=== PATIENT | female | born 1940 | race Caucasian/White ===

== ENCOUNTER 2017-01-27 12:26 | Inpatient (IN) | payer MEDICARE ==
[~2017-01-27] VITALS: Ht 167.6 cm; Wt 68.0 kg
[2017-01-27] VITALS (13 sets, daily range): BP systolic 120–243; BP diastolic 57–129; PULSE 67–90; RESP 16–18; TEMP 97.8–98.8; O2SAT 96–100
[2017-01-27] MEDS ORDERED: NALOXONE HCL 0.4 MG/ML AMP ONE ×2 (12:30→12:31)
[2017-01-27] MEDS ORDERED: ETOMIDATE 40 MG/20 ML VIAL ONE (12:33)
[2017-01-27] MEDS ORDERED: SODIUM CHLOR 0.9% 1000 ML INJ 1,000 ML IV ONE (12:48)
[2017-01-27] MEDS ORDERED: NITROGLYCERIN 0.4 MG SL 25 TABS/BTL SL STA (12:48)
[2017-01-27] MEDS ORDERED: ASPIRIN 81 MG CHEW TAB PO STA (12:48)
[2017-01-27] MEDS ORDERED: MIDAZOLAM HCL 5 MG/ML VIAL (1 ML) ONE (12:51)
--- NOTE | 2017-01-27 12:58 | PD ---
HPI Chief Complaint: Altered Mental Status Time Seen by Provider: 12:42 Travel History International Travel<30 days: No Contact w/Intl Traveler<30days: No Traveled to known affect area: No History of Present Illness HPI 76-year-old female came to the emergency room brought in by EMS emergently for altered mental status. Patient was last found normal at 11 this morning by her . She has recently been diagnosed with vertigo. He found her in the bed unresponsive and incontinent. He called 911. When EMS arrived they noticed that she was moving her left upper extremity but not her right and both lower extremities. When fire first arrived they gave her Narcan IM without any response. Blood glucose was 140 as per EMS. Vital signs were relatively stable. When patient arrived here her blood glucose was 160 and blood pressure was 240s. She continued to be poorly responsive with a GCS of 10. No other history was obtained. Patient cannot give any meaningful history given her mental status. PFSH Past Medical History Narrative Medical List of her past medical, surgical, social and family history reviewed from the nursing note. ?: Not Social History Tobacco Use: No Allergies-Medications (Allergen,Severity, Reaction): Coded Allergies: No Allergy Information Available (Unverified , 01/27/17) Comments No known drug allergies. Narrative Medication Awaiting for the nurse to do a medical reconciliation. Review of Systems ROS Limitations: Altered Mental Status, Unresponsive Except as stated in HPI: all other systems reviewed are Neg Physical Exam Narrative GENERAL: Poorly responsive, moderate distress, incontinent of urine and stool SKIN: Focused skin assessment warm/dry. HEAD: Atraumatic. Normocephalic. EYES: Pupils equal and round. No scleral icterus. No injection or drainage. ENT: No nasal bleeding or discharge. Mucous membranes pink and moist. NECK: Trachea midline. No JVD. CARDIOVASCULAR: Regular rate and rhythm. No murmur appreciated. RESPIRATORY: No accessory muscle use. Clear to auscultation. Breath sounds equal bilaterally. GASTROINTESTINAL: Abdomen soft, non-tender, nondistended. Hepatic and splenic margins not palpable. MUSCULOSKELETAL: No obvious deformities. No clubbing. No cyanosis. No edema. NEUROLOGICAL: GCS of 10. Moving her left upper extremity. Right wanda-neglect. Diminished but equal motor strength of both lower extremities. Positive Babinski's PSYCHIATRIC: Unable to assess Data Data Last Documented VS Vital Signs Date Time Temp Pulse Resp B/P (MAP) Pulse Ox O2 Delivery O2 Flow Rate FiO2 01/27/17 13:00 100 100 01/27/17 12:41 16 Ventilator 01/27/17 12:35 90 243/129 (167) Orders Orders Naloxone Inj (Narcan Inj) (01/27/17 12:30) Naloxone Inj (Narcan Inj) (01/27/17 12:31) Etomidate Inj (Amidate Inj) (01/27/17 12:33) Nicardipine Inj (Cardene Inj) (01/27/17 13:00) Labetalol Inj (Trandate Inj) (01/27/17 13:00) Troponin I (01/27/17 12:48) Ckmb (Isoenzyme) Profile (01/27/17 12:48) Complete Blood Count With Diff (01/27/17 12:48) I-Stat Profile (01/27/17 12:48) I-Stat Creatinine (01/27/17 12:48) Calcium (01/27/17 12:48) Magnesium (Mg) (01/27/17 12:48) Prothrombin Time / Inr (Pt) (01/27/17 12:48) Act Partial Throm Time (Ptt) (01/27/17 12:48) B-Type Natriuretic Peptide (01/27/17 12:48) Sodium Chlor 0.9% 1000 Ml Inj (Ns 1000 M (01/27/17 12:48) Sodium Chloride 0.9% Flush (Ns Flush) (01/27/17 13:00) Aspirin Chew (Aspirin Chew) (01/27/17 12:48) Nitroglycerin Sl (Nitrostat Sl) (01/27/17 12:48) Nitroglycerin-D5w 50 Mg/250 Ml (Nitrogly (01/27/17 13:00) Ct Brain W/O Iv Contrast(Rout) (01/27/17 ) Midazolam Inj (Versed Inj) (01/27/17 12:51) Succinylcholine Inj (Quelicin Inj) (01/27/17 13:00) Etomidate Inj (Amidate Inj) (01/27/17 13:00) Consult Neurosurgery (01/27/17 ) Electrocardiogram (01/27/17 13:02) Comprehensive Metabolic Panel (01/27/17 13:02) Creatine Kinase (Cpk) (01/27/17 13:02) Drug Screen, Random Urine (01/27/17 13:02) Troponin I (01/27/17 13:02) Urinalysis - C+S If Indicated (01/27/17 13:02) Chest, Single Ap (01/27/17 13:02) Ecg Monitoring (01/27/17 13:02) Iv Access Insert/Monitor (01/27/17 13:02) Oximetry (01/27/17 13:02) Sodium Chloride 0.9% Flush (Ns Flush) (01/27/17 13:15) Propofol 1000 Mg/100 Ml Inj (Diprivan 10 (01/27/17 13:15) ^ Infusion (01/27/17 13:04) RASS (01/27/17 13:04) Neurological Rass Scale NAVEEN.Q2H (01/27/17 13:04) Propofol 500 Mg/50 Ml Inj (Diprivan 500 (01/27/17 13:05) Mannitol Inj (Osmitrol Inj) (01/27/17 13:15) Urinary Catheter Insert/Apply (01/27/17 13:13) ^ Orogastric Tube (01/27/17 13:13) CKMB (01/27/17 12:40) CKMB% (01/27/17 12:40) Magnesium (Mg) (01/27/17 13:02) Hemoglobin (Hgb) A1c (01/27/17 13:02) Thyroid Stimulating Hormone (01/27/17 13:02) Labs Laboratory Tests Test 01/27/17 12:40 White Blood Count 21.2 TH/MM3 Red Blood Count 3.96 MIL/MM3 Hemoglobin 12.5 GM/DL Bedside Hemoglobin 12.9 G/DL Hematocrit 37.2 % Bedside Hematocrit 38.0 % Mean Corpuscular Volume 93.9 FL Mean Corpuscular Hemoglobin 31.5 PG Mean Corpuscular Hemoglobin Concent 33.6 % Red Cell Distribution Width 13.7 % Platelet Count 234 TH/MM3 Mean Platelet Volume 9.1 FL Neutrophils (%) (Auto) 82.0 % Lymphocytes (%) (Auto) 13.6 % Monocytes (%) (Auto) 3.9 % Eosinophils (%) (Auto) 0.3 % Basophils (%) (Auto) 0.2 % Neutrophils # (Auto) 17.4 TH/MM3 Lymphocytes # (Auto) 2.9 TH/MM3 Monocytes # (Auto) 0.8 TH/MM3 Eosinophils # (Auto) 0.1 TH/MM3 Basophils # (Auto) 0.0 TH/MM3 CBC Comment DIFF FINAL Differential Comment Prothrombin Time 9.7 SEC Prothromb Time International Ratio 1.0 RATIO Activated Partial Thromboplast Time 21.9 SEC Bedside Sodium 137 MMOL/L Bedside Potassium 4.5 MMOL/L Bedside Chloride 102 MMOL/L Bedside Blood Urea Nitrogen 13 MG/DL Bedside Creatinine 0.8 MG/DL Bedside Glucose 160 MG/DL Calcium Level 8.9 MG/DL Magnesium Level 2.0 MG/DL Total Creatine Kinase 158 U/L Creatine Kinase MB 0.8 NG/ML Troponin I LESS THAN 0.02 NG/ML B-Type Natriuretic Peptide 34 PG/ML MDM Medical Decision Making Medical Screen Exam Complete: Yes Emergency Medical Condition: Yes Medical Record Reviewed: Yes Interpretation(s) Twelve-lead EKG was reviewed by me. Normal sinus rhythm, normal axis, nonspecific ST-T wave changes. Heart rate of 69 bpm. Differential Diagnosis Intracranial bleed, CVA Narrative Course 1:28 PM patient was intubated emergently by me. Please refer to my procedure note. I had called initially for a stroke alert given her right upper extremity deficit. However once the CT scan was done and it was pretty evident that the reason of her presentation was from the bleed. I discussed this with Dr. Ch and he was notified. Please refer to my procedure note. Patient was given IV labetalol for her hypertensive emergency. I assisted the patient to the CT scanner while she was intubated. The CT scan showed a large and and her ventricular bleed. Patient was emergently started on Cardene drip and I spoke with Dr. Bowden who is on-call for neurosurgery. He wanted the blood pressure to be lowered as much as possible and patient to the ICU. I just discussed the case with Dr. Rivera from ICU who has requested to have the patient upstairs so that a ventriculostomy could be put in. Dr. Bowden is ready for ventriculostomy once the patient is in the ICU. I have let the charge nurse know so her transition to ICU can be facilitated. Last blood pressure was 120/80. Patient is on sedation as well. I discussed the CT scan findings with the radiologist Dr. Barker and Dr. Loco. Critical Care Narrative Aggregate critical care time was 60 minutes. Time to perform other separately billable procedures was not included in the critical care time. My time did not include minutes spent treating any other patients simultaneously or on activities that did not directly contribute to the patient's treatment. The services I provided to this patient were to treat and/or prevent clinically significant deterioration that could result in: Respiratory failure, intracranial bleed, hypertensive emergency I provided critical care services requiring my management, as noted below: Chart data review, documentation time, medication orders and management, vital sign assessments/reviewing monitor data, ordering and reviewing lab tests, ordering and interpreting/reviewing x-rays and diagnostic studies, care of the patient and discussion of the patient with the admitting physicians. Procedures Procedure Narrative After the risks and benefits were discussed the following procedure was performed: INTUBATION: The patient was put in optimal position for the procedure. Rapid sequence intubation was initiated by me using 20 milligrams of etomidate IV and 100 milligrams of succinylcholine IV. The patient was intubated with a 7.5 cuffed endotracheal tube. Tube placement was confirmed by visualization of the tube and balloon passing through the cords, capnometry and subsequent chest x-ray. Breath sounds were equal and well aerated bilaterally postintubation. No breath sounds over stomach. Patient tolerated procedure well. EKG Prior to Arrival: No Physician Communication Physician Communication Dr. Bowden, Dr. Barker, Dr. Ch, Dr. Rivera Diagnosis Primary Impression: Altered mental status Qualified Codes: R40.1 - Stupor Additional Impressions: Intracranial bleed Hypertensive emergency Respiratory failure Qualified Codes: J96.00 - Acute respiratory failure, unspecified whether with hypoxia or hypercapnia Admitting Information Admitting Physician Requests: Gloria Knox MD Jan 27, 2017 12:58
[2017-01-27] MEDS ORDERED: SUCCINYLCHOLINE CHLORIDE 100 MG/5 ML SYRINGE IV PUSH ONE (13:00)
[2017-01-27] MEDS ORDERED: LABETALOL HCL 100 MG/20 ML VIAL IV PUSH ONE (13:00)
[2017-01-27] MEDS ORDERED: SODIUM CHLORIDE 0.9% FLUSH 10 ML FLUSH IVF PRN ×2 (13:00→13:15)
[2017-01-27] MEDS ORDERED: NITROGLYCERIN-D5W 50 MG/250 ML 250 ML IV PRN (13:00)
[2017-01-27] MEDS ORDERED: ETOMIDATE 20 MG/10 ML VIAL IV PUSH ONE (13:00)
[2017-01-27 13:01] LABS: AUTOMATED NEUTROPHIL # 17.4 TH/MM3 (1.8-7.7); BASOPHIL % 0.2 % (0.0-2.0); EOSINOPHIL # 0.1 TH/MM3 (0-0.4); EOSINOPHIL % 0.3 % (0.0-4.0); HEMATOCRIT 37.2 % (35.0-46.0); HEMOGLOBIN 12.5 GM/DL (11.6-15.3); LYMPH % 13.6 % (9.0-44.0); LYMPHOCYTE # 2.9 TH/MM3 (1.0-4.8); MEAN CELL VOLUME 93.9 FL (80.0-100.0); MEAN CORPUSCULAR HEMOGLOBIN 31.5 PG (27.0-34.0); MEAN CORPUSCULAR HGB CONC 33.6 % (32.0-36.0); MEAN PLATELET VOLUME 9.1 FL (7.0-11.0); MONO % 3.9 % (0.0-8.0); MONOCYTE # 0.8 TH/MM3 (0-0.9); PLATELET COUNT 234 TH/MM3 (150-450); RED BLOOD COUNT 3.96 MIL/MM3 (4.00-5.30); RED CELL DISTRIBUTION WIDTH 13.7 % (11.6-17.2); WHITE BLOOD COUNT 21.2 TH/MM3 (4.0-11.0)
[2017-01-27] MEDS ORDERED: PROPOFOL 500 MG/50 ML INJ 50 ML ONE (13:05)
--- NOTE | 2017-01-27 13:05 | PD.CONS ---
HPI Service neurosurgery Consult Requested By Dr Rivera Reason for Consult intracerebral hemorrhage Primary Care Physician Unknown History of Present Illness This is a 76-year-old female who was brought to the [facility] emergency department by EMS as a stroke alert. She was recently diagnosed with vertigo. She was found unresponsive in the bed and EMS was called. EMS gave her Narcan without any response, Her vital signs were apparently stable. In the ED patient remained poorly responsive and was intubated for airway protection. Her blood pressure on arrival was 243/129 and patient was started on Cardene infusion. CT of the head showed extensive acute intraventricular hemorrhage involving the left lateral ventricle, right lateral ventricle and third ventricle. There was also acute parenchymal hemorrhage within the left parietal region as well as within the left occipital region ( 4.1 cm in size). Acute subdural hematoma along the left frontoparietal region measuring 5 mm in width is noted. There was also significant Significant subfalcine herniation to the right Neurosurgery consultation was requested Review of Systems Unable to obtain due to her condition Past Family Social History Allergies: Coded Allergies: No Allergy Information Available (Unverified , 01/27/17) Past Medical History Unknown and unable to obtain due to her condition Past Surgical History Unknown and unable to obtain due to her condition Reported Medications Unknown and unable to obtain due to her condition Active Ordered Medications Last 48 hours Impressions Chest X-Ray 01/27/17 1302 Signed Impressions: Service Date/Time: Friday, January 27, 2017 13:12 - CONCLUSION: Left basilar density likely atelectasis. Nasogastric tube 1.5 cm above the peng. Isai Sullivan MD Head CT 01/27/17 0000 Signed Impressions: Service Date/Time: Friday, January 27, 2017 12:50 - CONCLUSION: Extensive acute intraventricular hemorrhage involving the left lateral ventricle but also within the right lateral ventricle and third ventricle. There is a large acute parenchymal hemorrhage within the left posterior parietal and high parietal region as well as within the left occipital region. The largest area measures approximately 4.1 cm in size. An acute subdural hematoma along the left frontoparietal region measuring 5 mm in width is noted. Significant subfalcine herniation to the right measuring 10 mm is noted. The findings were discussed with Dr. Christine at 1:13 PM on 01/27/17. Ko Alexander MD Chest X-Ray 01/27/17 0000 Signed Impressions: Service Date/Time: Friday, January 27, 2017 15:18 - CONCLUSION: Left basilar atelectasis. Adequate placement of left subclavian central line. Isai Sullivan MD Family History Unknown and unable to obtain due to her condition Social History Unknown and unable to obtain due to her condition Physical Exam Vital Signs Vital Signs Date Time Temp Pulse Resp B/P (MAP) Pulse Ox O2 Delivery O2 Flow Rate FiO2 01/27/17 12:35 90 18 243/129 (167) 96 Physical Exam The patient is intubated . No commands. Spontaneously moving lower extremities and left upper extremity Cranial Nerves: Pupils equal, round, reactive to light. Eyes appear conjugated. There was no nystagmus, no papilledema. Face musculature appeared symmetrical at rest. Face sensation, olfaction, visual browne, and hearing cannot be adequately assessed due to her neurological condition. The patient has a corneal reflex. He has a gag reflex. The sternocleidomastoid and trapezius are symmetrical. Cervical Spine: neck is soft, supple, without nuchal rigidity. Motor: muscle tone and bulk are normal. moves purposefully lower extremities and left upper extremity Reflexes: Deep tendon reflexes are 1+ and symmetrical in the biceps, triceps, and brachioradialis, bilaterally, in the upper extremities. In the lower extremities, the patellar and ankles are 1+, bilaterally. There is a bilateral plantar flexion response. There is no clonus or other abnormal reflexes noted. Sensory: On examination there is response to painful stimuli, localizing with lower extremities and left upper extremity Cerebellar: Examination cannot be adequately assessed due to the patient's neurological condition. Laboratory Laboratory Tests Test 01/27/17 12:40 Bedside Hemoglobin 12.9 Bedside Hematocrit 38.0 Bedside Sodium 137 Bedside Potassium 4.5 Bedside Chloride 102 Bedside Blood Urea Nitrogen 13 Bedside Creatinine 0.8 Bedside Glucose 160 Imaging Current Medications Naloxone HCl (Narcan Inj) 0.4 mg STK-MED ONCE .ROUTE Last administered on 01/27t 14:23; Start 01/27/17 at 12:30; Stop 01/27/17 at 12:31; Status DC Naloxone HCl (Narcan Inj) 0.4 mg STK-MED ONCE .ROUTE Last administered on 01/27 14:23; Start 01/27/17 at 12:31; Stop 01/27/17 at 12:32; Status DC Etomidate (Amidate Inj) 40 mg STK-MED ONCE .ROUTE Last administered on 14:24; Start 01/27/17 at 12:33; Stop 01/27/17 at 12:34; Status DC Nicardipine HCl 25 mg/Sodium Chloride 250 ml @ 50 mls/hr TITRATE PRN IV Blood pressure management Last administered on 01/27/17 14:29; Start 01/27/17 at 13 :00 Labetalol HCl (Trandate Inj) 20 mg ONCE ONCE IV PUSH Last administered on 14:27; Start 01/27/17 at 13:00; Stop 01/27/17 at 13:01; Status DC Sodium Chloride 1,000 ml @ 0 mls/hr Q0M ONCE IV ; Start 01/27/17 at 12:48; Stop 01/27/17 at 13:02; Status DC Sodium Chloride (NS Flush) 2 ml UNSCH PRN IVF FLUSH AFTER USING IV ACCESS; Start 01/27/17 at 13:00; Stop 01/27/17 at 13:02; Status DC Aspirin (Aspirin Chew) 324 mg NOW STAT PO ; Start 01/27/17 at 12:48; Stop 01/03 at 13:02; Status DC Nitroglycerin (Nitrostat Sl) 0.4 mg NOW STAT SL ; Start 01/27/17 at 12:48; Stop 01/27/17 at 13:02; Status DC Nitroglycerin/ Dextrose 250 ml @ 3 mls/hr TITRATE PRN IV for angina or ST elevation; Start 01/27/17 at 13:00; Stop 01/27/17 at 13:00; Status DC Midazolam HCl (Versed Inj) 5 mg STK-MED ONCE .ROUTE Last administered on 14:22; Start 01/27/17 at 12:51; Stop 01/27/17 at 12:52; Status DC Succinylcholine Chloride (Quelicin Inj) 100 mg ONCE ONCE IV PUSH Last administered on 01/27/17 14:26; Start 01/27/17 at 13:00; Stop 01/27/17 at 13 :01; Status DC Etomidate (Amidate Inj) 20 mg ONCE ONCE IV PUSH ; Start 01/27/17 at 13:00; Stop 01/27/17 at 13:01; Status DC Sodium Chloride (NS Flush) 2 ml UNSCH PRN IVF FLUSH AFTER USING IV ACCESS; Start 01/27/17 at 13:15; Stop 01/27/17 at 17:11; Status DC Propofol 100 ml @ 0 mls/hr TITRATE PRN IV Ordered RASS Last administered on 14:41; Start 01/27/17 at 13:15; Stop 01/27/17 at 15:08; Status DC Propofol 50 ml @ As Directed STK-MED ONCE .ROUTE ; Start 01/27/17 at 13:05; Stop 01/27/17 at 13:06; Status DC Mannitol 250 ml @ 250 mls/hr ONCE ONCE IV Last administered on 01/27/17 14: 28; Start 01/27/17 at 13:15; Stop 01/27/17 at 14:15; Status DC Sodium Chloride 1,000 ml @ 75 mls/hr [id number] IV ; Start 01/27/17 at 13:29 Sodium Chloride (NS Flush) 2 ml UNSCH PRN IV FLUSH FLUSH AFTER USING IV ACCESS ; Start 01/27/17 at 13:30 Sodium Chloride (NS Flush) 2 ml BID IV FLUSH ; Start 01/27/17 at 21:00 Fentanyl Citrate (fentaNYL INJ) 50 mcg Q1H PRN IV PUSH SEE LABEL COMMENTS; Start 01/27/17 at 13:30 Albuterol/ Ipratropium (Duoneb Neb) 1 ampule Q6HR NEB NEB Last administered on 01/27/17 15:53; Start 01/27/17 at 16:00 Albuterol Sulfate (Albuterol Neb) 2.5 mg Q4HR NEB PRN INH SHORTNESS OF BREATH; Start 01/27/17 at 13:30 Chlorhexidine Gluconate (Peridex 0.12% Liq) 15 ml BID@08,20 MT ; Start at 20:00 Pantoprazole Sodium (Protonix Inj) 40 mg DAILY IV PUSH ; Start 01/28/17 at 09: 00 Miscellaneous Information 1 Q361D XX ; Start 01/27/17 at 13:30 Chlorhexidine Gluconate (Chlorhexidine 2% Cloth) 3 pack Taper DAILY@04 TOP ; Start 01/28/17 at 04:00; Stop 01/24/18 at 03:59 Chlorhexidine Gluconate (Chlorhexidine 2% Cloth) 3 pack UNSCH PRN TOP HYGIENIC CARE; Start 01/27/17 at 13:30 Propofol 100 ml @ 0 mls/hr TITRATE PRN IV SEDATION; Start 01/27/17 at 13:30; Stop 01/27/17 at 15:07; Status DC Propofol 100 ml @ 1.995 mls/ hr TITRATE PRN IV SEDATION; Start 01/27/17 at 15 :15 Sodium Chloride 250 ml @ 30 mls/hr CONTINUOUS IV ; Start 01/27/17 at 16:45 Levetriacetam 500 mg/Sodium Chloride 105 ml @ 420 mls/hr Q12HR IV ; Start 01/03 at 21:00 Attending Statement Neuro. neuro checks in a serial fashion. A follow-up CT of the head will be obtained in 24 hours. Intraventricular hemorrhage. She is developing obstructive hydrocephalus. Urgent placement of a ventriculostomy catheter is indicated for ICP measuring and drainage of cerebrospinal fluid Pulmonary. Acute respiratory failure. She is in full mechanical ventilation, aggressive pulmonary toilette, nasotracheal suction, and breathing treatments with nebulizers. PT consult Arterial hypertension. Likely source of hemorrhage. Cardene drip for blood pressure control Diet. NPO. Renal. monitor closely urine output, BUN and creatinine0.9 NaCl at 100 mL per hour. Follow-up BMP Protonix 40 mg IV daily for stress ulcer prophylaxis. Charlie ta and SCD's for DVT prophylaxis. Avoid pharmacologic DVT prophylaxis due to cerebral hematoma. ACCESS: Peripheral IV providing adequate access at this time. Jack Bowden MD Jan 27, 2017 13:05
[2017-01-27 13:11] LABS: PROTHROMBIN TIME - PATIENT 9.7 SEC (9.8-11.6)
[2017-01-27] MEDS ORDERED: MANNITOL INJ 250 ML IV ONE (13:15)
[2017-01-27] MEDS ORDERED: PROPOFOL 1000 MG/100 ML INJ 100 ML IV PRN ×2 (13:15→13:30)
--- NOTE | 2017-01-27 13:16 | RADRPT ---
EXAM DATE/TIME: 01/27/2017 12:50 [facility] COMPARISON: No previous studies available for comparison. INDICATIONS : Found unresponsive, left sided weakness. RADIATION DOSE: 33.07 CTDIvol (mGy) This report was called by Dr. Alexander to Dr. Christine at 1: 13 PM on 01/27/17. MEDICAL HISTORY : Non-responsive. SURGICAL HISTORY : Non-responsive. ENCOUNTER: Initial ACUITY: 1 day PAIN SCALE: Non-responsive LOCATION: cranial TECHNIQUE: Multiple contiguous axial images were obtained of the head. Using automated exposure control and adj ustment of the mA and/or kV according to patient size, radiation dose was kept as low as reasonably a chievable to obtain optimal diagnostic quality images. DICOM format image data is available electro nically for review and comparison. FINDINGS: There is evidence of extensive acute intraventricular hemorrhage involving the left lateral ventricle but also within the right lateral ventricle and third ventricle. There is a large acute parenchymal hemorrhage within the left posterior parietal and high parietal region as well as within the left occ ipital region. The largest area measures approximately 4.1 cm in size. An acute subdural hematoma kimberly ng the left frontoparietal region measuring 5 mm in width is noted. Significant subfalcine herniation to the right measuring 10 mm is noted. The findings were discussed with Dr. Christine at 1:13 PM on . CONCLUSION: Extensive acute intraventricular hemorrhage involving the left lateral ventricle but also within the right lateral ventricle and third ventricle. There is a large acute parenchymal hemor rhage within the left posterior parietal and high parietal region as well as within the left occipita l region. The largest area measures approximately 4.1 cm in size. An acute subdural hematoma along th e left frontoparietal region measuring 5 mm in width is noted. Significant subfalcine herniation to t he right measuring 10 mm is noted. The findings were discussed with Dr. Christine at 1:13 PM on 7. Ko Alexander MD on January 27, 2017 at 13:06 Board Certified Radiologist. This report was verified electronically.
--- NOTE | 2017-01-27 13:24 | RADRPT ---
EXAM DATE/TIME: 01/27/2017 13:12 [facility] COMPARISON: No previous studies available for comparison. INDICATIONS : Post intubation procedure. MEDICAL HISTORY : Non-responsive. SURGICAL HISTORY : Non-responsive. ENCOUNTER: Initial ACUITY: 1 day PAIN SCORE: Non-responsive. LOCATION: Bilateral chest FINDINGS: A single view of the chest demonstrates minimal left basilar density. Endotracheal tube with tip 1.5 cm above the peng. Nasogastric tube with tip in stomach. The cardiomediastinal contours are unrema rkable. Osseous structures are intact. CONCLUSION: Left basilar density likely atelectasis. Nasogastric tube 1.5 cm above the peng. Isai Sullivan MD on January 27, 2017 at 13:21 Board Certified Radiologist. This report was verified electronically.
[2017-01-27 13:29] LABS: CALCIUM 8.9 MG/DL (8.5-10.1); TROPONIN I LESS THAN 0.02 NG/ML (0.02-0.05)
[2017-01-27] MEDS ORDERED: RESP: ALBUTEROL 2.5 MG/3 ML NEB (PRN) INH (13:30)
[2017-01-27] MEDS ORDERED: SODIUM CHLORIDE 0.9% FLUSH 10 ML FLUSH IV FLUSH PRN (13:30)
[2017-01-27] MEDS ORDERED: MISCELLANEOUS NURSING INFORMATION XX SCH (13:30)
[2017-01-27] MEDS ORDERED: CHLORHEXIDINE GLUCONATE 2 % 1 PACK (2 CLOTHS) TOP PRN (13:30)
[2017-01-27 14:02] LABS: BILIRUBIN, URINE NEG (NEG); BLOOD, URINE NEG (NEG); GLUCOSE,URINE 70 mg/dL (NEG); HYALINE CAST, URINE 1 /lpf (RARE); KETONE, URINE NEG (NEG); MUCUS URINE FEW /lpf (OCC); NITRITE,URINE NEG (NEG); URINE COLOR LIGHT-YELLOW (YELLW/STRAW); URINE LEUKOCYTE ESTERASE NEG (NEG)
[2017-01-27] MEDS: niCARdipine INJ 25 MG in SODIUM CHLOR 0.9% 250 ML INJ 240 ML IV PRN (14:29)
--- NOTE | 2017-01-27 15:30 | PD.OP ---
Operative Report Date of Surgery: Jan 27, 2017 Preoperative Diagnosis: Intracerebral and intraventricular hemorrhage Postoperative Diagnosis: Intracerebral and intraventricular hemorrhage Procedure: Right frontal Alanna hole with placement of a ventriculostomy catheter Anesthesia: general Surgeon: Jack Bowden Home Health Specialist(s): CHANTALE Operation and Findings: INDICATIONS FOR THE PROCEDURE Ms Tinajero is an 76 year old adult female who was brought to [facility] as a stroke alert with a severe intracerebral and intraventricular hemorrhage with mass effect and midline shift. Placement of ventriculostomy was indicated as recommended by the Trauma [employer] of [employer]. We have discussed with her the details including the step-by- step details of the surgical procedure, its indications, alternatives, risks, and potential complications. Risks and potential complications were explained. He provided informed consent DETAILS OF THE SURGICAL PROCEDURE The right frontal area was shaved, prepped and draped in the usual sterile fashion. An entry point was selected 90 millimeters posterior to the supraorbital rim and 25 millimeters from the midline. The area was infiltrated with 1% lidocaine with epinephrine. A skin incision was made with a #15 blade down to the level of the periosteum. Using a twist drill, a alanna hole was made. The dura was carefully opened with a brain needle and a ventriculostomy catheter was advanced into the ventricular system. At a depth of 60 millimeters, cerebrospinal fluid was obtained. Opening pressure was 2 centimeters of water. A specimen of cerebrospinal fluid was collected and sent to the lab for analysis of the glucose, protein, cell count and cultures. The catheter was then tunneled under the galea and externalized through a separate stab incision. The incision was closed with 3-0 nylon in a single plane. The patient tolerated the procedure well. COMPLICATIONS There were no intraoperative complications. BLOOD LOSS Blood loss was minimal. Jack Bowden MD Jan 27, 2017 15:30
--- NOTE | 2017-01-27 15:46 | RADRPT ---
EXAM DATE/TIME: 01/27/2017 15:18 [facility] COMPARISON: CHEST SINGLE AP, January 27, 2017, 13:12. INDICATIONS : Evaluate central line placement MEDICAL HISTORY : None. SURGICAL HISTORY : None. ENCOUNTER: Subsequent ACUITY: 1 day PAIN SCORE: Non-responsive. LOCATION: chest FINDINGS: A single view of the chest demonstrates minimal left basilar density. Endotracheal tube nasogastric t ube unchanged. Left subclavian central line with tip in the SVC. No pneumothorax. The cardiomediastin al contours are unremarkable. Osseous structures are intact. CONCLUSION: Left basilar atelectasis. Adequate placement of left subclavian central line. Isai Sullivan MD on January 27, 2017 at 15:44 Board Certified Radiologist. This report was verified electronically.
[2017-01-27] MEDS: RESP: ALBUTEROL 2.5 MG/IPRATROPIUM 0.5 MG NEB (SCH) NEB ×2 (15:53→20:09)
--- NOTE | 2017-01-27 16:44 | HHI.HP ---
[facility] Service Critical Care Medicine Primary Care Physician Unknown Admission Diagnosis intracranial bleed, hypertensive emergency, subfalcine herniation Diagnosis: (1) Intracerebral hemorrhage with intraventricular extension Diagnosis: Principal (2) Acute respiratory failure Diagnosis: Principal (3) Acute encephalopathy Diagnosis: Principal (4) Hypertensive emergency Diagnosis: Principal (5) Leukocytosis Diagnosis: Principal Chief Complaint: Acute left parietal intraparenchymal hemorrhage and bilateral intraventricular hemorrhage Travel History International Travel<30 Days: No Contact w/Intl Traveler <30 Da: No Traveled to Known Affected Are: No History of Present Illness Patient is a 76-year-old female who was brought to the [facility] emergency department by EMS as a stroke alert. Last found normal at 11 this morning, later found unresponsive in the bed by her and EMS was called. EMS gave her Narcan IM without any response, blood glucose was 140, vital signs were apparently stable. In the ED patient remained poorly responsive and was intubated for airway protection. Her blood pressure on arrival was 243/129 and patient was started on Cardene infusion. CT of the head showed extensive acute intraventricular hemorrhage involving the left lateral ventricle, right lateral ventricle and third ventricle, acute intraparenchymal hemorrhage within the left parietal and left occipital region ( 4.1 cm in size). Acute subdural hematoma along the left frontoparietal region measuring 5 mm in width. There was also significant Significant (10 mm) subfalcine herniation to the right. Dr. Bowden was contacted by the ED Critical care medicine was requested to admit the patient. Patient was emergently moved to the ICU for EVD placement. I evaluated the patient immediately after arrival to the ICU. Patient purposefully moves left upper extremity and withdraws all other extremities. at the bedside was updated. I explained to the that she has very extensive intracranial hemorrhage and prognosis appears poor. Dr. Bowden is planning to place an EVD emergently. I discussed with Dr. Bowden extensively, patient is not a candidate for evacuation of intracerebral hemorrhage due to overall poor prognosis. I have placed a central line for administration of vasopressor agents and 3% saline. Patient remains on Cardene infusion and at this time receiving mannitol. I have also ordered Keppra for seizure prophylaxis Review of Systems ROS Limitations: Intubated, Unresponsive Past Family Social History Allergies: Coded Allergies: No Allergy Information Available (Unverified , 01/27/17) Past Medical History Hypothyroidism Vertigo Past Surgical History Hysterectomy Reported Medications Takes thyroid supplements, dose unknown Active Ordered Medications Reviewed Family History Father had lung cancer, sister had breast cancer Social History Quit smoking 30 years ago, occasional alcohol use Physical Exam Vital Signs Vital Signs Date Time Temp Pulse Resp B/P (MAP) Pulse Ox O2 Delivery O2 Flow Rate FiO2 01/27/17 15:57 100 50 01/27/17 14:32 100 100 01/27/17 14:29 76 207/98 01/27/17 13:45 100 100 01/27/17 13:45 97.8 71 16 131/66 (87) 100 Ventilator 100 01/27/17 13:30 67 16 120/80 (93) 100 Ventilator 100 01/27/17 13:00 100 100 01/27/17 12:45 100 100 01/27/17 12:41 16 100 Ventilator 100 01/27/17 12:41 100 01/27/17 12:35 90 18 243/129 (167) 96 Physical Exam GENERAL: Intubated patient not on any sedation. Spontaneously moving lower extremities and left upper extremity SKIN: Warm/dry. HEAD: Atraumatic. Normocephalic. EYES: Pupils equal and round sluggish ENT: No nasal bleeding or discharge. Mucous membranes moist. Orotracheally intubated NECK: Trachea midline. No JVD. CARDIOVASCULAR: Regular rate and rhythm. No murmur appreciated. RESPIRATORY: No accessory muscle use. Clear to auscultation. Breath sounds equal bilaterally. GASTROINTESTINAL: Abdomen soft, non-tender, nondistended. Hepatic and splenic margins not palpable. MUSCULOSKELETAL: No obvious deformities. No clubbing. No cyanosis. No edema. NEUROLOGICAL: Intubated not on sedation. Moving her left upper extremity spontaneously and localizes to pain. Withdraws all other extremities. SERGEY Laboratory Laboratory Tests Test 01/27/17 12:40 01/27/17 13:30 01/27/17 14:35 White Blood Count 21.2 Red Blood Count 3.96 Hemoglobin 12.5 Bedside Hemoglobin 12.9 Hematocrit 37.2 Bedside Hematocrit 38.0 Mean Corpuscular Volume 93.9 Mean Corpuscular Hemoglobin 31.5 Mean Corpuscular Hemoglobin Concent 33.6 Red Cell Distribution Width 13.7 Platelet Count 234 Mean Platelet Volume 9.1 Neutrophils (%) (Auto) 82.0 Lymphocytes (%) (Auto) 13.6 Monocytes (%) (Auto) 3.9 Eosinophils (%) (Auto) 0.3 Basophils (%) (Auto) 0.2 Neutrophils # (Auto) 17.4 Lymphocytes # (Auto) 2.9 Monocytes # (Auto) 0.8 Eosinophils # (Auto) 0.1 Basophils # (Auto) 0.0 CBC Comment DIFF FINAL Differential Comment Prothrombin Time 9.7 Prothromb Time International Ratio 1.0 Activated Partial Thromboplast Time 21.9 Bedside Sodium 137 Bedside Potassium 4.5 Bedside Chloride 102 Bedside Blood Urea Nitrogen 13 Bedside Creatinine 0.8 Bedside Glucose 160 Calcium Level 8.9 Magnesium Level 2.0 Total Creatine Kinase 158 Creatine Kinase MB 0.8 Troponin I LESS THAN 0.02 B-Type Natriuretic Peptide 34 Urine Color LIGHT-YELLOW Urine Turbidity CLEAR Urine pH 8.0 Urine Specific [place] 1.010 Urine Protein TRACE Urine Glucose (UA) 70 Urine Ketones NEG Urine Occult Blood NEG Urine Nitrite NEG Urine Bilirubin NEG Urine Urobilinogen LESS THAN 2.0 Urine Leukocyte Esterase NEG Urine RBC 2 Urine WBC 1 Urine Hyaline Casts 1 Urine Mucus FEW Microscopic Urinalysis Comment CATH-CULT NOT IND Urine Opiates Screen NEG Urine Barbiturates Screen NEG Urine Amphetamines Screen NEG Urine Benzodiazepines Screen NEG Urine Cocaine Screen NEG Urine Cannabinoids Screen NEG Blood Gas Puncture Site RT RADIAL Blood Gas Patient Temperature 98.6 Blood Gas HCO3 22 Blood Gas Base Excess -2.7 Blood Gas Oxygen Saturation 98 Arterial Blood pH 7.38 Arterial Blood Partial Pressure CO2 37 Arterial Blood Partial Pressure O2 274 Arterial Blood Oxygen Content 17.2 Arterial Blood Carboxyhemoglobin 0.9 Arterial Blood Methemoglobin 1.0 Blood Gas Hemoglobin 12.0 Oxygen Delivery Device VENTILATOR Blood Gas Ventilator Setting Blood Gas Inspired Oxygen 100 Result Diagram: 01/27/[address] of the head showed extensive acute intraventricular hemorrhage involving the left lateral ventricle, right lateral ventricle and third ventricle. There was also acute parenchymal hemorrhage within the left parietal region as well as within the left occipital region ( 4.1 cm in size). Acute subdural hematoma along the left frontoparietal region measuring 5 mm in width is noted. There was also significant Significant subfalcine herniation to the right measuring 10 mm. Septic Shock Reassessment Septic shock perfusion: reassessment completed Caprini VTE Risk Assessment Caprini VTE Risk Assessment: Mod/High Risk (score >= 2) VTE Pharm Contraindication: Hemorrhage Caprini Risk Assessment Model Point Value = 1 Point Value = 2 Point Value = 3 Point Value = 5 Age 41-60 Minor surgery BMI > 25 kg/m2 Swollen legs Varicose veins or History of unexplained or recurrent spontaneous Oral contraceptives or hormone replacement Sepsis (< 1 month) Serious lung disease, including pneumonia (< 1 month) Abnormal pulmonary function Acute myocardial infarction Congestive heart failure (< 1 month) History of inflammatory bowel disease Medical patient at bed rest Age 61-74 Arthroscopic surgery Major open surgery (> 45 min) Laparoscopic surgery (> 45 min) Malignancy Confined to bed (> 72 hours) Immobilizing plaster cast Central venous access Age >= 75 History of VTE Family history of VTE Factor V Leiden Prothrombin [id number] Lupus anticoagulant Anticardiolipin antibodies Elevated serum homocysteine Heparin-induced thrombocytopenia Other congenital or acquired thrombophilia Stroke (< 1 month) Elective arthroplasty Hip, pelvis, or leg fracture Acute spinal cord injury (< 1 month) Prophylaxis Regimen Total Risk Factor Score Risk Level Prophylaxis Regimen 0-1 Low Early ambulation 2 Moderate Order ONE of the following: *Sequential Compression Device (SCD) *Heparin 5000 units SQ BID 3-4 Higher Order ONE of the following medications: *Heparin 5000 units SQ TID *Enoxaparin/Lovenox 40 mg SQ daily (WT < 150 kg, CrCl > 30 mL/min) *Enoxaparin/Lovenox 30 mg SQ daily (WT < 150 kg, CrCl > 10-29 mL/min) *Enoxaparin/Lovenox 30 mg SQ BID (WT < 150 kg, CrCl > 30 mL/min) AND/OR *Sequential Compression Device (SCD) 5 or more Highest Order ONE of the following medications: *Heparin 5000 units SQ TID (Preferred with Epidurals) *Enoxaparin/Lovenox 40 mg SQ daily (WT < 150 kg, CrCl > 30 mL/min) *Enoxaparin/Lovenox 30 mg SQ daily (WT < 150 kg, CrCl > 10-29 mL/min) *Enoxaparin/Lovenox 30 mg SQ BID (WT < 150 kg, CrCl > 30 mL/min) AND *Sequential Compression Device (SCD) Assessment and Plan Assessment and Plan Neuro: Extensive intraventricular hemorrhage, left parietal/occipital intraparenchymal hemorrhage, left subdural hemorrhage Acute encephalopathy - Propofol for sedation and vent synchrony - Emergency EVD placement by Dr. Bowden. ICP controlled - 3% Saline to keep Na 150-155 - Keppra for seizure prophylaxis - Frequent neuro checks - Mannitol per neurosurgery - MRI, MRA of brain ordered Resp: Acute respiratory failure - Intubated for airway protection, continue ACV - wean fio2 for goal spo2 > 90% - HOB elevated - nebs, vent bundle CV: Hypertensive emergency - Cardene infusion, when necessary labetalol and hydralazine to keep systolic blood pressure 140-150 - NS at 75 ml per hour, 3% saline at 30 ml per hour - 2D Echo ordered Renal: - Place Fuller - strict i/os FEN/GI: - Nothing by mouth, IV famotidine Heme/ID: Leukocytosis - Does not meet transfusion triggers at this time - No infectious etiology suspected at this time - Leukocytosis most likely reactive Endocrine: Hypothyroidism - Start by mouth Synthroid in 24 hours Prophylaxis: SCDs Pepcid iv No pharmacologic DVT prophylaxis given ICH Dispo: Critically ill with very poor prognosis. CCT 55 MIN Code Status Full Discussed Condition With Dr. Christine and Cathie Iyer MD Jan 27, 2017 16:44
[2017-01-27] MEDS: PROPOFOL 1000 MG/100 ML INJ 100 ML IV PRN (18:30)
[2017-01-27 18:56] LABS: TOTAL PROTEIN,CSF 1269.1 MG/DL (15.0-45.0)
[2017-01-27 19:29] LABS: CSF LYMPHOCYTES 5 %; CSF MONOCYTES 1 %; CSF NEUTROPHILS 94 %
[2017-01-27 19:41] LABS: SUPERNATE COLOR TUBE #1 SLIGHTLY XANTHOCHROM (CLEAR)
[2017-01-27 19:42] LABS: WBC TUBE #1 626 /MM3 (0-10)
[2017-01-27] MEDS: SODIUM CHLORIDE 0.9% FLUSH 10 ML FLUSH IV FLUSH SCH (19:45)
[2017-01-27 19:46] LABS: RBC TUBE #1 144531 /MM3
[2017-01-27] MEDS: CHLORHEXIDINE 0.12% (ORAL KIT) 15 ML CUP MT SCH (19:53)
[2017-01-27] MEDS: levETIRAcetam INJ 500 MG in SODIUM CHLORIDE 0.9% INJ 100 ML IV SCH (20:26)
[2017-01-27 20:28] LABS: ALBUMIN 3.8 GM/DL (3.4-5.0); AST (GOT) 26 U/L (15-37); BICARBONATE 24.9 MEQ/L (21.0-32.0); BLOOD UREA NITROGEN 10 MG/DL (7-18); CHLORIDE 100 MEQ/L (98-107); CREATININE 0.81 MG/DL (0.50-1.00); GLOMERULAR FILTRATION RATE 69 ML/MIN (>89); GLUCOSE,RANDOM 131 MG/DL (74-106); MAGNESIUM 1.8 MG/DL (1.5-2.5); SODIUM (NA) 135 MEQ/L (136-145)
[2017-01-27] MEDS: 3% SALINE INJ 250 ML IV SCH (20:35)
[2017-01-27 20:40] LABS: ALKALINE PHOSPHATASE 102 U/L (45-117); ALT (GPT) 22 U/L (10-53); TOTAL BILIRUBIN ADULT 0.4 MG/DL (0.2-1.0); TROPONIN I 0.12 NG/ML (0.02-0.05)
[2017-01-27] MEDS: SODIUM CHLOR 0.9% 1000 ML INJ 1,000 ML IV SCH (21:00)
[2017-01-27 22:32] LABS: HEMOGLOBIN A1C 5.6 % (4.3-6.0)
[2017-01-28] VITALS (19 sets, daily range): BP systolic 110–162; BP diastolic 46–74; PULSE 81–100; RESP 16–17; TEMP 98.2–100.2; O2SAT 95–100
[2017-01-28] MEDS: PROPOFOL 1000 MG/100 ML INJ 100 ML IV PRN ×4 (00:59→23:52)
[2017-01-28] MEDS: SODIUM CHLOR 0.9% 1000 ML INJ 1,000 ML IV SCH ×2 (02:34→16:09)
[2017-01-28] MEDS: RESP: ALBUTEROL 2.5 MG/IPRATROPIUM 0.5 MG NEB (SCH) NEB ×4 (03:36→20:27)
[2017-01-28] MEDS: CHLORHEXIDINE GLUCONATE 2 % 1 PACK (2 CLOTHS) TOP SCH (04:00)
[2017-01-28 05:31] LABS: AUTOMATED NEUTROPHIL # 15.7 TH/MM3 (1.8-7.7); BASOPHIL # 0.1 TH/MM3 (0-0.2); BASOPHIL % 0.4 % (0.0-2.0); HEMATOCRIT 33.6 % (35.0-46.0); HEMOGLOBIN 11.6 GM/DL (11.6-15.3); LYMPH % 9.1 % (9.0-44.0); LYMPHOCYTE # 1.7 TH/MM3 (1.0-4.8); MEAN CORPUSCULAR HEMOGLOBIN 31.8 PG (27.0-34.0); MEAN CORPUSCULAR HGB CONC 34.6 % (32.0-36.0); MONO % 7.1 % (0.0-8.0); MONOCYTE # 1.3 TH/MM3 (0-0.9); NEUT % 83.4 % (16.0-70.0); PLATELET COUNT 219 TH/MM3 (150-450); RED BLOOD COUNT 3.66 MIL/MM3 (4.00-5.30); RED CELL DISTRIBUTION WIDTH 13.8 % (11.6-17.2); WHITE BLOOD COUNT 18.9 TH/MM3 (4.0-11.0)
[2017-01-28 06:01] LABS: ALBUMIN 3.3 GM/DL (3.4-5.0); ALKALINE PHOSPHATASE 92 U/L (45-117); ALT (GPT) 18 U/L (10-53); AST (GOT) 19 U/L (15-37); BICARBONATE 21.3 MEQ/L (21.0-32.0); BLOOD UREA NITROGEN 13 MG/DL (7-18); CALCIUM 8.2 MG/DL (8.5-10.1); CHLORIDE 113 MEQ/L (98-107); CREATININE 0.96 MG/DL (0.50-1.00); GLOMERULAR FILTRATION RATE 57 ML/MIN (>89); GLUCOSE,RANDOM 166 MG/DL (74-106); SODIUM (NA) 144 MEQ/L (136-145); TOTAL BILIRUBIN ADULT 0.3 MG/DL (0.2-1.0); TOTAL PROTEIN 7.3 GM/DL (6.4-8.2)
[2017-01-28] MEDS: levETIRAcetam INJ 500 MG in SODIUM CHLORIDE 0.9% INJ 100 ML IV SCH ×3 (08:20→21:00)
[2017-01-28] MEDS: CHLORHEXIDINE 0.12% (ORAL KIT) 15 ML CUP MT SCH ×2 (08:20→20:23)
[2017-01-28] MEDS: SODIUM CHLORIDE 0.9% FLUSH 10 ML FLUSH IV FLUSH SCH ×2 (08:21→20:24)
[2017-01-28] MEDS: PANTOPRAZOLE SODIUM 40 MG VIAL IV PUSH SCH (08:22)
[2017-01-28] MEDS ORDERED: IOHEXOL 350 MG/ML 10 ML VIAL (for RAD DIAG) IVCONTRAST ONE (10:47)
--- NOTE | 2017-01-28 10:47 | HHI.NSPN ---
Note Status Status: Progress Note Labs, Micro, & Vital Signs Results Date Time Temp Pulse Resp B/P (MAP) Pulse Ox O2 Delivery O2 Flow Rate FiO2 01/28/17 10:00 81 01/28/17 08:18 100 45 01/28/17 08:00 45 01/28/17 08:00 84 01/28/17 08:00 100.2 85 17 100 121/58 (79) 01/28/17 07:00 Mechanical Ventilator 40 01/28/17 04:00 99.9 84 16 130/58 (82) 100 01/28/17 04:00 45 01/28/17 03:38 100 45 01/28/17 00:16 100 45 01/28/17 00:00 45 01/28/17 00:00 99.2 81 16 110/59 (76) 100 129/60 (83) 01/27/17 20:17 100 45 01/27/17 20:00 98.5 77 18 120/62 (81) 100 145/70 (95) 01/27/17 19:30 Mechanical Ventilator 50 01/27/17 18:00 86 01/27/17 16:00 82 01/27/17 16:00 98.8 82 18 128/68 (88) 100 01/27/17 15:57 100 50 01/27/17 14:32 100 100 01/27/17 14:29 76 207/98 01/27/17 14:15 98.5 74 18 124/57 (79) 100 01/27/17 13:45 100 100 01/27/17 13:45 97.8 71 16 131/66 (87) 100 Ventilator 100 01/27/17 13:30 67 16 120/80 (93) 100 Ventilator 100 01/27/17 13:00 100 100 01/27/17 12:45 100 100 01/27/17 12:41 16 100 Ventilator 100 01/27/17 12:41 100 01/27/17 12:35 90 18 243/129 (167) 96 Constitutional Vital Signs Date Time Temp Pulse Resp B/P (MAP) Pulse Ox O2 Delivery O2 Flow Rate FiO2 01/28/17 10:00 81 01/28/17 08:18 100 45 01/28/17 08:00 45 01/28/17 08:00 84 01/28/17 08:00 100.2 85 17 100 121/58 (79) 01/28/17 07:00 Mechanical Ventilator 40 01/28/17 04:00 99.9 84 16 130/58 (82) 100 01/28/17 04:00 45 01/28/17 03:38 100 45 01/28/17 00:16 100 45 01/28/17 00:00 45 01/28/17 00:00 99.2 81 16 110/59 (76) 100 129/60 (83) 01/27/17 20:17 100 45 01/27/17 20:00 98.5 77 18 120/62 (81) 100 145/70 (95) 01/27/17 19:30 Mechanical Ventilator 50 01/27/17 18:00 86 01/27/17 16:00 82 01/27/17 16:00 98.8 82 18 128/68 (88) 100 01/27/17 15:57 100 50 01/27/17 14:32 100 100 01/27/17 14:29 76 207/98 01/27/17 14:15 98.5 74 18 124/57 (79) 100 01/27/17 13:45 100 100 01/27/17 13:45 97.8 71 16 131/66 (87) 100 Ventilator 100 01/27/17 13:30 67 16 120/80 (93) 100 Ventilator 100 01/27/17 13:00 100 100 01/27/17 12:45 100 100 01/27/17 12:41 16 100 Ventilator 100 01/27/17 12:41 100 01/27/17 12:35 90 18 243/129 (167) 96 Medications Current Medications Current Medications Medications (Trade) Dose Ordered Sig/Eunice Route PRN Reason Start Time Stop Time Status Last Admin Dose Admin Nicardipine HCl 25 mg/Sodium Chloride 250 ml @ 50 mls/hr TITRATE PRN IV Blood pressure management 01/27/17 13:00 01/27/17 14:29 Sodium Chloride 1,000 ml @ 75 mls/hr [id number] IV 01/27/17 13:29 01/27/17 21:00 Sodium Chloride (NS Flush) 2 ml UNSCH PRN IV FLUSH FLUSH AFTER USING IV ACCESS 01/27/17 13:30 Sodium Chloride (NS Flush) 2 ml BID IV FLUSH 01/27/17 21:00 01/28/17 08:21 Fentanyl Citrate (fentaNYL INJ) 50 mcg Q1H PRN IV PUSH SEE LABEL COMMENTS 01/27/17 13:30 Albuterol/ Ipratropium (Duoneb Neb) 1 ampule Q6HR NEB NEB 01/27/17 16:00 01/28/17 08:18 Albuterol Sulfate (Albuterol Neb) 2.5 mg Q4HR NEB PRN INH SHORTNESS OF BREATH 01/27/17 13:30 Chlorhexidine Gluconate (Peridex 0.12% Liq) 15 ml BID@08,20 MT 01/27/17 20:00 01/28/17 08:20 Pantoprazole Sodium (Protonix Inj) 40 mg DAILY IV PUSH 01/28/17 09:00 01/28/17 08:22 Miscellaneous Information 1 [id number] XX 01/27/17 13:30 Chlorhexidine Gluconate (Chlorhexidine 2% Cloth) 3 pack Taper DAILY@04 TOP 01/28/17 04:00 01/24/18 03:59 Chlorhexidine Gluconate (Chlorhexidine 2% Cloth) 3 pack UNSCH PRN TOP HYGIENIC CARE 01/27/17 13:30 Propofol 100 ml @ 1.995 mls/ hr TITRATE PRN IV SEDATION 01/27/17 15:15 01/28/17 06:11 Sodium Chloride 250 ml @ 30 mls/hr CONTINUOUS IV 01/27/17 16:45 01/27/17 20:35 Levetriacetam 500 mg/Sodium Chloride 105 ml @ 420 mls/hr Q12HR IV 01/27/17 21:00 01/28/17 08:20 Hydralazine HCl (Apresoline Inj) 20 mg Q4H PRN IV PUSH SBO >160 01/27/17 17:45 Rosa Vera Jan 28, 2017 10:47
--- NOTE | 2017-01-28 11:00 | RADRPT ---
EXAM DATE/TIME: 01/28/2017 10:28 [facility] COMPARISON: CT BRAIN W/O CONTRAST, January 27, 2017, 12:50. INDICATIONS : AV malformation. RADIATION DOSE: 56.35 CTDIvol (mGy) MEDICAL HISTORY : None SURGICAL HISTORY : Hysterectomy. ENCOUNTER: Initial ACUITY: 1 day PAIN SCALE: Non-responsive LOCATION: cranial TECHNIQUE: Multiple contiguous axial images were obtained of the head. Using automated exposure control and adj ustment of the mA and/or kV according to patient size, radiation dose was kept as low as reasonably a chievable to obtain optimal diagnostic quality images. DICOM format image data is available electro nically for review and comparison. FINDINGS: Interval placement of right frontal ventriculostomy with catheter near the third ventricle. Redemonst ration of large intra-axial hemorrhage measuring approximately 8.2 x 3.8 cm in the left posterior par ietal mid to high convexities with improved intraventricular hemorrhage. Slightly more prominent subd ural hematoma in the left anterior parietal mid convexities now measuring up to 6 mm compared to 5 mm on prior exam. Slightly improved subfalcine herniation to the right now measuring 9 mm in comparison to 10 mm on prior exam. There also subarachnoid blood products noted primarily in the parieto-occipi avtar mid to low convexities. Basilar cisterns appear more prominent. Remainder of the exam is unchange d. CONCLUSION: 1. Grossly stable large intra-axial hemorrhage in the left posterior prior mid to high convexities wi th slightly more prominent subdural hematoma more anteriorly, now measuring 6 mm in comparison to 5 m m on prior exam. Stable subtle subarachnoid hemorrhage in the parieto-occipital low convexities. 2. Interval frontal ventriculostomy catheter placement with improved intraventricular blood products, slightly improved subfalcine herniation and improved basilar cistern effacement. Migel Kapadia MD on January 28, 2017 at 10:50 Board Certified Radiologist. This report was verified electronically.
[2017-01-28] MEDS: 3% SALINE INJ 250 ML IV SCH (11:14)
--- NOTE | 2017-01-28 11:29 | RADRPT ---
EXAM DATE/TIME: 01/28/2017 10:27 [facility] COMPARISON: CT BRAIN W/O CONTRAST, January 27, 2017, 12:50. INDICATIONS : AV malformation. IV CONTRAST: 100 cc Omnipaque 350 (iohexol) IV ; Cumulative dose for multiple exams. RADIATION DOSE: 14.57 CTDIvol (mGy) ; Combined studies MEDICAL HISTORY : None SURGICAL HISTORY : Hysterectomy. ENCOUNTER: Initial ACUITY: 1 day PAIN SCALE: Non-responsive LOCATION: neck Elevated flow velocities and ICA/CCA ratios have been found to correlate with increased degrees of vessel stenosis, calculated as percentage of diameter relative to a normal segment of distal ICA/CCA. TECHNIQUE: Volumetric scanning was performed using a multirow detector CT scanner. The data was post processed with a variety of visualization algorithms including full-volume maximum intensity projection, multip lanar sliding thin-slab reformation, curved-planar reformation, and surface-rendering techniques. Us ing automated exposure control and adjustment of the mA and/or kV according to patient size, radiatio n dose was kept as low as reasonably achievable to obtain optimal diagnostic quality images. DICOM f ormat image data is available electronically for review and comparison. FINDINGS: AORTIC ARCH: There is a three-vessel origin of the great vessels from the aorta. No evidence of ostial narrowing. RIGHT CAROTID: The common carotid is widely patent. There is mild atherosclerotic plaquing of the bifurcation. The i nternal carotid and external carotid are widely patent. LEFT CAROTID: The common carotid is widely patent. There is mild atherosclerotic plaquing at the bifurcation. The i nternal carotid external carotid are widely patent. VERTEBRALS: The vertebral arteries have a symmetric diameter. No stenotic lesions are seen. CONCLUSION: 1. No hemodynamically significant carotid artery stenosis identified. 2. Mild atherosclerotic plaquing at the bifurcation. 3. Both vertebral arteries are widely patent. Jac Hardy MD on January 28, 2017 at 11:14 Board Certified Radiologist. This report was verified electronically.
--- NOTE | 2017-01-28 11:35 | EKG ---
Date Performed: 01/27/2017 Time Performed: 13:29:27 PTAGE: 76 years EKG: Sinus rhythm NONSPECIFIC T-WAVE ABNORMALITY BORDERLINE ECG NO PREVIOUS TRACING DOCTOR: Austin Cruz Interpretating Date/Time 01/28/2017 11:33:49
--- NOTE | 2017-01-28 11:47 | RADRPT ---
EXAM DATE/TIME: 01/28/2017 10:27 [facility] COMPARISON: CT BRAIN W/O CONTRAST, January 28, 2017, 10:28. INDICATIONS : AV malformation. IV CONTRAST: 100 cc Omnipaque 350 (iohexol) IV ; Cumulative dose for multiple exams. RADIATION DOSE: 14.57 CTDIvol (mGy) ; Combined studies MEDICAL HISTORY : None SURGICAL HISTORY : Hysterectomy. ENCOUNTER: Initial ACUITY: 1 day PAIN SCALE: Non-responsive LOCATION: cranial TECHNIQUE: Volumetric scanning was performed using a multi-row detector CT scanner. The data was post processed with a variety of visualization algorithms including full volume maximum intensity projection, multi -planar sliding thin slab reformation, curved planar reformation, and surface rendering techniques. Using automated exposure control and adjustment of the mA and/or kV according to patient size, radiat ion dose was kept as low as reasonably achievable to obtain optimal diagnostic quality images. DICO M format image data is available electronically for review and comparison. FINDINGS: There is excellent visualization of the major intracranial arteries out to the second-order branch ve ssels. A large left parietal occipital parenchymal hematoma is again noted. There is significant mass effect with left to right shift of midline structures. Left subdural hematoma as well as intraventricular h emorrhage are stable. Evaluation of the intracranial vessels demonstrates significant mass effect associated with the kat flora. There are no enlarged arterial feeders or draining veins. There are no abnormal arterial venous indications. There is no evidence of aneurysm or vasculopathy. The proximal anterior circulation is otherwise unremarkable. Vertebrobasilar circulation appears normal. CONCLUSION: 1. No evidence of vascular malformation or vasculopathy. 2. Subdural, intraparenchymal and intraventricular hemorrhage are again noted and not significantly c hanged since prior study. 3. Persistent left to right shift measuring between 8 and 9 mm; unchanged. Nick Barker MD on January 28, 2017 at 11:36 Board Certified Radiologist. This report was verified electronically.
[2017-01-28] MEDS ORDERED: ROCURONIUM INJ 50 MG/5 ML SYRINGE IV PUSH ONE (12:00)
[2017-01-28] MEDS ORDERED: PHENYLEPHRINE HCL 10 MG/ML VIAL IV ONE (12:00)
[2017-01-28] MEDS ORDERED: PHENYLEPH/NS 1000 MCG/10 ML SYR IV ONE (12:00)
[2017-01-28] MEDS ORDERED: LACTATED RINGER'S 1000 ML INJ 2,000 ML IV ONE (12:00)
[2017-01-28] MEDS ORDERED: SODIUM CHLORID 0.9% 500 ML INJ 500 ML IV ONE (12:00)
[2017-01-28] MEDS ORDERED: KETOROLAC TROMETHAMINE 30 MG/ML (IVP) VIAL IV PUSH ONE (12:00)
[2017-01-28] MEDS ORDERED: DEXAMETHASONE SOD PHOS 4 MG/ML VIAL IV ONE (12:00)
[2017-01-28] MEDS: hydrALAZINE HCL 20 MG/ML VIAL IV PUSH PRN ×2 (12:42→22:29)
[2017-01-28] MEDS ORDERED: ceFAZolin 2 GM PREMIX 50 ML ONE (13:03)
[2017-01-28] MEDS ORDERED: GELFOAM SIZE 100 ONE (13:03)
[2017-01-28] MEDS ORDERED: VANCOMYCIN HCL 1000 MG VIAL ONE (13:03)
[2017-01-28] MEDS ORDERED: THROMBIN (TOPICAL) 5,000 UNIT VIAL ONE (13:03)
[2017-01-28] MEDS ORDERED: FUROSEMIDE 40 MG/4 ML VIAL ONE (13:04)
[2017-01-28] MEDS ORDERED: MANNITOL INJ 100 ML ONE (13:04)
[2017-01-28] MEDS ORDERED: LIDOCAINE 1%/EPINEPHrine 1:100,000 SOLN 20 ML VIAL ONE (13:04)
[2017-01-28] MEDS ORDERED: BACITRACIN TOP OINT 15 GM TUBE ONE (13:04)
[2017-01-28] MEDS ORDERED: levETIRAcetam 500 MG/5 ML VIAL IV ONE (13:04)
[2017-01-28] MEDS ORDERED: GENTAMICIN SULFATE 80 MG/2 ML VIAL ONE (13:04)
[2017-01-28] MEDS ORDERED: SODIUM CHLOR 0.9% 250 ML INJ 250 ML ONE (13:04)
--- NOTE | 2017-01-28 14:33 | HHI.CCPN ---
Subjective Remarks/Hospital Course 01/27: Patient is a 76-year-old female who was brought to the [facility] emergency department by EMS as a stroke alert. Last found normal at 11 this morning, later found unresponsive in the bed by her and EMS was called. EMS gave her Narcan IM without any response, blood glucose was 140, vital signs were apparently stable. In the ED patient remained poorly responsive and was intubated for airway protection. Her blood pressure on arrival was 243/129 and patient was started on Cardene infusion. CT of the head showed extensive acute intraventricular hemorrhage involving the left lateral ventricle, right lateral ventricle and third ventricle, acute intraparenchymal hemorrhage within the left parietal and left occipital region ( 4.1 cm in size). Acute subdural hematoma along the left frontoparietal region measuring 5 mm in width. There was also significant Significant (10 mm) subfalcine herniation to the right. Dr. Bowden was contacted by the ED Per Dr. Rivera on 01/27: Critical care medicine was requested to admit the patient. Patient was emergently moved to the ICU for EVD placement. I evaluated the patient immediately after arrival to the ICU. Patient purposefully moves left upper extremity and withdraws all other extremities. at the bedside was updated. I explained to the that she has very extensive intracranial hemorrhage and prognosis appears poor. Dr. Bowden is planning to place an EVD emergently. I discussed with Dr. Bowden extensively , patient is not a candidate for evacuation of intracerebral hemorrhage due to overall poor prognosis. I have placed a central line for administration of vasopressor agents and 3% saline. Patient remains on Cardene infusion and at this time receiving mannitol. I have also ordered Keppra for seizure prophylaxis 01/28: Remains sedated, orally intubated on mechanical ventilation. Being taken to OR for craniotomy per Dr. Bowden. Objective Vital Signs Date Time Temp Pulse Resp B/P (MAP) Pulse Ox O2 Delivery O2 Flow Rate FiO2 01/28/17 14:00 96 01/28/17 13:02 100 45 01/28/17 12:00 98.8 16 162/74 (103) 01/28/17 07:00 Mechanical Ventilator Intake and Output 01/28/17 01/28/17 01/29/17 08:00 16:00 00:00 Intake Total 200 ml Output Total 775 ml Balance -575 ml Result Diagram: 01/28/17 0520 01/28/17 0855 Other Results Laboratory Tests Test 01/27/17 14:35 Blood Gas Puncture Site RT RADIAL Blood Gas Patient Temperature 98.6 Blood Gas HCO3 22 mmol/L (22-26) Blood Gas Base Excess -2.7 mmol/L (-2-2) Blood Gas Oxygen Saturation 98 % (90-100) Arterial Blood pH 7.38 (7.380-7.420) Arterial Blood Partial Pressure CO2 37 mmHg (38-42) Arterial Blood Partial Pressure O2 274 mmHg (61-120) Arterial Blood Oxygen Content 17.2 Vol % (12.0-20.0) Arterial Blood Carboxyhemoglobin 0.9 % (0-4) Arterial Blood Methemoglobin 1.0 % (0-2) Blood Gas Hemoglobin 12.0 G/DL (12.0-16.0) Oxygen Delivery Device VENTILATOR Blood Gas Ventilator Setting Blood Gas Inspired Oxygen 100 % Imaging Last Impressions Neck CTA 01/28/17 1009 Signed Impressions: Service Date/Time: Saturday, January 28, 2017 10:27 - CONCLUSION: 1. No hemodynamically significant carotid artery stenosis identified. 2. Mild atherosclerotic plaquing at the bifurcation. 3. Both vertebral arteries are widely patent. Jac Hardy MD Head CTA 01/28/17 0000 Signed Impressions: Service Date/Time: Saturday, January 28, 2017 10:27 - CONCLUSION: 1. No evidence of vascular malformation or vasculopathy. 2. Subdural, intraparenchymal and intraventricular hemorrhage are again noted and not significantly changed since prior study. 3. Persistent left to right shift measuring between 8 and 9 mm; unchanged. Nick Barker MD Head CT 01/28/17 0000 Signed Impressions: Service Date/Time: Saturday, January 28, 2017 10:28 - CONCLUSION: 1. Grossly stable large intra-axial hemorrhage in the left posterior prior mid to high convexities with slightly more prominent subdural hematoma more anteriorly, now measuring 6 mm in comparison to 5 mm on prior exam. Stable subtle subarachnoid hemorrhage in the parieto-occipital low convexities. 2. Interval frontal ventriculostomy catheter placement with improved intraventricular blood products, slightly improved subfalcine herniation and improved basilar cistern effacement. Migel Kapadia MD Chest X-Ray 01/27/17 1302 Signed Impressions: Service Date/Time: Friday, January 27, 2017 13:12 - CONCLUSION: Left basilar density likely atelectasis. Nasogastric tube 1.5 cm above the peng. Isai Sulliavn MD Objective Remarks GENERAL: Elderly female, sedated, orally intubated on mechanical ventilation. Spontaneously moving lower extremities and left upper extremity SKIN: Warm/dry. HEAD: Atraumatic. Normocephalic. EYES: Pupils equal and round sluggish ENT: No nasal bleeding or discharge. Mucous membranes moist. Orotracheally intubated NECK: Trachea midline. No JVD. CARDIOVASCULAR: Regular rate and rhythm. No murmur appreciated. RESPIRATORY: Orally intubated on mechanical ventilation. Clear to auscultation. Breath sounds equal bilaterally. GASTROINTESTINAL: Abdomen soft, non-tender, nondistended. Hepatic and splenic margins not palpable. MUSCULOSKELETAL: No obvious deformities. No clubbing. No cyanosis. No edema. NEUROLOGICAL: Intubated not on sedation. Moving her left upper extremity spontaneously and localizes to pain. Withdraws all other extremities. SERGEY A/P Assessment and Plan Neuro: Extensive intraventricular hemorrhage, left parietal/occipital intraparenchymal hemorrhage, left subdural hemorrhage Acute encephalopathy - Propofol for sedation and vent synchrony - Emergency EVD placement by Dr. Bowden. ICP controlled - 3% Saline to keep Na 150-155 - Keppra for seizure prophylaxis - Frequent neuro checks - Mannitol per neurosurgery -Repeat imaging studies per neurosurgery. - Neurosurgery planning craniotomy per discussion with Dr. Bowden Resp: Acute respiratory failure - Intubated for airway protection, continue ACV - wean fio2 for goal spo2 > 90% - HOB elevated - nebs, vent bundle CV: Hypertensive emergency - Cardene infusion, when necessary labetalol and hydralazine to keep systolic blood pressure 140-150 - NS at 75 ml per hour, 3% saline at 30 ml per hour - 2D Echo ordered Renal: - Place Fuller - strict i/os FEN/GI: - Nothing by mouth, IV famotidine Heme/ID: Leukocytosis - Does not meet transfusion triggers at this time - No infectious etiology suspected at this time - Leukocytosis most likely reactive Endocrine: Hypothyroidism - Start by mouth Synthroid in 24 hours Prophylaxis: SCDs Pepcid iv No pharmacologic DVT prophylaxis given ICH Dispo: Critically ill with very poor prognosis. CCT 40 MIN Gregg Lopez MD Jan 28, 2017 14:33
--- NOTE | 2017-01-28 15:13 | ECHRPT ---
Indication: htn h dis CONCLUSIONS The left ventricular systolic function is hyperdynamic with an estimated ejection fraction in the ra nge of 65- 70%. Normal left ventricular size. Mild mitral valve regurgitation. There is mild tricuspid valve regurgitation. BP: / HR: Rhythm: MEASUREMENTS (Male / Female) Normal Values Technical Quality:Fair 2D ECHO LV Diastolic Diameter PLAX 3.6 cm 4.2 - 5.9 / 3.9 - 5.3 cm LV Systolic Diameter PLAX 2.5 cm IVS Diastolic Thickness 1.3 cm 0.6 - 1.0 / 0.6 - 0.9 cm LVPW Diastolic Thickness 0.7 cm 0.6 - 1.0 / 0.6 - 0.9 cm LV Relative Wall Thickness 0.5 RV Internal Dim ED PLAX 1.5 cm M-MODE Aortic Root Diameter MM 2.2 cm LA Systolic Diameter MM 2.2 cm LA Ao Ratio MM 1.0 AV Cusp Separation MM 1.5 cm DOPPLER Mitral E Point Velocity 57.8 cm/s Mitral A Point Velocity 84.4 cm/s Mitral E to A Ratio 0.7 LV E' Lateral Velocity 5.8 cm/s Mitral E to LV E' Lateral Ratio 10.1 LV E' Septal Velocity 7.2 cm/s Mitral E to LV E' Septal Ratio 8.0 FINDINGS LEFT VENTRICLE The left ventricular systolic function is hyperdynamic with an estimated ejection fraction in the ra nge of 65- 70%. Normal left ventricular size. RIGHT VENTRICLE Normal right ventricular size and systolic function. LEFT ATRIUM The left atrial size is normal. RIGHT ATRIUM The right atrial size is normal. ATRIAL SEPTUM Normal atrial septal thickness without atrial level shunting by limited color doppler interrogation. AORTA The aortic root and proximal ascending aorta are normal in size on limited imaging. MITRAL VALVE Structurally normal mitral valve. Mild mitral valve regurgitation. AORTIC VALVE Trileaflet aortic valve. No aortic valve regurgitation. No aortic valve stenosis. TRICUSPID VALVE Structurally normal tricuspid valve. There is mild tricuspid valve regurgitation. PULMONARY VALVE The pulmonary valve is not well visualized. VESSELS The inferior vena cava is normal in size. PERICARDIUM No pericardial effusion. Carey Bal MD, FACC (Electronically Signed) Final Date:28 January 2017 15:12
[2017-01-28] MEDS ORDERED: MAGNESIUM SULFATE INJ 4 GM in SODIUM CHLORIDE 0.9% INJ 100 ML IV PRN (17:15)
[2017-01-28] MEDS ORDERED: BISACODYL 10 MG SUPP RECTAL PRN (17:15)
[2017-01-28] MEDS ORDERED: CALCIUM GLUCONATE 10% 1 GM/10 ML VIAL IV PRN (17:15)
[2017-01-28] MEDS ORDERED: ONDANSETRON HCL 4 MG/2 ML VIAL IV PUSH PRN (17:15)
[2017-01-28] MEDS ORDERED: POTASSIUM CHLOR 20 MEQ PREMIX 100 ML IV PRN (17:15)
[2017-01-28] MEDS ORDERED: MORPHINE SULFATE 4 MG/ML INJ IV PUSH PRN (17:15)
[2017-01-28] MEDS ORDERED: ACETAMINOPHEN 325 MG TAB PO PRN (17:15)
--- NOTE | 2017-01-28 17:32 | PD.OP ---
Operative Report Date of Surgery: Jan 28, 2017 Preoperative Diagnosis: Left occipital lobe and intraventricular hemorrhage Postoperative Diagnosis: Left occipital lobe and intraventricular hemorrhage Procedure: Left parietooccipital craniotomy, evacuation of intracerebral hematoma, microsurgical dissection Anesthesia: general Surgeon: Jack Bowden Funeral Director And Embalmer(s): Mabel Herrera Operation and Findings: INDICATIONS FOR THE PROCEDURE Ms Tinajero is an 76 year old adult female who was brought to [facility] as a stroke alert with a severe intracerebral and intraventricular hemorrhage with mass effect and midline shift. Placement of ventriculostomy was indicated as recommended by the [employer] of [employer]. We have discussed with her the details including the step-by- step details of the surgical procedure, its indications, alternatives, risks, and potential complications. Risks and potential complications were explained. He provided informed consent DETAILS OF THE SURGICAL PROCEDURE The patient was endotracheally intubated and mechanically ventilated. A Fuller catheter, bilateral ALVINA hose and sequential compression devices were placed and kept throughout the procedure. The patient was positioned supine on a 3080 table over a soft mattress. The head was placed on a gel doughnut. All pressure points were carefully padded with egg crate mattress. The eyes were tapped shut after ointment was applied by the anesthesiologist to prevent corneal abrasion. A Benito hugger was placed over the exposed lower body to maintain control of the core body temperature. The left parietooccipital area was shaved, prepped and draped in the usual sterile fashion. A standard inverted horshoe incision was outlined on the scalp and infiltrated with 1% lidocaine with epinephrine. The skin incision was made with a #10 blade down to the level of the periosteum. Remedios clips were applied to the scalp. Using a Bovie, the temporalis fascia and muscle were incised and a subperiosteal dissection was performed reflecting the scalp flap. The scalp was covered with a moist sponge and held in position using fish hooks. The TPS drill was brought to the field and a bur hole was made in the occipital region using the craniotome attachment. Then, using the footplate attachment, a craniotomy flap was elevated. The dura was bulging, very tense with severe pressure due to the underlying mass effect. The dura was opened with a 15 blade and metzembaun sissors and retracted with 4-0 Neurolon sutures attached to the fascia. A large intracerebral hematoma was localized. At this time of the procedure, the operative microscope was drapped in a standard fashion and brought to the field. The rest of the procedure was done using microsurgical dissection technique. A small corticotomy was performed with the bipolar and microscissors and the hematoma was readily found, causing significant mass effect. The hematoma was evacuated using microsurgical dissection, with the micro-bipolar forceps, microscissors, micro-suction, and gentle irrigation. The specimen was sent to the lab for histological analysis. Appropriate hemostasis was then secured using the bipolar tourist agent. Then the incision was irrigated with saline solution. The dural edges were tacked to the bone. The craniotomy flap was then repositioned and secured in place using Striker plates and screws. A 7 millimeter Inder-Javier drain was then left in the hematoma cavity and externalized through a separate stab incision. The incision was then closed in layers. 0 Vicryl in interrupted sutures were used to close the temporalis fascia. The galea was closed with interrupted 3- 0 Vicryl. [place] were applied to the skin. The drain was secured with a 3-0 nylon. At the end of the procedure, the sponge, needle and instrument counts were all correct. Estimated blood loss was less than 150 cc. No blood transfusion was given. No intraoperative complications occurred. The patient received prophylactic antibiotics. The patient was then transferred to the recovery room in stable condition. Jack Bowden MD Jan 28, 2017 17:32
[2017-01-28] MEDS: NS + KCL 20 MEQ INJ 1,000 ML IV SCH (17:55)
[2017-01-28] MEDS: DOCUSATE SODIUM 100 MG CAP PO SCH (20:59)
[2017-01-28] MEDS: ceFAZolin 2 GM PREMIX 50 ML IV SCH (22:29)
[2017-01-29] VITALS (14 sets, daily range): BP systolic 120–152; BP diastolic 42–58; PULSE 89–119; RESP 17–22; TEMP 98.6–99.1; O2SAT 97–100
[2017-01-29] MEDS: SODIUM CHLOR 0.9% 1000 ML INJ 1,000 ML IV SCH ×2 (00:10→20:18)
[2017-01-29] MEDS: levETIRAcetam INJ 500 MG in SODIUM CHLORIDE 0.9% INJ 100 ML IV SCH ×3 (00:10→20:17)
[2017-01-29] MEDS: CHLORHEXIDINE GLUCONATE 2 % 1 PACK (2 CLOTHS) TOP SCH (04:00)
[2017-01-29] MEDS: RESP: ALBUTEROL 2.5 MG/IPRATROPIUM 0.5 MG NEB (SCH) NEB ×4 (04:01→20:22)
[2017-01-29] MEDS: NS + KCL 20 MEQ INJ 1,000 ML IV SCH (04:35)
[2017-01-29 04:46] LABS: AUTOMATED NEUTROPHIL # 18.1 TH/MM3 (1.8-7.7); BASOPHIL % 0.2 % (0.0-2.0); HEMATOCRIT 24.9 % (35.0-46.0); HEMOGLOBIN 8.6 GM/DL (11.6-15.3); LYMPH % 8.7 % (9.0-44.0); LYMPHOCYTE # 1.9 TH/MM3 (1.0-4.8); MEAN CELL VOLUME 93.3 FL (80.0-100.0); MEAN CORPUSCULAR HEMOGLOBIN 32.1 PG (27.0-34.0); MEAN CORPUSCULAR HGB CONC 34.4 % (32.0-36.0); MONO % 6.8 % (0.0-8.0); MONOCYTE # 1.5 TH/MM3 (0-0.9); NEUT % 84.3 % (16.0-70.0); PLATELET COUNT 164 TH/MM3 (150-450); RED BLOOD COUNT 2.67 MIL/MM3 (4.00-5.30); RED CELL DISTRIBUTION WIDTH 14.2 % (11.6-17.2); WHITE BLOOD COUNT 21.4 TH/MM3 (4.0-11.0)
[2017-01-29 05:17] LABS: BICARBONATE 20.1 MEQ/L (21.0-32.0); CALCIUM 7.8 MG/DL (8.5-10.1); CREATININE 0.69 MG/DL (0.50-1.00)
[2017-01-29] MEDS: 3% SALINE INJ 250 ML IV SCH (05:23)
[2017-01-29] MEDS: PROPOFOL 1000 MG/100 ML INJ 100 ML IV PRN ×2 (07:49→19:55)
[2017-01-29] MEDS: ceFAZolin 2 GM PREMIX 50 ML IV SCH ×2 (07:49→13:54)
[2017-01-29] MEDS: PANTOPRAZOLE SODIUM 40 MG VIAL IV PUSH SCH (08:14)
[2017-01-29] MEDS: DOCUSATE SODIUM 100 MG CAP PO SCH ×2 (08:14→20:17)
[2017-01-29] MEDS: CHLORHEXIDINE 0.12% (ORAL KIT) 15 ML CUP MT SCH ×2 (08:15→20:08)
[2017-01-29] MEDS: PANTOPRAZOLE SODIUM 40 MG VIAL IVP SCH (08:15)
[2017-01-29] MEDS: SODIUM CHLORIDE 0.9% FLUSH 10 ML FLUSH IV FLUSH SCH ×2 (08:15→20:18)
[2017-01-29] MEDS ORDERED: PANTOPRAZOLE SOD 40 MG DELAYED RELEASE TAB PO SCH (09:00)
[2017-01-29] MEDS ORDERED: MAGNESIUM OXIDE 400 MG TAB PO PRN (12:00)
[2017-01-29] MEDS ORDERED: POTASSIUM PHOSPHATE MONOBASIC 500 MG TAB PO/TUBE PRN (12:00)
[2017-01-29] MEDS ORDERED: MAGNESIUM SULFATE INJ 4 GM in SODIUM CHLORIDE 0.9% INJ 92 ML IV PRN (12:00)
[2017-01-29] MEDS ORDERED: POTASSIUM CHLORIDE 25 MEQ EFFERVESCENT TAB PO PRN (12:00)
[2017-01-29] MEDS ORDERED: POTASSIUM PHOSPHATE MONOBASIC 500 MG TAB PO PRN (12:00)
[2017-01-29] MEDS ORDERED: DEXTROSE 50% IN WATER 50 ML VIAL(D50) IV PRN (12:00)
[2017-01-29] MEDS ORDERED: MAGNESIUM SULFATE INJ 2 GM in SODIUM CHLORIDE 0.9% INJ 96 ML IV PRN (12:00)
[2017-01-29] MEDS ORDERED: POTASSIUM PHOSPHATE INJ 30 MMOL in SODIUM CHLOR 0.9% 250 ML INJ 250 ML IV PRN (12:00)
[2017-01-29] MEDS ORDERED: POTASSIUM CHLOR 40 MEQ PREMIX 100 ML IV PRN ×2 (12:00)
[2017-01-29] MEDS ORDERED: GLUCAGON 1 MG/ML VIAL IM/SQ PRN (12:00)
[2017-01-29] MEDS ORDERED: SODIUM PHOSPHATE INJ 30 MMOL in SODIUM CHLOR 0.9% 250 ML INJ 240 ML IV PRN (12:00)
[2017-01-29] MEDS ORDERED: POTASSIUM CHLOR 20 MEQ PREMIX 100 ML IV PRN ×2 (12:00)
[2017-01-29] MEDS: INSULIN ASPART SUPPLEMENTAL SCALE SQ SCH ×2 (12:00→18:00)
--- NOTE | 2017-01-29 12:00 | HHI.CCPN ---
Subjective Remarks/Hospital Course 01/27: Patient is a 76-year-old female who was brought to the [facility] emergency department by EMS as a stroke alert. Last found normal at 11 this morning, later found unresponsive in the bed by her and EMS was called. EMS gave her Narcan IM without any response, blood glucose was 140, vital signs were apparently stable. In the ED patient remained poorly responsive and was intubated for airway protection. Her blood pressure on arrival was 243/129 and patient was started on Cardene infusion. CT of the head showed extensive acute intraventricular hemorrhage involving the left lateral ventricle, right lateral ventricle and third ventricle, acute intraparenchymal hemorrhage within the left parietal and left occipital region ( 4.1 cm in size). Acute subdural hematoma along the left frontoparietal region measuring 5 mm in width. There was also significant Significant (10 mm) subfalcine herniation to the right. Dr. Bowden was contacted by the ED Per Dr. Rivera on 01/27: Critical care medicine was requested to admit the patient. Patient was emergently moved to the ICU for EVD placement. I evaluated the patient immediately after arrival to the ICU. Patient purposefully moves left upper extremity and withdraws all other extremities. at the bedside was updated. I explained to the that she has very extensive intracranial hemorrhage and prognosis appears poor. Dr. Bowden is planning to place an EVD emergently. I discussed with Dr. Bowden extensively , patient is not a candidate for evacuation of intracerebral hemorrhage due to overall poor prognosis. I have placed a central line for administration of vasopressor agents and 3% saline. Patient remains on Cardene infusion and at this time receiving mannitol. I have also ordered Keppra for seizure prophylaxis 01/28: Remains sedated, orally intubated on mechanical ventilation. Being taken to OR for craniotomy per Dr. Bowden. 01/29: Remains sedated, orally intubated on mechanical ventilation. Underwent craniotomy with evacuation of hematoma by Dr. Bowden on 01/28. Ventriculostomy remains in place. Drain 1 20 cc bloody CSF over the last 12 hours. ICP 2. Objective Vital Signs Date Time Temp Pulse Resp B/P (MAP) Pulse Ox O2 Delivery O2 Flow Rate FiO2 01/29/17 08:25 98 40 01/29/17 08:00 98.6 100 18 142/58 (86) 01/28/17 07:00 Mechanical Ventilator Intake and Output 01/29/17 01/29/17 01/30/17 08:00 16:00 00:00 Output Total 637 ml Balance -637 ml Result Diagram: 01/29/17 0435 01/29/17 0435 Imaging Last Impressions Neck CTA 01/28/17 1009 Signed Impressions: Service Date/Time: Saturday, January 28, 2017 10:27 - CONCLUSION: 1. No hemodynamically significant carotid artery stenosis identified. 2. Mild atherosclerotic plaquing at the bifurcation. 3. Both vertebral arteries are widely patent. Jac Hardy MD Head CTA 01/28/17 0000 Signed Impressions: Service Date/Time: Saturday, January 28, 2017 10:27 - CONCLUSION: 1. No evidence of vascular malformation or vasculopathy. 2. Subdural, intraparenchymal and intraventricular hemorrhage are again noted and not significantly changed since prior study. 3. Persistent left to right shift measuring between 8 and 9 mm; unchanged. Nick Barker MD Head CT 01/28/17 0000 Signed Impressions: Service Date/Time: Saturday, January 28, 2017 10:28 - CONCLUSION: 1. Grossly stable large intra-axial hemorrhage in the left posterior prior mid to high convexities with slightly more prominent subdural hematoma more anteriorly, now measuring 6 mm in comparison to 5 mm on prior exam. Stable subtle subarachnoid hemorrhage in the parieto-occipital low convexities. 2. Interval frontal ventriculostomy catheter placement with improved intraventricular blood products, slightly improved subfalcine herniation and improved basilar cistern effacement. Migel Kapadia MD Chest X-Ray 01/27/17 1302 Signed Impressions: Service Date/Time: Friday, January 27, 2017 13:12 - CONCLUSION: Left basilar density likely atelectasis. Nasogastric tube 1.5 cm above the peng. Isai Sullivan MD Objective Remarks Sedation: Propofol 20 mics per KG per minute GENERAL: Elderly female, sedated, orally intubated on mechanical ventilation. SKIN: Warm/dry. HEAD: Atraumatic. Normocephalic. EYES: Pupils equal and round sluggish ENT: No nasal bleeding or discharge. Mucous membranes moist. Orotracheally intubated NECK: Trachea midline. No JVD. CARDIOVASCULAR: Regular rate and rhythm. No murmur appreciated. RESPIRATORY: Orally intubated on mechanical ventilation. Clear to auscultation. Breath sounds equal bilaterally. GASTROINTESTINAL: Abdomen soft, non-tender, nondistended. Hepatic and splenic margins not palpable. MUSCULOSKELETAL: No obvious deformities. No clubbing. No cyanosis. No edema. NEUROLOGICAL: Dressing over craniotomy site intact, MARIA FERNANDA drains in place, ventriculostomy in place with bloody CSF draining. Sedated, orally intubated on mechanical ventilation. Moving her left upper extremity spontaneously and localizes to pain. Withdraws all other extremities. SERGEY A/P Assessment and Plan Neuro: Extensive intraventricular hemorrhage, left parietal/occipital intraparenchymal hemorrhage, left subdural hemorrhage Acute encephalopathy - Propofol for sedation and vent synchrony - Emergency EVD placement by Dr. Bowden. ICP controlled - 3% Saline to keep Na 150-155 - Keppra for seizure prophylaxis - Frequent neuro checks - Mannitol per neurosurgery -Repeat imaging studies per neurosurgery. - s/p craniotomy with evacuation of hematoma 01/[address] Bowden. Resp: Acute respiratory failure - Intubated for airway protection, continue ACV - wean fio2 for goal spo2 > 90% - HOB elevated - nebs, vent bundle CV: Hypertensive emergency - Cardene infusion, when necessary labetalol and hydralazine to keep systolic blood pressure 140-150 - NS at 75 ml per hour, 3% saline at 30 ml per hour - hold for sodium greater than 155mEq/L - 2D Echo ordered Renal: - Place Fuller - strict i/os FEN/GI: -Start tube feeds and advanced to goal as tolerated with Glucerna1.5 Heme/ID: Leukocytosis - Does not meet transfusion triggers at this time - Leukocytosis persists: Possibly reactive secondary to surgery. - We will obtain pancultures on 01/29. Endocrine: Hypothyroidism - Start by mouth Synthroid in 24 hours Prophylaxis: SCDs Pepcid iv No pharmacologic DVT prophylaxis given ICH Dispo: Critically ill with poor prognosis. I had a long discussion with patient's daughter at bedside regarding current clinical status and plan of care and she voiced understanding and was agreeable. I also discussed strong possibility of need for tracheostomy and PEG tube and possible [facility] placement and she voiced understanding. Goals of care remain aggressive at this time. Recommend palliative care consult to assist with deciding goals of therapy if no significant improvement over the next few days. CCT 40 MIN Gregg Lopez MD Jan 29, 2017 12:00
[2017-01-29 12:46] LABS: ALBUMIN 2.6 GM/DL (3.4-5.0); ALKALINE PHOSPHATASE 65 U/L (45-117); ALT (GPT) 17 U/L (10-53); AST (GOT) 19 U/L (15-37); BICARBONATE 21.4 MEQ/L (21.0-32.0); BLOOD UREA NITROGEN 14 MG/DL (7-18); CALCIUM 7.7 MG/DL (8.5-10.1); CHLORIDE 126 MEQ/L (98-107); CREATININE 0.75 MG/DL (0.50-1.00); GLOMERULAR FILTRATION RATE 75 ML/MIN (>89); GLUCOSE,RANDOM 128 MG/DL (74-106); TOTAL BILIRUBIN ADULT 0.2 MG/DL (0.2-1.0); TOTAL PROTEIN 5.9 GM/DL (6.4-8.2)
[2017-01-29 13:02] LABS: SODIUM (NA) 156 MEQ/L (136-145)
[2017-01-29] MEDS: hydrALAZINE HCL 20 MG/ML VIAL IV PUSH PRN ×2 (13:56→21:46)
--- NOTE | 2017-01-29 13:59 | RADRPT ---
EXAM DATE/TIME: 01/29/2017 13:16 [facility] COMPARISON: CT BRAIN W/O CONTRAST, January 28, 2017, 10:28. INDICATIONS : Post operative craniotomy. RADIATION DOSE: 64.24 CTDIvol (mGy) MEDICAL HISTORY : None SURGICAL HISTORY : Hysterectomy. Craniotomy. ENCOUNTER: Initial ACUITY: 1 day PAIN SCALE: Non-responsive LOCATION: Bilateral cranial TECHNIQUE: Multiple contiguous axial images were obtained of the head. Using automated exposure control and adj ustment of the mA and/or kV according to patient size, radiation dose was kept as low as reasonably a chievable to obtain optimal diagnostic quality images. DICOM format image data is available electro nically for review and comparison. FINDINGS: Postsurgical changes following left posterior craniotomy are noted. A surgical drain is in place with in the left parieto-occipital hematoma. Small left-sided subdural hematoma is again noted. Decreasing mass effect is identified. There is less left to right midline shift which now measures 4. 6 mm. Small amount hemorrhage remains evident in the ventricular system. CONCLUSION: 1. Decreasing mass effect and shift following surgical drainage of a left parieto-occipital hematoma. 2. Small left subdural hematoma and intraventricular blood remain evident. Nick Barker MD on January 29, 2017 at 13:52 Board Certified Radiologist. This report was verified electronically.
--- NOTE | 2017-01-29 14:18 | HHI.NSPN ---
(Rosa Vera) Note Status Status: Progress Note (Rosa Vera) Interval History Interval History Ms Tinajero is an 76 year old adult female who was brought to [facility] as a stroke alert with a severe intracerebral and intraventricular hemorrhage with mass effect and midline shift. She underwent placement of ventriculostomy drain on 01/27/17. She underwent a left parietooccipital craniotomy, evacuation of intracerebral hematoma on Jan 28, 2017. 01/29: intubated and sedated. EVD draining well bloody CSF. ICPs normal. f/u CT Head this morning with decreasing mass effect, less left to right midline shift which now measures 4.6 mm, with small amount hemorrhage remains evident in the ventricular system. (Rosa Vera) Labs, Micro, & Vital Signs Results Date Time Temp Pulse Resp B/P (MAP) Pulse Ox O2 Delivery O2 Flow Rate FiO2 01/29/17 13:32 100 01/29/17 12:00 40 01/29/17 12:00 98.8 94 17 100 152/56 (88) 01/29/17 08:25 98 40 01/29/17 08:00 98.6 100 18 99 142/58 (86) 01/29/17 08:00 40 01/29/17 08:00 89 01/29/17 06:00 90 01/29/17 04:03 99 40 01/29/17 04:00 98.9 101 18 98 149/56 (87) 01/29/17 04:00 101 01/29/17 04:00 40 01/29/17 02:00 94 01/29/17 00:00 99 01/29/17 00:00 99.1 99 17 97 129/48 (75) 01/29/17 00:00 45 01/28/17 23:41 97 40 01/28/17 22:00 95 01/28/17 20:36 97 45 01/28/17 20:00 98.5 98 17 97 142/57 (85) 01/28/17 20:00 98 01/28/17 20:00 45 01/28/17 18:09 97 16 95 124/46 (72) 01/28/17 18:00 97 01/28/17 17:09 98.2 100 17 95 124/46 (72) 01/28/17 14:30 100 100 Constitutional Vital Signs Date Time Temp Pulse Resp B/P (MAP) Pulse Ox O2 Delivery O2 Flow Rate FiO2 01/29/17 13:32 100 01/29/17 12:00 40 01/29/17 12:00 98.8 94 17 100 152/56 (88) 01/29/17 08:25 98 40 01/29/17 08:00 98.6 100 18 99 142/58 (86) 01/29/17 08:00 40 01/29/17 08:00 89 01/29/17 06:00 90 01/29/17 04:03 99 40 01/29/17 04:00 98.9 101 18 98 149/56 (87) 01/29/17 04:00 101 01/29/17 04:00 40 01/29/17 02:00 94 01/29/17 00:00 99 01/29/17 00:00 99.1 99 17 97 129/48 (75) 01/29/17 00:00 45 01/28/17 23:41 97 40 01/28/17 22:00 95 01/28/17 20:36 97 45 01/28/17 20:00 98.5 98 17 97 142/57 (85) 01/28/17 20:00 98 01/28/17 20:00 45 01/28/17 18:09 97 16 95 124/46 (72) 01/28/17 18:00 97 01/28/17 17:09 98.2 100 17 95 124/46 (72) 01/28/17 14:30 100 100 (Rosa Vera) Review of Systems ROS Limitations: Intubated (Rosa Vera) Physical Exam Ms. Tinajero is intubated and sedated. Surgical incision with clean and dry head wrap. MARIA FERNANDA drains intact. Ventriculostomy draining well at 0 cm H20s, bloody CSF. Cranial Nerves: Pupils 2 mm round reactive. Conjugate gaze. Positive cough and gag. Motor: minimal response to pain x 4 extremities Plantars silent b/l (Rosa Vera) Medications Current Medications Current Medications Medications (Trade) Dose Ordered Sig/Eunice Route PRN Reason Start Time Stop Time Status Last Admin Dose Admin Nicardipine HCl 25 mg/Sodium Chloride 250 ml @ 50 mls/hr TITRATE PRN IV Blood pressure management 01/27/17 13:00 01/27/17 14:29 Sodium Chloride 1,000 ml @ 60 mls/hr [id number] IV 01/27/17 13:29 01/27/17 21:00 Sodium Chloride (NS Flush) 2 ml UNSCH PRN IV FLUSH FLUSH AFTER USING IV ACCESS 01/27/17 13:30 Sodium Chloride (NS Flush) 2 ml BID IV FLUSH 01/27/17 21:00 01/28/17 20:24 Albuterol/ Ipratropium (Duoneb Neb) 1 ampule Q6HR NEB NEB 01/27/17 16:00 01/29/17 08:25 Albuterol Sulfate (Albuterol Neb) 2.5 mg Q4HR NEB PRN INH SHORTNESS OF BREATH 01/27/17 13:30 Chlorhexidine Gluconate (Peridex 0.12% Liq) 15 ml BID@08,20 MT 01/27/17 20:00 01/29/17 08:15 Miscellaneous Information 1 Q361D XX 01/27/17 13:30 Chlorhexidine Gluconate (Chlorhexidine 2% Cloth) 3 pack Taper DAILY@04 TOP 01/28/17 04:00 01/24/18 03:59 Chlorhexidine Gluconate (Chlorhexidine 2% Cloth) 3 pack UNSCH PRN [facility] 01/27/17 13:30 Propofol 100 ml @ 1.995 mls/ hr TITRATE PRN IV SEDATION 01/27/17 15:15 01/29/17 07:49 Sodium Chloride 250 ml @ 30 mls/hr CONTINUOUS IV 01/27/17 16:45 01/29/17 05:23 Levetriacetam 500 mg/Sodium Chloride 105 ml @ 420 mls/hr Q12HR IV 01/27/17 21:00 01/29/17 08:15 Hydralazine HCl (Apresoline Inj) 20 mg Q4H PRN IV PUSH SBO >160 01/27/17 17:45 01/29/17 13:56 Cefazolin Sodium/ Dextrose 50 ml @ 100 mls/hr Q8H IV 01/28/17 23:00 01/29/17 15:29 01/29/17 13:54 Bisacodyl (Dulcolax Supp) 10 mg DAILY PRN RECTAL CONSTIPATION 01/28/17 17:15 Docusate Sodium (Colace) 100 mg BID PO 01/28/17 21:00 01/29/17 08:14 Pantoprazole Sodium (Protonix Inj) 40 mg DAILY IVP 01/29/17 09:00 Ondansetron HCl (Zofran Inj) 4 mg Q6H PRN IV PUSH NAUSEA OR VOMITING 01/28/17 17:15 Calcium Gluconate (Calcium Gluconate Inj) 1 gm UNSCH PRN IV SEE LABEL COMMENTS 01/28/17 17:15 Potassium Chloride 100 ml @ 50 mls/hr UNSCH PRN IV POTASSIUM LESS THAN 4 01/28/17 17:15 01/29/17 05:46 Magnesium Sulfate 4 gm/Sodium Chloride 108 ml @ 108 mls/hr UNSCH PRN IV MAGNESIUM LESS THAN 2 01/28/17 17:15 Acetaminophen/ Hydrocodone Bitart ([place] 10-325 Mg) 1 tab Q4H PRN PO PAIN SCALE 1 TO 5 01/28/17 17:15 Acetaminophen/ Hydrocodone Bitart ([place] 10-325 Mg) 2 tab Q4H PRN PO PAIN SCALE 6 TO 10 01/28/17 17:15 Morphine Sulfate (Morphine Inj) 2 mg Q2H PRN IV PUSH PAIN SCALE 1 TO 6 01/28/17 17:15 Morphine Sulfate (Morphine Inj) 4 mg Q2H PRN IV PUSH PAIN SCALE 7 TO 10 01/28/17 17:15 Acetaminophen (Tylenol) 650 mg Q4H PRN PO TEMPERATURE > 101.5 F 01/28/17 17:15 Insulin Aspart (NovoLOG SUPPLEMENTAL SCALE) 1 Q6HR SQ 01/29/17 12:00 Dextrose (D50w (Vial) Inj) 25 ml UNSCH PRN IV HYPOGLYCEMIA-SEE COMMENTS 01/29/17 12:00 Glucagon (Glucagon Inj) 1 mg UNSCH PRN IM/SQ HYPOGLYCEMIA-SEE COMMENTS 01/29/17 12:00 Potassium Chloride 100 ml @ 50 mls/hr Q2H PRN IV For Potassium 2.8 - 3.2 mEq/L 01/29/17 12:00 01/29/17 13:56 Potassium Chloride 100 ml @ 50 mls/hr Q2H PRN IV For Potassium 2.8 - 3.2 mEq/L 01/29/17 12:00 Potassium Bicarb/ Potassium Chloride (K-Lyte Cl Eff) 50 meq UNSCH PRN PO For Potassium 3.3 - 3.5 mEq/L 01/29/17 12:00 Potassium Chloride 100 ml @ 25 mls/hr UNSCH PRN IV For Potassium 3.3 - 3.5 mEq/L 01/29/17 12:00 Potassium Chloride 100 ml @ 50 mls/hr Q2H PRN IV For Potassium 3.3 - 3.5 mEq/L 01/29/17 12:00 Magnesium Sulfate 4 gm/Sodium Chloride 100 ml @ 50 mls/hr UNSCH PRN IV For Magnesium 0.9 - 1.1 mg/dL 01/29/17 12:00 Magnesium Oxide (Mag-Ox) 800 mg UNSCH PRN PO For Magnesium 1.2 - 1.6 mg/dL 01/29/17 12:00 Magnesium Sulfate 2 gm/Sodium Chloride 100 ml @ 50 mls/hr UNSCH PRN IV For Magnesium 1.2 - 1.6 mg/dL 01/29/17 12:00 Potassium Phosphate (K-Phos) 2,000 mg Q4H PRN PO For Phosphorus < 2.5 mg/dL 01/29/17 12:00 Sodium Phosphate 30 mmol/Sodium Chloride 250 ml @ 42 mls/hr UNSCH PRN IV For Phosphorus < 2.5 mg/dL 01/29/17 12:00 Potassium Phosphate (K-Phos) 2,000 mg UNSCH PRN PO/TUBE SEE LABEL COMMENTS 01/29/17 12:00 Potassium Phosphate 30 mmol/ Sodium Chloride 260 ml @ 42 mls/hr UNSCH PRN IV SEE LABEL COMMENTS 01/29/17 12:00 (Rosa Vera) Medical Decision Making MDM Remarks 76 year old female with large intraventricular hemorrhage s/p placement of ventriculostomy drain 01/27/17 s/p left parietooccipital craniotomy, evacuation of intracerebral hematoma 01/28 (Rosa Vera) Plan Plan Remarks continue ventriculostomy draining with ICP monitoring cont critical care mgt nonchemical dvt prophylaxis in view of ICH protonix for GI prophylaxis serial neuro checks cont seizure prophylaxis updated family in room (Rosa Vera) Attending Statement Discussed with her family The exam, history, and the medical decision-making described in the above note were completed with the assistance of the mid-level provider. I reviewed and agree with the findings presented. I attest that I had a [id number] encounter with the patient on the same day, and personally performed and documented my assessment and findings in the medical record. (Jack Bowden MD) Rosa Vera Jan 29, 2017 14:18 Jack Bowden MD Jan 31, 2017 12:20
[2017-01-29 15:33] LABS: AMORPHOUS SEDIMENT, URINE RARE; BACTERIA, URINE RARE /hpf; BILIRUBIN, URINE NEG (NEG); BLOOD, URINE TRACE (NEG); GLUCOSE,URINE NEG (NEG); KETONE, URINE NEG (NEG); MUCUS URINE FEW /lpf (OCC); NITRITE,URINE NEG (NEG); PH, URINE 5.5 (5.0-8.5); SQUAMOUS EPITHELIAL CELL URINE <1 /hpf (0-5); URINE COLOR YELLOW (YELLW/STRAW); URINE LEUKOCYTE ESTERASE SMALL (NEG)
[2017-01-29 15:56] LABS: BASOPHIL % 0.1 % (0.0-2.0); HEMATOCRIT 23.9 % (35.0-46.0); HEMOGLOBIN 7.8 GM/DL (11.6-15.3); LYMPH % 10.4 % (9.0-44.0); LYMPHOCYTE # 2.8 TH/MM3 (1.0-4.8); MEAN CELL VOLUME 93.7 FL (80.0-100.0); MEAN CORPUSCULAR HEMOGLOBIN 30.4 PG (27.0-34.0); MEAN CORPUSCULAR HGB CONC 32.5 % (32.0-36.0); MEAN PLATELET VOLUME 9.4 FL (7.0-11.0); MONO % 7.9 % (0.0-8.0); MONOCYTE # 2.1 TH/MM3 (0-0.9); NEUT % 81.6 % (16.0-70.0); PLATELET COUNT 170 TH/MM3 (150-450); RED BLOOD COUNT 2.55 MIL/MM3 (4.00-5.30); RED CELL DISTRIBUTION WIDTH 14.5 % (11.6-17.2)
[2017-01-29] MEDS ORDERED: SODIUM CHLOR 0.9% 250 ML INJ 250 ML IV ONE (16:15)
[2017-01-29] MEDS ORDERED: diphenhydrAMINE HCL 25 MG CAP PO PRN (16:15)
[2017-01-29] MEDS ORDERED: ACETAMINOPHEN 325 MG TAB PO PRN (16:15)
[2017-01-29 21:30] LABS: HEMOGLOBIN 9.3 GM/DL (11.6-15.3)
[2017-01-30] VITALS (16 sets, daily range): BP systolic 129–163; BP diastolic 47–54; PULSE 88–114; RESP 16–23; TEMP 97.7–99.2; O2SAT 97–100
[2017-01-30] MEDS: INSULIN ASPART SUPPLEMENTAL SCALE SQ SCH ×4 (00:37→17:22)
[2017-01-30] MEDS: RESP: ALBUTEROL 2.5 MG/IPRATROPIUM 0.5 MG NEB (SCH) NEB ×4 (03:32→19:57)
[2017-01-30] MEDS: CHLORHEXIDINE GLUCONATE 2 % 1 PACK (2 CLOTHS) TOP SCH (04:00)
[2017-01-30] MEDS: DOCUSATE SODIUM 100 MG CAP PO SCH ×2 (08:00→21:00)
[2017-01-30] MEDS: SODIUM CHLORIDE 0.9% FLUSH 10 ML FLUSH IV FLUSH SCH ×2 (08:00→21:29)
[2017-01-30] MEDS: CHLORHEXIDINE 0.12% (ORAL KIT) 15 ML CUP MT SCH ×2 (08:00→21:29)
[2017-01-30] MEDS: PANTOPRAZOLE SODIUM 40 MG VIAL IVP SCH (08:00)
[2017-01-30] MEDS: levETIRAcetam INJ 500 MG in SODIUM CHLORIDE 0.9% INJ 100 ML IV SCH ×2 (08:00→20:04)
[2017-01-30] MEDS: MORPHINE SULFATE 4 MG/ML INJ IV PUSH PRN ×4 (10:59→21:54)
[2017-01-30] MEDS: SODIUM CHLOR 0.9% 1000 ML INJ 1,000 ML IV SCH (13:14)
--- NOTE | 2017-01-30 13:57 | HHI.CCPN ---
Subjective Remarks/Hospital Course 01/27: Patient is a 76-year-old female who was brought to the [place] emergency department by EMS as a stroke alert. Last found normal at 11 this morning, later found unresponsive in the bed by her and EMS was called. EMS gave her Narcan IM without any response, blood glucose was 140, vital signs were apparently stable. In the ED patient remained poorly responsive and was intubated for airway protection. Her blood pressure on arrival was 243/129 and patient was started on Cardene infusion. CT of the head showed extensive acute intraventricular hemorrhage involving the left lateral ventricle, right lateral ventricle and third ventricle, acute intraparenchymal hemorrhage within the left parietal and left occipital region ( 4.1 cm in size). Acute subdural hematoma along the left frontoparietal region measuring 5 mm in width. There was also significant Significant (10 mm) subfalcine herniation to the right. Dr. Bowden was contacted by the ED Per Dr. Rivera on 01/27: Critical care medicine was requested to admit the patient. Patient was emergently moved to the ICU for EVD placement. I evaluated the patient immediately after arrival to the ICU. Patient purposefully moves left upper extremity and withdraws all other extremities. at the bedside was updated. I explained to the that she has very extensive intracranial hemorrhage and prognosis appears poor. Dr. Bowden is planning to place an EVD emergently. I discussed with Dr. Bowden extensively , patient is not a candidate for evacuation of intracerebral hemorrhage due to overall poor prognosis. I have placed a central line for administration of vasopressor agents and 3% saline. Patient remains on Cardene infusion and at this time receiving mannitol. I have also ordered Keppra for seizure prophylaxis 01/28: Remains sedated, orally intubated on mechanical ventilation. Being taken to OR for craniotomy per Dr. Bowden. 01/29: Remains sedated, orally intubated on mechanical ventilation. Underwent craniotomy with evacuation of hematoma by Dr. Bowden on 01/28. Ventriculostomy remains in place. Drain 1 20 cc bloody CSF over the last 12 hours. ICP 2. 01/30: ICP well controlled. Requiring mechanical ventilation. Objective Vital Signs Date Time Temp Pulse Resp B/P (MAP) Pulse Ox O2 Delivery O2 Flow Rate FiO2 01/30/17 12:00 99.2 89 16 100 148/50 (82) 01/30/17 12:00 40 01/28/17 07:00 Mechanical Ventilator Intake and Output 01/30/17 01/30/17 01/31/17 08:00 16:00 00:00 Intake Total 1095 ml 105 ml Output Total 715 ml Balance 380 ml 105 ml Result Diagram: 01/29/17 2100 01/29/17 2215 Other Results Microbiology Date/Time Source Procedure Growth Status 01/27/17 17:00 Cerebral Spinal Fluid Shunt Fluid Gram Stain - Final Complete 01/27/17 17:00 Cerebral Spinal Fluid Shunt Fluid CSF Culture - Final NO GROWTH IN 72 HRS.--AEROBICALLY OR ... Complete Imaging Last Impressions Neck CTA 01/28/17 1009 Signed Impressions: Service Date/Time: Saturday, January 28, 2017 10:27 - CONCLUSION: 1. No hemodynamically significant carotid artery stenosis identified. 2. Mild atherosclerotic plaquing at the bifurcation. 3. Both vertebral arteries are widely patent. Jac Hardy MD Head CTA 01/28/17 0000 Signed Impressions: Service Date/Time: Saturday, January 28, 2017 10:27 - CONCLUSION: 1. No evidence of vascular malformation or vasculopathy. 2. Subdural, intraparenchymal and intraventricular hemorrhage are again noted and not significantly changed since prior study. 3. Persistent left to right shift measuring between 8 and 9 mm; unchanged. Nick Barker MD Head CT 01/28/17 0000 Signed Impressions: Service Date/Time: Saturday, January 28, 2017 10:28 - CONCLUSION: 1. Grossly stable large intra-axial hemorrhage in the left posterior prior mid to high convexities with slightly more prominent subdural hematoma more anteriorly, now measuring 6 mm in comparison to 5 mm on prior exam. Stable subtle subarachnoid hemorrhage in the parieto-occipital low convexities. 2. Interval frontal ventriculostomy catheter placement with improved intraventricular blood products, slightly improved subfalcine herniation and improved basilar cistern effacement. Migel Kapadia MD Chest X-Ray 01/27/17 1302 Signed Impressions: Service Date/Time: Friday, January 27, 2017 13:12 - CONCLUSION: Left basilar density likely atelectasis. Nasogastric tube 1.5 cm above the peng. Isai Sullivan MD Objective Remarks Sedation: Propofol 20 mics per KG per minute GENERAL: Elderly female, sedated, orally intubated on mechanical ventilation. SKIN: Warm/dry. HEAD: Atraumatic. Normocephalic. EYES: Pupils equal and round sluggish reaction to light. ENT: No nasal bleeding or discharge. Mucous membranes moist. Orotracheally intubated NECK: Trachea midline. CARDIOVASCULAR: Regular rate and rhythm. No murmur appreciated. No JVD. RESPIRATORY: Orally intubated on mechanical ventilation. Clear to auscultation. Breath sounds equal bilaterally. No adventitious sounds. GASTROINTESTINAL: Abdomen soft, non-tender, nondistended. BS few. MUSCULOSKELETAL: No obvious deformities. No clubbing. No cyanosis. No edema. NEUROLOGICAL: Dressing over craniotomy site intact, MARIA FERNANDA drains in place, ventriculostomy in place with bloody CSF draining. Sedated, orally intubated on mechanical ventilation. Moving her left upper extremity spontaneously and localizes to pain. No movement right side. Withdraws all other extremities. SERGEY A/P Assessment and Plan Neuro: Extensive intraventricular hemorrhage, left parietal/occipital intraparenchymal hemorrhage, left subdural hemorrhage Acute encephalopathy - Propofol for sedation and vent synchrony - Emergency EVD placement by Dr. Bowden. ICP controlled - 3% Saline to keep Na 150-155 - Keppra for seizure prophylaxis - Frequent neuro checks - Mannitol per neurosurgery -Repeat imaging studies per neurosurgery. - s/p craniotomy with evacuation of hematoma 01/[address] Bowden. - EVD Resp: Acute respiratory failure - Intubated for airway protection, continue ACV - wean fio2 for goal spo2 > 90% - HOB elevated - nebs, vent bundle CV: Hypertensive emergency - Cardene infusion, when necessary labetalol and hydralazine to keep systolic blood pressure 140-150 - NS at 75 ml per hour, 3% saline at 30 ml per hour - hold for sodium greater than 155mEq/L - 2D Echo ordered Renal: - Place Fuller - strict i/os FEN/GI: -Start tube feeds and advanced to goal as tolerated with Glucerna1.5 Heme/ID: Leukocytosis - Does not meet transfusion triggers at this time - Leukocytosis persists: Possibly reactive secondary to surgery. - We will obtain pancultures on 01/29. Endocrine: Hypothyroidism - Start by mouth Synthroid in 24 hours Prophylaxis: SCDs Pepcid iv No pharmacologic DVT prophylaxis given ICH Dispo: Critically ill with poor prognosis. I had a long discussion with patient's daughter at bedside regarding current clinical status and plan of care and she voiced understanding and was agreeable. I also discussed strong possibility of need for tracheostomy and PEG tube and possible senior care placement and she voiced understanding. Goals of care remain aggressive at this time. Recommend palliative care consult to assist with deciding goals of therapy if no significant improvement over the next few days. Overall impression: She remains critically ill following hemorrhagic stroke. Neurological status is unstable and unable to wean from ventilator. Critical Care 40 mins Tristin Gómez MD Jan 30, 2017 13:57
--- NOTE | 2017-01-30 14:00 | HHI.NSPN ---
(Rosa Vera) Note Status Status: Progress Note (Rosa Vera) Interval History Interval History Ms Tinajero is an 76 year old adult female who was brought to [facility] as a stroke alert with a severe intracerebral and intraventricular hemorrhage with mass effect and midline shift. She underwent placement of ventriculostomy drain on 01/27/17. She underwent a left parietooccipital craniotomy, evacuation of intracerebral hematoma on Jan 28, 2017. 01/29: intubated and sedated. EVD draining well bloody CSF. ICPs normal. f/u CT Head this morning with decreasing mass effect, less left to right midline shift which now measures 4.6 mm, with small amount hemorrhage remains evident in the ventricular system. 01/30: intubated and sedated. ventriculostomy draining well, ICPs within normal limits. (Rosa Vera) Labs, Micro, & Vital Signs Results Date Time Temp Pulse Resp B/P (MAP) Pulse Ox O2 Delivery O2 Flow Rate FiO2 01/30/17 12:00 99.2 89 16 100 148/50 (82) 01/30/17 12:00 40 01/30/17 08:58 99 40 01/30/17 08:00 98.8 102 23 97 139/54 (82) 01/30/17 08:00 40 01/30/17 06:00 93 01/30/17 04:06 97 40 01/30/17 04:00 109 01/30/17 04:00 40 01/30/17 04:00 98.1 109 22 129/53 (78) 97 01/30/17 02:00 113 01/30/17 01:22 98 40 01/30/17 00:00 97.7 114 20 130/47 (74) 98 01/30/17 00:00 114 01/30/17 00:00 40 01/29/17 22:00 119 01/29/17 20:20 100 40 01/29/17 20:00 98.9 106 22 135/55 (81) 97 01/29/17 20:00 40 01/29/17 20:00 103 01/29/17 17:12 100 40 01/29/17 16:00 98.7 99 17 100 120/42 (68) 01/29/17 16:00 40 01/31/17 07:00 Intake Total 105 ml Balance 105 ml Constitutional Vital Signs Date Time Temp Pulse Resp B/P (MAP) Pulse Ox O2 Delivery O2 Flow Rate FiO2 01/30/17 12:00 99.2 89 16 100 148/50 (82) 01/30/17 12:00 40 01/30/17 08:58 99 40 01/30/17 08:00 98.8 102 23 97 139/54 (82) 01/30/17 08:00 40 01/30/17 06:00 93 01/30/17 04:06 97 40 01/30/17 04:00 109 01/30/17 04:00 40 01/30/17 04:00 98.1 109 22 129/53 (78) 97 01/30/17 02:00 113 01/30/17 01:22 98 40 01/30/17 00:00 97.7 114 20 130/47 (74) 98 01/30/17 00:00 114 01/30/17 00:00 40 01/29/17 22:00 119 01/29/17 20:20 100 40 01/29/17 20:00 98.9 106 22 135/55 (81) 97 01/29/17 20:00 40 01/29/17 20:00 103 01/29/17 17:12 100 40 01/29/17 16:00 98.7 99 17 100 120/42 (68) 01/29/17 16:00 40 01/31/17 07:00 Intake Total 105 ml Balance 105 ml (Rosa Vera) Review of Systems ROS Limitations: Intubated (Rosa Vera) Physical Exam Ms. Tinajero is intubated and sedated. Surgical incision with clean and dry head wrap. MARIA FERNANDA drains intact. Ventriculostomy draining well at 0 cm H20s, bloody CSF. Cranial Nerves: Pupils 2 mm round reactive. Conjugate gaze. Positive cough and gag. Motor: minimal response to pain x 4 extremities Plantars silent b/l (Rosa Vera) Medications Current Medications Current Medications Medications (Trade) Dose Ordered Sig/Eunice Route PRN Reason Start Time Stop Time Status Last Admin Dose Admin Nicardipine HCl 25 mg/Sodium Chloride 250 ml @ 50 mls/hr TITRATE PRN IV Blood pressure management 01/27/17 13:00 01/27/17 14:29 Sodium Chloride 1,000 ml @ 60 mls/hr [id number] IV 01/27/17 13:29 01/29/17 20:18 Sodium Chloride (NS Flush) 2 ml UNSCH PRN IV FLUSH FLUSH AFTER USING IV ACCESS 01/27/17 13:30 Sodium Chloride (NS Flush) 2 ml BID IV FLUSH 01/27/17 21:00 01/30/17 08:00 Albuterol/ Ipratropium (Duoneb Neb) 1 ampule Q6HR NEB NEB 01/27/17 16:00 01/30/17 08:53 Albuterol Sulfate (Albuterol Neb) 2.5 mg Q4HR NEB PRN INH SHORTNESS OF BREATH 01/27/17 13:30 Chlorhexidine Gluconate (Peridex 0.12% Liq) 15 ml BID@08,20 MT 01/27/17 20:00 01/30/17 08:00 Miscellaneous Information 1 Q361D XX 01/27/17 13:30 01/27/17 13:30 Chlorhexidine Gluconate (Chlorhexidine 2% Cloth) 3 pack Taper DAILY@04 TOP 01/28/17 04:00 01/24/18 03:59 Chlorhexidine Gluconate (Chlorhexidine 2% Cloth) 3 pack UNSCH PRN [facility] 01/27/17 13:30 Propofol 100 ml @ 1.995 mls/ hr TITRATE PRN IV SEDATION 01/27/17 15:15 01/29/17 19:55 Sodium Chloride 250 ml @ 30 mls/hr CONTINUOUS IV 01/27/17 16:45 01/29/17 05:23 Levetriacetam 500 mg/Sodium Chloride 105 ml @ 420 mls/hr Q12HR IV 01/27/17 21:00 01/30/17 08:00 Hydralazine HCl (Apresoline Inj) 20 mg Q4H PRN IV PUSH SBO >160 01/27/17 17:45 01/29/17 21:46 Bisacodyl (Dulcolax Supp) 10 mg DAILY PRN RECTAL CONSTIPATION 01/28/17 17:15 01/30/17 08:01 Docusate Sodium (Colace) 100 mg BID PO 01/28/17 21:00 01/30/17 08:00 Pantoprazole Sodium (Protonix Inj) 40 mg DAILY IVP 01/29/17 09:00 01/30/17 08:00 Ondansetron HCl (Zofran Inj) 4 mg Q6H PRN IV PUSH NAUSEA OR VOMITING 01/28/17 17:15 Calcium Gluconate (Calcium Gluconate Inj) 1 gm UNSCH PRN IV SEE LABEL COMMENTS 01/28/17 17:15 Potassium Chloride 100 ml @ 50 mls/hr UNSCH PRN IV POTASSIUM LESS THAN 4 01/28/17 17:15 01/29/17 05:46 Magnesium Sulfate 4 gm/Sodium Chloride 108 ml @ 108 mls/hr UNSCH PRN IV MAGNESIUM LESS THAN 2 01/28/17 17:15 Acetaminophen/ Hydrocodone Bitart ([place] 10-325 Mg) 1 tab Q4H PRN PO PAIN SCALE 1 TO 5 01/28/17 17:15 Acetaminophen/ Hydrocodone Bitart ([place] 10-325 Mg) 2 tab Q4H PRN PO PAIN SCALE 6 TO 10 01/28/17 17:15 Morphine Sulfate (Morphine Inj) 2 mg Q2H PRN IV PUSH PAIN SCALE 1 TO 6 01/28/17 17:15 01/30/17 10:59 Morphine Sulfate (Morphine Inj) 4 mg Q2H PRN IV PUSH PAIN SCALE 7 TO 10 01/28/17 17:15 Acetaminophen (Tylenol) 650 mg Q4H PRN PO TEMPERATURE > 101.5 F 01/28/17 17:15 Insulin Aspart (NovoLOG SUPPLEMENTAL SCALE) 1 Q6HR SQ 01/29/17 12:00 01/30/17 05:23 Dextrose (D50w (Vial) Inj) 25 ml UNSCH PRN IV HYPOGLYCEMIA-SEE COMMENTS 01/29/17 12:00 Glucagon (Glucagon Inj) 1 mg UNSCH PRN IM/SQ HYPOGLYCEMIA-SEE COMMENTS 01/29/17 12:00 Potassium Chloride 100 ml @ 50 mls/hr Q2H PRN IV For Potassium 2.8 - 3.2 mEq/L 01/29/17 12:00 01/29/17 13:56 Potassium Chloride 100 ml @ 50 mls/hr Q2H PRN IV For Potassium 2.8 - 3.2 mEq/L 01/29/17 12:00 Potassium Bicarb/ Potassium Chloride (K-Lyte Cl Eff) 50 meq UNSCH PRN PO For Potassium 3.3 - 3.5 mEq/L 01/29/17 12:00 Potassium Chloride 100 ml @ 25 mls/hr UNSCH PRN IV For Potassium 3.3 - 3.5 mEq/L 01/29/17 12:00 Potassium Chloride 100 ml @ 50 mls/hr Q2H PRN IV For Potassium 3.3 - 3.5 mEq/L 01/29/17 12:00 Magnesium Sulfate 4 gm/Sodium Chloride 100 ml @ 50 mls/hr UNSCH PRN IV For Magnesium 0.9 - 1.1 mg/dL 01/29/17 12:00 Magnesium Oxide (Mag-Ox) 800 mg UNSCH PRN PO For Magnesium 1.2 - 1.6 mg/dL 01/29/17 12:00 Magnesium Sulfate 2 gm/Sodium Chloride 100 ml @ 50 mls/hr UNSCH PRN IV For Magnesium 1.2 - 1.6 mg/dL 01/29/17 12:00 Potassium Phosphate (K-Phos) 2,000 mg Q4H PRN PO For Phosphorus < 2.5 mg/dL 01/29/17 12:00 Sodium Phosphate 30 mmol/Sodium Chloride 250 ml @ 42 mls/hr UNSCH PRN IV For Phosphorus < 2.5 mg/dL 01/29/17 12:00 Potassium Phosphate (K-Phos) 2,000 mg UNSCH PRN PO/TUBE SEE LABEL COMMENTS 01/29/17 12:00 Potassium Phosphate 30 mmol/ Sodium Chloride 260 ml @ 42 mls/hr UNSCH PRN IV SEE LABEL COMMENTS 01/29/17 12:00 Acetaminophen (Tylenol) 650 mg Q4H PRN PO SEE LABEL COMMENTS 01/29/17 16:15 Diphenhydramine HCl (Benadryl) 25 mg Q4H PRN PO SEE LABEL COMMENTS 01/29/17 16:15 (Rosa Vera) Medical Decision Making MDM Remarks 76 year old female with large intraventricular hemorrhage s/p placement of ventriculostomy drain 01/27/17 s/p left parietooccipital craniotomy, evacuation of intracerebral hematoma 01/28 (Rosa Vear) Plan Plan Remarks continue ventriculostomy draining with ICP monitoring start sedation weaning as tolerated cont critical care mgt nonchemical dvt prophylaxis in view of ICH protonix for GI prophylaxis serial neuro checks cont seizure prophylaxis (Rosa Vera) Attending Statement The exam, history, and the medical decision-making described in the above note were completed with the assistance of the mid-level provider. I reviewed and agree with the findings presented. I attest that I had a [id number] encounter with the patient on the same day, and personally performed and documented my assessment and findings in the medical record. (Jack Bowden MD) Rosa Vera Jan 30, 2017 14:00 Jack Bowden MD Jan 31, 2017 12:37
[2017-01-30] MEDS: hydrALAZINE HCL 20 MG/ML VIAL IV PUSH PRN (20:04)
[2017-01-31] VITALS (16 sets, daily range): BP systolic 120–168; BP diastolic 42–60; PULSE 95–123; RESP 17–20; TEMP 98.6–99.3; O2SAT 97–100
[2017-01-31] MEDS: INSULIN ASPART SUPPLEMENTAL SCALE SQ SCH ×4 (00:02→18:00)
[2017-01-31] MEDS: hydrALAZINE HCL 20 MG/ML VIAL IV PUSH PRN ×3 (00:03→18:30)
[2017-01-31 01:48] LABS: AUTOMATED NEUTROPHIL # 17.7 TH/MM3 (1.8-7.7); BASOPHIL # 0.1 TH/MM3 (0-0.2); BASOPHIL % 0.3 % (0.0-2.0); EOSINOPHIL % 0.2 % (0.0-4.0); HEMATOCRIT 27.2 % (35.0-46.0); LYMPH % 9.1 % (9.0-44.0); LYMPHOCYTE # 1.9 TH/MM3 (1.0-4.8); MEAN CELL VOLUME 92.2 FL (80.0-100.0); MEAN CORPUSCULAR HEMOGLOBIN 30.5 PG (27.0-34.0); MEAN CORPUSCULAR HGB CONC 33.1 % (32.0-36.0); MEAN PLATELET VOLUME 9.5 FL (7.0-11.0); MONOCYTE # 1.2 TH/MM3 (0-0.9); NEUT % 84.4 % (16.0-70.0); PLATELET COUNT 163 TH/MM3 (150-450); RED BLOOD COUNT 2.94 MIL/MM3 (4.00-5.30); RED CELL DISTRIBUTION WIDTH 15.2 % (11.6-17.2); WHITE BLOOD COUNT 20.9 TH/MM3 (4.0-11.0)
[2017-01-31] MEDS: niCARdipine INJ 25 MG in SODIUM CHLOR 0.9% 250 ML INJ 240 ML IV PRN (01:57)
[2017-01-31 02:14] LABS: BICARBONATE 24.3 MEQ/L (21.0-32.0); CREATININE 0.66 MG/DL (0.50-1.00)
[2017-01-31] MEDS: RESP: ALBUTEROL 2.5 MG/IPRATROPIUM 0.5 MG NEB (SCH) NEB ×3 (03:59→15:56)
[2017-01-31] MEDS: CHLORHEXIDINE GLUCONATE 2 % 1 PACK (2 CLOTHS) TOP SCH (04:00)
[2017-01-31] MEDS: MORPHINE SULFATE 4 MG/ML INJ IV PUSH PRN (04:23)
[2017-01-31] MEDS: FREE WATER OG-TUBE SCH ×3 (06:43→18:00)
[2017-01-31] MEDS: CHLORHEXIDINE 0.12% (ORAL KIT) 15 ML CUP MT SCH ×2 (08:00→19:41)
[2017-01-31] MEDS: PANTOPRAZOLE SODIUM 40 MG VIAL IVP SCH (08:11)
[2017-01-31] MEDS: SODIUM CHLORIDE 0.9% FLUSH 10 ML FLUSH IV FLUSH SCH ×2 (08:12→19:42)
[2017-01-31] MEDS: levETIRAcetam INJ 500 MG in SODIUM CHLORIDE 0.9% INJ 100 ML IV SCH ×2 (08:12→19:41)
[2017-01-31] MEDS: DOCUSATE SODIUM 100 MG CAP PO SCH ×2 (08:12→19:40)
[2017-01-31] MEDS: SODIUM CHLOR 0.9% 1000 ML INJ 1,000 ML IV SCH (15:11)
--- NOTE | 2017-01-31 15:47 | HHI.NSPN ---
(Rosa Vera) Note Status Status: Progress Note (Rosa Vera) Interval History Interval History Ms Tinajero is an 76 year old adult female who was brought to [facility] as a stroke alert with a severe intracerebral and intraventricular hemorrhage with mass effect and midline shift. She underwent placement of ventriculostomy drain on 01/27/17. She underwent a left parietooccipital craniotomy, evacuation of intracerebral hematoma on Jan 28, 2017. 01/29: intubated and sedated. EVD draining well bloody CSF. ICPs normal. f/u CT Head this morning with decreasing mass effect, less left to right midline shift which now measures 4.6 mm, with small amount hemorrhage remains evident in the ventricular system. 01/30: intubated and sedated. ventriculostomy draining well, ICPs within normal limits. 01/31: intubated, sedated. no eye opening. ventriculostomy draining well, ICPs remains wnl (Rosa Vera) Labs, Micro, & Vital Signs Results Date Time Temp Pulse Resp B/P (MAP) Pulse Ox O2 Delivery O2 Flow Rate FiO2 01/31/17 14:00 95 01/31/17 12:30 100 40 01/31/17 12:00 40 01/31/17 12:00 100 01/31/17 12:00 98.9 100 17 99 147/51 (83) 01/31/17 10:00 104 01/31/17 08:35 100 40 01/31/17 08:00 99.3 104 18 99 144/46 (78) 01/31/17 08:00 104 01/31/17 08:00 40 01/31/17 06:00 116 01/31/17 06:00 105 153/49 01/31/17 04:00 98.9 110 20 120/57 (78) 100 146/45 (78) 01/31/17 04:00 99 40 01/31/17 04:00 110 01/31/17 04:00 40 01/31/17 02:11 106 150/44 01/31/17 02:00 103 01/31/17 01:57 104 162/43 01/31/17 00:00 99.1 100 19 132/60 (84) 100 168/47 (87) 01/31/17 00:00 100 01/31/17 00:00 40 01/30/17 23:00 100 40 01/30/17 22:00 107 01/30/17 20:00 40 01/30/17 20:00 98.1 88 16 162/54 (90) 100 163/53 (89) 01/30/17 19:56 100 40 01/30/17 16:00 99.1 96 16 97 138/53 (81) 01/30/17 16:00 40 01/30/17 15:42 97 40 Constitutional Vital Signs Date Time Temp Pulse Resp B/P (MAP) Pulse Ox O2 Delivery O2 Flow Rate FiO2 01/31/17 14:00 95 01/31/17 12:30 100 40 01/31/17 12:00 40 01/31/17 12:00 100 01/31/17 12:00 98.9 100 17 99 147/51 (83) 01/31/17 10:00 104 01/31/17 08:35 100 40 01/31/17 08:00 99.3 104 18 99 144/46 (78) 01/31/17 08:00 104 01/31/17 08:00 40 01/31/17 06:00 116 01/31/17 06:00 105 153/49 01/31/17 04:00 98.9 110 20 120/57 (78) 100 146/45 (78) 01/31/17 04:00 99 40 01/31/17 04:00 110 01/31/17 04:00 40 01/31/17 02:11 106 150/44 01/31/17 02:00 103 01/31/17 01:57 104 162/43 01/31/17 00:00 99.1 100 19 132/60 (84) 100 168/47 (87) 01/31/17 00:00 100 01/31/17 00:00 40 01/30/17 23:00 100 40 01/30/17 22:00 107 01/30/17 20:00 40 01/30/17 20:00 98.1 88 16 162/54 (90) 100 163/53 (89) 01/30/17 19:56 100 40 01/30/17 16:00 99.1 96 16 97 138/53 (81) 01/30/17 16:00 40 01/30/17 15:42 97 40 (Rosa Vera) Review of Systems ROS Limitations: Intubated (Rosa Vera) Physical Exam Ms. Tinajero is intubated and sedated. Surgical incision with clean and dry head wrap. MARIA FERNANDA drains x 2 with minimal drainage. Ventriculostomy draining well at 0 cm H20s, bloody CSF. Cranial Nerves: Pupils 2 mm round reactive. Conjugate gaze. Positive cough and gag. Motor: minimal response to pain x 4 extremities Plantars silent b/l (oRsa Vera) Medications Current Medications Current Medications Medications (Trade) Dose Ordered Sig/Eunice Route PRN Reason Start Time Stop Time Status Last Admin Dose Admin Nicardipine HCl 25 mg/Sodium Chloride 250 ml @ 50 mls/hr TITRATE PRN IV Blood pressure management 01/27/17 13:00 01/31/17 01:57 Sodium Chloride 1,000 ml @ 60 mls/hr [id number] IV 01/27/17 13:29 01/31/17 15:11 Sodium Chloride (NS Flush) 2 ml UNSCH PRN IV FLUSH FLUSH AFTER USING IV ACCESS 01/27/17 13:30 Sodium Chloride (NS Flush) 2 ml BID IV FLUSH 01/27/17 21:00 01/31/17 08:12 Albuterol/ Ipratropium (Duoneb Neb) 1 ampule Q6HR NEB NEB 01/27/17 16:00 01/31/17 08:34 Albuterol Sulfate (Albuterol Neb) 2.5 mg Q4HR NEB PRN INH SHORTNESS OF BREATH 01/27/17 13:30 Chlorhexidine Gluconate (Peridex 0.12% Liq) 15 ml BID@08,20 MT 01/27/17 20:00 01/31/17 08:00 Miscellaneous Information 1 [id number] XX 01/27/17 13:30 01/27/17 13:30 Chlorhexidine Gluconate (Chlorhexidine 2% Cloth) 3 pack Taper DAILY@04 TOP 01/28/17 04:00 01/24/18 03:59 Chlorhexidine Gluconate (Chlorhexidine 2% Cloth) 3 pack UNSCH PRN TOP HYGIENIC CARE 01/27/17 13:30 Propofol 100 ml @ 1.995 mls/ hr TITRATE PRN IV SEDATION 01/27/17 15:15 01/29/17 19:55 Levetriacetam 500 mg/Sodium Chloride 105 ml @ 420 mls/hr Q12HR IV 01/27/17 21:00 01/31/17 08:12 Hydralazine HCl (Apresoline Inj) 20 mg Q4H PRN IV PUSH SBO >160 01/27/17 17:45 01/31/17 13:13 Bisacodyl (Dulcolax Supp) 10 mg DAILY PRN RECTAL CONSTIPATION 01/28/17 17:15 01/30/17 08:01 Docusate Sodium (Colace) 100 mg BID PO 01/28/17 21:00 01/31/17 08:12 Pantoprazole Sodium (Protonix Inj) 40 mg DAILY IVP 01/29/17 09:00 01/31/17 08:11 Ondansetron HCl (Zofran Inj) 4 mg Q6H PRN IV PUSH NAUSEA OR VOMITING 01/28/17 17:15 Calcium Gluconate (Calcium Gluconate Inj) 1 gm UNSCH PRN IV SEE LABEL COMMENTS 01/28/17 17:15 Potassium Chloride 100 ml @ 50 mls/hr UNSCH PRN IV POTASSIUM LESS THAN 4 01/28/17 17:15 01/29/17 05:46 Magnesium Sulfate 4 gm/Sodium Chloride 108 ml @ 108 mls/hr UNSCH PRN IV MAGNESIUM LESS THAN 2 01/28/17 17:15 Acetaminophen/ Hydrocodone Bitart ([place] 10-325 Mg) 1 tab Q4H PRN PO PAIN SCALE 1 TO 5 01/28/17 17:15 Acetaminophen/ Hydrocodone Bitart ([place] 10-325 Mg) 2 tab Q4H PRN PO PAIN SCALE 6 TO 10 01/28/17 17:15 Morphine Sulfate (Morphine Inj) 2 mg Q2H PRN IV PUSH PAIN SCALE 1 TO 6 01/28/17 17:15 01/31/17 04:23 Morphine Sulfate (Morphine Inj) 4 mg Q2H PRN IV PUSH PAIN SCALE 7 TO 10 01/28/17 17:15 Acetaminophen (Tylenol) 650 mg Q4H PRN PO TEMPERATURE > 101.5 F 01/28/17 17:15 Insulin Aspart (NovoLOG SUPPLEMENTAL SCALE) 1 Q6HR SQ 01/29/17 12:00 01/31/17 00:02 Dextrose (D50w (Vial) Inj) 25 ml UNSCH PRN IV HYPOGLYCEMIA-SEE COMMENTS 01/29/17 12:00 Glucagon (Glucagon Inj) 1 mg UNSCH PRN IM/SQ HYPOGLYCEMIA-SEE COMMENTS 01/29/17 12:00 Potassium Chloride 100 ml @ 50 mls/hr Q2H PRN IV For Potassium 2.8 - 3.2 mEq/L 01/29/17 12:00 01/29/17 13:56 Potassium Chloride 100 ml @ 50 mls/hr Q2H PRN IV For Potassium 2.8 - 3.2 mEq/L 01/29/17 12:00 Potassium Bicarb/ Potassium Chloride (K-Lyte Cl Eff) 50 meq UNSCH PRN PO For Potassium 3.3 - 3.5 mEq/L 01/29/17 12:00 01/31/17 02:44 Potassium Chloride 100 ml @ 25 mls/hr UNSCH PRN IV For Potassium 3.3 - 3.5 mEq/L 01/29/17 12:00 Potassium Chloride 100 ml @ 50 mls/hr Q2H PRN IV For Potassium 3.3 - 3.5 mEq/L 01/29/17 12:00 Magnesium Sulfate 4 gm/Sodium Chloride 100 ml @ 50 mls/hr UNSCH PRN IV For Magnesium 0.9 - 1.1 mg/dL 01/29/17 12:00 Magnesium Oxide (Mag-Ox) 800 mg UNSCH PRN PO For Magnesium 1.2 - 1.6 mg/dL 01/29/17 12:00 Magnesium Sulfate 2 gm/Sodium Chloride 100 ml @ 50 mls/hr UNSCH PRN IV For Magnesium 1.2 - 1.6 mg/dL 01/29/17 12:00 Potassium Phosphate (K-Phos) 2,000 mg Q4H PRN PO For Phosphorus < 2.5 mg/dL 01/29/17 12:00 Sodium Phosphate 30 mmol/Sodium Chloride 250 ml @ 42 mls/hr UNSCH PRN IV For Phosphorus < 2.5 mg/dL 01/29/17 12:00 Potassium Phosphate (K-Phos) 2,000 mg UNSCH PRN PO/TUBE SEE LABEL COMMENTS 01/29/17 12:00 Potassium Phosphate 30 mmol/ Sodium Chloride 260 ml @ 42 mls/hr UNSCH PRN IV SEE LABEL COMMENTS 01/29/17 12:00 Acetaminophen (Tylenol) 650 mg Q4H PRN PO SEE LABEL COMMENTS 01/29/17 16:15 Diphenhydramine HCl (Benadryl) 25 mg Q4H PRN PO SEE LABEL COMMENTS 01/29/17 16:15 Water (Free Water) 200 ml Q6HR OG-TUBE 01/31/17 06:00 01/31/17 12:00 (Rosa Vera) Medical Decision Making MDM Remarks 76 year old female with large intraventricular hemorrhage s/p placement of ventriculostomy drain 01/27/17 s/p left parietooccipital craniotomy, evacuation of intracerebral hematoma 01/28 (Rosa Vera) Plan Plan Remarks dc MARIA FERNANDA drains x 2, steri-strips placed over drain site continue ventriculostomy draining at 0 cm H20, with ICP monitoring cont sedation weaning and follow up neuro examination cont critical care mgt nonchemical dvt prophylaxis in view of ICH protonix for GI prophylaxis serial neuro checks cont seizure prophylaxis dw family again in room (Rosa Vera) Attending Statement The exam, history, and the medical decision-making described in the above note were completed with the assistance of the mid-level provider. I reviewed and agree with the findings presented. I attest that I had a [id number] encounter with the patient on the same day, and personally performed and documented my assessment and findings in the medical record. (Jack Bowden MD) Rosa Vera Jan 31, 2017 15:47 Jack Bowden MD Feb 02, 2017 19:06
[2017-01-31] MEDS: MORPHINE SULFATE 2 MG/ML INJ IV PUSH PRN (16:35)
--- NOTE | 2017-01-31 17:26 | HHI.CCPN ---
Subjective Remarks/Hospital Course 01/27: Patient is a 76-year-old female who was brought to the [facility] emergency department by EMS as a stroke alert. Last found normal at 11 this morning, later found unresponsive in the bed by her and EMS was called. EMS gave her Narcan IM without any response, blood glucose was 140, vital signs were apparently stable. In the ED patient remained poorly responsive and was intubated for airway protection. Her blood pressure on arrival was 243/129 and patient was started on Cardene infusion. CT of the head showed extensive acute intraventricular hemorrhage involving the left lateral ventricle, right lateral ventricle and third ventricle, acute intraparenchymal hemorrhage within the left parietal and left occipital region ( 4.1 cm in size). Acute subdural hematoma along the left frontoparietal region measuring 5 mm in width. There was also significant Significant (10 mm) subfalcine herniation to the right. Dr. Bowden was contacted by the ED Per Dr. Rivera on 01/27: Critical care medicine was requested to admit the patient. Patient was emergently moved to the ICU for EVD placement. I evaluated the patient immediately after arrival to the ICU. Patient purposefully moves left upper extremity and withdraws all other extremities. at the bedside was updated. I explained to the that she has very extensive intracranial hemorrhage and prognosis appears poor. Dr. Bowden is planning to place an EVD emergently. I discussed with Dr. Bowden extensively , patient is not a candidate for evacuation of intracerebral hemorrhage due to overall poor prognosis. I have placed a central line for administration of vasopressor agents and 3% saline. Patient remains on Cardene infusion and at this time receiving mannitol. I have also ordered Keppra for seizure prophylaxis 01/28: Remains sedated, orally intubated on mechanical ventilation. Being taken to OR for craniotomy per Dr. Bowden. 01/29: Remains sedated, orally intubated on mechanical ventilation. Underwent craniotomy with evacuation of hematoma by Dr. Bowden on 01/28. Ventriculostomy remains in place. Drained 120 cc bloody CSF over the last 12 hours. ICP 2. 01/30: ICP well controlled. Requiring mechanical ventilation. 01/31: Remains sedated, orally intubated on mechanical ventilation. Ventriculostomy in place. ICP within normal limits. Leukocytosis persists. UA appeared abnormal however cultures with no growth. Starting empiric Levaquin. Checking pro-calcitonin. Started free water for worsening hypernatremia Objective Vital Signs Date Time Temp Pulse Resp B/P (MAP) Pulse Ox O2 Delivery O2 Flow Rate FiO2 01/31/17 16:00 103 01/31/17 16:00 40 01/31/17 16:00 98.8 18 100 144/42 (76) 01/28/17 07:00 Mechanical Ventilator Intake and Output 01/31/17 01/31/17 02/01/17 08:00 16:00 00:00 Intake Total 2209 ml Output Total 1063 ml Balance 1146 ml Result Diagram: 01/31/17 0100 01/31/17 0100 Other Results Microbiology Date/Time Source Procedure Growth Status 01/29/17 14:00 Sputum Endotracheal Gram Stain - Final Complete 01/29/17 14:00 Sputum Endotracheal Sputum Culture - Final LIGHT GROWTH NORMAL RESPIRATORY JAGRUTI Complete 01/29/17 14:00 Urine Catheterized Urine Urine Culture - Final NO GROWTH IN 48 HOURS. Complete Imaging Last Impressions Neck CTA 01/28/17 1009 Signed Impressions: Service Date/Time: Saturday, January 28, 2017 10:27 - CONCLUSION: 1. No hemodynamically significant carotid artery stenosis identified. 2. Mild atherosclerotic plaquing at the bifurcation. 3. Both vertebral arteries are widely patent. Jac Hardy MD Head CTA 01/28/17 0000 Signed Impressions: Service Date/Time: Saturday, January 28, 2017 10:27 - CONCLUSION: 1. No evidence of vascular malformation or vasculopathy. 2. Subdural, intraparenchymal and intraventricular hemorrhage are again noted and not significantly changed since prior study. 3. Persistent left to right shift measuring between 8 and 9 mm; unchanged. Nick Barker MD Head CT 01/28/17 0000 Signed Impressions: Service Date/Time: Saturday, January 28, 2017 10:28 - CONCLUSION: 1. Grossly stable large intra-axial hemorrhage in the left posterior prior mid to high convexities with slightly more prominent subdural hematoma more anteriorly, now measuring 6 mm in comparison to 5 mm on prior exam. Stable subtle subarachnoid hemorrhage in the parieto-occipital low convexities. 2. Interval frontal ventriculostomy catheter placement with improved intraventricular blood products, slightly improved subfalcine herniation and improved basilar cistern effacement. Migel Kapadia MD Chest X-Ray 01/27/17 1302 Signed Impressions: Service Date/Time: Friday, January 27, 2017 13:12 - CONCLUSION: Left basilar density likely atelectasis. Nasogastric tube 1.5 cm above the peng. Isai Sullivan MD Objective Remarks Sedation: Propofol 20 mics per KG per minute GENERAL: Elderly female, sedated, orally intubated on mechanical ventilation. SKIN: Warm/dry. HEAD: Atraumatic. Normocephalic. EYES: Pupils equal and round sluggish reaction to light. ENT: No nasal bleeding or discharge. Mucous membranes moist. Orotracheally intubated NECK: Trachea midline. CARDIOVASCULAR: Regular rate and rhythm. No murmur appreciated. No JVD. RESPIRATORY: Orally intubated on mechanical ventilation. Clear to auscultation. Breath sounds equal bilaterally. No adventitious sounds. GASTROINTESTINAL: Abdomen soft, non-tender, nondistended. BS few. MUSCULOSKELETAL: No obvious deformities. No clubbing. No cyanosis. No edema. NEUROLOGICAL: Dressing over craniotomy site intact, MARIA FERNANDA drains in place, ventriculostomy in place with bloody CSF draining. Sedated, orally intubated on mechanical ventilation. Moving her left upper extremity spontaneously and localizes to pain. No movement right side. Withdraws all other extremities. SERGEY A/P Assessment and Plan Neuro: Extensive intraventricular hemorrhage, left parietal/occipital intraparenchymal hemorrhage, left subdural hemorrhage Acute encephalopathy - Propofol for sedation and vent synchrony. Daily sedation vacation - Emergency EVD placement by Dr. Bowden. ICP controlled -Off 3% saline. Worsening hypernatremia noted. Started free water on 01/31 - Isabelra for seizure prophylaxis - Frequent neuro checks - -Repeat imaging studies per neurosurgery. - s/p craniotomy with evacuation of hematoma 01/[address] Bowden. - EVD Resp: Acute respiratory failure - Intubated for airway protection, continue ACV - wean fio2 for goal spo2 > 90% - HOB elevated - nebs, vent bundle CV: Hypertensive emergency - Cardene infusion, when necessary labetalol and hydralazine to keep systolic blood pressure 140-150 - NS at 75 ml per hour, 3% saline at 30 ml per hour - hold for sodium greater than 155mEq/L - 2D Echo ordered Renal: - Place Fuller - strict i/os FEN/GI: -Continue tube feeds and advanced to goal as tolerated with Glucerna1.5 Heme/ID: Leukocytosis - Does not meet transfusion triggers at this time - Leukocytosis persists: Possibly reactive secondary to surgery. - Pancultures done on 01/29 with no growth though UA looked like a UTI. - Starting empiric Levaquin on 01/31. Check pro calcitonin. Repeat chest x- ray tomorrow morning to evaluate for infiltrates. Endocrine: Hypothyroidism - Start by mouth Synthroid in 24 hours Prophylaxis: SCDs Pepcid iv No pharmacologic DVT prophylaxis given ICH Dispo: Critically ill with poor prognosis. 01/29: I had a long discussion with patient's daughter at bedside regarding current clinical status and plan of care and she voiced understanding and was agreeable. I also discussed strong possibility of need for tracheostomy and PEG tube and possible group home placement and she voiced understanding. Goals of care remain aggressive at this time. Recommend palliative care consult to assist with deciding goals of therapy if no significant improvement over the next few days. 01/31: I updated patient's daughter at bedside regarding current critical status and plan of care and she voiced understanding. Overall impression: She remains critically ill following hemorrhagic stroke. Neurological status is unstable and unable to wean from ventilator. Critical Care 40 mins Gregg Lopez MD Jan 31, 2017 17:26
[2017-01-31 17:47] LABS: BICARBONATE 27.7 MEQ/L (21.0-32.0); CALCIUM 8.1 MG/DL (8.5-10.1); CREATININE 0.64 MG/DL (0.50-1.00)
[2017-01-31] MEDS: LEVOFLOXACIN 750 MG PREMIX INJ 150 ML IV SCH (19:40)
[2017-02-01] VITALS (19 sets, daily range): BP systolic 143–162; BP diastolic 51–62; PULSE 100–111; RESP 16–22; TEMP 98.5–99.2; O2SAT 97–100
[2017-02-01] MEDS: hydrALAZINE HCL 20 MG/ML VIAL IV PUSH PRN ×2 (00:10→08:17)
[2017-02-01] MEDS: CHLORHEXIDINE GLUCONATE 2 % 1 PACK (2 CLOTHS) TOP SCH (04:00)
[2017-02-01 04:15] LABS: AUTOMATED NEUTROPHIL # 13.9 TH/MM3 (1.8-7.7); BASOPHIL % 0.2 % (0.0-2.0); EOSINOPHIL # 0.1 TH/MM3 (0-0.4); EOSINOPHIL % 0.4 % (0.0-4.0); HEMATOCRIT 24.7 % (35.0-46.0); HEMOGLOBIN 8.5 GM/DL (11.6-15.3); LYMPH % 9.3 % (9.0-44.0); LYMPHOCYTE # 1.6 TH/MM3 (1.0-4.8); MEAN CELL VOLUME 92.4 FL (80.0-100.0); MEAN CORPUSCULAR HEMOGLOBIN 31.7 PG (27.0-34.0); MEAN CORPUSCULAR HGB CONC 34.3 % (32.0-36.0); MEAN PLATELET VOLUME 9.4 FL (7.0-11.0); MONO % 7.4 % (0.0-8.0); MONOCYTE # 1.3 TH/MM3 (0-0.9); NEUT % 82.7 % (16.0-70.0); PLATELET COUNT 156 TH/MM3 (150-450); RED BLOOD COUNT 2.67 MIL/MM3 (4.00-5.30); RED CELL DISTRIBUTION WIDTH 14.9 % (11.6-17.2); WHITE BLOOD COUNT 16.9 TH/MM3 (4.0-11.0)
[2017-02-01 04:39] LABS: ALBUMIN 2.2 GM/DL (3.4-5.0); AST (GOT) 47 U/L (15-37); BICARBONATE 26.3 MEQ/L (21.0-32.0); BLOOD UREA NITROGEN 26 MG/DL (7-18); CALCIUM 8.1 MG/DL (8.5-10.1); CHLORIDE 121 MEQ/L (98-107); CREATININE 0.69 MG/DL (0.50-1.00); GLOMERULAR FILTRATION RATE 83 ML/MIN (>89); GLUCOSE,RANDOM 142 MG/DL (74-106); SODIUM (NA) 155 MEQ/L (136-145)
[2017-02-01 04:43] LABS: ALKALINE PHOSPHATASE 94 U/L (45-117); ALT (GPT) 60 U/L (10-53); TOTAL BILIRUBIN ADULT 0.2 MG/DL (0.2-1.0); TOTAL PROTEIN 6.1 GM/DL (6.4-8.2)
--- NOTE | 2017-02-01 05:28 | RADRPT ---
EXAM DATE/TIME: 02/01/2017 04:26 [facility] COMPARISON: CHEST SINGLE AP, January 27, 2017, 15:18. INDICATIONS : Evaluate for infiltrates. MEDICAL HISTORY : None. SURGICAL HISTORY : Hysterectomy. Craniotomy. ENCOUNTER: Subsequent ACUITY: 4 - 6 days PAIN SCORE: Non-responsive. LOCATION: Bilateral chest FINDINGS: Single AP view of the chest. Endotracheal tube, nasogastric tube, left subclavian central venous cath eter remain in place. Left lower lobe consolidation versus atelectasis unchanged. Small left pleural effusion. No evidence of pneumothorax. CONCLUSION: No significant interval change with persistent left lower lobe consolidation versus atelectasis and s mall left pleural effusion. Obed Alexis MD on February 01, 2017 at 5:26 Board Certified Radiologist. This report was verified electronically.
[2017-02-01] MEDS: FREE WATER OG-TUBE SCH ×4 (06:00→18:00)
[2017-02-01] MEDS: INSULIN ASPART SUPPLEMENTAL SCALE SQ SCH ×5 (06:00→23:29)
[2017-02-01] MEDS: SODIUM CHLORIDE 0.9% FLUSH 10 ML FLUSH IV FLUSH SCH ×2 (08:16→21:00)
[2017-02-01] MEDS: CHLORHEXIDINE 0.12% (ORAL KIT) 15 ML CUP MT SCH ×2 (08:16→20:00)
[2017-02-01] MEDS: levETIRAcetam INJ 500 MG in SODIUM CHLORIDE 0.9% INJ 100 ML IV SCH ×2 (08:16→21:41)
[2017-02-01] MEDS: PANTOPRAZOLE SODIUM 40 MG VIAL IVP SCH (08:17)
[2017-02-01] MEDS: DOCUSATE SODIUM 100 MG CAP PO SCH ×2 (08:17→21:00)
[2017-02-01] MEDS: SODIUM CHLOR 0.9% 1000 ML INJ 1,000 ML IV SCH (11:17)
--- NOTE | 2017-02-01 14:52 | HHI.NSPN ---
postop History Interval History Patient s/p craniotomy for ICH. Also underwent placement of ventriculostomy Has been stable No significant change in neuro status System Review Comments no change Exam Results Vital Signs Date Time Temp Pulse Resp B/P (MAP) Pulse Ox O2 Delivery O2 Flow Rate FiO2 02/01/17 14:00 100 02/01/17 12:00 40 02/01/17 12:00 98.9 22 152/58 (89) 98 01/28/17 07:00 Mechanical Ventilator Intake and Output 02/01/17 02/01/17 02/02/17 08:00 16:00 00:00 Intake Total 1767 ml Output Total 1156 ml Balance 611 ml Physical Examination Ms. Tinajero is intubated and sedated. Opens eyes with deep stimulation Surgical incision with clean and dry head wrap. MARIA FERNANDA drains x 2 with minimal drainage. Ventriculostomy draining well at 0 cm H20s, bloody CSF. Cranial Nerves: Pupils 2 mm round reactive. Conjugate gaze. Positive cough and gag. Motor: minimal response to pain x 4 extremities Plantars silent b/l Medical Decision Making Impression and Plan S/p craniotomy and ventriculostomy Is stable P: Continue support Repeat CT Total Minutes: 15 Kerwin Rivas MD Feb 01, 2017 14:52
--- NOTE | 2017-02-01 19:06 | HHI.CCPN ---
Subjective Remarks/Hospital Course 01/27: Patient is a 76-year-old female who was brought to the [facility] emergency department by EMS as a stroke alert. Last found normal at 11 this morning, later found unresponsive in the bed by her and EMS was called. EMS gave her Narcan IM without any response, blood glucose was 140, vital signs were apparently stable. In the ED patient remained poorly responsive and was intubated for airway protection. Her blood pressure on arrival was 243/129 and patient was started on Cardene infusion. CT of the head showed extensive acute intraventricular hemorrhage involving the left lateral ventricle, right lateral ventricle and third ventricle, acute intraparenchymal hemorrhage within the left parietal and left occipital region ( 4.1 cm in size). Acute subdural hematoma along the left frontoparietal region measuring 5 mm in width. There was also significant Significant (10 mm) subfalcine herniation to the right. Dr. Bowden was contacted by the ED Per Dr. Rivera on 01/27: Critical care medicine was requested to admit the patient. Patient was emergently moved to the ICU for EVD placement. I evaluated the patient immediately after arrival to the ICU. Patient purposefully moves left upper extremity and withdraws all other extremities. at the bedside was updated. I explained to the that she has very extensive intracranial hemorrhage and prognosis appears poor. Dr. Bowden is planning to place an EVD emergently. I discussed with Dr. Bowden extensively , patient is not a candidate for evacuation of intracerebral hemorrhage due to overall poor prognosis. I have placed a central line for administration of vasopressor agents and 3% saline. Patient remains on Cardene infusion and at this time receiving mannitol. I have also ordered Keppra for seizure prophylaxis 01/28: Remains sedated, orally intubated on mechanical ventilation. Being taken to OR for craniotomy per Dr. Bowden. 01/29: Remains sedated, orally intubated on mechanical ventilation. Underwent craniotomy with evacuation of hematoma by Dr. Bowden on 01/28. Ventriculostomy remains in place. Drained 120 cc bloody CSF over the last 12 hours. ICP 2. 01/30: ICP well controlled. Requiring mechanical ventilation. 01/31: Remains sedated, orally intubated on mechanical ventilation. Ventriculostomy in place. ICP within normal limits. Leukocytosis persists. UA appeared abnormal however cultures with no growth. Starting empiric Levaquin. Checking pro-calcitonin. Started free water for worsening hypernatremia Subjective: 02/01 Afebrile. WBC 16.9 which is downtrending. Nurse states she has diarrhea. Procalcitonin is not elevated. Ventric at 0 cm water, repeat CT scheduled for tomorrow morning per neurosurgery. Objective Vital Signs Date Time Temp Pulse Resp B/P (MAP) Pulse Ox O2 Delivery O2 Flow Rate FiO2 02/01/17 18:04 98 40 02/01/17 18:00 109 02/01/17 16:00 98.9 21 157/56 (89) 01/28/17 07:00 Mechanical Ventilator Intake and Output 02/01/17 02/01/17 02/02/17 08:00 16:00 00:00 Intake Total 1767 ml 1093 ml Output Total 1156 ml 1087 ml Balance 611 ml 6 ml Result Diagram: 02/01/17 0350 02/01/17 0350 Imaging Last Impressions Neck CTA 01/28/17 1009 Signed Impressions: Service Date/Time: Saturday, January 28, 2017 10:27 - CONCLUSION: 1. No hemodynamically significant carotid artery stenosis identified. 2. Mild atherosclerotic plaquing at the bifurcation. 3. Both vertebral arteries are widely patent. Jac Haryd MD Head CTA 01/28/17 0000 Signed Impressions: Service Date/Time: Saturday, January 28, 2017 10:27 - CONCLUSION: 1. No evidence of vascular malformation or vasculopathy. 2. Subdural, intraparenchymal and intraventricular hemorrhage are again noted and not significantly changed since prior study. 3. Persistent left to right shift measuring between 8 and 9 mm; unchanged. Nick Barker MD Head CT 01/28/17 0000 Signed Impressions: Service Date/Time: Saturday, January 28, 2017 10:28 - CONCLUSION: 1. Grossly stable large intra-axial hemorrhage in the left posterior prior mid to high convexities with slightly more prominent subdural hematoma more anteriorly, now measuring 6 mm in comparison to 5 mm on prior exam. Stable subtle subarachnoid hemorrhage in the parieto-occipital low convexities. 2. Interval frontal ventriculostomy catheter placement with improved intraventricular blood products, slightly improved subfalcine herniation and improved basilar cistern effacement. Migel Kapadia MD Chest X-Ray 01/27/17 1302 Signed Impressions: Service Date/Time: Friday, January 27, 2017 13:12 - CONCLUSION: Left basilar density likely atelectasis. Nasogastric tube 1.5 cm above the peng. Isai Sullivan MD Objective Remarks Drips 0.9 NaCl @ 60 ml/hr. GENERAL: Elderly female, sedated, orally intubated on mechanical ventilation. SKIN: Warm/dry. HEAD: Atraumatic. Normocephalic. EYES: Pupils equal and round, ~2 mm sluggish reaction to light. ENT: No nasal bleeding or discharge. Mucous membranes moist. Orotracheally intubated NECK: Trachea midline. CARDIOVASCULAR: Regular rate and rhythm. No murmur appreciated. No JVD. RESPIRATORY: Orally intubated on mechanical ventilation. Clear to auscultation. Breath sounds equal bilaterally. Scattered rhonchi. GASTROINTESTINAL: Abdomen soft, non-tender, nondistended. BS few. Tolerating tube feeds at 60 ml/hr. MUSCULOSKELETAL: No obvious deformities. No clubbing. No cyanosis. No edema. NEUROLOGICAL: Dressing over craniotomy site intact, L ventriculostomy in place 0 cm water, noncloudy. Orally intubated on mechanical ventilation. RUE is flaccid. RLE with very weak withdrawal. LUE with myoclonic movements to noxious stimuli. LLE withdraws to noxious stimuli. Babinski upgoing on the left, no response to babinski on the right. A/P Assessment and Plan Neuro: Extensive intraventricular hemorrhage, left parietal/occipital intraparenchymal hemorrhage, left subdural hemorrhage Acute encephalopathy - Propofol for sedation and vent synchrony. Daily sedation vacation - Emergency EVD placement by Dr. Bowden. ICP controlled -Off 3% saline. Worsening hypernatremia noted. Started free water on 01/31 and sodium has started downtrending. Will d/c 0.9 NaCl and free water flushes and will monitor as sodium 150-155 is reasonable. - Keppra 500 mg IV q12 hours for seizure prophylaxis - Frequent neuro checks - s/p craniotomy with evacuation of hematoma 01/[address] Bowden. - EVD management per neurosurgery. Resp: Acute respiratory failure - Intubated for airway protection, continue ACV - wean fio2 for goal spo2 > 90% - HOB elevated - nebs, vent bundle CV: Hypertensive emergency Off cardene - 2D Echo - EF 65-70%. Renal: - Fuller in place - strict i/os FEN/GI: -Continue tube feeds with Glucerna1.5, change goal to 50 mL per hour per nutrition recommendations. IDHEME: Leukocytosis - Does not meet transfusion triggers at this time - Leukocytosis persists: Possibly reactive secondary ICH/surgery. - Pancultures done on 01/29 with no growth. Empiric Levaquin was started 01/31 # 2. CXR with LLL opacity but procalcitonin is low so likely short course would be appropriate. Has had diarrhea per d/w nursing, will check C diff in view of leukocytosis. Endocrine: Hypothyroidism On admission it was reported patient is on unknown thyroid med and dose. Will obtain from family and resume when dose confirmed. TSH was normal 1.48 Prophylaxis: SCDs Pepcid iv No pharmacologic DVT prophylaxis given ICH and Ventric weaning per discussion with Dr. Rivas. Initiate when ok with NSG. Dispo: Critically ill with poor prognosis. 01/29: I had a long discussion with patient's daughter at bedside regarding current clinical status and plan of care and she voiced understanding and was agreeable. I also discussed strong possibility of need for tracheostomy and PEG tube and possible care home placement and she voiced understanding. Goals of care remain aggressive at this time. Recommend palliative care consult to assist with deciding goals of therapy if no significant improvement over the next few days. 01/31: I updated patient's daughter at bedside regarding current critical status and plan of care and she voiced understanding. 02/01 Updated daughter at bedside. She remains hopeful for improvement and goals of care appear aggressive despite poor prognosis. Overall impression: She remains critically ill following hemorrhagic stroke. Neurological status is unstable and unable to wean from ventilator. Level 3 followup. Shruthi Hernandez MD Feb 01, 2017 19:06
[2017-02-01] MEDS: LEVOFLOXACIN 750 MG PREMIX INJ 150 ML IV SCH (20:06)
[2017-02-02] VITALS (19 sets, daily range): BP systolic 121–155; BP diastolic 56–67; PULSE 103–122; RESP 16–21; TEMP 98.7–99.5; O2SAT 93–100
[2017-02-02] MEDS: hydrALAZINE HCL 20 MG/ML VIAL IV PUSH PRN ×3 (02:16→19:54)
[2017-02-02] MEDS: CHLORHEXIDINE GLUCONATE 2 % 1 PACK (2 CLOTHS) TOP SCH (04:00)
[2017-02-02 04:11] LABS: AUTOMATED NEUTROPHIL # 13.4 TH/MM3 (1.8-7.7); BASOPHIL % 0.1 % (0.0-2.0); EOSINOPHIL # 0.2 TH/MM3 (0-0.4); EOSINOPHIL % 1.4 % (0.0-4.0); HEMATOCRIT 27.3 % (35.0-46.0); LYMPH % 10.3 % (9.0-44.0); LYMPHOCYTE # 1.7 TH/MM3 (1.0-4.8); MEAN CELL VOLUME 92.4 FL (80.0-100.0); MEAN CORPUSCULAR HEMOGLOBIN 30.5 PG (27.0-34.0); MEAN PLATELET VOLUME 9.3 FL (7.0-11.0); MONOCYTE # 1.3 TH/MM3 (0-0.9); NEUT % 80.2 % (16.0-70.0); PLATELET COUNT 187 TH/MM3 (150-450); RED BLOOD COUNT 2.95 MIL/MM3 (4.00-5.30); WHITE BLOOD COUNT 16.7 TH/MM3 (4.0-11.0)
[2017-02-02 04:27] LABS: BICARBONATE 28.9 MEQ/L (21.0-32.0); CALCIUM 8.4 MG/DL (8.5-10.1); CREATININE 0.68 MG/DL (0.50-1.00)
[2017-02-02 05:17] LABS: LYMPHOCYTES 12 % (9-44); METAMYELOCYTES 1 % (0-1); MONOCYTES 3 % (0-8); MYELOCYTES 1 % (0-0); POLYS (SEG NEUTROPHILS) 82 % (16-70)
--- NOTE | 2017-02-02 05:30 | RADRPT ---
EXAM DATE/TIME: 02/02/2017 04:45 [facility] COMPARISON: CT BRAIN W/O CONTRAST, January 29, 2017, 13:16. INDICATIONS : Follow up sudural hematoma and parenchymal hemorrhage. RADIATION DOSE: 56.35 CTDIvol (mGy) MEDICAL HISTORY : Non-responsive. SURGICAL HISTORY : Non-responsive. ENCOUNTER: Subsequent ACUITY: 1 week PAIN SCALE: Non-responsive LOCATION: cranial TECHNIQUE: Multiple contiguous axial images were obtained of the head. Using automated exposure control and adj ustment of the mA and/or kV according to patient size, radiation dose was kept as low as reasonably a chievable to obtain optimal diagnostic quality images. DICOM format image data is available electro nically for review and comparison. FINDINGS: Widespread parenchymal and subarachnoid blood again noted of the left cerebral hemisphere, mostly the vertex. Patient is status post subdural drainage. A tiny residual subdural hemorrhage versus along t he left cerebral convexity, 4 mm in maximal thickness. Previously seen air in the left subdural space has resolved. Small ventricular blood not significantly changed. Ventriculostomy catheter remains in place and the ventricles are smaller than before, normal size. There is approximately 6 mm of rightward midline shift, slightly worse in the interim. No mass lesion seen. No evidence of an acute ischemic event. CONCLUSION: 1. Widespread subacute parenchymal and subarachnoid blood as well is a tiny subdural hemorrhage on th e left not significantly changed but there is slightly worse rightward midline shift, now 6 mm. 2. Ventriculostomy catheter remains in place on the right. Decompressed ventricles. Small intraventri cular blood unchanged. 3. Resolving pneumocephaly. 4. No mass or evidence of an acute ischemic event. Miguel Gooden MD on February 02, 2017 at 5:24 Board Certified Radiologist. This report was verified electronically.
[2017-02-02] MEDS: INSULIN ASPART SUPPLEMENTAL SCALE SQ SCH ×3 (06:00→18:00)
[2017-02-02] MEDS ORDERED: LEVO50TA4 PO (07:59)
[2017-02-02] MEDS: CHLORHEXIDINE 0.12% (ORAL KIT) 15 ML CUP MT SCH ×2 (08:00→19:54)
[2017-02-02] MEDS: levETIRAcetam INJ 500 MG in SODIUM CHLORIDE 0.9% INJ 100 ML IV SCH ×2 (08:45→21:38)
[2017-02-02] MEDS: PANTOPRAZOLE SODIUM 40 MG VIAL IVP SCH (08:45)
[2017-02-02] MEDS: DOCUSATE SODIUM 100 MG CAP PO SCH ×2 (09:00→21:00)
[2017-02-02] MEDS: SODIUM CHLORIDE 0.9% FLUSH 10 ML FLUSH IV FLUSH SCH ×2 (09:00→21:00)
--- NOTE | 2017-02-02 12:14 | HHI.NSPN ---
History Interval History Patient s/p craniotomy for ICH. Also underwent placement of ventriculostomy Has been stable No significant change in neuro status System Review Comments no change Exam Results Vital Signs Date Time Temp Pulse Resp B/P (MAP) Pulse Ox O2 Delivery O2 Flow Rate FiO2 02/02/17 10:00 107 02/02/17 08:00 98.7 19 144/60 (88) 98 02/02/17 08:00 40 Intake and Output 02/02/17 02/02/17 02/03/17 08:00 16:00 00:00 Intake Total 896 ml Output Total 993 ml Balance -97 ml Physical Examination Ms. Tinajero is intubated and sedated. Opens eyes with deep stimulation Surgical incision with clean and dry head wrap.. Ventriculostomy draining well at 0 cm H20s, bloody CSF. Cranial Nerves: Pupils 2 mm round reactive. Conjugate gaze. Positive cough and gag. Motor: minimal response to pain x 4 extremities Lab, Micro, Other Results CT reviewed No significant change Small ventricles Medical Decision Making Impression and Plan S/p craniotomy and ventriculostomy. Is stable P: Continue support Will raise ventriculostomy to 3 mm Hg Total Minutes: 15 Kerwin Rivas MD Feb 02, 2017 12:14
--- NOTE | 2017-02-02 15:14 | HHI.CCPN ---
Subjective Remarks/Hospital Course 01/27: Patient is a 76-year-old female who was brought to the [facility] emergency department by EMS as a stroke alert. Last found normal at 11 this morning, later found unresponsive in the bed by her and EMS was called. EMS gave her Narcan IM without any response, blood glucose was 140, vital signs were apparently stable. In the ED patient remained poorly responsive and was intubated for airway protection. Her blood pressure on arrival was 243/129 and patient was started on Cardene infusion. CT of the head showed extensive acute intraventricular hemorrhage involving the left lateral ventricle, right lateral ventricle and third ventricle, acute intraparenchymal hemorrhage within the left parietal and left occipital region ( 4.1 cm in size). Acute subdural hematoma along the left frontoparietal region measuring 5 mm in width. There was also significant Significant (10 mm) subfalcine herniation to the right. Dr. Bowden was contacted by the ED Per Dr. Rivera on 01/27: Critical care medicine was requested to admit the patient. Patient was emergently moved to the ICU for EVD placement. I evaluated the patient immediately after arrival to the ICU. Patient purposefully moves left upper extremity and withdraws all other extremities. at the bedside was updated. I explained to the that she has very extensive intracranial hemorrhage and prognosis appears poor. Dr. Bowden is planning to place an EVD emergently. I discussed with Dr. Bowden extensively , patient is not a candidate for evacuation of intracerebral hemorrhage due to overall poor prognosis. I have placed a central line for administration of vasopressor agents and 3% saline. Patient remains on Cardene infusion and at this time receiving mannitol. I have also ordered Keppra for seizure prophylaxis 01/28: Remains sedated, orally intubated on mechanical ventilation. Being taken to OR for craniotomy per Dr. Bowden. 01/29: Remains sedated, orally intubated on mechanical ventilation. Underwent craniotomy with evacuation of hematoma by Dr. Bowden on 01/28. Ventriculostomy remains in place. Drained 120 cc bloody CSF over the last 12 hours. ICP 2. 01/30: ICP well controlled. Requiring mechanical ventilation. 01/31: Remains sedated, orally intubated on mechanical ventilation. Ventriculostomy in place. ICP within normal limits. Leukocytosis persists. UA appeared abnormal however cultures with no growth. Starting empiric Levaquin. Checking pro-calcitonin. Started free water for worsening hypernatremia Subjective: 02/01 Afebrile. WBC 16.9 which is downtrending. Nurse states she has diarrhea. Procalcitonin is not elevated. Ventric at 0 cm water, repeat CT scheduled for tomorrow morning per neurosurgery. 02/02: Osmolality suitably concentrated but brain edema persists, shift slightly larger. Hypertonic saline continued at half rate to avoid overly rapid drop. Objective Vital Signs Date Time Temp Pulse Resp B/P (MAP) Pulse Ox O2 Delivery O2 Flow Rate FiO2 02/02/17 12:00 99.1 117 17 121/60 (80) 93 02/02/17 12:00 40 Intake and Output 02/02/17 02/02/17 02/03/17 08:00 16:00 00:00 Intake Total 896 ml Output Total 993 ml Balance -97 ml Result Diagram: 02/02/17 0327 02/02/17 0327 Imaging Last Impressions Neck CTA 01/28/17 1009 Signed Impressions: Service Date/Time: Saturday, January 28, 2017 10:27 - CONCLUSION: 1. No hemodynamically significant carotid artery stenosis identified. 2. Mild atherosclerotic plaquing at the bifurcation. 3. Both vertebral arteries are widely patent. Jac Hardy MD Head CTA 01/28/17 0000 Signed Impressions: Service Date/Time: Saturday, January 28, 2017 10:27 - CONCLUSION: 1. No evidence of vascular malformation or vasculopathy. 2. Subdural, intraparenchymal and intraventricular hemorrhage are again noted and not significantly changed since prior study. 3. Persistent left to right shift measuring between 8 and 9 mm; unchanged. Nick Barker MD Head CT 01/28/17 0000 Signed Impressions: Service Date/Time: Saturday, January 28, 2017 10:28 - CONCLUSION: 1. Grossly stable large intra-axial hemorrhage in the left posterior prior mid to high convexities with slightly more prominent subdural hematoma more anteriorly, now measuring 6 mm in comparison to 5 mm on prior exam. Stable subtle subarachnoid hemorrhage in the parieto-occipital low convexities. 2. Interval frontal ventriculostomy catheter placement with improved intraventricular blood products, slightly improved subfalcine herniation and improved basilar cistern effacement. Migel Kapadia MD Chest X-Ray 01/27/17 1302 Signed Impressions: Service Date/Time: Friday, January 27, 2017 13:12 - CONCLUSION: Left basilar density likely atelectasis. Nasogastric tube 1.5 cm above the pneg. Isai Sullivan MD Objective Remarks GENERAL: Elderly female, sedated, orally intubated on mechanical ventilation. SKIN: Warm/dry. HEAD: Atraumatic. Normocephalic. EYES: Pupils equal and round, 2 mm sluggish reaction to light. ENT: No nasal bleeding or discharge. Mucous membranes moist. NECK: Trachea midline. Orally intubated. CARDIOVASCULAR: Regular rate and rhythm. NL S1S2. No JVD. RESPIRATORY: Orally intubated on mechanical ventilation. Clear to auscultation. Breath sounds equal bilaterally. Scattered rhonchi. GASTROINTESTINAL: Abdomen soft, non-tender, nondistended. BS few. Tolerating tube feeds at 60 ml/hr. MUSCULOSKELETAL: No obvious deformities. No clubbing. No cyanosis. No edema. Well perfused. NEUROLOGICAL: Dressing over craniotomy site intact, L ventriculostomy in place 0 cm water, fluid clear. Orally intubated on mechanical ventilation. RUE is flaccid. RLE with very weak withdrawal. LUE with myoclonic movements to noxious stimuli. LLE withdraws to noxious stimuli. Babinski upgoing on the left, no response to Babinski on the right. A/P Assessment and Plan Neuro: Extensive intraventricular hemorrhage, left parietal/occipital intraparenchymal hemorrhage, left subdural hemorrhage Acute encephalopathy - Propofol for sedation and vent synchrony. Daily sedation vacation - Emergency EVD placement by Dr. Bowden. ICP controlled - Off 3% saline. Worsening hypernatremia noted. Started free water on 01/31 and sodium has started downtrending. Will d/c 0.9 NaCl and free water flushes and will monitor as sodium 150-155 is reasonable. - Keppra 500 mg IV q12 hours for seizure prophylaxis - Frequent neuro checks - s/p craniotomy with evacuation of hematoma 01/[address] Bowden. - EVD management per neurosurgery. Resp: Acute respiratory failure - Intubated for airway protection, continue ACV - wean fio2 for goal spo2 > 90% - HOB elevated - nebs, vent bundle CV: Hypertensive emergency Off cardene - 2D Echo - EF 65-70%. Renal: - Fuller in place - strict i/os FEN/GI: -Continue tube feeds with Glucerna1.5, change goal to 50 mL per hour per nutrition recommendations. IDHEME: Leukocytosis - Does not meet transfusion triggers at this time - Leukocytosis persists: Possibly reactive secondary ICH/surgery. - Pancultures done on 01/29 with no growth. Empiric Levaquin was started 01/31 # 2. CXR with LLL opacity but procalcitonin is low so likely short course would be appropriate. Has had diarrhea per d/w nursing, will check C diff in view of leukocytosis. Endocrine: Hypothyroidism On admission it was reported patient is on unknown thyroid med and dose. Will obtain from family and resume when dose confirmed. TSH was normal 1.48 Prophylaxis: SCDs Pepcid iv No pharmacologic DVT prophylaxis given ICH and Ventric weaning per discussion with Dr. Rivas. Initiate when ok with NSG. Dispo: Critically ill with poor prognosis. 01/29: I had a long discussion with patient's daughter at bedside regarding current clinical status and plan of care and she voiced understanding and was agreeable. I also discussed strong possibility of need for tracheostomy and PEG tube and possible mcfp placement and she voiced understanding. Goals of care remain aggressive at this time. Recommend palliative care consult to assist with deciding goals of therapy if no significant improvement over the next few days. 01/31: I updated patient's daughter at bedside regarding current critical status and plan of care and she voiced understanding. 02/01 Updated daughter at bedside. She remains hopeful for improvement and goals of care appear aggressive despite poor prognosis. Overall impression: She remains critically ill following hemorrhagic stroke. Neurological status is unstable and unable to wean from ventilator. Swelling persists. Tristin Gómez MD Feb 02, 2017 15:14
[2017-02-02] MEDS: MORPHINE SULFATE 2 MG/ML INJ IV PUSH PRN (17:13)
[2017-02-02] MEDS: LEVOFLOXACIN 750 MG PREMIX INJ 150 ML IV SCH (19:54)
[2017-02-03] VITALS (18 sets, daily range): BP systolic 121–156; BP diastolic 44–60; PULSE 106–119; RESP 16–17; TEMP 98.9–100.8; O2SAT 96–99
[2017-02-03] MEDS: CHLORHEXIDINE GLUCONATE 2 % 1 PACK (2 CLOTHS) TOP SCH (03:42)
[2017-02-03 05:02] LABS: CALCIUM 8.3 MG/DL (8.5-10.1); CREATININE 0.73 MG/DL (0.50-1.00)
[2017-02-03] MEDS: INSULIN ASPART SUPPLEMENTAL SCALE SQ SCH ×4 (05:12→18:00)
--- NOTE | 2017-02-03 07:54 | HHI.CCPN ---
Subjective Remarks/Hospital Course 01/27: Patient is a 76-year-old female who was brought to the [place] emergency department by EMS as a stroke alert. Last found normal at 11 this morning, later found unresponsive in the bed by her and EMS was called. EMS gave her Narcan IM without any response, blood glucose was 140, vital signs were apparently stable. In the ED patient remained poorly responsive and was intubated for airway protection. Her blood pressure on arrival was 243/129 and patient was started on Cardene infusion. CT of the head showed extensive acute intraventricular hemorrhage involving the left lateral ventricle, right lateral ventricle and third ventricle, acute intraparenchymal hemorrhage within the left parietal and left occipital region ( 4.1 cm in size). Acute subdural hematoma along the left frontoparietal region measuring 5 mm in width. There was also significant Significant (10 mm) subfalcine herniation to the right. Dr. Bowden was contacted by the ED Per Dr. Rivera on 01/27: Critical care medicine was requested to admit the patient. Patient was emergently moved to the ICU for EVD placement. I evaluated the patient immediately after arrival to the ICU. Patient purposefully moves left upper extremity and withdraws all other extremities. at the bedside was updated. I explained to the that she has very extensive intracranial hemorrhage and prognosis appears poor. Dr. Bowden is planning to place an EVD emergently. I discussed with Dr. Bowden extensively , patient is not a candidate for evacuation of intracerebral hemorrhage due to overall poor prognosis. I have placed a central line for administration of vasopressor agents and 3% saline. Patient remains on Cardene infusion and at this time receiving mannitol. I have also ordered Keppra for seizure prophylaxis 01/28: Remains sedated, orally intubated on mechanical ventilation. Being taken to OR for craniotomy per Dr. Bowden. 01/29: Remains sedated, orally intubated on mechanical ventilation. Underwent craniotomy with evacuation of hematoma by Dr. Bowden on 01/28. Ventriculostomy remains in place. Drained 120 cc bloody CSF over the last 12 hours. ICP 2. 01/30: ICP well controlled. Requiring mechanical ventilation. 01/31: Remains sedated, orally intubated on mechanical ventilation. Ventriculostomy in place. ICP within normal limits. Leukocytosis persists. UA appeared abnormal however cultures with no growth. Starting empiric Levaquin. Checking pro-calcitonin. Started free water for worsening hypernatremia Subjective: 02/01 Afebrile. WBC 16.9 which is downtrending. Nurse states she has diarrhea. Procalcitonin is not elevated. Ventric at 0 cm water, repeat CT scheduled for tomorrow morning per neurosurgery. 02/02: Osmolality suitably concentrated but brain edema persists, shift slightly larger. Hypertonic saline continued at half rate to avoid overly rapid drop. 02/03: No improvement in neuro exam over past 24 hours. Osmolality acceptable. Objective Vital Signs Date Time Temp Pulse Resp B/P (MAP) Pulse Ox O2 Delivery O2 Flow Rate FiO2 02/03/17 06:00 115 02/03/17 04:19 98 40 02/03/17 04:00 98.9 17 121/47 (71) Intake and Output 02/03/17 02/03/17 02/04/17 08:00 16:00 00:00 Intake Total 644 ml Output Total 850 ml Balance -206 ml Result Diagram: 02/02/17 0327 02/03/17 0414 Imaging Last Impressions Neck CTA 01/28/17 1009 Signed Impressions: Service Date/Time: Saturday, January 28, 2017 10:27 - CONCLUSION: 1. No hemodynamically significant carotid artery stenosis identified. 2. Mild atherosclerotic plaquing at the bifurcation. 3. Both vertebral arteries are widely patent. Jac Hardy MD Head CTA 01/28/17 0000 Signed Impressions: Service Date/Time: Saturday, January 28, 2017 10:27 - CONCLUSION: 1. No evidence of vascular malformation or vasculopathy. 2. Subdural, intraparenchymal and intraventricular hemorrhage are again noted and not significantly changed since prior study. 3. Persistent left to right shift measuring between 8 and 9 mm; unchanged. Nick Barker MD Head CT 01/28/17 0000 Signed Impressions: Service Date/Time: Saturday, January 28, 2017 10:28 - CONCLUSION: 1. Grossly stable large intra-axial hemorrhage in the left posterior prior mid to high convexities with slightly more prominent subdural hematoma more anteriorly, now measuring 6 mm in comparison to 5 mm on prior exam. Stable subtle subarachnoid hemorrhage in the parieto-occipital low convexities. 2. Interval frontal ventriculostomy catheter placement with improved intraventricular blood products, slightly improved subfalcine herniation and improved basilar cistern effacement. Migel Kapadia MD Chest X-Ray 01/27/17 1302 Signed Impressions: Service Date/Time: Friday, January 27, 2017 13:12 - CONCLUSION: Left basilar density likely atelectasis. Nasogastric tube 1.5 cm above the peng. Isai Sullivan MD Objective Remarks GENERAL: Elderly female, sedated, orally intubated on mechanical ventilation. SKIN: Warm/dry. HEAD: Atraumatic. Normocephalic. EYES: Pupils equal and round, 2 mm sluggish reaction to light. ENT: No nasal bleeding or discharge. Mucous membranes moist. NECK: Trachea midline. Orally intubated. CARDIOVASCULAR: Regular rate and rhythm. NL S1S2. No JVD. RESPIRATORY: Orally intubated on mechanical ventilation. Breath sounds equal bilaterally. Scattered rhonchi. GASTROINTESTINAL: Abdomen soft, non-tender, nondistended. BS active. Tolerating tube feeds at 60 ml/hr. MUSCULOSKELETAL: No obvious deformities. No clubbing. No cyanosis. No edema. Well perfused. NEUROLOGICAL: Dressing over craniotomy site intact, L ventriculostomy in place 0 cm water, fluid clear. Orally intubated on mechanical ventilation. RUE is flaccid. RLE with very weak withdrawal. LUE with myoclonic movements to noxious stimuli. LLE withdraws to noxious stimuli. Babinski upgoing on the left, no response to Babinski on the right. A/P Assessment and Plan Neuro: Extensive intraventricular hemorrhage, left parietal/occipital intraparenchymal hemorrhage, left subdural hemorrhage Acute encephalopathy - Propofol for sedation and vent synchrony. Daily sedation vacation - Emergency EVD placement by Dr. Bowden. ICP controlled - Off 3% saline. Worsening hypernatremia noted. Started free water on 01/31 and sodium has started downtrending. Will d/c 0.9 NaCl and free water flushes and will monitor as sodium 150-155 is reasonable. - Keppra 500 mg IV q12 hours for seizure prophylaxis - Frequent neuro checks - s/p craniotomy with evacuation of hematoma 01/[address] Bowden. - EVD management per neurosurgery. Resp: Acute respiratory failure - Intubated for airway protection, continue ACV - wean fio2 for goal spo2 > 90% - HOB elevated - nebs, vent bundle - Likely will need trach and PEG. CV: Hypertensive emergency Off cardene - 2D Echo - EF 65-70%. Renal: - Fuller in place - strict i/os FEN/GI: -Continue tube feeds with Glucerna1.5, change goal to 50 mL per hour per nutrition recommendations. IDHEME: Leukocytosis - Does not meet transfusion triggers at this time - Leukocytosis persists: Possibly reactive secondary ICH/surgery. - Pancultures done on 01/29 with no growth. Empiric Levaquin was started 01/31 # 2. CXR with LLL opacity but procalcitonin is low so likely short course would be appropriate. Has had diarrhea per d/w nursing, will check C diff in view of leukocytosis. Endocrine: Hypothyroidism On admission it was reported patient is on unknown thyroid med and dose. Will obtain from family and resume when dose confirmed. TSH was normal 1.48 Prophylaxis: SCDs Pepcid iv No pharmacologic DVT prophylaxis given ICH and Ventric weaning per discussion with Dr. Rivas. Initiate when ok with NSG. Dispo: Critically ill with poor prognosis. 01/29: I had a long discussion with patient's daughter at bedside regarding current clinical status and plan of care and she voiced understanding and was agreeable. I also discussed strong possibility of need for tracheostomy and PEG tube and possible retirement placement and she voiced understanding. Goals of care remain aggressive at this time. Recommend palliative care consult to assist with deciding goals of therapy if no significant improvement over the next few days. 01/31: I updated patient's daughter at bedside regarding current critical status and plan of care and she voiced understanding. 02/01 Updated daughter at bedside. She remains hopeful for improvement and goals of care appear aggressive despite poor prognosis. Overall impression: She remains critically ill following hemorrhagic stroke. Neurological status is unstable and unable to wean from ventilator. Swelling persists. Tristin Gómez MD Feb 03, 2017 07:54
[2017-02-03] MEDS: CHLORHEXIDINE 0.12% (ORAL KIT) 15 ML CUP MT SCH ×2 (07:56→20:04)
[2017-02-03] MEDS: SODIUM CHLORIDE 0.9% FLUSH 10 ML FLUSH IV FLUSH SCH ×2 (09:00→21:24)
[2017-02-03] MEDS: levETIRAcetam INJ 500 MG in SODIUM CHLORIDE 0.9% INJ 100 ML IV SCH ×2 (09:37→21:27)
[2017-02-03] MEDS: DOCUSATE SODIUM 100 MG CAP PO SCH ×2 (09:37→21:00)
[2017-02-03] MEDS: PANTOPRAZOLE SODIUM 40 MG VIAL IVP SCH (09:37)
[2017-02-03] MEDS ORDERED: MORPHINE SULFATE 2 MG/ML INJ IV PUSH PRN (10:00)
--- NOTE | 2017-02-03 11:11 | HHI.NSPN ---
(Roas Vera) Note Status Status: Progress Note (Rosa Vera) Interval History Interval History Ms Tinajero is an 76 year old adult female who was brought to [facility] as a stroke alert with a severe intracerebral and intraventricular hemorrhage with mass effect and midline shift. She underwent placement of ventriculostomy drain on 01/27/17. She underwent a left parietooccipital craniotomy, evacuation of intracerebral hematoma on Jan 28, 2017. 01/29: intubated and sedated. EVD draining well bloody CSF. ICPs normal. f/u CT Head this morning with decreasing mass effect, less left to right midline shift which now measures 4.6 mm, with small amount hemorrhage remains evident in the ventricular system. 01/30: intubated and sedated. ventriculostomy draining well, ICPs within normal limits. 01/31: intubated, sedated. no eye opening. ventriculostomy draining well, ICPs remains wnl 02/03: EVD raised to 3 cm H20 over the weekend, ICPs stable. Intubated and off sedative drips, mildly opens eyes. (Rosa Vera) Labs, Micro, & Vital Signs Results Date Time Temp Pulse Resp B/P (MAP) Pulse Ox O2 Delivery O2 Flow Rate FiO2 02/03/17 09:21 97 40 02/03/17 06:00 115 02/03/17 04:19 98 40 02/03/17 04:00 116 02/03/17 04:00 98.9 116 17 121/47 (71) 99 02/03/17 04:00 40 02/03/17 02:00 106 02/03/17 00:10 97 40 02/03/17 00:00 119 02/03/17 00:00 99.1 119 16 142/59 (86) 99 02/03/17 00:00 40 02/02/17 22:00 110 02/02/17 20:02 99 40 02/02/17 20:00 99.5 112 16 155/57 (89) 98 02/02/17 20:00 112 02/02/17 20:00 40 02/02/17 18:00 103 02/02/17 16:04 98 40 02/02/17 16:00 118 02/02/17 16:00 40 02/02/17 16:00 98.7 118 21 150/67 (94) 97 02/02/17 14:00 117 02/02/17 12:00 99.1 117 17 121/60 (80) 93 02/02/17 12:00 117 02/02/17 12:00 40 Constitutional Vital Signs Date Time Temp Pulse Resp B/P (MAP) Pulse Ox O2 Delivery O2 Flow Rate FiO2 02/03/17 09:21 97 40 02/03/17 06:00 115 02/03/17 04:19 98 40 02/03/17 04:00 116 02/03/17 04:00 98.9 116 17 121/47 (71) 99 02/03/17 04:00 40 02/03/17 02:00 106 02/03/17 00:10 97 40 02/03/17 00:00 119 02/03/17 00:00 99.1 119 16 142/59 (86) 99 02/03/17 00:00 40 02/02/17 22:00 110 02/02/17 20:02 99 40 02/02/17 20:00 99.5 112 16 155/57 (89) 98 02/02/17 20:00 112 02/02/17 20:00 40 02/02/17 18:00 103 02/02/17 16:04 98 40 02/02/17 16:00 118 02/02/17 16:00 40 02/02/17 16:00 98.7 118 21 150/67 (94) 97 02/02/17 14:00 117 02/02/17 12:00 99.1 117 17 121/60 (80) 93 02/02/17 12:00 117 02/02/17 12:00 40 (Rosa Vera) Review of Systems ROS Limitations: Intubated, Altered Mental Status (Rosa Vera) Physical Exam Ms. Tinajero is intubated and without sedatives. Opens eyes with deep stimulation but not focusing or tracking. Surgical incision with clean and dry head wrap.. Ventriculostomy draining well at 3 cm H20s, dark red CSF. Cranial Nerves: Pupils 2 mm round reactive. Conjugate gaze. Positive cough and gag. Motor: minimal response to pain x 4 extremities (Rosa Vera) Medications Current Medications Current Medications Medications (Trade) Dose Ordered Sig/Eunice Route PRN Reason Start Time Stop Time Status Last Admin Dose Admin Nicardipine HCl 25 mg/Sodium Chloride 250 ml @ 50 mls/hr TITRATE PRN IV Blood pressure management 01/27/17 13:00 01/31/17 01:57 Sodium Chloride (NS Flush) 2 ml UNSCH PRN IV FLUSH FLUSH AFTER USING IV ACCESS 01/27/17 13:30 Sodium Chloride (NS Flush) 2 ml BID IV FLUSH 01/27/17 21:00 02/03/17 09:00 Albuterol Sulfate (Albuterol Neb) 2.5 mg Q4HR NEB PRN INH SHORTNESS OF BREATH 01/27/17 13:30 01/31/17 20:59 Chlorhexidine Gluconate (Peridex 0.12% Liq) 15 ml BID@08,20 MT 01/27/17 20:00 02/03/17 07:56 Miscellaneous Information 1 Q361D XX 01/27/17 13:30 01/27/17 13:30 Chlorhexidine Gluconate (Chlorhexidine 2% Cloth) Taper DAILY@04 TOP 01/28/17 04:00 01/24/18 03:59 Chlorhexidine Gluconate (Chlorhexidine 2% Cloth) 3 pack UNSCH PRN TOP HYGIENIC CARE 01/27/17 13:30 Propofol 100 ml @ 1.995 mls/ hr TITRATE PRN IV SEDATION 01/27/17 15:15 01/29/17 19:55 Levetriacetam 500 mg/Sodium Chloride 105 ml @ 420 mls/hr Q12HR IV 01/27/17 21:00 02/03/17 09:37 Hydralazine HCl (Apresoline Inj) 20 mg Q4H PRN IV PUSH SBO >160 01/27/17 17:45 02/02/17 19:54 Bisacodyl (Dulcolax Supp) 10 mg DAILY PRN RECTAL CONSTIPATION 01/28/17 17:15 01/30/17 08:01 Docusate Sodium (Colace) 100 mg BID PO 01/28/17 21:00 02/03/17 09:37 Pantoprazole Sodium (Protonix Inj) 40 mg DAILY IVP 01/29/17 09:00 02/03/17 09:37 Ondansetron HCl (Zofran Inj) 4 mg Q6H PRN IV PUSH NAUSEA OR VOMITING 01/28/17 17:15 Calcium Gluconate (Calcium Gluconate Inj) 1 gm UNSCH PRN IV SEE LABEL COMMENTS 01/28/17 17:15 Potassium Chloride 100 ml @ 50 mls/hr UNSCH PRN IV POTASSIUM LESS THAN 4 01/28/17 17:15 01/29/17 05:46 Magnesium Sulfate 4 gm/Sodium Chloride 108 ml @ 108 mls/hr UNSCH PRN IV MAGNESIUM LESS THAN 2 01/28/17 17:15 Acetaminophen/ Hydrocodone Bitart ([place] 10-325 Mg) 1 tab Q4H PRN PO PAIN SCALE 1 TO 5 01/28/17 17:15 Acetaminophen/ Hydrocodone Bitart ([place] 10-325 Mg) 2 tab Q4H PRN PO PAIN SCALE 6 TO 10 01/28/17 17:15 Acetaminophen (Tylenol) 650 mg Q4H PRN PO TEMPERATURE > 101.5 F 01/28/17 17:15 Insulin Aspart (NovoLOG SUPPLEMENTAL SCALE) 1 Q6HR SQ 01/29/17 12:00 02/03/17 05:12 Dextrose (D50w (Vial) Inj) 25 ml UNSCH PRN IV HYPOGLYCEMIA-SEE COMMENTS 01/29/17 12:00 Glucagon (Glucagon Inj) 1 mg UNSCH PRN IM/SQ HYPOGLYCEMIA-SEE COMMENTS 01/29/17 12:00 Potassium Chloride 100 ml @ 50 mls/hr Q2H PRN IV For Potassium 2.8 - 3.2 mEq/L 01/29/17 12:00 01/29/17 13:56 Potassium Chloride 100 ml @ 50 mls/hr Q2H PRN IV For Potassium 2.8 - 3.2 mEq/L 01/29/17 12:00 Potassium Bicarb/ Potassium Chloride (K-Lyte Cl Eff) 50 meq UNSCH PRN PO For Potassium 3.3 - 3.5 mEq/L 01/29/17 12:00 01/31/17 02:44 Potassium Chloride 100 ml @ 25 mls/hr UNSCH PRN IV For Potassium 3.3 - 3.5 mEq/L 01/29/17 12:00 Potassium Chloride 100 ml @ 50 mls/hr Q2H PRN IV For Potassium 3.3 - 3.5 mEq/L 01/29/17 12:00 Magnesium Sulfate 4 gm/Sodium Chloride 100 ml @ 50 mls/hr UNSCH PRN IV For Magnesium 0.9 - 1.1 mg/dL 01/29/17 12:00 Magnesium Oxide (Mag-Ox) 800 mg UNSCH PRN PO For Magnesium 1.2 - 1.6 mg/dL 01/29/17 12:00 Magnesium Sulfate 2 gm/Sodium Chloride 100 ml @ 50 mls/hr UNSCH PRN IV For Magnesium 1.2 - 1.6 mg/dL 01/29/17 12:00 Potassium Phosphate (K-Phos) 2,000 mg Q4H PRN PO For Phosphorus < 2.5 mg/dL 01/29/17 12:00 Sodium Phosphate 30 mmol/Sodium Chloride 250 ml @ 42 mls/hr UNSCH PRN IV For Phosphorus < 2.5 mg/dL 01/29/17 12:00 Potassium Phosphate (K-Phos) 2,000 mg UNSCH PRN PO/TUBE SEE LABEL COMMENTS 01/29/17 12:00 Potassium Phosphate 30 mmol/ Sodium Chloride 260 ml @ 42 mls/hr UNSCH PRN IV SEE LABEL COMMENTS 01/29/17 12:00 Acetaminophen (Tylenol) 650 mg Q4H PRN PO SEE LABEL COMMENTS 01/29/17 16:15 Diphenhydramine HCl (Benadryl) 25 mg Q4H PRN PO SEE LABEL COMMENTS 01/29/17 16:15 Morphine Sulfate (Morphine Inj) 2 mg Q2H PRN IV PUSH PAIN SCALE 1 TO 6 01/31/17 16:30 02/02/17 17:13 Levofloxacin/ Dextrose 150 ml @ 100 mls/hr Q24H IV 01/31/17 20:00 02/02/17 19:54 Morphine Sulfate (Morphine Inj) 4 mg Q2H PRN IV PUSH PAIN SCALE 7 TO 10 02/03/17 10:00 (Rosa Vera) Medical Decision Making MDM Remarks 76 year old female with large intraventricular hemorrhage s/p placement of ventriculostomy drain 01/27/17, slowly challenging ventriculostomy drain, ICPs remains wnl s/p left parietooccipital craniotomy, evacuation of intracerebral hematoma 01/28 (Rosa Vera) Plan Plan Remarks continue ventriculostomy draining at 3 cm H20, with ICP monitoring cont neuro checks and follow up neuro examination cont critical care mgt nonchemical dvt prophylaxis in view of ICH protonix for GI prophylaxis cont seizure prophylaxis Dr. Bowden updated at bedside (Rosa Vera) Attending Statement The exam, history, and the medical decision-making described in the above note were completed with the assistance of the mid-level provider. I reviewed and agree with the findings presented. I attest that I had a [id number] encounter with the patient on the same day, and personally performed and documented my assessment and findings in the medical record. (Jack Bowden MD) Rosa Vera Feb 03, 2017 11:11 Jack Bowden MD Feb 03, 2017 15:01
[2017-02-03] MEDS: hydrALAZINE HCL 20 MG/ML VIAL IV PUSH PRN (18:25)
[2017-02-03] MEDS: LEVOFLOXACIN 750 MG PREMIX INJ 150 ML IV SCH (20:04)
[2017-02-04] VITALS (16 sets, daily range): BP systolic 118–146; BP diastolic 52–63; PULSE 103–115; RESP 14–18; TEMP 99–99.9; O2SAT 94–99
[2017-02-04] MEDS: CHLORHEXIDINE GLUCONATE 2 % 1 PACK (2 CLOTHS) TOP SCH (03:03)
[2017-02-04 05:35] LABS: BICARBONATE 28.8 MEQ/L (21.0-32.0); CALCIUM 8.3 MG/DL (8.5-10.1); CREATININE 0.74 MG/DL (0.50-1.00)
[2017-02-04] MEDS: INSULIN ASPART SUPPLEMENTAL SCALE SQ SCH ×4 (05:45→18:00)
[2017-02-04] MEDS: CHLORHEXIDINE 0.12% (ORAL KIT) 15 ML CUP MT SCH ×2 (08:00→20:08)
[2017-02-04] MEDS: PANTOPRAZOLE SODIUM 40 MG VIAL IVP SCH (09:39)
[2017-02-04] MEDS: DOCUSATE SODIUM 100 MG CAP PO SCH ×2 (09:39→20:08)
[2017-02-04] MEDS: SODIUM CHLORIDE 0.9% FLUSH 10 ML FLUSH IV FLUSH SCH ×2 (09:39→21:00)
[2017-02-04] MEDS: levETIRAcetam INJ 500 MG in SODIUM CHLORIDE 0.9% INJ 100 ML IV SCH ×2 (09:39→20:07)
--- NOTE | 2017-02-04 09:45 | HHI.CCPN ---
Subjective Remarks/Hospital Course 01/27: Patient is a 76-year-old female who was brought to the [facility] emergency department by EMS as a stroke alert. Last found normal at 11 this morning, later found unresponsive in the bed by her and EMS was called. EMS gave her Narcan IM without any response, blood glucose was 140, vital signs were apparently stable. In the ED patient remained poorly responsive and was intubated for airway protection. Her blood pressure on arrival was 243/129 and patient was started on Cardene infusion. CT of the head showed extensive acute intraventricular hemorrhage involving the left lateral ventricle, right lateral ventricle and third ventricle, acute intraparenchymal hemorrhage within the left parietal and left occipital region ( 4.1 cm in size). Acute subdural hematoma along the left frontoparietal region measuring 5 mm in width. There was also significant Significant (10 mm) subfalcine herniation to the right. Dr. Bowden was contacted by the ED Per Dr. Rivera on 01/27: Critical care medicine was requested to admit the patient. Patient was emergently moved to the ICU for EVD placement. I evaluated the patient immediately after arrival to the ICU. Patient purposefully moves left upper extremity and withdraws all other extremities. at the bedside was updated. I explained to the that she has very extensive intracranial hemorrhage and prognosis appears poor. Dr. Bowden is planning to place an EVD emergently. I discussed with Dr. Bowden extensively , patient is not a candidate for evacuation of intracerebral hemorrhage due to overall poor prognosis. I have placed a central line for administration of vasopressor agents and 3% saline. Patient remains on Cardene infusion and at this time receiving mannitol. I have also ordered Keppra for seizure prophylaxis 01/28: Remains sedated, orally intubated on mechanical ventilation. Being taken to OR for craniotomy per Dr. Bowden. 01/29: Remains sedated, orally intubated on mechanical ventilation. Underwent craniotomy with evacuation of hematoma by Dr. Bowden on 01/28. Ventriculostomy remains in place. Drained 120 cc bloody CSF over the last 12 hours. ICP 2. 01/30: ICP well controlled. Requiring mechanical ventilation. 01/31: Remains sedated, orally intubated on mechanical ventilation. Ventriculostomy in place. ICP within normal limits. Leukocytosis persists. UA appeared abnormal however cultures with no growth. Starting empiric Levaquin. Checking pro-calcitonin. Started free water for worsening hypernatremia Subjective: 02/01 Afebrile. WBC 16.9 which is downtrending. Nurse states she has diarrhea. Procalcitonin is not elevated. Ventric at 0 cm water, repeat CT scheduled for tomorrow morning per neurosurgery. 02/02: Osmolality suitably concentrated but brain edema persists, shift slightly larger. Hypertonic saline continued at half rate to avoid overly rapid drop. 02/03: No improvement in neuro exam over past 24 hours. Osmolality acceptable. 02/04: Tolerating CPAP trials today with good respiratory effort. Long discussion with and daughter about plans to extubate, high likelihood of reintubation. Objective Vital Signs Date Time Temp Pulse Resp B/P (MAP) Pulse Ox O2 Delivery O2 Flow Rate FiO2 02/04/17 08:31 94 40 02/04/17 06:00 107 02/04/17 04:00 99.0 17 136/56 (82) Intake and Output 02/04/17 02/04/17 02/05/17 08:00 16:00 00:00 Intake Total 749 ml Output Total 731 ml Balance 18 ml Result Diagram: 02/02/17 0327 02/04/17 0450 Imaging Last Impressions Neck CTA 01/28/17 1009 Signed Impressions: Service Date/Time: Saturday, January 28, 2017 10:27 - CONCLUSION: 1. No hemodynamically significant carotid artery stenosis identified. 2. Mild atherosclerotic plaquing at the bifurcation. 3. Both vertebral arteries are widely patent. Jac Hardy MD Head CTA 01/28/17 0000 Signed Impressions: Service Date/Time: Saturday, January 28, 2017 10:27 - CONCLUSION: 1. No evidence of vascular malformation or vasculopathy. 2. Subdural, intraparenchymal and intraventricular hemorrhage are again noted and not significantly changed since prior study. 3. Persistent left to right shift measuring between 8 and 9 mm; unchanged. Nick Barker MD Head CT 01/28/17 0000 Signed Impressions: Service Date/Time: Saturday, January 28, 2017 10:28 - CONCLUSION: 1. Grossly stable large intra-axial hemorrhage in the left posterior prior mid to high convexities with slightly more prominent subdural hematoma more anteriorly, now measuring 6 mm in comparison to 5 mm on prior exam. Stable subtle subarachnoid hemorrhage in the parieto-occipital low convexities. 2. Interval frontal ventriculostomy catheter placement with improved intraventricular blood products, slightly improved subfalcine herniation and improved basilar cistern effacement. Migel Kapadia MD Chest X-Ray 01/27/17 1302 Signed Impressions: Service Date/Time: Friday, January 27, 2017 13:12 - CONCLUSION: Left basilar density likely atelectasis. Nasogastric tube 1.5 cm above the peng. Isai Sullivan MD Objective Remarks GENERAL: Elderly female, sedated, orally intubated on mechanical ventilation. SKIN: Warm/dry. HEAD: Atraumatic. Normocephalic. EYES: Pupils equal and round, 2 mm sluggish reaction to light. ENT: No nasal bleeding or discharge. Mucous membranes moist. NECK: Trachea midline. Orally intubated. CARDIOVASCULAR: Regular rate and rhythm. NL S1S2. No JVD. RESPIRATORY: Orally intubated on mechanical ventilation. Breath sounds equal bilaterally. Scattered rhonchi. GASTROINTESTINAL: Abdomen soft, non-tender, nondistended. BS active. Tolerating tube feeds at 60 ml/hr. MUSCULOSKELETAL: No obvious deformities. No clubbing. No cyanosis. No edema. Well perfused. NEUROLOGICAL: Dressing over craniotomy site intact, L ventriculostomy in place 0 cm water, fluid clear. Orally intubated on mechanical ventilation. RUE is flaccid. RLE with very weak withdrawal. LUE with attempt to grasp. LLE withdraws to noxious stimuli. Babinski upgoing on the left, no response to Babinski on the right. A/P Assessment and Plan Neuro: Extensive intraventricular hemorrhage, left parietal/occipital intraparenchymal hemorrhage, left subdural hemorrhage Acute encephalopathy - Propofol for sedation and vent synchrony. Daily sedation vacation - Emergency EVD placement by Dr. Bowden. ICP controlled - Off 3% saline. Worsening hypernatremia noted. Started free water on 01/31 and sodium has started downtrending. Will d/c 0.9 NaCl and free water flushes and will monitor as sodium 150-155 is reasonable. - Keppra 500 mg IV q12 hours for seizure prophylaxis - Frequent neuro checks - s/p craniotomy with evacuation of hematoma 01/[address] Bowden. - EVD management per neurosurgery. Resp: Acute respiratory failure - Intubated for airway protection, continue ACV - wean fio2 for goal spo2 > 90% - HOB elevated - nebs, vent bundle - Likely will need trach and PEG. CV: Hypertensive emergency Off cardene - 2D Echo - EF 65-70%. Renal: - Fuller in place - strict i/os FEN/GI: -Continue tube feeds with Glucerna1.5, change goal to 50 mL per hour per nutrition recommendations. IDHEME: Leukocytosis - Does not meet transfusion triggers at this time - Leukocytosis persists: Possibly reactive secondary ICH/surgery. - Pancultures done on 01/29 with no growth. Empiric Levaquin was started 01/31 # 2. CXR with LLL opacity but procalcitonin is low so likely short course would be appropriate. Has had diarrhea per d/w nursing, will check C diff in view of leukocytosis. Endocrine: Hypothyroidism On admission it was reported patient is on unknown thyroid med and dose. Will obtain from family and resume when dose confirmed. TSH was normal 1.48 Prophylaxis: SCDs Pepcid iv No pharmacologic DVT prophylaxis given ICH and Ventric weaning per discussion with Dr. Rivas. Initiate when ok with NSG. Dispo: Critically ill with poor prognosis. 01/29: I had a long discussion with patient's daughter at bedside regarding current clinical status and plan of care and she voiced understanding and was agreeable. I also discussed strong possibility of need for tracheostomy and PEG tube and possible longterm placement and she voiced understanding. Goals of care remain aggressive at this time. Recommend palliative care consult to assist with deciding goals of therapy if no significant improvement over the next few days. 01/31: I updated patient's daughter at bedside regarding current critical status and plan of care and she voiced understanding. 02/01 Updated daughter at bedside. She remains hopeful for improvement and goals of care appear aggressive despite poor prognosis. Overall impression: She remains critically ill following hemorrhagic stroke. Neurological status is now stable and we will try to wean ventilator and extubate. Tristin Gómez MD Feb 04, 2017 09:45
--- NOTE | 2017-02-04 09:59 | HHI.NSPN ---
(Rosa Vera) Note Status Status: Progress Note (Rosa Vera) Interval History Interval History Ms Tinajero is an 76 year old adult female who was brought to [facility] as a stroke alert with a severe intracerebral and intraventricular hemorrhage with mass effect and midline shift. She underwent placement of ventriculostomy drain on 01/27/17. She underwent a left parietooccipital craniotomy, evacuation of intracerebral hematoma on Jan 28, 2017. 01/29: intubated and sedated. EVD draining well bloody CSF. ICPs normal. f/u CT Head this morning with decreasing mass effect, less left to right midline shift which now measures 4.6 mm, with small amount hemorrhage remains evident in the ventricular system. 01/30: intubated and sedated. ventriculostomy draining well, ICPs within normal limits. 01/31: intubated, sedated. no eye opening. ventriculostomy draining well, ICPs remains wnl 02/03: EVD raised to 3 cm H20 over the weekend, ICPs stable. Intubated and off sedative drips, mildly opens eyes. 02/04: appears much more alert this morning, eyes wide open and tracking. EVD draining well. (Rosa Vera) Labs, Micro, & Vital Signs Results Date Time Temp Pulse Resp B/P (MAP) Pulse Ox O2 Delivery O2 Flow Rate FiO2 02/04/17 08:31 94 40 02/04/17 06:00 107 02/04/17 04:24 97 40 02/04/17 04:00 99.0 110 17 136/56 (82) 97 02/04/17 04:00 110 02/04/17 04:00 40 02/04/17 02:00 109 02/04/17 00:11 97 40 02/04/17 00:00 99.4 115 18 118/52 (74) 97 02/04/17 00:00 115 02/04/17 00:00 40 02/03/17 22:00 116 02/03/17 20:34 96 40 02/03/17 20:00 100.3 108 16 128/44 (72) 96 02/03/17 20:00 108 02/03/17 20:00 40 02/03/17 18:00 110 02/03/17 16:40 98 40 02/03/17 16:00 116 02/03/17 16:00 99.6 116 17 156/58 (90) 99 02/03/17 16:00 40 02/03/17 14:00 112 02/03/17 13:40 97 40 02/03/17 12:00 114 02/03/17 12:00 100.8 114 17 133/54 (80) 97 02/03/17 12:00 40 02/03/17 10:00 118 Constitutional Vital Signs Date Time Temp Pulse Resp B/P (MAP) Pulse Ox O2 Delivery O2 Flow Rate FiO2 02/04/17 08:31 94 40 02/04/17 06:00 107 02/04/17 04:24 97 40 02/04/17 04:00 99.0 110 17 136/56 (82) 97 02/04/17 04:00 110 02/04/17 04:00 40 02/04/17 02:00 109 02/04/17 00:11 97 40 02/04/17 00:00 99.4 115 18 118/52 (74) 97 02/04/17 00:00 115 02/04/17 00:00 40 02/03/17 22:00 116 02/03/17 20:34 96 40 02/03/17 20:00 100.3 108 16 128/44 (72) 96 02/03/17 20:00 108 02/03/17 20:00 40 02/03/17 18:00 110 02/03/17 16:40 98 40 02/03/17 16:00 116 02/03/17 16:00 99.6 116 17 156/58 (90) 99 02/03/17 16:00 40 02/03/17 14:00 112 02/03/17 13:40 97 40 02/03/17 12:00 114 02/03/17 12:00 100.8 114 17 133/54 (80) 97 02/03/17 12:00 40 02/03/17 10:00 118 (Rosa Vera) Physical Exam Ms. Tinajero is intubated and without sedatives. Awake, alert, focusing and tracking. Not following commands. Surgical incision with clean and dry head wrap.. Ventriculostomy draining well at 3 cm H20s, dark red CSF. Cranial Nerves: Pupils 3-4 mm round reactive. Motor: minimal response to pain x 4 extremities (Rosa Vera) Medications Current Medications Current Medications Medications (Trade) Dose Ordered Sig/Eunice Route PRN Reason Start Time Stop Time Status Last Admin Dose Admin Nicardipine HCl 25 mg/Sodium Chloride 250 ml @ 50 mls/hr TITRATE PRN IV Blood pressure management 01/27/17 13:00 01/31/17 01:57 Sodium Chloride (NS Flush) 2 ml UNSCH PRN IV FLUSH FLUSH AFTER USING IV ACCESS 01/27/17 13:30 Sodium Chloride (NS Flush) 2 ml BID IV FLUSH 01/27/17 21:00 02/04/17 09:39 Albuterol Sulfate (Albuterol Neb) 2.5 mg Q4HR NEB PRN INH SHORTNESS OF BREATH 01/27/17 13:30 01/31/17 20:59 Chlorhexidine Gluconate (Peridex 0.12% Liq) 15 ml BID@08,20 MT 01/27/17 20:00 02/04/17 08:00 Miscellaneous Information 1 Q361D XX 01/27/17 13:30 01/27/17 13:30 Chlorhexidine Gluconate (Chlorhexidine 2% Cloth) Taper DAILY@04 TOP 01/28/17 04:00 01/24/18 03:59 Chlorhexidine Gluconate (Chlorhexidine 2% Cloth) 3 pack UNSCH PRN [facility] 01/27/17 13:30 Propofol 100 ml @ 1.995 mls/ hr TITRATE PRN IV SEDATION 01/27/17 15:15 01/29/17 19:55 Levetriacetam 500 mg/Sodium Chloride 105 ml @ 420 mls/hr Q12HR IV 01/27/17 21:00 02/04/17 09:39 Hydralazine HCl (Apresoline Inj) 20 mg Q4H PRN IV PUSH SBO >160 01/27/17 17:45 02/03/17 18:25 Bisacodyl (Dulcolax Supp) 10 mg DAILY PRN RECTAL CONSTIPATION 01/28/17 17:15 01/30/17 08:01 Docusate Sodium (Colace) 100 mg BID PO 01/28/17 21:00 02/04/17 09:39 Pantoprazole Sodium (Protonix Inj) 40 mg DAILY IVP 01/29/17 09:00 02/04/17 09:39 Ondansetron HCl (Zofran Inj) 4 mg Q6H PRN IV PUSH NAUSEA OR VOMITING 01/28/17 17:15 Calcium Gluconate (Calcium Gluconate Inj) 1 gm UNSCH PRN IV SEE LABEL COMMENTS 01/28/17 17:15 Potassium Chloride 100 ml @ 50 mls/hr UNSCH PRN IV POTASSIUM LESS THAN 4 01/28/17 17:15 01/29/17 05:46 Magnesium Sulfate 4 gm/Sodium Chloride 108 ml @ 108 mls/hr UNSCH PRN IV MAGNESIUM LESS THAN 2 01/28/17 17:15 Acetaminophen/ Hydrocodone Bitart ([place] 10-325 Mg) 1 tab Q4H PRN PO PAIN SCALE 1 TO 5 01/28/17 17:15 Acetaminophen/ Hydrocodone Bitart ([place] 10-325 Mg) 2 tab Q4H PRN PO PAIN SCALE 6 TO 10 01/28/17 17:15 Acetaminophen (Tylenol) 650 mg Q4H PRN PO TEMPERATURE > 101.5 F 01/28/17 17:15 02/03/17 22:24 Insulin Aspart (NovoLOG SUPPLEMENTAL SCALE) 1 Q6HR SQ 01/29/17 12:00 02/03/17 12:00 Dextrose (D50w (Vial) Inj) 25 ml UNSCH PRN IV HYPOGLYCEMIA-SEE COMMENTS 01/29/17 12:00 Glucagon (Glucagon Inj) 1 mg UNSCH PRN IM/SQ HYPOGLYCEMIA-SEE COMMENTS 01/29/17 12:00 Potassium Chloride 100 ml @ 50 mls/hr Q2H PRN IV For Potassium 2.8 - 3.2 mEq/L 01/29/17 12:00 01/29/17 13:56 Potassium Chloride 100 ml @ 50 mls/hr Q2H PRN IV For Potassium 2.8 - 3.2 mEq/L 01/29/17 12:00 Potassium Bicarb/ Potassium Chloride (K-Lyte Cl Eff) 50 meq UNSCH PRN PO For Potassium 3.3 - 3.5 mEq/L 01/29/17 12:00 01/31/17 02:44 Potassium Chloride 100 ml @ 25 mls/hr UNSCH PRN IV For Potassium 3.3 - 3.5 mEq/L 01/29/17 12:00 Potassium Chloride 100 ml @ 50 mls/hr Q2H PRN IV For Potassium 3.3 - 3.5 mEq/L 01/29/17 12:00 Magnesium Sulfate 4 gm/Sodium Chloride 100 ml @ 50 mls/hr UNSCH PRN IV For Magnesium 0.9 - 1.1 mg/dL 01/29/17 12:00 Magnesium Oxide (Mag-Ox) 800 mg UNSCH PRN PO For Magnesium 1.2 - 1.6 mg/dL 01/29/17 12:00 Magnesium Sulfate 2 gm/Sodium Chloride 100 ml @ 50 mls/hr UNSCH PRN IV For Magnesium 1.2 - 1.6 mg/dL 01/29/17 12:00 Potassium Phosphate (K-Phos) 2,000 mg Q4H PRN PO For Phosphorus < 2.5 mg/dL 01/29/17 12:00 Sodium Phosphate 30 mmol/Sodium Chloride 250 ml @ 42 mls/hr UNSCH PRN IV For Phosphorus < 2.5 mg/dL 01/29/17 12:00 Potassium Phosphate (K-Phos) 2,000 mg UNSCH PRN PO/TUBE SEE LABEL COMMENTS 01/29/17 12:00 Potassium Phosphate 30 mmol/ Sodium Chloride 260 ml @ 42 mls/hr UNSCH PRN IV SEE LABEL COMMENTS 01/29/17 12:00 Acetaminophen (Tylenol) 650 mg Q4H PRN PO SEE LABEL COMMENTS 01/29/17 16:15 Diphenhydramine HCl (Benadryl) 25 mg Q4H PRN PO SEE LABEL COMMENTS 01/29/17 16:15 Morphine Sulfate (Morphine Inj) 2 mg Q2H PRN IV PUSH PAIN SCALE 1 TO 6 01/31/17 16:30 02/02/17 17:13 Levofloxacin/ Dextrose 150 ml @ 100 mls/hr Q24H IV 01/31/17 20:00 02/03/17 20:04 Morphine Sulfate (Morphine Inj) 4 mg Q2H PRN IV PUSH PAIN SCALE 7 TO 10 02/03/17 10:00 (Rosa Vera) Medical Decision Making MDM Remarks 76 year old female with large intraventricular hemorrhage s/p placement of ventriculostomy drain 01/27/17, slowly challenging ventriculostomy drain, ICPs remains wnl s/p left parietooccipital craniotomy, evacuation of intracerebral hematoma 01/28 mental status improving, much more alert today (Rosa Vera) Plan Plan Remarks continue ventriculostomy draining at 3 cm H20, with ICP monitoring cont neuro checks and follow up neuro examination cont critical care mgt, ok to start CPAP trial and vent weaning as tolerated Dr. Bowden again updated at bedside (Rosa Vera) Attending Statement The exam, history, and the medical decision-making described in the above note were completed with the assistance of the mid-level provider. I reviewed and agree with the findings presented. I attest that I had a [id number] encounter with the patient on the same day, and personally performed and documented my assessment and findings in the medical record. (Jack Bowden MD) Rosa Vera Feb 04, 2017 09:59 Jack Bowden MD Feb 04, 2017 13:56
[2017-02-04] MEDS: hydrALAZINE HCL 20 MG/ML VIAL IV PUSH PRN (10:53)
[2017-02-04] MEDS: LEVOFLOXACIN 750 MG PREMIX INJ 150 ML IV SCH (20:07)
[2017-02-05] VITALS (19 sets, daily range): BP systolic 118–175; BP diastolic 50–111; PULSE 99–119; RESP 14–16; TEMP 99–100; O2SAT 96–100
[2017-02-05] MEDS: CHLORHEXIDINE GLUCONATE 2 % 1 PACK (2 CLOTHS) TOP SCH (04:00)
[2017-02-05] MEDS: INSULIN ASPART SUPPLEMENTAL SCALE SQ SCH ×4 (06:00→18:00)
[2017-02-05 07:20] LABS: BICARBONATE 26.6 MEQ/L (21.0-32.0); CALCIUM 8.3 MG/DL (8.5-10.1); CREATININE 0.87 MG/DL (0.50-1.00)
[2017-02-05] MEDS: PANTOPRAZOLE SODIUM 40 MG VIAL IVP SCH (08:37)
[2017-02-05] MEDS: DOCUSATE SODIUM 100 MG CAP PO SCH ×2 (08:38→21:13)
[2017-02-05] MEDS: levETIRAcetam INJ 500 MG in SODIUM CHLORIDE 0.9% INJ 100 ML IV SCH ×2 (08:38→21:22)
[2017-02-05] MEDS: SODIUM CHLORIDE 0.9% FLUSH 10 ML FLUSH IV FLUSH SCH ×2 (08:38→21:13)
[2017-02-05] MEDS: CHLORHEXIDINE 0.12% (ORAL KIT) 15 ML CUP MT SCH ×2 (08:38→21:13)
--- NOTE | 2017-02-05 09:39 | HHI.NSPN ---
(Rosa Vera) Note Status Status: Progress Note (Rosa Vera) Interval History Interval History Ms Tinajero is an 76 year old adult female who was brought to [facility] as a stroke alert with a severe intracerebral and intraventricular hemorrhage with mass effect and midline shift. She underwent placement of ventriculostomy drain on 01/27/17. She underwent a left parietooccipital craniotomy, evacuation of intracerebral hematoma on Jan 28, 2017. 01/29: intubated and sedated. EVD draining well bloody CSF. ICPs normal. f/u CT Head this morning with decreasing mass effect, less left to right midline shift which now measures 4.6 mm, with small amount hemorrhage remains evident in the ventricular system. 01/30: intubated and sedated. ventriculostomy draining well, ICPs within normal limits. 01/31: intubated, sedated. no eye opening. ventriculostomy draining well, ICPs remains wnl 02/03: EVD raised to 3 cm H20 over the weekend, ICPs stable. Intubated and off sedative drips, mildly opens eyes. 02/04: appears much more alert this morning, eyes wide open and tracking. EVD draining well. 02/05: tolerating CPAP, awake and tracking. CSF now simpson. EVD draining well. (Rosa Vera) Labs, Micro, & Vital Signs Results Date Time Temp Pulse Resp B/P (MAP) Pulse Ox O2 Delivery O2 Flow Rate FiO2 02/05/17 08:21 97 40 02/05/17 08:21 40 02/05/17 06:00 113 02/05/17 04:56 97 40 02/05/17 04:00 99.0 118 16 120/64 (82) 96 02/05/17 04:00 40 02/05/17 04:00 119 02/05/17 02:00 115 02/05/17 00:00 99.3 113 16 129/56 (80) 97 02/05/17 00:00 113 02/05/17 00:00 40 12/19/17 23:51 97 40 02/04/17 22:00 115 02/04/17 20:00 99.6 111 16 136/59 (84) 99 02/04/17 20:00 111 02/04/17 20:00 40 02/04/17 19:41 98 40 02/04/17 17:11 98 40 02/04/17 16:00 99.5 103 16 139/55 (83) 97 02/04/17 16:00 103 02/04/17 12:41 95 40 02/04/17 12:00 114 02/04/17 12:00 99.5 114 14 121/55 (77) 95 Constitutional Vital Signs Date Time Temp Pulse Resp B/P (MAP) Pulse Ox O2 Delivery O2 Flow Rate FiO2 02/05/17 08:21 97 40 02/05/17 08:21 40 02/05/17 06:00 113 02/05/17 04:56 97 40 02/05/17 04:00 99.0 118 16 120/64 (82) 96 02/05/17 04:00 40 02/05/17 04:00 119 02/05/17 02:00 115 02/05/17 00:00 99.3 113 16 129/56 (80) 97 02/05/17 00:00 113 02/05/17 00:00 40 02/04/17 23:51 97 40 02/04/17 22:00 115 02/04/17 20:00 99.6 111 16 136/59 (84) 99 02/04/17 20:00 111 02/04/17 20:00 40 02/04/17 19:41 98 40 02/04/17 17:11 98 40 02/04/17 16:00 99.5 103 16 139/55 (83) 97 02/04/17 16:00 103 02/04/17 12:41 95 40 02/04/17 12:00 114 02/04/17 12:00 99.5 114 14 121/55 (77) 95 (Rosa Vera) Review of Systems ROS Limitations: Clinical Condition, Intubated (Rosa Vera) Physical Exam Ms. Tinajero is intubated and without sedatives. Awake, alert, focusing and tracking. Not following commands. Surgical incision with clean and dry head wrap.. Ventriculostomy draining well at 3 cm H20s, CSF is simpson Cranial Nerves: Pupils 3-4 mm round reactive. Motor: minimal response to pain x 4 extremities (Rosa Vera) Medications Current Medications Current Medications Medications (Trade) Dose Ordered Sig/Eunice Route PRN Reason Start Time Stop Time Status Last Admin Dose Admin Nicardipine HCl 25 mg/Sodium Chloride 250 ml @ 50 mls/hr TITRATE PRN IV Blood pressure management 01/27/17 13:00 01/31/17 01:57 Sodium Chloride (NS Flush) 2 ml UNSCH PRN IV FLUSH FLUSH AFTER USING IV ACCESS 01/27/17 13:30 Sodium Chloride (NS Flush) 2 ml BID IV FLUSH 01/27/17 21:00 02/05/17 08:38 Albuterol Sulfate (Albuterol Neb) 2.5 mg Q4HR NEB PRN INH SHORTNESS OF BREATH 01/27/17 13:30 01/31/17 20:59 Chlorhexidine Gluconate (Peridex 0.12% Liq) 15 ml BID@08,20 MT 01/27/17 20:00 02/05/17 08:38 Miscellaneous Information 1 Q361D XX 01/27/17 13:30 01/27/17 13:30 Chlorhexidine Gluconate (Chlorhexidine 2% Cloth) Taper DAILY@04 TOP 01/28/17 04:00 01/24/18 03:59 Chlorhexidine Gluconate (Chlorhexidine 2% Cloth) 3 pack UNSCH PRN TOP HYGIENIC CARE 01/27/17 13:30 Propofol 100 ml @ 1.995 mls/ hr TITRATE PRN IV SEDATION 01/27/17 15:15 01/29/17 19:55 Levetriacetam 500 mg/Sodium Chloride 105 ml @ 420 mls/hr Q12HR IV 01/27/17 21:00 02/05/17 08:38 Hydralazine HCl (Apresoline Inj) 20 mg Q4H PRN IV PUSH SBO >160 01/27/17 17:45 02/04/17 10:53 Bisacodyl (Dulcolax Supp) 10 mg DAILY PRN RECTAL CONSTIPATION 01/28/17 17:15 01/30/17 08:01 Docusate Sodium (Colace) 100 mg BID PO 01/28/17 21:00 12/20/17 08:38 Pantoprazole Sodium (Protonix Inj) 40 mg DAILY IVP 01/29/17 09:00 02/05/17 08:37 Ondansetron HCl (Zofran Inj) 4 mg Q6H PRN IV PUSH NAUSEA OR VOMITING 01/28/17 17:15 Calcium Gluconate (Calcium Gluconate Inj) 1 gm UNSCH PRN IV SEE LABEL COMMENTS 01/28/17 17:15 Potassium Chloride 100 ml @ 50 mls/hr UNSCH PRN IV POTASSIUM LESS THAN 4 01/28/17 17:15 01/29/17 05:46 Magnesium Sulfate 4 gm/Sodium Chloride 108 ml @ 108 mls/hr UNSCH PRN IV MAGNESIUM LESS THAN 2 01/28/17 17:15 Acetaminophen/ Hydrocodone Bitart ([place] 10-325 Mg) 1 tab Q4H PRN PO PAIN SCALE 1 TO 5 01/28/17 17:15 Acetaminophen/ Hydrocodone Bitart ([place] 10-325 Mg) 2 tab Q4H PRN PO PAIN SCALE 6 TO 10 01/28/17 17:15 Acetaminophen (Tylenol) 650 mg Q4H PRN PO TEMPERATURE > 101.5 F 01/28/17 17:15 02/03/17 22:24 Insulin Aspart (NovoLOG SUPPLEMENTAL SCALE) 1 Q6HR SQ 01/29/17 12:00 02/03/17 12:00 Dextrose (D50w (Vial) Inj) 25 ml UNSCH PRN IV HYPOGLYCEMIA-SEE COMMENTS 01/29/17 12:00 Glucagon (Glucagon Inj) 1 mg UNSCH PRN IM/SQ HYPOGLYCEMIA-SEE COMMENTS 01/29/17 12:00 Potassium Chloride 100 ml @ 50 mls/hr Q2H PRN IV For Potassium 2.8 - 3.2 mEq/L 01/29/17 12:00 01/29/17 13:56 Potassium Chloride 100 ml @ 50 mls/hr Q2H PRN IV For Potassium 2.8 - 3.2 mEq/L 01/29/17 12:00 Potassium Bicarb/ Potassium Chloride (K-Lyte Cl Eff) 50 meq UNSCH PRN PO For Potassium 3.3 - 3.5 mEq/L 01/29/17 12:00 01/31/17 02:44 Potassium Chloride 100 ml @ 25 mls/hr UNSCH PRN IV For Potassium 3.3 - 3.5 mEq/L 01/29/17 12:00 Potassium Chloride 100 ml @ 50 mls/hr Q2H PRN IV For Potassium 3.3 - 3.5 mEq/L 01/29/17 12:00 Magnesium Sulfate 4 gm/Sodium Chloride 100 ml @ 50 mls/hr UNSCH PRN IV For Magnesium 0.9 - 1.1 mg/dL 01/29/17 12:00 Magnesium Oxide (Mag-Ox) 800 mg UNSCH PRN PO For Magnesium 1.2 - 1.6 mg/dL 01/29/17 12:00 Magnesium Sulfate 2 gm/Sodium Chloride 100 ml @ 50 mls/hr UNSCH PRN IV For Magnesium 1.2 - 1.6 mg/dL 01/29/17 12:00 Potassium Phosphate (K-Phos) 2,000 mg Q4H PRN PO For Phosphorus < 2.5 mg/dL 01/29/17 12:00 Sodium Phosphate 30 mmol/Sodium Chloride 250 ml @ 42 mls/hr UNSCH PRN IV For Phosphorus < 2.5 mg/dL 01/29/17 12:00 Potassium Phosphate (K-Phos) 2,000 mg UNSCH PRN PO/TUBE SEE LABEL COMMENTS 01/29/17 12:00 Potassium Phosphate 30 mmol/ Sodium Chloride 260 ml @ 42 mls/hr UNSCH PRN IV SEE LABEL COMMENTS 01/29/17 12:00 Acetaminophen (Tylenol) 650 mg Q4H PRN PO SEE LABEL COMMENTS 01/29/17 16:15 Diphenhydramine HCl (Benadryl) 25 mg Q4H PRN PO SEE LABEL COMMENTS 01/29/17 16:15 Morphine Sulfate (Morphine Inj) 2 mg Q2H PRN IV PUSH PAIN SCALE 1 TO 6 01/31/17 16:30 02/02/17 17:13 Levofloxacin/ Dextrose 150 ml @ 100 mls/hr Q24H IV 01/31/17 20:00 02/04/17 20:07 Morphine Sulfate (Morphine Inj) 4 mg Q2H PRN IV PUSH PAIN SCALE 7 TO 10 02/03/17 10:00 (Rosa Vera) Medical Decision Making MDM Remarks 76 year old female with large intraventricular hemorrhage s/p placement of ventriculostomy drain 01/27/17, slowly challenging ventriculostomy drain, ICPs remains wnl s/p left parietooccipital craniotomy, evacuation of intracerebral hematoma 01/28 mental status improving, more alert today, tolerating CPAP (Rosa Vera) Plan Plan Remarks start challengin ventriculostomy drain, raise to 5 cm H20, cont ICP monitoring cont neuro checks and follow up neuro examination cont critical care mgt, cont CPAP, poss extubation? (Rosa Vera) Attending Statement The exam, history, and the medical decision-making described in the above note were completed with the assistance of the mid-level provider. I reviewed and agree with the findings presented. I attest that I had a [id number] encounter with the patient on the same day, and personally performed and documented my assessment and findings in the medical record. (Jack Bowden MD) Rosa Vera Feb 05, 2017 09:39 Jack Bowden MD Feb 06, 2017 08:55
--- NOTE | 2017-02-05 10:34 | HHI.CCPN ---
Subjective Remarks/Hospital Course 01/27: Patient is a 76-year-old female who was brought to the [place] emergency department by EMS as a stroke alert. Last found normal at 11 this morning, later found unresponsive in the bed by her and EMS was called. EMS gave her Narcan IM without any response, blood glucose was 140, vital signs were apparently stable. In the ED patient remained poorly responsive and was intubated for airway protection. Her blood pressure on arrival was 243/129 and patient was started on Cardene infusion. CT of the head showed extensive acute intraventricular hemorrhage involving the left lateral ventricle, right lateral ventricle and third ventricle, acute intraparenchymal hemorrhage within the left parietal and left occipital region ( 4.1 cm in size). Acute subdural hematoma along the left frontoparietal region measuring 5 mm in width. There was also significant Significant (10 mm) subfalcine herniation to the right. Dr. Bowden was contacted by the ED Per Dr. Rivera on 01/27: Critical care medicine was requested to admit the patient. Patient was emergently moved to the ICU for EVD placement. I evaluated the patient immediately after arrival to the ICU. Patient purposefully moves left upper extremity and withdraws all other extremities. at the bedside was updated. I explained to the that she has very extensive intracranial hemorrhage and prognosis appears poor. Dr. Bowden is planning to place an EVD emergently. I discussed with Dr. Bowden extensively , patient is not a candidate for evacuation of intracerebral hemorrhage due to overall poor prognosis. I have placed a central line for administration of vasopressor agents and 3% saline. Patient remains on Cardene infusion and at this time receiving mannitol. I have also ordered Keppra for seizure prophylaxis 01/28: Remains sedated, orally intubated on mechanical ventilation. Being taken to OR for craniotomy per Dr. Bowden. 01/29: Remains sedated, orally intubated on mechanical ventilation. Underwent craniotomy with evacuation of hematoma by Dr. Bowden on 01/28. Ventriculostomy remains in place. Drained 120 cc bloody CSF over the last 12 hours. ICP 2. 01/30: ICP well controlled. Requiring mechanical ventilation. 01/31: Remains sedated, orally intubated on mechanical ventilation. Ventriculostomy in place. ICP within normal limits. Leukocytosis persists. UA appeared abnormal however cultures with no growth. Starting empiric Levaquin. Checking pro-calcitonin. Started free water for worsening hypernatremia Subjective: 02/01 Afebrile. WBC 16.9 which is downtrending. Nurse states she has diarrhea. Procalcitonin is not elevated. Ventric at 0 cm water, repeat CT scheduled for tomorrow morning per neurosurgery. 02/02: Osmolality suitably concentrated but brain edema persists, shift slightly larger. Hypertonic saline continued at half rate to avoid overly rapid drop. 02/03: No improvement in neuro exam over past 24 hours. Osmolality acceptable. 02/04: Tolerating CPAP trials today with good respiratory effort. Long discussion with and daughter about plans to extubate, high likelihood of reintubation. 02/05: Will attempt to extubate today during a period when she is alert; sleeping now. Update: Extubated and respiratory drive good. Good cough effort. She had immediate stridor however and it was not helped by suctioning nor 4 racemic epi treatments. I will re-intubate with a smaller tube and add steroids for 48-72 hours. Objective Vital Signs Date Time Temp Pulse Resp B/P (MAP) Pulse Ox O2 Delivery O2 Flow Rate FiO2 02/05/17 08:21 97 40 02/05/17 06:00 113 02/05/17 04:00 99.0 16 120/64 (82) Intake and Output 02/05/17 02/05/17 02/06/17 08:00 16:00 00:00 Intake Total 612 ml Output Total 960 ml Balance -348 ml Result Diagram: 02/02/17 0327 02/05/17 0620 Imaging Last Impressions Neck CTA 01/28/17 1009 Signed Impressions: Service Date/Time: Saturday, January 28, 2017 10:27 - CONCLUSION: 1. No hemodynamically significant carotid artery stenosis identified. 2. Mild atherosclerotic plaquing at the bifurcation. 3. Both vertebral arteries are widely patent. Jac Hardy MD Head CTA 01/28/17 0000 Signed Impressions: Service Date/Time: Saturday, January 28, 2017 10:27 - CONCLUSION: 1. No evidence of vascular malformation or vasculopathy. 2. Subdural, intraparenchymal and intraventricular hemorrhage are again noted and not significantly changed since prior study. 3. Persistent left to right shift measuring between 8 and 9 mm; unchanged. Nick F. Lucero, MD Head CT 01/28/17 0000 Signed Impressions: Service Date/Time: Saturday, January 28, 2017 10:28 - CONCLUSION: 1. Grossly stable large intra-axial hemorrhage in the left posterior prior mid to high convexities with slightly more prominent subdural hematoma more anteriorly, now measuring 6 mm in comparison to 5 mm on prior exam. Stable subtle subarachnoid hemorrhage in the parieto-occipital low convexities. 2. Interval frontal ventriculostomy catheter placement with improved intraventricular blood products, slightly improved subfalcine herniation and improved basilar cistern effacement. Migel Kapadia MD Chest X-Ray 01/27/17 1302 Signed Impressions: Service Date/Time: Friday, January 27, 2017 13:12 - CONCLUSION: Left basilar density likely atelectasis. Nasogastric tube 1.5 cm above the peng. Isai Sullivan MD Objective Remarks GENERAL: Elderly female, not sedated, orally intubated on mechanical ventilation. SKIN: Warm/dry. HEAD: Atraumatic. Normocephalic. EYES: Pupils equal and round, 2 mm sluggish reaction to light. ENT: No nasal bleeding or discharge. Mucous membranes moist. NECK: Trachea midline. Orally intubated. CARDIOVASCULAR: Regular rate and rhythm. NL S1S2. No JVD. RESPIRATORY: Breath sounds equal bilaterally. Clear, good respiratory drive. GASTROINTESTINAL: Abdomen soft, non-tender, nondistended. BS active. Tolerating tube feeds at 60 ml/hr. MUSCULOSKELETAL: No obvious deformities. No clubbing. No cyanosis. No edema. Well perfused. NEUROLOGICAL: Dressing over craniotomy site intact, L ventriculostomy in place 0 cm water, fluid clear. Orally intubated on mechanical ventilation. RUE is flaccid. RLE with very weak withdrawal. LUE with attempt to grasp. LLE withdraws to noxious stimuli. Babinski upgoing on the left, no response to Babinski on the right. A/P Assessment and Plan Neuro: Extensive intraventricular hemorrhage, left parietal/occipital intraparenchymal hemorrhage, left subdural hemorrhage Acute encephalopathy - Propofol for sedation and vent synchrony. Daily sedation vacation - Emergency EVD placement by Dr. Bowden. ICP controlled - Off 3% saline. Worsening hypernatremia noted. Started free water on 01/31 and sodium has started downtrending. Will d/c 0.9 NaCl and free water flushes and will monitor as sodium 150-155 is reasonable. - Keppra 500 mg IV q12 hours for seizure prophylaxis - Frequent neuro checks - s/p craniotomy with evacuation of hematoma 01/[address] Bowden. - EVD management per neurosurgery. Resp: Acute respiratory failure - Intubated for airway protection, continue ACV - wean fio2 for goal spo2 > 90% - HOB elevated - nebs, vent bundle - Likely will need trach and PEG. CV: Hypertensive emergency Off cardene - 2D Echo - EF 65-70%. Renal: - Fuller in place - strict i/os FEN/GI: -Continue tube feeds with Glucerna1.5, change goal to 50 mL per hour per nutrition recommendations. IDHEME: Leukocytosis - Does not meet transfusion triggers at this time - Leukocytosis persists: Possibly reactive secondary ICH/surgery. - Pancultures done on 01/29 with no growth. Empiric Levaquin was started 01/31 # 2. CXR with LLL opacity but procalcitonin is low so likely short course would be appropriate. Has had diarrhea per d/w nursing, will check C diff in view of leukocytosis. Endocrine: Hypothyroidism On admission it was reported patient is on unknown thyroid med and dose. Will obtain from family and resume when dose confirmed. TSH was normal 1.48 Prophylaxis: SCDs Pepcid iv No pharmacologic DVT prophylaxis given ICH and Ventric weaning per discussion with Dr. Rivas. Initiate when ok with NSG. Dispo: Critically ill with poor prognosis. 01/29: I had a long discussion with patient's daughter at bedside regarding current clinical status and plan of care and she voiced understanding and was agreeable. I also discussed strong possibility of need for tracheostomy and PEG tube and possible alf placement and she voiced understanding. Goals of care remain aggressive at this time. Recommend palliative care consult to assist with deciding goals of therapy if no significant improvement over the next few days. Overall impression: She remains critically ill following hemorrhagic stroke. Neurological status is now stable and we will try to wean ventilator and extubate today. Tristin Gómez MD Feb 05, 2017 10:34
[2017-02-05] MEDS: hydrALAZINE HCL 20 MG/ML VIAL IV PUSH PRN (15:30)
[2017-02-05] MEDS ORDERED: hydrALAZINE HCL 20 MG/ML VIAL IV PUSH PRN (16:00)
[2017-02-05] MEDS ORDERED: LABETALOL HCL 100 MG/20 ML VIAL IV PUSH PRN (16:00)
[2017-02-05] MEDS ORDERED: RESP: RACEPINEPHRINE 2.25% 0.5 ML NEB ONE ×6 (16:14→17:07)
[2017-02-05] MEDS ORDERED: MIDAZOLAM HCL 5 MG/ML VIAL (1 ML) ONE ×2 (17:29→17:38)
--- NOTE | 2017-02-05 18:03 | PD.PROCEDR ---
Procedure Note Procedure DX: Respiratory Failure (J96.00) OP: Orotracheal Intubation (88486) Procedure: Patient had persistent stridor after extubation about 90 minutes ago, refractory to racemic epinephrine. She requires immediate re- intubation as her work of breathing is excessive. Gentle bag mask ventilation with head of bed elevated 30 degrees. Versed 2.5 mg and rocuronium 100 mg iv. Intubated orally with 7.0 tube. Position confirmed with CO2 detection, breath sounds, sats 100%. CXR ordered, will review. Tristin Gómez MD Feb 05, 2017 18:03
[2017-02-05] MEDS ORDERED: ROCURONIUM INJ 50 MG/5 ML VIAL IV ONE (19:15)
[2017-02-05] MEDS: DEXAMETHASONE SOD PHOS 4 MG/ML VIAL IV PUSH SCH (21:12)
[2017-02-05] MEDS: LEVOFLOXACIN 750 MG PREMIX INJ 150 ML IV SCH (21:13)
[2017-02-06] VITALS (17 sets, daily range): BP systolic 116–143; BP diastolic 50–62; PULSE 91–118; RESP 14–16; TEMP 98.4–99.6; O2SAT 95–98
[2017-02-06] MEDS: DEXAMETHASONE SOD PHOS 4 MG/ML VIAL IV PUSH SCH ×5 (00:25→23:29)
[2017-02-06] MEDS: ACETAMINOPHEN/HYDROcodone 325 MG/10 MG TAB PO PRN ×3 (02:11→23:29)
[2017-02-06] MEDS: CHLORHEXIDINE GLUCONATE 2 % 1 PACK (2 CLOTHS) TOP SCH (04:00)
[2017-02-06 05:57] LABS: BICARBONATE 24.8 MEQ/L (21.0-32.0); CALCIUM 8.3 MG/DL (8.5-10.1); CREATININE 0.85 MG/DL (0.50-1.00)
[2017-02-06] MEDS: INSULIN ASPART SUPPLEMENTAL SCALE SQ SCH ×5 (06:36→23:30)
[2017-02-06] MEDS: SODIUM CHLORIDE 0.9% FLUSH 10 ML FLUSH IV FLUSH SCH ×2 (09:00→21:00)
[2017-02-06] MEDS: DOCUSATE SODIUM 100 MG CAP PO SCH ×2 (09:00→21:01)
--- NOTE | 2017-02-06 09:35 | HHI.CCPN ---
Subjective Remarks/Hospital Course 01/27: Patient is a 76-year-old female who was brought to the [facility] emergency department by EMS as a stroke alert. Last found normal at 11 this morning, later found unresponsive in the bed by her and EMS was called. EMS gave her Narcan IM without any response, blood glucose was 140, vital signs were apparently stable. In the ED patient remained poorly responsive and was intubated for airway protection. Her blood pressure on arrival was 243/129 and patient was started on Cardene infusion. CT of the head showed extensive acute intraventricular hemorrhage involving the left lateral ventricle, right lateral ventricle and third ventricle, acute intraparenchymal hemorrhage within the left parietal and left occipital region ( 4.1 cm in size). Acute subdural hematoma along the left frontoparietal region measuring 5 mm in width. There was also significant Significant (10 mm) subfalcine herniation to the right. Dr. Bowden was contacted by the ED Per Dr. Rivera on 01/27: Critical care medicine was requested to admit the patient. Patient was emergently moved to the ICU for EVD placement. I evaluated the patient immediately after arrival to the ICU. Patient purposefully moves left upper extremity and withdraws all other extremities. at the bedside was updated. I explained to the that she has very extensive intracranial hemorrhage and prognosis appears poor. Dr. Bowden is planning to place an EVD emergently. I discussed with Dr. Bowden extensively , patient is not a candidate for evacuation of intracerebral hemorrhage due to overall poor prognosis. I have placed a central line for administration of vasopressor agents and 3% saline. Patient remains on Cardene infusion and at this time receiving mannitol. I have also ordered Keppra for seizure prophylaxis 01/28: Remains sedated, orally intubated on mechanical ventilation. Being taken to OR for craniotomy per Dr. Bowden. 01/29: Remains sedated, orally intubated on mechanical ventilation. Underwent craniotomy with evacuation of hematoma by Dr. Bowden on 01/28. Ventriculostomy remains in place. Drained 120 cc bloody CSF over the last 12 hours. ICP 2. 01/30: ICP well controlled. Requiring mechanical ventilation. 01/31: Remains sedated, orally intubated on mechanical ventilation. Ventriculostomy in place. ICP within normal limits. Leukocytosis persists. UA appeared abnormal however cultures with no growth. Starting empiric Levaquin. Checking pro-calcitonin. Started free water for worsening hypernatremia Subjective: 02/01 Afebrile. WBC 16.9 which is downtrending. Nurse states she has diarrhea. Procalcitonin is not elevated. Ventric at 0 cm water, repeat CT scheduled for tomorrow morning per neurosurgery. 02/02: Osmolality suitably concentrated but brain edema persists, shift slightly larger. Hypertonic saline continued at half rate to avoid overly rapid drop. 02/03: No improvement in neuro exam over past 24 hours. Osmolality acceptable. 02/04: Tolerating CPAP trials today with good respiratory effort. Long discussion with and daughter about plans to extubate, high likelihood of reintubation. 02/05: Will attempt to extubate today during a period when she is alert; sleeping now. Update: Extubated and respiratory drive good. Good cough effort. She had immediate stridor however and it was not helped by suctioning nor 4 racemic epi treatments. I will re-intubate with a smaller tube and add steroids for 48-72 hours. 02/06: No change in neurological function. When extubated she did not follow commands nor seem to respond to voices of family. Her airway was stridor ridden and did not clear with multiple racemic epi rxs. Steroids started 02/05, continue for 2-3 days then retry. Suspect she'll need trach but family not ready. Objective Vital Signs Date Time Temp Pulse Resp B/P (MAP) Pulse Ox O2 Delivery O2 Flow Rate FiO2 02/06/17 07:54 50 02/06/17 07:54 98 02/06/17 06:00 96 02/06/17 04:00 98.4 16 116/50 (72) 02/05/17 15:58 Nasal Cannula 4.00 Intake and Output 02/06/17 02/06/17 02/07/17 08:00 16:00 00:00 Intake Total 359 ml Output Total 718 ml Balance -359 ml Result Diagram: 02/02/17 0327 02/06/17 0515 Imaging Last Impressions Neck CTA 01/28/17 1009 Signed Impressions: Service Date/Time: Saturday, January 28, 2017 10:27 - CONCLUSION: 1. No hemodynamically significant carotid artery stenosis identified. 2. Mild atherosclerotic plaquing at the bifurcation. 3. Both vertebral arteries are widely patent. Jac Hardy MD Head CTA 01/28/17 0000 Signed Impressions: Service Date/Time: Saturday, January 28, 2017 10:27 - CONCLUSION: 1. No evidence of vascular malformation or vasculopathy. 2. Subdural, intraparenchymal and intraventricular hemorrhage are again noted and not significantly changed since prior study. 3. Persistent left to right shift measuring between 8 and 9 mm; unchanged. Nick Barker MD Head CT 01/28/17 0000 Signed Impressions: Service Date/Time: Saturday, January 28, 2017 10:28 - CONCLUSION: 1. Grossly stable large intra-axial hemorrhage in the left posterior prior mid to high convexities with slightly more prominent subdural hematoma more anteriorly, now measuring 6 mm in comparison to 5 mm on prior exam. Stable subtle subarachnoid hemorrhage in the parieto-occipital low convexities. 2. Interval frontal ventriculostomy catheter placement with improved intraventricular blood products, slightly improved subfalcine herniation and improved basilar cistern effacement. Migel Kapadia MD Chest X-Ray 01/27/17 1302 Signed Impressions: Service Date/Time: Friday, January 27, 2017 13:12 - CONCLUSION: Left basilar density likely atelectasis. Nasogastric tube 1.5 cm above the peng. Isai Sullivan MD Objective Remarks GENERAL: Elderly female, not sedated, orally intubated on mechanical ventilation. SKIN: Warm/dry. HEAD: Atraumatic. Normocephalic. EYES: Pupils equal and round, 2 mm sluggish reaction to light. ENT: No nasal bleeding or discharge. Mucous membranes moist. NECK: Trachea midline. Orally intubated. CARDIOVASCULAR: Regular rate and rhythm. NL S1S2. No JVD. RESPIRATORY: Breath sounds equal bilaterally. Clear, good respiratory drive. Reintubated 02/05 for stridor 1 hour after extubation. GASTROINTESTINAL: Abdomen soft, non-tender, nondistended. BS active. Tolerating tube feeds at 60 ml/hr. MUSCULOSKELETAL: No obvious deformities. No clubbing. No cyanosis. No edema. Well perfused. NEUROLOGICAL: Dressing over craniotomy site intact, L ventriculostomy in place 0 cm water, fluid clear. Orally intubated on mechanical ventilation. RUE is flaccid. RLE with very weak withdrawal. LUE with attempt to grasp. LLE withdraws to noxious stimuli. Babinski upgoing on the left, no response to Babinski on the right. A/P Assessment and Plan Neuro: Extensive intraventricular hemorrhage, left parietal/occipital intraparenchymal hemorrhage, left subdural hemorrhage Acute encephalopathy - Propofol for sedation and vent synchrony. Daily sedation vacation - Emergency EVD placement by Dr. Bowden. ICP controlled - Off 3% saline. Worsening hypernatremia noted. Started free water on 01/31 and sodium has started downtrending. Will d/c 0.9 NaCl and free water flushes and will monitor as sodium 150-155 is reasonable. - Keppra 500 mg IV q12 hours for seizure prophylaxis - Frequent neuro checks - s/p craniotomy with evacuation of hematoma 01/[address] Bowden. - EVD management per neurosurgery. Resp: Acute respiratory failure - Intubated for airway protection, continue ACV - wean fio2 for goal spo2 > 90% - HOB elevated - nebs, vent bundle - Likely will need trach and PEG. CV: Hypertensive emergency Off cardene - 2D Echo - EF 65-70%. Renal: - Fuller in place - strict i/os FEN/GI: -Continue tube feeds with Glucerna1.5, change goal to 50 mL per hour per nutrition recommendations. IDHEME: Leukocytosis - Does not meet transfusion triggers at this time - Leukocytosis persists: Possibly reactive secondary ICH/surgery. - Pancultures done on 01/29 with no growth. Empiric Levaquin was started 01/31 # 2. CXR with LLL opacity but procalcitonin is low so likely short course would be appropriate. Has had diarrhea per d/w nursing, will check C diff in view of leukocytosis. Endocrine: Hypothyroidism On admission it was reported patient is on unknown thyroid med and dose. Will obtain from family and resume when dose confirmed. TSH was normal 1.48 Prophylaxis: SCDs Pepcid iv No pharmacologic DVT prophylaxis given ICH and Ventric weaning per discussion with Dr. Rivas. Initiate when ok with NSG. Dispo: Critically ill with poor prognosis. 01/29: I had a long discussion with patient's daughter at bedside regarding current clinical status and plan of care and she voiced understanding and was agreeable. I also discussed strong possibility of need for tracheostomy and PEG tube and possible halfway placement and she voiced understanding. Goals of care remain aggressive at this time. 02/05: Numerous long conversations with innumerable family members. All are aware that she may not tolerate extubation and may well require tracheostomy. They are expecting a miracle and are very emotional about it. Overall impression: She remains critically ill following hemorrhagic stroke. BP control acceptable. Only significant neurological function is respiratory drive and some squeezing of the left hand. Tristin Gómez MD Feb 06, 2017 09:35
[2017-02-06] MEDS: levETIRAcetam INJ 500 MG in SODIUM CHLORIDE 0.9% INJ 100 ML IV SCH ×2 (09:53→20:59)
[2017-02-06] MEDS: CHLORHEXIDINE 0.12% (ORAL KIT) 15 ML CUP MT SCH ×2 (09:54→20:00)
[2017-02-06] MEDS: PANTOPRAZOLE SODIUM 40 MG VIAL IVP SCH (09:54)
--- NOTE | 2017-02-06 12:12 | HHI.NSPN ---
(Nikolai Soto) History Chief Complaint: Unable to obtain due to patient's clinical condition. (Nikolai Soto) Interval History Ms Tinajero is an 76 year old adult female who was brought to [facility] as a stroke alert with a severe intracerebral and intraventricular hemorrhage with mass effect and midline shift. She underwent placement of ventriculostomy drain on 01/27/17. She underwent a left parietooccipital craniotomy, evacuation of intracerebral hematoma on Jan 28, 2017. 01/29: intubated and sedated. EVD draining well bloody CSF. ICPs normal. f/u CT Head this morning with decreasing mass effect, less left to right midline shift which now measures 4.6 mm, with small amount hemorrhage remains evident in the ventricular system. 01/30: intubated and sedated. ventriculostomy draining well, ICPs within normal limits. 01/31: intubated, sedated. no eye opening. ventriculostomy draining well, ICPs remains wnl 02/03: EVD raised to 3 cm H20 over the weekend, ICPs stable. Intubated and off sedative drips, mildly opens eyes. 02/04: appears much more alert this morning, eyes wide open and tracking. EVD draining well. 02/05: tolerating CPAP, awake and tracking. CSF now simpson. EVD draining well. 02/06: When seen this morning the patient is asleep but awakens to voice. She does track with her eyes. She remains intubated and is on CPAP. (Nikolai Soto) System Review Comments Unable to obtain due to patient's clinical condition. (Nikolai Soto) Exam Results 02/04/17 02/04/17 02/05/17 02/05/17 02/06/17 02/06/17 06:00 18:00 06:00 18:00 06:00 18:00 Intake Total 1004 ml 488 ml 612 ml 880 ml 614 ml Output Total 731 ml 828 ml 960 ml 865 ml 718 ml Balance 273 ml -340 ml -348 ml 15 ml -104 ml Intake IV Total 255 ml 100 ml 350 ml 255 ml Tube Feeding 649 ml 388 ml 612 ml 530 ml 239 ml Tube Irrigant 100 ml Other 120 ml Output Urine Total 600 ml 700 ml 900 ml 725 ml 650 ml Gastric Drainage Total 0 ml Tube Feeding Residual Discard 0 ml Drainage Total 131 ml 128 ml 60 ml 140 ml 68 ml # Bowel Movements 1 1 0 2 2 Vital Signs Date Time Temp Pulse Resp B/P (MAP) Pulse Ox O2 Delivery O2 Flow Rate FiO2 02/06/17 11:21 98 40 02/06/17 07:54 50 02/06/17 07:54 98 40 02/06/17 06:00 96 02/06/17 04:03 96 40 02/06/17 04:00 40 02/06/17 04:00 98.4 97 16 116/50 (72) 96 02/06/17 04:00 97 02/06/17 03:11 16 02/06/17 02:00 107 02/06/17 00:00 106 02/06/17 00:00 40 02/06/17 00:00 99.6 106 16 143/57 (85) 96 02/05/17 23:17 96 40 02/05/17 22:00 102 02/05/17 20:37 97 40 02/05/17 20:00 40 02/05/17 20:00 100.0 103 16 118/50 (72) 97 02/05/17 20:00 103 02/05/17 18:00 40 02/05/17 18:00 110 02/05/17 16:30 154/66 (95) 02/05/17 16:00 99.0 99 16 175/111 (132) 96 02/05/17 16:00 99 02/05/17 15:58 99 Nasal Cannula 4.00 02/05/17 14:00 110 02/05/17 12:04 100 40 02/05/17 12:00 101 02/05/17 12:00 99.5 101 16 126/72 (90) 98 02/05/17 12:00 40 02/05/17 10:00 112 02/05/17 08:21 40 02/05/17 08:21 97 40 02/05/17 08:21 40 02/05/17 08:00 99.5 116 14 129/57 (81) 98 02/05/17 08:00 40 02/05/17 08:00 99 02/05/17 06:00 113 02/05/17 04:56 97 40 02/05/17 04:00 99.0 118 16 120/64 (82) 96 02/05/17 04:00 40 02/05/17 04:00 119 02/05/17 02:00 115 02/05/17 00:00 99.3 113 16 129/56 (80) 97 02/05/17 00:00 113 02/05/17 00:00 40 02/04/17 23:51 97 40 02/04/17 22:00 115 02/04/17 20:00 99.6 111 16 136/59 (84) 99 02/04/17 20:00 111 02/04/17 20:00 40 02/04/17 19:41 98 40 02/04/17 17:11 98 40 02/04/17 16:00 99.5 103 16 139/55 (83) 97 02/04/17 16:00 103 02/04/17 12:41 95 40 02/04/17 12:00 114 02/04/17 12:00 99.5 114 14 121/55 (77) 95 02/04/17 09:23 40 02/04/17 08:31 94 40 02/04/17 08:00 113 02/04/17 08:00 99.9 113 16 146/63 (90) 95 Automatic Cuff 02/04/17 08:00 40 02/04/17 06:00 107 02/04/17 04:24 97 40 02/04/17 04:00 99.0 110 17 136/56 (82) 97 02/04/17 04:00 110 02/04/17 04:00 40 02/04/17 02:00 109 02/04/17 00:11 97 40 02/04/17 00:00 99.4 115 18 118/52 (74) 97 02/04/17 00:00 115 02/04/17 00:00 40 02/03/17 22:00 116 02/03/17 20:34 96 40 02/03/17 20:00 100.3 108 16 128/44 (72) 96 02/03/17 20:00 108 02/03/17 20:00 40 02/03/17 18:00 110 02/03/17 16:40 98 40 02/03/17 16:00 116 02/03/17 16:00 99.6 116 17 156/58 (90) 99 02/03/17 16:00 40 02/03/17 14:00 112 02/03/17 13:40 97 40 02/03/17 12:00 114 02/03/17 12:00 100.8 114 17 133/54 (80) 97 02/03/17 12:00 40 (Nikolai Soto) Physical Examination GENERAL: Asleep but awakens to voice, intubated on CPAP, no sedation, no apparent distress. HEENT: Normocephaalic, posterior surgical incision well approximated with magalys & ventriculostomy drain insertion site w/intact dressing, no evident drainage, erythema or streaking. MUSCULOSKELETAL: Spontaneous movement of LUE and moves BLE to noxious stimulation, no movement to RUE. No evident clubbing or deformity. NEUROLOGICAL: Asleep but opens eyes to voice. Intubated. PERRLA 2 mm reactive, tracks. Did not follow any commands. Moved LUE spontaneously but not to stimulation. Move LLE>>RLE to local noxious stimulation. No movement of RUE to local noxious stimulation. Ventriculostomy at 5 cm H2O pressure with simpson broderick CSF. ICP 4 mm Hg when seen. (Nikolai Soto) Lab, Micro, Other Results Laboratory Tests Test 02/04/17 04:50 02/05/17 06:20 02/06/17 05:15 Blood Urea Nitrogen 32 MG/DL 36 MG/DL 35 MG/DL Creatinine 0.74 MG/DL 0.87 MG/DL 0.85 MG/DL Random Glucose 152 MG/DL 158 MG/DL 201 MG/DL Calcium Level 8.3 MG/DL 8.3 MG/DL 8.3 MG/DL Sodium Level 150 MEQ/L 148 MEQ/L 146 MEQ/L Potassium Level 3.7 MEQ/L 3.7 MEQ/L 3.8 MEQ/L Chloride Level 115 MEQ/L 114 MEQ/L 112 MEQ/L Carbon Dioxide Level 28.8 MEQ/L 26.6 MEQ/L 24.8 MEQ/L Anion Gap 6 MEQ/L 7 MEQ/L 9 MEQ/L Estimat Glomerular Filtration Rate 76 ML/MIN 63 ML/MIN 65 ML/MIN (Nikolai Soto) Medical Decision Making Impression and Plan Impression: 76 year old female with large intraventricular hemorrhage s/p placement of ventriculostomy drain 01/27/17, slowly challenging ventriculostomy drain, ICPs remains wnl s/p left parietooccipital craniotomy, evacuation of intracerebral hematoma 01/28 Drowsy, does open eyes to voice, LUE spontaneous movement & BLE to stimulation, none with RUE. Reviewed labs for today. Sodium 146. Ventriculostomy output 208 mL for the past 24 hrs this morning. Plan: Critical care management per Statistical Methods Professor. Frequent neuro checks. Stat CT brain for any decline in neuro status. Ventriculostomy drain at 5 cm H2O pressure for challenge. Montior ventriculostomy output. Monitor ICP. (Nikolai Soto) Attending Statement The exam, history, and the medical decision-making described in the above note were completed with the assistance of the mid-level provider. I reviewed and agree with the findings presented. I attest that I had a [id number] encounter with the patient on the same day, and personally performed and documented my assessment and findings in the medical record. Occasional eye opening. Not following commands Moderate EVD output Weaning ventriculostomy catheter (Arslan Garcia MD) Nikolai Soto Feb 06, 2017 12:12 Arslan Garcia MD Feb 14, 2017 19:49
[2017-02-06] MEDS: LEVOFLOXACIN 750 MG PREMIX INJ 150 ML IV SCH (20:59)
[2017-02-07] VITALS (18 sets, daily range): BP systolic 112–140; BP diastolic 50–62; PULSE 90–118; RESP 11–16; TEMP 98.4–98.7; O2SAT 96–97
[2017-02-07] MEDS: CHLORHEXIDINE GLUCONATE 2 % 1 PACK (2 CLOTHS) TOP SCH (04:00)
[2017-02-07] MEDS: DEXAMETHASONE SOD PHOS 4 MG/ML VIAL IV PUSH SCH ×3 (05:34→18:00)
[2017-02-07] MEDS: INSULIN ASPART SUPPLEMENTAL SCALE SQ SCH ×3 (06:26→18:00)
[2017-02-07] MEDS: CHLORHEXIDINE 0.12% (ORAL KIT) 15 ML CUP MT SCH ×2 (08:00→21:12)
[2017-02-07] MEDS: PANTOPRAZOLE SODIUM 40 MG VIAL IVP SCH (08:13)
[2017-02-07] MEDS: DOCUSATE SODIUM 100 MG CAP PO SCH ×2 (08:13→21:11)
[2017-02-07] MEDS: levETIRAcetam INJ 500 MG in SODIUM CHLORIDE 0.9% INJ 100 ML IV SCH ×2 (08:13→21:11)
[2017-02-07] MEDS: SODIUM CHLORIDE 0.9% FLUSH 10 ML FLUSH IV FLUSH SCH ×2 (08:14→21:11)
--- NOTE | 2017-02-07 10:30 | HHI.NSPN ---
(Isai Nielsen) History Chief Complaint: Unable to obtain due to patient's clinical condition. (Isai Nielsen) Interval History Ms Tinajero is an 76 year old adult female who was brought to [facility] as a stroke alert with a severe intracerebral and intraventricular hemorrhage with mass effect and midline shift. She underwent placement of ventriculostomy drain on 01/27/17. She underwent a left parietooccipital craniotomy, evacuation of intracerebral hematoma on Jan 28, 2017. 01/29: intubated and sedated. EVD draining well bloody CSF. ICPs normal. f/u CT Head this morning with decreasing mass effect, less left to right midline shift which now measures 4.6 mm, with small amount hemorrhage remains evident in the ventricular system. 01/30: intubated and sedated. ventriculostomy draining well, ICPs within normal limits. 01/31: intubated, sedated. no eye opening. ventriculostomy draining well, ICPs remains wnl 02/03: EVD raised to 3 cm H20 over the weekend, ICPs stable. Intubated and off sedative drips, mildly opens eyes. 02/04: appears much more alert this morning, eyes wide open and tracking. EVD draining well. 02/05: tolerating CPAP, awake and tracking. CSF now simpson. EVD draining well. 02/06: When seen this morning the patient is asleep but awakens to voice. She does track with her eyes. She remains intubated and is on CPAP. 02/07: Pt with eyes open. Family at bedside, possibly starting to follow some simple commands for them on left side. Ventriculostomy drain in place at 5cmH20. ICP 4. Blood darker in color. (Isai Nielsen) System Review Comments Not able to obtain given clinical condition. (Isai Nielsen) Exam Results Vital Signs Date Time Temp Pulse Resp B/P (MAP) Pulse Ox O2 Delivery O2 Flow Rate FiO2 02/07/17 08:55 40 02/07/17 08:41 96 02/07/17 06:00 107 02/07/17 04:00 98.4 16 114/50 (71) 02/05/17 15:58 Nasal Cannula 4.00 Intake and Output 02/07/17 02/07/17 02/08/17 08:00 16:00 00:00 Intake Total 670 ml Output Total 630 ml Balance 40 ml (Isai Nielsen) Physical Examination GENERAL: Awake. Intubated on CPAP, no sedation, no apparent distress. HEENT: Normocephaalic, posterior surgical incision well approximated with magalys & ventriculostomy drain insertion site w/intact dressing, no evident drainage, erythema or streaking. RESP: Intubated. CTA bilaterally. On CPAP HEART: NSR No murmurs. ABD: Soft positive bs. SKIN: No cyanosis or erythema. Incision clean and dry. MUSCULOSKELETAL: Spontaneous movement of LUE and moves BLE to noxious stimulation, no movement to RUE. NEUROLOGICAL: PERRLA 2 mm reactive, tracks on Left side. Seems to neglect right side. Did not follow any commands for me but possibly starting to for family. Moved LUE spontaneously but not to stimulation. Move LLE>>RLE to local noxious stimulation. No movement of RUE to local noxious stimulation. Ventriculostomy at 5 cm H2O pressure with simpson broderick CSF. ICP 4. (Isai Nielsen) Lab, Micro, Other Results Last Impressions Head CT 02/02/17 06 Signed Impressions: Service Date/Time: Thursday, February 02, 2017 04:45 - CONCLUSION: 1. Widespread subacute parenchymal and subarachnoid blood as well is a tiny subdural hemorrhage on the left not significantly changed but there is slightly worse rightward midline shift, now 6 mm. 2. Ventriculostomy catheter remains in place on the right. Decompressed ventricles. Small intraventricular blood unchanged. 3. Resolving pneumocephaly. 4. No mass or evidence of an acute ischemic event. Miguel Gooden MD Chest X-Ray 02/01/17 0600 Signed Impressions: Service Date/Time: Wednesday, February 01, 2017 04:26 - CONCLUSION: No significant interval change with persistent left lower lobe consolidation versus atelectasis and small left pleural effusion. Obed Alexis MD Neck CTA 01/28/17 1009 Signed Impressions: Service Date/Time: Saturday, January 28, 2017 10:27 - CONCLUSION: 1. No hemodynamically significant carotid artery stenosis identified. 2. Mild atherosclerotic plaquing at the bifurcation. 3. Both vertebral arteries are widely patent. Jac Hardy MD Head CTA 01/28/17 0000 Signed Impressions: Service Date/Time: Saturday, January 28, 2017 10:27 - CONCLUSION: 1. No evidence of vascular malformation or vasculopathy. 2. Subdural, intraparenchymal and intraventricular hemorrhage are again noted and not significantly changed since prior study. 3. Persistent left to right shift measuring between 8 and 9 mm; unchanged. Nick Barker MD (Isai Nielsen) Medical Decision Making Impression and Plan A: 76 year old female with large intraventricular hemorrhage s/p placement of ventriculostomy drain 01/27/17, slowly challenging ventriculostomy drain, ICPs remains wnl s/p left parietooccipital craniotomy, evacuation of intracerebral hematoma 01/28 Plan: Continue with critical care. Frequent neuro checks. Continue with ventriculostomy drain and monitoring ICP. (Isai Nielsen) Attending Statement The exam, history, and the medical decision-making described in the above note were completed with the assistance of the mid-level provider. I reviewed and agree with the findings presented. I attest that I had a [id number] encounter with the patient on the same day, and personally performed and documented my assessment and findings in the medical record. No change in exam. We'll challenge ventriculostomy. (Sampson Schumacher MD) Isai Nielsen Feb 07, 2017 10:30 Sampson Schumacher MD Feb 07, 2017 16:33
[2017-02-07] MEDS: ACETAMINOPHEN/HYDROcodone 325 MG/10 MG TAB PO PRN (14:10)
--- NOTE | 2017-02-07 18:20 | HHI.CCPN ---
Subjective Remarks/Hospital Course 01/27: Patient is a 76-year-old female who was brought to the [facility] emergency department by EMS as a stroke alert. Last found normal at 11 this morning, later found unresponsive in the bed by her and EMS was called. EMS gave her Narcan IM without any response, blood glucose was 140, vital signs were apparently stable. In the ED patient remained poorly responsive and was intubated for airway protection. Her blood pressure on arrival was 243/129 and patient was started on Cardene infusion. CT of the head showed extensive acute intraventricular hemorrhage involving the left lateral ventricle, right lateral ventricle and third ventricle, acute intraparenchymal hemorrhage within the left parietal and left occipital region ( 4.1 cm in size). Acute subdural hematoma along the left frontoparietal region measuring 5 mm in width. There was also significant Significant (10 mm) subfalcine herniation to the right. Dr. Bowden was contacted by the ED Per Dr. Rivera on 01/27: Critical care medicine was requested to admit the patient. Patient was emergently moved to the ICU for EVD placement. I evaluated the patient immediately after arrival to the ICU. Patient purposefully moves left upper extremity and withdraws all other extremities. at the bedside was updated. I explained to the that she has very extensive intracranial hemorrhage and prognosis appears poor. Dr. Bowden is planning to place an EVD emergently. I discussed with Dr. Bowden extensively , patient is not a candidate for evacuation of intracerebral hemorrhage due to overall poor prognosis. I have placed a central line for administration of vasopressor agents and 3% saline. Patient remains on Cardene infusion and at this time receiving mannitol. I have also ordered Keppra for seizure prophylaxis 01/28: Remains sedated, orally intubated on mechanical ventilation. Being taken to OR for craniotomy per Dr. Bowden. 01/29: Remains sedated, orally intubated on mechanical ventilation. Underwent craniotomy with evacuation of hematoma by Dr. Bowden on 01/28. Ventriculostomy remains in place. Drained 120 cc bloody CSF over the last 12 hours. ICP 2. 01/30: ICP well controlled. Requiring mechanical ventilation. 01/31: Remains sedated, orally intubated on mechanical ventilation. Ventriculostomy in place. ICP within normal limits. Leukocytosis persists. UA appeared abnormal however cultures with no growth. Starting empiric Levaquin. Checking pro-calcitonin. Started free water for worsening hypernatremia Subjective: 02/01 Afebrile. WBC 16.9 which is downtrending. Nurse states she has diarrhea. Procalcitonin is not elevated. Ventric at 0 cm water, repeat CT scheduled for tomorrow morning per neurosurgery. 02/02: Osmolality suitably concentrated but brain edema persists, shift slightly larger. Hypertonic saline continued at half rate to avoid overly rapid drop. 02/03: No improvement in neuro exam over past 24 hours. Osmolality acceptable. 02/04: Tolerating CPAP trials today with good respiratory effort. Long discussion with and daughter about plans to extubate, high likelihood of reintubation. 02/05: Will attempt to extubate today during a period when she is alert; sleeping now. Update: Extubated and respiratory drive good. Good cough effort. She had immediate stridor however and it was not helped by suctioning nor 4 racemic epi treatments. I will re-intubate with a smaller tube and add steroids for 48-72 hours. 02/06: No change in neurological function. When extubated she did not follow commands nor seem to respond to voices of family. Her airway was stridor ridden and did not clear with multiple racemic epi rxs. Steroids started 02/05, continue for 2-3 days then retry. Suspect she'll need trach but family not ready. Subjective: 02/07. Tolerating CPAP 10/. No cuff leak despite steroids. Will try diuresing. Follows commands LUE. Objective Vital Signs Date Time Temp Pulse Resp B/P (MAP) Pulse Ox O2 Delivery O2 Flow Rate FiO2 02/07/17 16:33 96 40 02/07/17 14:00 118 02/07/17 12:00 98.7 12 136/60 (85) 02/05/17 15:58 Nasal Cannula 4.00 Intake and Output 02/07/17 02/07/17 02/08/17 08:00 16:00 00:00 Intake Total 670 ml Output Total 630 ml Balance 40 ml Result Diagram: 02/06/17 0515 Imaging Last Impressions Neck CTA 01/28/17 1009 Signed Impressions: Service Date/Time: Saturday, January 28, 2017 10:27 - CONCLUSION: 1. No hemodynamically significant carotid artery stenosis identified. 2. Mild atherosclerotic plaquing at the bifurcation. 3. Both vertebral arteries are widely patent. Jac Hardy MD Head CTA 01/28/17 0000 Signed Impressions: Service Date/Time: Saturday, January 28, 2017 10:27 - CONCLUSION: 1. No evidence of vascular malformation or vasculopathy. 2. Subdural, intraparenchymal and intraventricular hemorrhage are again noted and not significantly changed since prior study. 3. Persistent left to right shift measuring between 8 and 9 mm; unchanged. Nick Barker MD Head CT 01/28/17 0000 Signed Impressions: Service Date/Time: Saturday, January 28, 2017 10:28 - CONCLUSION: 1. Grossly stable large intra-axial hemorrhage in the left posterior prior mid to high convexities with slightly more prominent subdural hematoma more anteriorly, now measuring 6 mm in comparison to 5 mm on prior exam. Stable subtle subarachnoid hemorrhage in the parieto-occipital low convexities. 2. Interval frontal ventriculostomy catheter placement with improved intraventricular blood products, slightly improved subfalcine herniation and improved basilar cistern effacement. Migel Kapadia MD Chest X-Ray 01/27/17 1302 Signed Impressions: Service Date/Time: Friday, January 27, 2017 13:12 - CONCLUSION: Left basilar density likely atelectasis. Nasogastric tube 1.5 cm above the peng. Isai Sullivan MD Objective Remarks GENERAL: Elderly female, not sedated, orally intubated on mechanical ventilation. SKIN: Warm/dry. HEAD: Atraumatic. Normocephalic. EYES: Pupils equal and round, 2 mm sluggish reaction to light. ENT: No nasal bleeding or discharge. Mucous membranes moist. NECK: Trachea midline. Orally intubated. CARDIOVASCULAR: Regular rate and rhythm. NL S1S2. No JVD. RESPIRATORY: Breath sounds equal bilaterally. Clear, good respiratory drive. Thin respiratory secretions with suctioning. GASTROINTESTINAL: Abdomen soft, non-tender, nondistended. BS active. Tolerating tube feeds at 60 ml/hr. MUSCULOSKELETAL: No obvious deformities. No clubbing. No cyanosis. No edema. Well perfused. NEUROLOGICAL: L ventriculostomy in place +5 cm water, fluid clear. Eyes open, left gaze, does not track. RUE is flaccid. RLE with very weak withdrawal. LUE grasps hands to command. LLE withdraws to noxious stimuli. Babinski upgoing on the left, no response to Babinski on the right. A/P Assessment and Plan Neuro: Extensive intraventricular hemorrhage, left parietal/occipital intraparenchymal hemorrhage, left subdural hemorrhage Acute encephalopathy - Hold sedation - Emergency EVD placement by Dr. Bowden. ICP controlled - Off 3% saline, sodium downtrending. - Keppra 500 mg IV q12 hours for seizure prophylaxis - NEurochecks. - s/p craniotomy with evacuation of hematoma 01/[address] Bowden. - EVD management per neurosurgery. Resp: Acute respiratory failure - Intubated for airway protection, continue ACV. Extubated 02/05 and had stridor so reintubated and placed on decadron. Still no cuff leak, diuresing with lasix. If does not develop cuff leak will likely need to transition to trach/PEG which i discussed with daughter. - wean fio2 for goal spo2 > 90% - HOB elevated - nebs, vent bundle Decadron 6mg IV q6 hours. CV: Hypertensive emergency Off cardene - 2D Echo - EF 65-70%. Renal: - Fuller in place - strict i/os - Lasix 40 mg IV q12 x2. KCL 25 MEQ po q8. FEN/GI: -Continue tube feeds with Glucerna1.5 goal to 50 mL per hour per nutrition recommendations. IDHEME: Leukocytosis - Does not meet transfusion triggers at this time - Leukocytosis persists: Possibly reactive secondary ICH/surgery. - Pancultures done on 01/29 with no growth. Empiric Levaquin was started 01/31 # 8. CXR with LLL opacity but procalcitonin is low so likely short course would be appropriate. C diff previously ordered but then diarrhea resolved. Endocrine: Hypothyroidism . TSH was normal 1.48 . Resume synthroid 50 mcg daily. Prophylaxis: SCDs Pepcid iv No pharmacologic DVT prophylaxis given ICH per discussion with Dr. Rivas. Initiate when ok with NSG. 01/29: I had a long discussion with patient's daughter at bedside regarding current clinical status and plan of care and she voiced understanding and was agreeable. I also discussed strong possibility of need for tracheostomy and PEG tube and possible chcf placement and she voiced understanding. Goals of care remain aggressive at this time. 02/05: Numerous long conversations with innumerable family members. All are aware that she may not tolerate extubation and may well require tracheostomy. They are expecting a miracle and are very emotional about it. 02/07 - Slight neuro improvement but still poor prognosis for functional recovery. Discussed with family still likely to require trach/PEG but they are hoping she does not. LEvel 3 followup. Shruthi Hernandez MD Feb 07, 2017 18:20
[2017-02-07] MEDS: POTASSIUM CHLORIDE 25 MEQ EFFERVESCENT TAB OG-TUBE SCH (21:09)
[2017-02-07] MEDS: FUROSEMIDE 40 MG/4 ML VIAL IV PUSH SCH (21:10)
[2017-02-08] VITALS (18 sets, daily range): BP systolic 126–159; BP diastolic 61–93; PULSE 96–118; RESP 10–16; TEMP 97.4–99.6; O2SAT 96–97
[2017-02-08] MEDS: DEXAMETHASONE SOD PHOS 4 MG/ML VIAL IV PUSH SCH ×4 (00:40→18:05)
[2017-02-08] MEDS: INSULIN ASPART SUPPLEMENTAL SCALE SQ SCH ×4 (00:41→18:05)
[2017-02-08] MEDS: CHLORHEXIDINE GLUCONATE 2 % 1 PACK (2 CLOTHS) TOP SCH ×2 (03:13→20:09)
[2017-02-08] MEDS: POTASSIUM CHLORIDE 25 MEQ EFFERVESCENT TAB OG-TUBE SCH ×2 (03:17→13:39)
[2017-02-08] MEDS: LEVOTHYROXINE SODIUM 50 MCG TAB OG-TUBE SCH (06:09)
--- NOTE | 2017-02-08 06:21 | RADRPT ---
EXAM DATE/TIME: 02/08/2017 04:22 [facility] COMPARISON: CHEST SINGLE AP, February 01, 2017, 4:26. INDICATIONS : Respiratory failure MEDICAL HISTORY : None. SURGICAL HISTORY : Hysterectomy. Craniotomy. ENCOUNTER: Subsequent ACUITY: 1 week PAIN SCORE: Non-responsive. LOCATION: Bilateral chest FINDINGS: Endotracheal tube tip is 2 cm above peng. Nasogastric tube descends into the stomach. Left subclavi an central line stable in good position. Lungs are symmetrically aerated and grossly clear. Cardiac c ontours are satisfactory for technique and projection. CONCLUSION: Improved chest appearance Miguel Hua MD on February 08, 2017 at 6:18 Board Certified Radiologist. This report was verified electronically.
[2017-02-08 07:47] LABS: AUTOMATED NEUTROPHIL # 22.8 TH/MM3 (1.8-7.7); BASOPHIL % 0.1 % (0.0-2.0); HEMATOCRIT 30.6 % (35.0-46.0); HEMOGLOBIN 10.2 GM/DL (11.6-15.3); LYMPH % 5.7 % (9.0-44.0); LYMPHOCYTE # 1.4 TH/MM3 (1.0-4.8); MEAN CELL VOLUME 92.2 FL (80.0-100.0); MEAN CORPUSCULAR HEMOGLOBIN 30.6 PG (27.0-34.0); MEAN CORPUSCULAR HGB CONC 33.2 % (32.0-36.0); MEAN PLATELET VOLUME 9.3 FL (7.0-11.0); MONO % 3.7 % (0.0-8.0); MONOCYTE # 0.9 TH/MM3 (0-0.9); NEUT % 90.5 % (16.0-70.0); PLATELET COUNT 357 TH/MM3 (150-450); RED BLOOD COUNT 3.32 MIL/MM3 (4.00-5.30); RED CELL DISTRIBUTION WIDTH 14.1 % (11.6-17.2); WHITE BLOOD COUNT 25.3 TH/MM3 (4.0-11.0)
[2017-02-08 08:18] LABS: BICARBONATE 30.4 MEQ/L (21.0-32.0); CALCIUM 8.6 MG/DL (8.5-10.1); CREATININE 0.84 MG/DL (0.50-1.00)
[2017-02-08 08:25] LABS: BANDS 1 % (0-6); LYMPHOCYTES 4 % (9-44); METAMYELOCYTES 1 % (0-1); MONOCYTES 4 % (0-8); NEUTROPHIL # MANUAL DIFF 23.3 TH/MM3 (1.8-7.7); POLYS (SEG NEUTROPHILS) 90 % (16-70)
[2017-02-08] MEDS: DOCUSATE SODIUM 100 MG CAP PO SCH ×2 (09:02→20:33)
[2017-02-08] MEDS: PANTOPRAZOLE SODIUM 40 MG VIAL IVP SCH (09:03)
[2017-02-08] MEDS: FUROSEMIDE 40 MG/4 ML VIAL IV PUSH SCH ×2 (09:03→20:32)
[2017-02-08] MEDS: levETIRAcetam INJ 500 MG in SODIUM CHLORIDE 0.9% INJ 100 ML IV SCH ×2 (09:03→20:32)
[2017-02-08] MEDS: CHLORHEXIDINE 0.12% (ORAL KIT) 15 ML CUP MT SCH ×2 (09:03→20:00)
[2017-02-08] MEDS: SODIUM CHLORIDE 0.9% FLUSH 10 ML FLUSH IV FLUSH SCH ×2 (09:03→20:33)
--- NOTE | 2017-02-08 09:34 | HHI.NSPN ---
(Isai Nielsen) History Chief Complaint: Unable to obtain due to patient's clinical condition. (Isai Nielsen) Interval History Ms Tinajero is an 76 year old adult female who was brought to [facility] as a stroke alert with a severe intracerebral and intraventricular hemorrhage with mass effect and midline shift. She underwent placement of ventriculostomy drain on 01/27/17. She underwent a left parietooccipital craniotomy, evacuation of intracerebral hematoma on Jan 28, 2017. 01/29: intubated and sedated. EVD draining well bloody CSF. ICPs normal. f/u CT Head this morning with decreasing mass effect, less left to right midline shift which now measures 4.6 mm, with small amount hemorrhage remains evident in the ventricular system. 01/30: intubated and sedated. ventriculostomy draining well, ICPs within normal limits. 01/31: intubated, sedated. no eye opening. ventriculostomy draining well, ICPs remains wnl 02/03: EVD raised to 3 cm H20 over the weekend, ICPs stable. Intubated and off sedative drips, mildly opens eyes. 02/04: appears much more alert this morning, eyes wide open and tracking. EVD draining well. 02/05: tolerating CPAP, awake and tracking. CSF now simpson. EVD draining well. 02/06: When seen this morning the patient is asleep but awakens to voice. She does track with her eyes. She remains intubated and is on CPAP. 02/07: Pt with eyes open. Family at bedside, possibly starting to follow some simple commands for them on left side. Ventriculostomy drain in place at 5cmH20. ICP 4. Blood darker in color. 02/08: Pt with eyes open. Not following commands. Pupils 3mm bilaterally. Right sided neglect. Ventriculostomy drain at [id number] with ICP 1-2 range. Right hemiparesis. (Isai Nielsen) System Review Comments Not able to obtain given clinical condition. (Isai Nielsen) Exam Results Vital Signs Date Time Temp Pulse Resp B/P (MAP) Pulse Ox O2 Delivery O2 Flow Rate FiO2 02/08/17 08:42 97 40 02/08/17 08:42 Ventilator 02/08/17 06:00 98 02/08/17 04:00 98.7 11 138/61 (86) 02/05/17 15:58 4.00 Intake and Output 02/08/17 02/08/17 02/09/17 08:00 16:00 00:00 Intake Total 1252 ml Output Total 360 ml Balance 892 ml (Isai Nielsen) Physical Examination GENERAL: Awake. Intubated, no sedation, no apparent distress. HEENT: Normocephaalic, posterior surgical incision well approximated with magalys & ventriculostomy drain insertion site w/intact dressing, no evident drainage, erythema or streaking. RESP: Intubated. CTA bilaterally. PRVC A/C rate 16. Peep 5. FiO2 40%. HEART: NSR No murmurs. ABD: Soft positive bs. SKIN: No cyanosis or erythema. Incision clean and dry. MUSCULOSKELETAL: Spontaneous movement of LUE and moves BLE to noxious stimulation, no movement to RUE. NEUROLOGICAL: PERRLA 3 mm reactive, tracks on Left side. Seems to neglect right side. Did not follow any commands for me but possibly starting to for family. Moved LUE spontaneously. Right hemiparesis.Ventriculostomy at 15 cm H2O pressure with simpson broderick CSF. ICP 1-2 range. (Isai Nielsen) Lab, Micro, Other Results Last Impressions Chest X-Ray 02/08/17599 Signed Impressions: Service Date/Time: Wednesday, February 08, 2017 04:22 - CONCLUSION: Improved chest appearance Miguel Hua MD Head CT 02/02/17599 Signed Impressions: Service Date/Time: Thursday, February 02, 2017 04:45 - CONCLUSION: 1. Widespread subacute parenchymal and subarachnoid blood as well is a tiny subdural hemorrhage on the left not significantly changed but there is slightly worse rightward midline shift, now 6 mm. 2. Ventriculostomy catheter remains in place on the right. Decompressed ventricles. Small intraventricular blood unchanged. 3. Resolving pneumocephaly. 4. No mass or evidence of an acute ischemic event. Miguel Gooden MD Neck CTA 01/28/17 1009 Signed Impressions: Service Date/Time: Saturday, January 28, 2017 10:27 - CONCLUSION: 1. No hemodynamically significant carotid artery stenosis identified. 2. Mild atherosclerotic plaquing at the bifurcation. 3. Both vertebral arteries are widely patent. Jac Hardy MD Head CTA 01/28/17 0000 Signed Impressions: Service Date/Time: Saturday, January 28, 2017 10:27 - CONCLUSION: 1. No evidence of vascular malformation or vasculopathy. 2. Subdural, intraparenchymal and intraventricular hemorrhage are again noted and not significantly changed since prior study. 3. Persistent left to right shift measuring between 8 and 9 mm; unchanged. Nick Barker MD Laboratory Tests Test 02/08/17 07:32 White Blood Count 25.3 TH/MM3 Red Blood Count 3.32 MIL/MM3 Hemoglobin 10.2 GM/DL Hematocrit 30.6 % Mean Corpuscular Volume 92.2 FL Mean Corpuscular Hemoglobin 30.6 PG Mean Corpuscular Hemoglobin Concent 33.2 % Red Cell Distribution Width 14.1 % Platelet Count 357 TH/MM3 Mean Platelet Volume 9.3 FL Neutrophils (%) (Auto) 90.5 % Lymphocytes (%) (Auto) 5.7 % Monocytes (%) (Auto) 3.7 % Eosinophils (%) (Auto) 0.0 % Basophils (%) (Auto) 0.1 % Neutrophils # (Auto) 22.8 TH/MM3 Lymphocytes # (Auto) 1.4 TH/MM3 Monocytes # (Auto) 0.9 TH/MM3 Eosinophils # (Auto) 0.0 TH/MM3 Basophils # (Auto) 0.0 TH/MM3 CBC Comment AUTO DIFF Differential Total Cells Counted 100 Neutrophils % (Manual) 90 % Band Neutrophils % 1 % Lymphocytes % 4 % Monocytes % 4 % Neutrophils # (Manual) 23.3 TH/MM3 Metamyelocytes 1 % Differential Comment FINAL DIFF MANUAL Platelet Estimate NORMAL Platelet Morphology Comment NORMAL Red Cell Morphology Comment NORMAL Blood Urea Nitrogen 62 MG/DL Creatinine 0.84 MG/DL Random Glucose 196 MG/DL Calcium Level 8.6 MG/DL Sodium Level 146 MEQ/L Potassium Level 4.4 MEQ/L Chloride Level 110 MEQ/L Carbon Dioxide Level 30.4 MEQ/L Anion Gap 6 MEQ/L Estimat Glomerular Filtration Rate 66 ML/MIN (Isai Nielsen) Medical Decision Making Impression and Plan A: 76 year old female with large intraventricular hemorrhage s/p placement of ventriculostomy drain 01/27/17, challenging ventriculostomy drain, ICPs remains wnl s/p left parietooccipital craniotomy, evacuation of intracerebral hematoma 01/28 Plan: Continue with critical care. Frequent neuro checks. Continue with challenging ventriculostomy drain and monitoring ICP. (Isai Nielsen) Attending Statement The exam, history, and the medical decision-making described in the above note were completed with the assistance of the mid-level provider. I reviewed and agree with the findings presented. I attest that I had a [id number] encounter with the patient on the same day, and personally performed and documented my assessment and findings in the medical record. No change in examination and ICPs low with the ventric at 15 cm. We'll challenge to 20 cm level. (Sampson Schumacher MD) Isai Nielsen Feb 08, 2017 09:34 Sampson Schumacher MD Feb 08, 2017 13:29
--- NOTE | 2017-02-08 10:21 | HHI.CCPN ---
Subjective Remarks/Hospital Course 01/27: Patient is a 76-year-old female who was brought to the [facility] emergency department by EMS as a stroke alert. Last found normal at 11 this morning, later found unresponsive in the bed by her and EMS was called. EMS gave her Narcan IM without any response, blood glucose was 140, vital signs were apparently stable. In the ED patient remained poorly responsive and was intubated for airway protection. Her blood pressure on arrival was 243/129 and patient was started on Cardene infusion. CT of the head showed extensive acute intraventricular hemorrhage involving the left lateral ventricle, right lateral ventricle and third ventricle, acute intraparenchymal hemorrhage within the left parietal and left occipital region ( 4.1 cm in size). Acute subdural hematoma along the left frontoparietal region measuring 5 mm in width. There was also significant Significant (10 mm) subfalcine herniation to the right. Dr. Bowden was contacted by the ED Per Dr. Rivera on 01/27: Critical care medicine was requested to admit the patient. Patient was emergently moved to the ICU for EVD placement. I evaluated the patient immediately after arrival to the ICU. Patient purposefully moves left upper extremity and withdraws all other extremities. at the bedside was updated. I explained to the that she has very extensive intracranial hemorrhage and prognosis appears poor. Dr. Bowden is planning to place an EVD emergently. I discussed with Dr. Bowden extensively , patient is not a candidate for evacuation of intracerebral hemorrhage due to overall poor prognosis. I have placed a central line for administration of vasopressor agents and 3% saline. Patient remains on Cardene infusion and at this time receiving mannitol. I have also ordered Keppra for seizure prophylaxis 01/28: Remains sedated, orally intubated on mechanical ventilation. Being taken to OR for craniotomy per Dr. Bowden. 01/29: Remains sedated, orally intubated on mechanical ventilation. Underwent craniotomy with evacuation of hematoma by Dr. Bowden on 01/28. Ventriculostomy remains in place. Drained 120 cc bloody CSF over the last 12 hours. ICP 2. 01/30: ICP well controlled. Requiring mechanical ventilation. 01/31: Remains sedated, orally intubated on mechanical ventilation. Ventriculostomy in place. ICP within normal limits. Leukocytosis persists. UA appeared abnormal however cultures with no growth. Starting empiric Levaquin. Checking pro-calcitonin. Started free water for worsening hypernatremia 02/01 Afebrile. WBC 16.9 which is downtrending. Nurse states she has diarrhea. Procalcitonin is not elevated. Ventric at 0 cm water, repeat CT scheduled for tomorrow morning per neurosurgery. 02/02: Osmolality suitably concentrated but brain edema persists, shift slightly larger. Hypertonic saline continued at half rate to avoid overly rapid drop. 02/03: No improvement in neuro exam over past 24 hours. Osmolality acceptable. 02/04: Tolerating CPAP trials today with good respiratory effort. Long discussion with and daughter about plans to extubate, high likelihood of reintubation. 02/05: Will attempt to extubate today during a period when she is alert; sleeping now. Extubated and respiratory drive good. Good cough effort. She had immediate stridor however and it was not helped by suctioning nor 4 racemic epi treatments. I will re-intubate with a smaller tube and add steroids for 48-72 hours. 02/06: No change in neurological function. When extubated she did not follow commands nor seem to respond to voices of family. Her airway was stridor ridden and did not clear with multiple racemic epi rxs. Steroids started 02/05, continue for 2-3 days then retry. Suspect she'll need trach but family not ready. 02/07. Tolerating CPAP 11/21. No cuff leak despite steroids. Will try diuresing. Follows commands LUE. Subjective: 02/08: Tolerated PSV trials 20 hours yesterday. No cuff leak. Tongue remains is edematous. Opens eyes and follows commands with left upper extremity only. Wiggles left lower extremity. Objective Vital Signs Date Time Temp Pulse Resp B/P (MAP) Pulse Ox O2 Delivery O2 Flow Rate FiO2 02/08/17 08:42 97 40 02/08/17 08:42 Ventilator 02/08/17 06:00 98 02/08/17 04:00 98.7 11 138/61 (86) 02/05/17 15:58 4.00 Intake and Output 02/08/17 02/08/17 02/09/17 08:00 16:00 00:00 Intake Total 1252 ml Output Total 360 ml Balance 892 ml Result Diagram: 02/08/17 0732 02/08/17 0732 Other Results Microbiology Date/Time Source Procedure Growth Status 01/29/17 17:19 Blood Peripheral Aerobic Blood Culture - Final NO GROWTH IN 5 DAYS Complete 01/29/17 17:19 Blood Peripheral Anaerobic Blood Culture - Final NO GROWTH IN 5 DAYS Complete 01/27/17 17:00 Cerebral Spinal Fluid Shunt Fluid Gram Stain - Final Complete 01/27/17 17:00 Cerebral Spinal Fluid Shunt Fluid CSF Culture - Final NO GROWTH IN 72 HRS.--AEROBICALLY OR ... Complete 01/29/17 14:00 Sputum Endotracheal Gram Stain - Final Complete 01/29/17 14:00 Sputum Endotracheal Sputum Culture - Final LIGHT GROWTH NORMAL RESPIRATORY JAGRUTI Complete 01/29/17 14:00 Urine Catheterized Urine Urine Culture - Final NO GROWTH IN 48 HOURS. Complete Imaging Last Impressions Chest X-Ray 02/08/17 0600 Signed Impressions: Service Date/Time: Wednesday, February 08, 2017 04:22 - CONCLUSION: Improved chest appearance Miguel Hua MD Head CT 02/02/17 0600 Signed Impressions: Service Date/Time: Thursday, February 02, 2017 04:45 - CONCLUSION: 1. Widespread subacute parenchymal and subarachnoid blood as well is a tiny subdural hemorrhage on the left not significantly changed but there is slightly worse rightward midline shift, now 6 mm. 2. Ventriculostomy catheter remains in place on the right. Decompressed ventricles. Small intraventricular blood unchanged. 3. Resolving pneumocephaly. 4. No mass or evidence of an acute ischemic event. Miguel Gooden MD Neck CTA 01/28/17 1009 Signed Impressions: Service Date/Time: Saturday, January 28, 2017 10:27 - CONCLUSION: 1. No hemodynamically significant carotid artery stenosis identified. 2. Mild atherosclerotic plaquing at the bifurcation. 3. Both vertebral arteries are widely patent. Jac Hardy MD Head CTA 01/28/17 0000 Signed Impressions: Service Date/Time: Saturday, January 28, 2017 10:27 - CONCLUSION: 1. No evidence of vascular malformation or vasculopathy. 2. Subdural, intraparenchymal and intraventricular hemorrhage are again noted and not significantly changed since prior study. 3. Persistent left to right shift measuring between 8 and 9 mm; unchanged. Nick Barker MD Objective Remarks GENERAL: 76-year-old female currently orally intubated on mechanical ventilation. SKIN: Warm/dry. Well-perfused HEAD: Ventriculostomy EYES: Pupils equal and round, 2 mm sluggish reaction to light. ENT: No nasal bleeding or discharge. Mucous membranes moist. NECK: Trachea midline. Orally intubated. CARDIOVASCULAR: Regular rate and rhythm. NL S1S2. No S4. RESPIRATORY: Breath sounds equal bilaterally. Clear, good respiratory drive. Thin respiratory secretions with suctioning. GASTROINTESTINAL: Abdomen soft, non-tender, nondistended. BS active. MUSCULOSKELETAL: No obvious deformities. No edema. d. NEUROLOGICAL: L ventriculostomy in place +5 cm water, fluid clear. Eyes open, left gaze, does not track. RUE is flaccid. RLE with very weak withdrawal. LUE grasps hands to command. LLE withdraws to noxious stimuli and moved to command. Babinski upgoing on the left, no response to Babinski on the right. A/P Assessment and Plan Neuro: Extensive intraventricular hemorrhage, left parietal/occipital intraparenchymal hemorrhage, left subdural hemorrhage Acute encephalopathy - Emergency EVD placement by Dr. Bowden. ICP controlled currently a +5 cm H2O Levetiracetam 500 mg IV q12 hours for seizure prophylaxis Neurochecks - s/p craniotomy with evacuation of hematoma 01/[address] Bowden. - EVD management per neurosurgery. Likely challenge today Currently on hydrocodone/acetaminophen 55/325 and 10/325 one tablet every fours. Pain - Currently and morphine sulfate 2-4 mg every 2 hours. Pain Resp: Acute respiratory failure - Intubated for airway protection, continue ACV. Extubated 02/05 and had stridor so reintubated and placed on decadron. Still no cuff leak, diuresing with furosemide 40 mg twice a day if does not develop cuff leak will likely need to transition to trach/PEG which i discussed with daughter. They appear to be waiting for Dr. Gómez to return on the for definitive decision. - wean fio2 for goal spo2 > 90% - HOB elevated As needed albuterol therapy every 4 hours. Dyspnea Dexamethasone 6mg IV q6 hours. CV: Hypertensive emergency Cardizem drip has been discontinued As needed labetalol/hydralazine - 2D Echo - EF 65-70%. Renal: - Fuller in place - strict i/os Furosemide 40 mg IV q12 x2. KCL 25 MEQ po q8. FEN/GI: Hypernatremia -Continue tube feeds with Glucerna1.5 goal to 50 mL per hour per nutrition recommendations. Pantoprazole 40 mg IV daily for GI prophylaxis Docusate sodium 100 mg twice a day for bowel regimen IDHEME: Normocytic anemia Leukocytosis - Does not meet transfusion triggers at this time - Leukocytosis persists: Possibly reactive secondary ICH/surgery. - Pancultures done on 01/29 with no growth. Empiric levofloxacin was started and discontinued 02/07 C diff previously ordered but then diarrhea resolved. 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 Continue levothyroxine 50 mcg daily. Prophylaxis: SCDs Pantoprazole No pharmacologic DVT prophylaxis given ICH per discussion with Dr. Rivas. Initiate when ok with NSG. 01/29: I had a long discussion with patient's daughter at bedside regarding current clinical status and plan of care and she voiced understanding and was agreeable. I also discussed strong possibility of need for tracheostomy and PEG tube and possible chcf placement and she voiced understanding. Goals of care remain aggressive at this time. 02/05: Numerous long conversations with innumerable family members. All are aware that she may not tolerate extubation and may well require tracheostomy. They are expecting a miracle and are very emotional about it. 02/07 - Slight neuro improvement but still poor prognosis for functional recovery. Discussed with family still likely to require trach/PEG but they are hoping she does not. 02/08 - family is adamant to Dr. Gómez Decision requiring extubation versus trach. He will return 02/12. Level II follow-up Mina Calvillo MD Feb 08, 2017 10:21
[2017-02-08] MEDS: ARTIFICIAL TEARS OPTH SOLN 15 ML BTL EACH EYE SCH ×2 (14:01→20:33)
[2017-02-08] MEDS: INSULIN DETEMIR 100 UNITS/ML VIAL SQ SCH (20:34)
[2017-02-08] MEDS: ACETAMINOPHEN/HYDROcodone 325 MG/10 MG TAB PO PRN (22:33)
[2017-02-09] VITALS (18 sets, daily range): BP systolic 96–143; BP diastolic 53–73; PULSE 92–116; RESP 16–18; TEMP 98–99; O2SAT 95–97
[2017-02-09] MEDS: DEXAMETHASONE SOD PHOS 4 MG/ML VIAL IV PUSH SCH ×4 (00:13→19:43)
[2017-02-09] MEDS: INSULIN ASPART SUPPLEMENTAL SCALE SQ SCH ×5 (00:14→23:53)
[2017-02-09] MEDS: ARTIFICIAL TEARS OPTH SOLN 15 ML BTL EACH EYE SCH ×3 (06:33→19:44)
[2017-02-09] MEDS: ACETAMINOPHEN/HYDROcodone 325 MG/10 MG TAB PO PRN ×3 (06:34→19:45)
[2017-02-09] MEDS: LEVOTHYROXINE SODIUM 50 MCG TAB OG-TUBE SCH (06:34)
[2017-02-09] MEDS: CHLORHEXIDINE 0.12% (ORAL KIT) 15 ML CUP MT SCH ×2 (07:55→19:43)
[2017-02-09] MEDS: SODIUM CHLORIDE 0.9% FLUSH 10 ML FLUSH IV FLUSH SCH ×2 (07:55→19:43)
[2017-02-09] MEDS: FUROSEMIDE 40 MG/4 ML VIAL IV PUSH SCH (07:59)
[2017-02-09] MEDS: PANTOPRAZOLE SODIUM 40 MG VIAL IVP SCH (08:00)
[2017-02-09] MEDS: DOCUSATE SODIUM 100 MG CAP PO SCH ×2 (08:00→19:43)
[2017-02-09] MEDS: INSULIN DETEMIR 100 UNITS/ML VIAL SQ SCH ×2 (08:00→19:44)
[2017-02-09] MEDS: levETIRAcetam INJ 500 MG in SODIUM CHLORIDE 0.9% INJ 100 ML IV SCH ×2 (08:00→19:42)
[2017-02-09 08:04] LABS: AUTOMATED NEUTROPHIL # 16.7 TH/MM3 (1.8-7.7); HEMATOCRIT 30.6 % (35.0-46.0); HEMOGLOBIN 10.2 GM/DL (11.6-15.3); LYMPH % 7.7 % (9.0-44.0); LYMPHOCYTE # 1.5 TH/MM3 (1.0-4.8); MEAN CELL VOLUME 93.4 FL (80.0-100.0); MEAN CORPUSCULAR HEMOGLOBIN 31.1 PG (27.0-34.0); MEAN CORPUSCULAR HGB CONC 33.3 % (32.0-36.0); MEAN PLATELET VOLUME 9.8 FL (7.0-11.0); MONO % 5.6 % (0.0-8.0); MONOCYTE # 1.1 TH/MM3 (0-0.9); NEUT % 86.7 % (16.0-70.0); PLATELET COUNT 373 TH/MM3 (150-450); RED BLOOD COUNT 3.28 MIL/MM3 (4.00-5.30); RED CELL DISTRIBUTION WIDTH 13.9 % (11.6-17.2); WHITE BLOOD COUNT 19.2 TH/MM3 (4.0-11.0)
--- NOTE | 2017-02-09 08:34 | HHI.NSPN ---
(Isai Nielsen) History Chief Complaint: Unable to obtain due to patient's clinical condition. ICH. (Isai Nielsen) Interval History Ms Tinajero is an 76 year old adult female who was brought to [facility] as a stroke alert with a severe intracerebral and intraventricular hemorrhage with mass effect and midline shift. She underwent placement of ventriculostomy drain on 01/27/17. She underwent a left parietooccipital craniotomy, evacuation of intracerebral hematoma on Jan 28, 2017. 01/29: intubated and sedated. EVD draining well bloody CSF. ICPs normal. f/u CT Head this morning with decreasing mass effect, less left to right midline shift which now measures 4.6 mm, with small amount hemorrhage remains evident in the ventricular system. 01/30: intubated and sedated. ventriculostomy draining well, ICPs within normal limits. 01/31: intubated, sedated. no eye opening. ventriculostomy draining well, ICPs remains wnl 02/03: EVD raised to 3 cm H20 over the weekend, ICPs stable. Intubated and off sedative drips, mildly opens eyes. 02/04: appears much more alert this morning, eyes wide open and tracking. EVD draining well. 02/05: tolerating CPAP, awake and tracking. CSF now simpson. EVD draining well. 02/06: When seen this morning the patient is asleep but awakens to voice. She does track with her eyes. She remains intubated and is on CPAP. 02/07: Pt with eyes open. Family at bedside, possibly starting to follow some simple commands for them on left side. Ventriculostomy drain in place at 5cmH20. ICP 4. Blood darker in color. 02/08: Pt with eyes open. Not following commands. Pupils 3mm bilaterally. Right sided neglect. Ventriculostomy drain at [id number] with ICP 1-2 range. Right hemiparesis. 02/09: Pt opens eyes to light tactile stimulation. Pupils 3mm bilaterally. Ventriculostomy drain at [id number], ICP 4. Right hemiparesis. Right sided neglect. (Isai Nielsen) System Review Comments Not able to obtain given level of alertness. (Isai Nielsen) Exam Results Vital Signs Date Time Temp Pulse Resp B/P (MAP) Pulse Ox O2 Delivery O2 Flow Rate FiO2 02/09/17 08:00 101 02/09/17 08:00 98.3 16 137/53 (81) 96 02/09/17 08:00 40 02/09/17 07:44 Ventilator 02/05/17 15:58 4.00 Intake and Output 02/09/17 02/09/17 02/10/17 08:00 16:00 00:00 Intake Total 794 ml Output Total 1428 ml Balance -634 ml (Isai Nielsen) Physical Examination GENERAL: Awakens to light tactile stimulation. Intubated on CPAP this am, no sedation, no apparent distress. HEENT: Normocephaalic, posterior surgical incision well approximated with magalys & ventriculostomy drain insertion site w/intact dressing, no evident drainage, erythema or streaking. RESP: Intubated. CTA bilaterally. CPAP. HEART: NSR No murmurs. ABD: Soft positive bs. SKIN: No cyanosis or erythema. Incision clean and dry. MUSCULOSKELETAL: Spontaneous movement of LUE and moves BLE to noxious stimulation, no movement to RUE. NEUROLOGICAL: PERRLA 3 mm reactive, tracks on Left side. Seems to neglect right side. Did not follow any commands for me. Moves LUE spontaneously. Right hemiparesis. Ventriculostomy at 20 cm H2O pressure with simpson broderick CSF. ICP 4 range. (Isai Nielsen) Lab, Micro, Other Results Last Impressions Chest X-Ray 02/08/17599 Signed Impressions: Service Date/Time: Wednesday, February 08, 2017 04:22 - CONCLUSION: Improved chest appearance Miguel Hua MD Head CT 02/02/17599 Signed Impressions: Service Date/Time: Thursday, February 02, 2017 04:45 - CONCLUSION: 1. Widespread subacute parenchymal and subarachnoid blood as well is a tiny subdural hemorrhage on the left not significantly changed but there is slightly worse rightward midline shift, now 6 mm. 2. Ventriculostomy catheter remains in place on the right. Decompressed ventricles. Small intraventricular blood unchanged. 3. Resolving pneumocephaly. 4. No mass or evidence of an acute ischemic event. Miguel Gooden MD Neck CTA 01/28/17 1009 Signed Impressions: Service Date/Time: Saturday, January 28, 2017 10:27 - CONCLUSION: 1. No hemodynamically significant carotid artery stenosis identified. 2. Mild atherosclerotic plaquing at the bifurcation. 3. Both vertebral arteries are widely patent. Jac Hardy MD Head CTA 01/28/17 0000 Signed Impressions: Service Date/Time: Saturday, January 28, 2017 10:27 - CONCLUSION: 1. No evidence of vascular malformation or vasculopathy. 2. Subdural, intraparenchymal and intraventricular hemorrhage are again noted and not significantly changed since prior study. 3. Persistent left to right shift measuring between 8 and 9 mm; unchanged. Nick Barker MD Laboratory Tests Test 02/09/17 07:45 White Blood Count 19.2 TH/MM3 Red Blood Count 3.28 MIL/MM3 Hemoglobin 10.2 GM/DL Hematocrit 30.6 % Mean Corpuscular Volume 93.4 FL Mean Corpuscular Hemoglobin 31.1 PG Mean Corpuscular Hemoglobin Concent 33.3 % Red Cell Distribution Width 13.9 % Platelet Count 373 TH/MM3 Mean Platelet Volume 9.8 FL Neutrophils (%) (Auto) 86.7 % Lymphocytes (%) (Auto) 7.7 % Monocytes (%) (Auto) 5.6 % Eosinophils (%) (Auto) 0.0 % Basophils (%) (Auto) 0.0 % Neutrophils # (Auto) 16.7 TH/MM3 Lymphocytes # (Auto) 1.5 TH/MM3 Monocytes # (Auto) 1.1 TH/MM3 Eosinophils # (Auto) 0.0 TH/MM3 Basophils # (Auto) 0.0 TH/MM3 CBC Comment DIFF FINAL Differential Comment (Isai Nielsen) Medical Decision Making Impression and Plan A: 76 year old female with large intraventricular hemorrhage s/p placement of ventriculostomy drain 01/27/17, challenging ventriculostomy drain, ICPs remains wnl s/p left parietooccipital craniotomy, evacuation of intracerebral hematoma 01/28 Plan: Continue with critical care. Frequent neuro checks. Continue with challenging ventriculostomy drain and monitoring ICP. Clamp ventriculostomy drain. Open if ICP greater than 20 sustained. Updated family daily at bedside. (Isai Nielsen) Attending Statement The exam, history, and the medical decision-making described in the above note were completed with the assistance of the mid-level provider. I reviewed and agree with the findings presented. I attest that I had a [id number] encounter with the patient on the same day, and personally performed and documented my assessment and findings in the medical record. On CPAP trials and awake but intermittently following commands. ICPs low with ventriculostomy a 20 cm level. We'll clamp and trach and a follow-up CT scan of the head tomorrow. Updated at the bedside. (Sampson Schumacher MD) Isai Nielsen Feb 09, 2017 08:34 Sampson Schumacher MD Feb 09, 2017 10:26
[2017-02-09 08:37] LABS: BICARBONATE 34.1 MEQ/L (21.0-32.0); CALCIUM 8.5 MG/DL (8.5-10.1); CREATININE 1.08 MG/DL (0.50-1.00)
[2017-02-09] MEDS ORDERED: SODIUM CHLORID 0.9% 500 ML INJ 500 ML IV ONE (15:30)
--- NOTE | 2017-02-09 15:30 | HHI.CCPN ---
Subjective Remarks/Hospital Course 01/27: Patient is a 76-year-old female who was brought to the [place] emergency department by EMS as a stroke alert. Last found normal at 11 this morning, later found unresponsive in the bed by her and EMS was called. EMS gave her Narcan IM without any response, blood glucose was 140, vital signs were apparently stable. In the ED patient remained poorly responsive and was intubated for airway protection. Her blood pressure on arrival was 243/129 and patient was started on Cardene infusion. CT of the head showed extensive acute intraventricular hemorrhage involving the left lateral ventricle, right lateral ventricle and third ventricle, acute intraparenchymal hemorrhage within the left parietal and left occipital region ( 4.1 cm in size). Acute subdural hematoma along the left frontoparietal region measuring 5 mm in width. There was also significant Significant (10 mm) subfalcine herniation to the right. Dr. Bowden was contacted by the ED Per Dr. Rivera on 01/27: Critical care medicine was requested to admit the patient. Patient was emergently moved to the ICU for EVD placement. I evaluated the patient immediately after arrival to the ICU. Patient purposefully moves left upper extremity and withdraws all other extremities. at the bedside was updated. I explained to the that she has very extensive intracranial hemorrhage and prognosis appears poor. Dr. Bowden is planning to place an EVD emergently. I discussed with Dr. Bowden extensively , patient is not a candidate for evacuation of intracerebral hemorrhage due to overall poor prognosis. I have placed a central line for administration of vasopressor agents and 3% saline. Patient remains on Cardene infusion and at this time receiving mannitol. I have also ordered Keppra for seizure prophylaxis 01/28: Remains sedated, orally intubated on mechanical ventilation. Being taken to OR for craniotomy per Dr. Bowden. 01/29: Remains sedated, orally intubated on mechanical ventilation. Underwent craniotomy with evacuation of hematoma by Dr. Bowden on 01/28. Ventriculostomy remains in place. Drained 120 cc bloody CSF over the last 12 hours. ICP 2. 01/30: ICP well controlled. Requiring mechanical ventilation. 01/31: Remains sedated, orally intubated on mechanical ventilation. Ventriculostomy in place. ICP within normal limits. Leukocytosis persists. UA appeared abnormal however cultures with no growth. Starting empiric Levaquin. Checking pro-calcitonin. Started free water for worsening hypernatremia 02/01 Afebrile. WBC 16.9 which is downtrending. Nurse states she has diarrhea. Procalcitonin is not elevated. Ventric at 0 cm water, repeat CT scheduled for tomorrow morning per neurosurgery. 02/02: Osmolality suitably concentrated but brain edema persists, shift slightly larger. Hypertonic saline continued at half rate to avoid overly rapid drop. 02/03: No improvement in neuro exam over past 24 hours. Osmolality acceptable. 02/04: Tolerating CPAP trials today with good respiratory effort. Long discussion with and daughter about plans to extubate, high likelihood of reintubation. 02/05: Will attempt to extubate today during a period when she is alert; sleeping now. Extubated and respiratory drive good. Good cough effort. She had immediate stridor however and it was not helped by suctioning nor 4 racemic epi treatments. I will re-intubate with a smaller tube and add steroids for 48-72 hours. 02/06: No change in neurological function. When extubated she did not follow commands nor seem to respond to voices of family. Her airway was stridor ridden and did not clear with multiple racemic epi rxs. Steroids started 02/05, continue for 2-3 days then retry. Suspect she'll need trach but family not ready. 02/07. Tolerating CPAP 11/21. No cuff leak despite steroids. Will try diuresing. Follows commands LUE. 02/08: Tolerated PSV trials 20 hours yesterday. No cuff leak. Tongue remains is edematous. Opens eyes and follows commands with left upper extremity only. Wiggles left lower extremity. Subjective: 02/09: Currently resting in bed. Remains on PSV trial. Her tongue remains swollen. No new neurological changes. Objective Vital Signs Date Time Temp Pulse Resp B/P (MAP) Pulse Ox O2 Delivery O2 Flow Rate FiO2 02/09/17 14:00 105 02/09/17 13:11 95 40 02/09/17 12:00 98.5 18 96/69 (78) 02/09/17 07:44 Ventilator 02/05/17 15:58 4.00 Intake and Output 02/09/17 02/09/17 02/10/17 08:00 16:00 00:00 Intake Total 794 ml 100 ml Output Total 1428 ml Balance -634 ml 100 ml Result Diagram: 02/09/17 0745 02/09/17 0745 Other Results Microbiology Date/Time Source Procedure Growth Status 01/29/17 17:19 Blood Peripheral Aerobic Blood Culture - Final NO GROWTH IN 5 DAYS Complete 01/29/17 17:19 Blood Peripheral Anaerobic Blood Culture - Final NO GROWTH IN 5 DAYS Complete 01/27/17 17:00 Cerebral Spinal Fluid Shunt Fluid Gram Stain - Final Complete 01/27/17 17:00 Cerebral Spinal Fluid Shunt Fluid CSF Culture - Final NO GROWTH IN 72 HRS.--AEROBICALLY OR ... Complete 01/29/17 14:00 Sputum Endotracheal Gram Stain - Final Complete 01/29/17 14:00 Sputum Endotracheal Sputum Culture - Final LIGHT GROWTH NORMAL RESPIRATORY JAGRUTI Complete 01/29/17 14:00 Urine Catheterized Urine Urine Culture - Final NO GROWTH IN 48 HOURS. Complete Imaging Last Impressions Chest X-Ray 02/08/17 0600 Signed Impressions: Service Date/Time: Wednesday, February 08, 2017 04:22 - CONCLUSION: Improved chest appearance Miguel Hua MD Head CT 02/02/17 0600 Signed Impressions: Service Date/Time: Thursday, February 02, 2017 04:45 - CONCLUSION: 1. Widespread subacute parenchymal and subarachnoid blood as well is a tiny subdural hemorrhage on the left not significantly changed but there is slightly worse rightward midline shift, now 6 mm. 2. Ventriculostomy catheter remains in place on the right. Decompressed ventricles. Small intraventricular blood unchanged. 3. Resolving pneumocephaly. 4. No mass or evidence of an acute ischemic event. Miguel Gooden MD Neck CTA 01/28/17 1009 Signed Impressions: Service Date/Time: Saturday, January 28, 2017 10:27 - CONCLUSION: 1. No hemodynamically significant carotid artery stenosis identified. 2. Mild atherosclerotic plaquing at the bifurcation. 3. Both vertebral arteries are widely patent. Jac Hardy MD Head CTA 01/28/17 0000 Signed Impressions: Service Date/Time: Saturday, January 28, 2017 10:27 - CONCLUSION: 1. No evidence of vascular malformation or vasculopathy. 2. Subdural, intraparenchymal and intraventricular hemorrhage are again noted and not significantly changed since prior study. 3. Persistent left to right shift measuring between 8 and 9 mm; unchanged. Nick Barker MD Objective Remarks GENERAL: 76-year-old female currently orally intubated on mechanical ventilation. SKIN: Warm/dry. Well-perfused HEAD: Ventriculostomy EYES: Pupils equal and round, 2 mm sluggish reaction to light. ENT: No nasal bleeding or discharge. Mucous membranes moist. NECK: Trachea midline. Orally intubated. CARDIOVASCULAR: Regular rate and rhythm. NL S1S2. No S4. RESPIRATORY: Breath sounds equal bilaterally. Clear, good respiratory drive. Thin respiratory secretions with suctioning. GASTROINTESTINAL: Abdomen soft, non-tender, nondistended. BS active. MUSCULOSKELETAL: No obvious deformities. No edema. d. NEUROLOGICAL: L ventriculostomy in place +5 cm water, fluid clear. Eyes open, left gaze, does not track. RUE is flaccid. RLE with very weak withdrawal. LUE grasps hands to command. LLE withdraws to noxious stimuli and moved to command. Babinski upgoing on the left, no response to Babinski on the right. A/P Assessment and Plan Neuro: Extensive intraventricular hemorrhage, left parietal/occipital intraparenchymal hemorrhage, left subdural hemorrhage Acute encephalopathy - Emergency EVD placement by Dr. Bowden. ICP controlled currently a +5 cm H2O Levetiracetam 500 mg IV q12 hours for seizure prophylaxis Neurochecks - s/p craniotomy with evacuation of hematoma 01/[address] Bowden. - EVD management per neurosurgery. Likely challenge today Currently on hydrocodone/acetaminophen 55/325 and 10/325 one tablet every fours. Pain - Currently and morphine sulfate 2-4 mg every 2 hours. Pain Resp: Acute respiratory failure - Intubated for airway protection, continue ACV. Extubated 02/05 and had stridor so reintubated and placed on decadron. Still no cuff leak, diuresing with furosemide 40 mg twice a day if does not develop cuff leak will likely need to transition to trach/PEG which i discussed with daughter. They appear to be waiting for Dr. Gómez to return on the for definitive decision. - wean fio2 for goal spo2 > 90% - HOB elevated As needed albuterol therapy every 4 hours. Dyspnea Dexamethasone 6mg IV wean to every 12 hours. CV: Hypertensive emergency Cardizem drip has been discontinued As needed labetalol/hydralazine - 2D Echo - EF 65-70%. Renal: - Fuller in place - strict i/os Furosemide 40 mg IV q12 x2. KCL 25 MEQ po q8. Has been completed FEN/GI: Hypernatremia -Continue tube feeds with Glucerna1.5 goal to 50 mL per hour per nutrition recommendations. Pantoprazole 40 mg IV daily for GI prophylaxis Docusate sodium 100 mg twice a day for bowel regimen IDHEME: Normocytic anemia Leukocytosis - Does not meet transfusion triggers at this time - Leukocytosis persists: Possibly reactive secondary ICH/surgery. - Pancultures done on 01/29 with no growth. Empiric levofloxacin was started and discontinued 02/07 C diff previously ordered but then diarrhea resolved. 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 Continue levothyroxine 50 mcg daily. Prophylaxis: SCDs Pantoprazole No pharmacologic DVT prophylaxis given ICH per discussion with Dr. Rivas. Initiate when ok with NSG. 01/29: I had a long discussion with patient's daughter at bedside regarding current clinical status and plan of care and she voiced understanding and was agreeable. I also discussed strong possibility of need for tracheostomy and PEG tube and possible alf placement and she voiced understanding. Goals of care remain aggressive at this time. 02/05: Numerous long conversations with innumerable family members. All are aware that she may not tolerate extubation and may well require tracheostomy. They are expecting a miracle and are very emotional about it. 02/07 - Slight neuro improvement but still poor prognosis for functional recovery. Discussed with family still likely to require trach/PEG but they are hoping she does not. 02/08 - family is adamant to Dr. Gómez Decision requiring extubation versus trach. He will return 02/12. Level II follow-up Mina Calvillo MD Feb 09, 2017 15:30
[2017-02-09] MEDS: CHLORHEXIDINE GLUCONATE 2 % 1 PACK (2 CLOTHS) TOP SCH (23:20)
[2017-02-10] VITALS (21 sets, daily range): BP systolic 101–142; BP diastolic 57–81; PULSE 99–121; RESP 12–16; TEMP 97.4–99; O2SAT 95–99
[2017-02-10 05:47] LABS: AUTOMATED NEUTROPHIL # 16.6 TH/MM3 (1.8-7.7); BASOPHIL # 0.1 TH/MM3 (0-0.2); BASOPHIL % 0.3 % (0.0-2.0); HEMATOCRIT 31.4 % (35.0-46.0); HEMOGLOBIN 10.2 GM/DL (11.6-15.3); LYMPH % 8.1 % (9.0-44.0); LYMPHOCYTE # 1.6 TH/MM3 (1.0-4.8); MEAN CELL VOLUME 93.4 FL (80.0-100.0); MEAN CORPUSCULAR HEMOGLOBIN 30.3 PG (27.0-34.0); MEAN CORPUSCULAR HGB CONC 32.5 % (32.0-36.0); MEAN PLATELET VOLUME 9.6 FL (7.0-11.0); MONO % 8.2 % (0.0-8.0); MONOCYTE # 1.6 TH/MM3 (0-0.9); NEUT % 83.4 % (16.0-70.0); PLATELET COUNT 356 TH/MM3 (150-450); RED BLOOD COUNT 3.36 MIL/MM3 (4.00-5.30); RED CELL DISTRIBUTION WIDTH 14.3 % (11.6-17.2); WHITE BLOOD COUNT 19.9 TH/MM3 (4.0-11.0)
[2017-02-10] MEDS: ARTIFICIAL TEARS OPTH SOLN 15 ML BTL EACH EYE SCH ×3 (06:00→20:14)
[2017-02-10] MEDS: LEVOTHYROXINE SODIUM 50 MCG TAB OG-TUBE SCH (06:08)
[2017-02-10 06:16] LABS: ALBUMIN 2.4 GM/DL (3.4-5.0); ALKALINE PHOSPHATASE 114 U/L (45-117); ALT (GPT) 236 U/L (10-53); AST (GOT) 84 U/L (15-37); BICARBONATE 33.5 MEQ/L (21.0-32.0); BLOOD UREA NITROGEN 76 MG/DL (7-18); CALCIUM 8.2 MG/DL (8.5-10.1); CHLORIDE 112 MEQ/L (98-107); GLOMERULAR FILTRATION RATE 61 ML/MIN (>89); GLUCOSE,RANDOM 178 MG/DL (74-106); MAGNESIUM 3.1 MG/DL (1.5-2.5); SODIUM (NA) 150 MEQ/L (136-145); TOTAL BILIRUBIN ADULT 0.3 MG/DL (0.2-1.0); TOTAL PROTEIN 6.5 GM/DL (6.4-8.2)
[2017-02-10] MEDS: INSULIN ASPART SUPPLEMENTAL SCALE SQ SCH ×2 (06:36→12:00)
[2017-02-10 08:22] LABS: LYMPHOCYTES 8 % (9-44); METAMYELOCYTES 3 % (0-1); MONOCYTES 2 % (0-8); NEUTROPHIL # MANUAL DIFF 17.9 TH/MM3 (1.8-7.7); POLYS (SEG NEUTROPHILS) 87 % (16-70)
[2017-02-10] MEDS: PANTOPRAZOLE SODIUM 40 MG VIAL IVP SCH (08:51)
[2017-02-10] MEDS: CHLORHEXIDINE 0.12% (ORAL KIT) 15 ML CUP MT SCH ×2 (08:51→20:00)
[2017-02-10] MEDS: INSULIN DETEMIR 100 UNITS/ML VIAL SQ SCH ×2 (08:52→20:14)
[2017-02-10] MEDS: DEXAMETHASONE SOD PHOS 4 MG/ML VIAL IV PUSH SCH ×2 (08:52→20:12)
[2017-02-10] MEDS: levETIRAcetam INJ 500 MG in SODIUM CHLORIDE 0.9% INJ 100 ML IV SCH ×2 (08:52→20:12)
[2017-02-10] MEDS: DOCUSATE SODIUM 100 MG CAP PO SCH ×2 (09:00→20:14)
[2017-02-10] MEDS: SODIUM CHLORIDE 0.9% FLUSH 10 ML FLUSH IV FLUSH SCH ×2 (09:00→20:13)
--- NOTE | 2017-02-10 09:43 | RADRPT ---
EXAM DATE/TIME: 02/10/2017 09:23 [facility] COMPARISON: CT BRAIN W/O CONTRAST, February 02, 2017, 4:45. INDICATIONS : Follow up hemorrhage. RADIATION DOSE: 56.77 CTDIvol (mGy) MEDICAL HISTORY : Non-responsive. SURGICAL HISTORY : Non-responsive. ENCOUNTER: Subsequent ACUITY: 2 weeks PAIN SCALE: Non-responsive LOCATION: cranial TECHNIQUE: Multiple contiguous axial images were obtained of the head. Using automated exposure control and adj ustment of the mA and/or kV according to patient size, radiation dose was kept as low as reasonably a chievable to obtain optimal diagnostic quality images. DICOM format image data is available electro nically for review and comparison. FINDINGS: Ventriculostomy entering from the right. Resolving hemorrhage left hemisphere. Persistent edema in the deep white matter tracts. Minimal compression left lateral ventricle. Ventricles slightly large r in the interval. Minimal intraventricular blood Posterior fossa unremarkable. CONCLUSION: Interval improvement with less parenchymal hemorrhage, intraventricular blood. Ventricles are mildly prominent when compared to the previous study. Patricio Hardy MD FACR on February 10, 2017 at 9:40 Board Certified Radiologist. This report was verified electronically.
--- NOTE | 2017-02-10 12:08 | HHI.CCPN ---
Subjective Remarks/Hospital Course 01/27: Patient is a 76-year-old female who was brought to the [place] emergency department by EMS as a stroke alert. Last found normal at 11 this morning, later found unresponsive in the bed by her and EMS was called. EMS gave her Narcan IM without any response, blood glucose was 140, vital signs were apparently stable. In the ED patient remained poorly responsive and was intubated for airway protection. Her blood pressure on arrival was 243/129 and patient was started on Cardene infusion. CT of the head showed extensive acute intraventricular hemorrhage involving the left lateral ventricle, right lateral ventricle and third ventricle, acute intraparenchymal hemorrhage within the left parietal and left occipital region ( 4.1 cm in size). Acute subdural hematoma along the left frontoparietal region measuring 5 mm in width. There was also significant Significant (10 mm) subfalcine herniation to the right. Dr. Bowden was contacted by the ED Per Dr. Rivera on 01/27: Critical care medicine was requested to admit the patient. Patient was emergently moved to the ICU for EVD placement. I evaluated the patient immediately after arrival to the ICU. Patient purposefully moves left upper extremity and withdraws all other extremities. at the bedside was updated. I explained to the that she has very extensive intracranial hemorrhage and prognosis appears poor. Dr. Bowden is planning to place an EVD emergently. I discussed with Dr. Bowden extensively , patient is not a candidate for evacuation of intracerebral hemorrhage due to overall poor prognosis. I have placed a central line for administration of vasopressor agents and 3% saline. Patient remains on Cardene infusion and at this time receiving mannitol. I have also ordered Keppra for seizure prophylaxis 01/28: Remains sedated, orally intubated on mechanical ventilation. Being taken to OR for craniotomy per Dr. Bowden. 01/29: Remains sedated, orally intubated on mechanical ventilation. Underwent craniotomy with evacuation of hematoma by Dr. Bowden on 01/28. Ventriculostomy remains in place. Drained 120 cc bloody CSF over the last 12 hours. ICP 2. 01/30: ICP well controlled. Requiring mechanical ventilation. 01/31: Remains sedated, orally intubated on mechanical ventilation. Ventriculostomy in place. ICP within normal limits. Leukocytosis persists. UA appeared abnormal however cultures with no growth. Starting empiric Levaquin. Checking pro-calcitonin. Started free water for worsening hypernatremia 02/01 Afebrile. WBC 16.9 which is downtrending. Nurse states she has diarrhea. Procalcitonin is not elevated. Ventric at 0 cm water, repeat CT scheduled for tomorrow morning per neurosurgery. 02/02: Osmolality suitably concentrated but brain edema persists, shift slightly larger. Hypertonic saline continued at half rate to avoid overly rapid drop. 02/03: No improvement in neuro exam over past 24 hours. Osmolality acceptable. 02/04: Tolerating CPAP trials today with good respiratory effort. Long discussion with and daughter about plans to extubate, high likelihood of reintubation. 02/05: Will attempt to extubate today during a period when she is alert; sleeping now. Extubated and respiratory drive good. Good cough effort. She had immediate stridor however and it was not helped by suctioning nor 4 racemic epi treatments. I will re-intubate with a smaller tube and add steroids for 48-72 hours. 02/06: No change in neurological function. When extubated she did not follow commands nor seem to respond to voices of family. Her airway was stridor ridden and did not clear with multiple racemic epi rxs. Steroids started 02/05, continue for 2-3 days then retry. Suspect she'll need trach but family not ready. 02/07. Tolerating CPAP 11/21. No cuff leak despite steroids. Will try diuresing. Follows commands LUE. 02/08: Tolerated PSV trials 20 hours yesterday. No cuff leak. Tongue remains is edematous. Opens eyes and follows commands with left upper extremity only. Wiggles left lower extremity. 02/09: Currently resting in bed. Remains on PSV trial. Her tongue remains swollen. No new neurological changes. Subjective: 02/10: Respiratory rates between 6 and 8 this morning. Placed back on ACV with a rate of 10. Tongue remains swollen. No new neurological changes. Objective Vital Signs Date Time Temp Pulse Resp B/P (MAP) Pulse Ox O2 Delivery O2 Flow Rate FiO2 02/10/17 11:21 98 40 02/10/17 10:00 99 02/10/17 08:00 98.4 16 101/58 (72) 02/09/17 07:44 Ventilator Intake and Output 02/10/17 02/10/17 02/11/17 08:00 16:00 00:00 Intake Total 1070 ml Output Total 1000 ml Balance 70 ml Result Diagram: 02/10/17 0505 02/10/17 0505 Other Results Microbiology Date/Time Source Procedure Growth Status 01/29/17 17:19 Blood Peripheral Aerobic Blood Culture - Final NO GROWTH IN 5 DAYS Complete 01/29/17 17:19 Blood Peripheral Anaerobic Blood Culture - Final NO GROWTH IN 5 DAYS Complete 01/27/17 17:00 Cerebral Spinal Fluid Shunt Fluid Gram Stain - Final Complete 01/27/17 17:00 Cerebral Spinal Fluid Shunt Fluid CSF Culture - Final NO GROWTH IN 72 HRS.--AEROBICALLY OR ... Complete 01/29/17 14:00 Sputum Endotracheal Gram Stain - Final Complete 01/29/17 14:00 Sputum Endotracheal Sputum Culture - Final LIGHT GROWTH NORMAL RESPIRATORY JAGRUTI Complete 01/29/17 14:00 Urine Catheterized Urine Urine Culture - Final NO GROWTH IN 48 HOURS. Complete Imaging Last Impressions Head CT 02/10/17 0900 Signed Impressions: Service Date/Time: Friday, February 10, 2017 09:23 - CONCLUSION: Interval improvement with less parenchymal hemorrhage, intraventricular blood. Ventricles are mildly prominent when compared to the previous study. Patricio Hardy MD FACR Chest X-Ray 02/08/17 0600 Signed Impressions: Service Date/Time: Wednesday, February 08, 2017 04:22 - CONCLUSION: Improved chest appearance Miguel Hua MD Neck CTA 01/28/17 1009 Signed Impressions: Service Date/Time: Saturday, January 28, 2017 10:27 - CONCLUSION: 1. No hemodynamically significant carotid artery stenosis identified. 2. Mild atherosclerotic plaquing at the bifurcation. 3. Both vertebral arteries are widely patent. Jac Hardy MD Head CTA 01/28/17 0000 Signed Impressions: Service Date/Time: Saturday, January 28, 2017 10:27 - CONCLUSION: 1. No evidence of vascular malformation or vasculopathy. 2. Subdural, intraparenchymal and intraventricular hemorrhage are again noted and not significantly changed since prior study. 3. Persistent left to right shift measuring between 8 and 9 mm; unchanged. Nick Barker MD Objective Remarks GENERAL: 76-year-old female currently orally intubated on mechanical ventilation. SKIN: Warm/dry. Well-perfused HEAD: Ventriculostomy EYES: Pupils equal and round, 2 mm sluggish reaction to light. ENT: No nasal bleeding or discharge. Mucous membranes moist. NECK: Trachea midline. Orally intubated. CARDIOVASCULAR: Regular rate and rhythm. NL S1S2. No S4. RESPIRATORY: Breath sounds equal bilaterally. Clear, good respiratory drive. Thin respiratory secretions with suctioning. GASTROINTESTINAL: Abdomen soft, non-tender, nondistended. BS active. MUSCULOSKELETAL: No obvious deformities. No edema. d. NEUROLOGICAL: L ventriculostomy in place +5 cm water, fluid clear. Eyes open, left gaze, does not track. RUE is flaccid. RLE with very weak withdrawal. LUE grasps hands to command. LLE withdraws to noxious stimuli and moved to command. Babinski upgoing on the left, no response to Babinski on the right. A/P Assessment and Plan Neuro: Extensive intraventricular hemorrhage, left parietal/occipital intraparenchymal hemorrhage, left subdural hemorrhage Acute encephalopathy - Emergency EVD placement by Dr. Bowden. ICP controlled currently a +5 cm H2O Levetiracetam 500 mg IV q12 hours for seizure prophylaxis Neurochecks - s/p craniotomy with evacuation of hematoma 01/[address] Bowden. - EVD management per neurosurgery. Likely challenge today Currently on hydrocodone/acetaminophen 55/325 and 10/325 one tablet every fours. Pain - Currently and morphine sulfate 2-4 mg every 2 hours. Pain Resp: Acute respiratory failure - Intubated for airway protection, continue ACV. Extubated 02/05 and had stridor so reintubated and placed on decadron. Still no cuff leak, diuresing with furosemide 40 mg twice a day if does not develop cuff leak will likely need to transition to trach/PEG which i discussed with daughter. They appear to be waiting for Dr. Gómez to return on the for definitive decision. - wean fio2 for goal spo2 > 90% - HOB elevated As needed albuterol therapy every 4 hours. Dyspnea Dexamethasone 6mg IV wean to every 12 hours. CV: Hypertensive emergency Cardizem drip has been discontinued As needed labetalol/hydralazine - 2D Echo - EF 65-70%. Renal: - Fuller in place - strict i/os Furosemide 40 mg IV q12 x2. KCL 25 MEQ po q8. Has been completed FEN/GI: Hypernatremia -Continue tube feeds with Glucerna1.5 goal to 50 mL per hour per nutrition recommendations. Pantoprazole 40 mg IV daily for GI prophylaxis Docusate sodium 100 mg twice a day for bowel regimen IDHEME: Normocytic anemia Leukocytosis - Does not meet transfusion triggers at this time - Leukocytosis persists: Possibly reactive secondary ICH/surgery. - Pancultures done on 01/29 with no growth. Empiric levofloxacin was started and discontinued 02/07 C diff previously ordered but then diarrhea resolved. 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 Continue levothyroxine 50 mcg daily. Prophylaxis: SCDs Pantoprazole No pharmacologic DVT prophylaxis given ICH per discussion with Dr. Rivas. Initiate when ok with NSG. 01/29: I had a long discussion with patient's daughter at bedside regarding current clinical status and plan of care and she voiced understanding and was agreeable. I also discussed strong possibility of need for tracheostomy and PEG tube and possible snf placement and she voiced understanding. Goals of care remain aggressive at this time. 02/05: Numerous long conversations with innumerable family members. All are aware that she may not tolerate extubation and may well require tracheostomy. They are expecting a miracle and are very emotional about it. 02/07 - Slight neuro improvement but still poor prognosis for functional recovery. Discussed with family still likely to require trach/PEG but they are hoping she does not. 02/08 - family is adamant to Dr. Gómez Decision requiring extubation versus trach. He will return 02/12. Level II follow-up Mina Calvillo MD Feb 10, 2017 12:08
[2017-02-10] MEDS: RESP: ALBUTEROL 2.5 MG/IPRATROPIUM 0.5 MG NEB (SCH) NEB ×2 (15:38→20:21)
[2017-02-10] MEDS: ACETAMINOPHEN/HYDROcodone 325 MG/10 MG TAB PO PRN (20:12)
[2017-02-10] MEDS: CHLORHEXIDINE GLUCONATE 2 % 1 PACK (2 CLOTHS) TOP SCH (20:15)
[2017-02-11] VITALS (19 sets, daily range): BP systolic 93–133; BP diastolic 54–63; PULSE 83–120; RESP 10–17; TEMP 97.2–100.5; O2SAT 95–97
[2017-02-11] MEDS: INSULIN ASPART SUPPLEMENTAL SCALE SQ SCH ×2 (02:00→05:42)
[2017-02-11] MEDS: RESP: ALBUTEROL 2.5 MG/IPRATROPIUM 0.5 MG NEB (SCH) NEB ×4 (03:27→20:25)
[2017-02-11] MEDS: LEVOTHYROXINE SODIUM 50 MCG TAB OG-TUBE SCH (05:42)
[2017-02-11] MEDS: ARTIFICIAL TEARS OPTH SOLN 15 ML BTL EACH EYE SCH ×3 (05:42→20:47)
[2017-02-11] MEDS: PANTOPRAZOLE SODIUM 40 MG VIAL IVP SCH (08:36)
[2017-02-11] MEDS: levETIRAcetam INJ 500 MG in SODIUM CHLORIDE 0.9% INJ 100 ML IV SCH ×2 (08:36→20:48)
[2017-02-11] MEDS: CHLORHEXIDINE 0.12% (ORAL KIT) 15 ML CUP MT SCH ×2 (08:36→20:48)
[2017-02-11] MEDS: INSULIN DETEMIR 100 UNITS/ML VIAL SQ SCH ×2 (08:37→20:47)
[2017-02-11] MEDS: SODIUM CHLORIDE 0.9% FLUSH 10 ML FLUSH IV FLUSH SCH ×2 (08:37→20:47)
[2017-02-11] MEDS: DEXAMETHASONE SOD PHOS 4 MG/ML VIAL IV PUSH SCH (08:37)
[2017-02-11] MEDS: DOCUSATE SODIUM 100 MG CAP PO SCH ×2 (08:37→20:46)
--- NOTE | 2017-02-11 09:52 | HHI.NSPN ---
(Isai Nielsen) History Chief Complaint: Unable to obtain due to patient's clinical condition. ICH. (Isai Nielsen) Interval History Ms Tinajero is an 76 year old adult female who was brought to [facility] as a stroke alert with a severe intracerebral and intraventricular hemorrhage with mass effect and midline shift. She underwent placement of ventriculostomy drain on 01/27/17. She underwent a left parietooccipital craniotomy, evacuation of intracerebral hematoma on Jan 28, 2017. 01/29: intubated and sedated. EVD draining well bloody CSF. ICPs normal. f/u CT Head this morning with decreasing mass effect, less left to right midline shift which now measures 4.6 mm, with small amount hemorrhage remains evident in the ventricular system. 01/30: intubated and sedated. ventriculostomy draining well, ICPs within normal limits. 01/31: intubated, sedated. no eye opening. ventriculostomy draining well, ICPs remains wnl 02/03: EVD raised to 3 cm H20 over the weekend, ICPs stable. Intubated and off sedative drips, mildly opens eyes. 02/04: appears much more alert this morning, eyes wide open and tracking. EVD draining well. 02/05: tolerating CPAP, awake and tracking. CSF now simpson. EVD draining well. 02/06: When seen this morning the patient is asleep but awakens to voice. She does track with her eyes. She remains intubated and is on CPAP. 02/07: Pt with eyes open. Family at bedside, possibly starting to follow some simple commands for them on left side. Ventriculostomy drain in place at 5cmH20. ICP 4. Blood darker in color. 02/08: Pt with eyes open. Not following commands. Pupils 3mm bilaterally. Right sided neglect. Ventriculostomy drain at [id number] with ICP 1-2 range. Right hemiparesis. 02/09: Pt opens eyes to light tactile stimulation. Pupils 3mm bilaterally. Ventriculostomy drain at [id number], ICP 4. Right hemiparesis. Right sided neglect. 02/11: Pt opens eyes and keeps them open when stimulated. Pupils 3mm bilaterally reactive bilaterally. Right hemiparesis, some spontaneous movement left side. Ventriculostomy was removed last night by Dr. Garcia. (Isai Nielsen) System Review Comments Not able to obtain given clinical condition. (Isai Nielsen) Exam Results Vital Signs Date Time Temp Pulse Resp B/P (MAP) Pulse Ox O2 Delivery O2 Flow Rate FiO2 02/11/17 07:47 40 02/11/17 07:47 97 02/11/17 06:00 110 02/11/17 04:00 97.2 15 122/54 (76) 02/09/17 07:44 Ventilator Intake and Output 02/11/17 02/11/17 02/12/17 08:00 16:00 00:00 Intake Total 1050 ml Output Total 750 ml Balance 300 ml (Isai Nielsen) Physical Examination GENERAL: Awakens to light tactile stimulation. Intubated on CPAP this am, no sedation, no apparent distress. HEENT: Normocephalic, posterior surgical incision well approximated with staple. No evident drainage, erythema or streaking. RESP: Intubated. CTA bilaterally. CPAP. HEART: NSR No murmurs. ABD: Soft positive bs. SKIN: No cyanosis or erythema. Incision clean and dry. No signs of infection or complication. MUSCULOSKELETAL: Spontaneous movement of LUE and moves BLE to noxious stimulation, no movement to RUE. NEUROLOGICAL: PERRLA 3 mm reactive, tracks on Left side. Seems to neglect right side. Did not follow any commands for me, family feels she does at times for them. Moves LUE spontaneously. Right hemiparesis. (Isai Nielsen) Lab, Micro, Other Results Last Impressions Head CT 02/10/17 0900 Signed Impressions: Service Date/Time: Friday, February 10, 2017 09:23 - CONCLUSION: Interval improvement with less parenchymal hemorrhage, intraventricular blood. Ventricles are mildly prominent when compared to the previous study. Patricio Hardy MD FACR Chest X-Ray 02/08/17 0600 Signed Impressions: Service Date/Time: Wednesday, February 08, 2017 04:22 - CONCLUSION: Improved chest appearance Miguel Hua MD Neck CTA 01/28/17 1009 Signed Impressions: Service Date/Time: Saturday, January 28, 2017 10:27 - CONCLUSION: 1. No hemodynamically significant carotid artery stenosis identified. 2. Mild atherosclerotic plaquing at the bifurcation. 3. Both vertebral arteries are widely patent. Jac Hardy MD Head CTA 01/28/17 0000 Signed Impressions: Service Date/Time: Saturday, January 28, 2017 10:27 - CONCLUSION: 1. No evidence of vascular malformation or vasculopathy. 2. Subdural, intraparenchymal and intraventricular hemorrhage are again noted and not significantly changed since prior study. 3. Persistent left to right shift measuring between 8 and 9 mm; unchanged. Nick Barker MD (Isai Nielsen) Medical Decision Making Impression and Plan A: 76 year old female with large intraventricular hemorrhage s/p placement of ventriculostomy drain 01/27/17, challenging ventriculostomy drain, ICPs remains wnl s/p left parietooccipital craniotomy, evacuation of intracerebral hematoma 01/28 Plan: Continue with critical care. Frequent neuro checks. Updated family daily at bedside. Pt may require Trach and PEG, okay with Neurosurgery if deemed appropriate by critical care. (Isai Nielsen) Attending Statement The exam, history, and the medical decision-making described in the above note were completed with the assistance of the mid-level provider. I reviewed and agree with the findings presented. I attest that I had a [id number] encounter with the patient on the same day, and personally performed and documented my assessment and findings in the medical record. (Sampson Schumacher MD) Isai Nielsen Feb 11, 2017 09:52 Sampson Schumacher MD Feb 11, 2017 12:07
--- NOTE | 2017-02-11 11:11 | HHI.CCPN ---
Subjective Remarks/Hospital Course 01/27: Patient is a 76-year-old female who was brought to the [facility] emergency department by EMS as a stroke alert. Last found normal at 11 this morning, later found unresponsive in the bed by her and EMS was called. EMS gave her Narcan IM without any response, blood glucose was 140, vital signs were apparently stable. In the ED patient remained poorly responsive and was intubated for airway protection. Her blood pressure on arrival was 243/129 and patient was started on Cardene infusion. CT of the head showed extensive acute intraventricular hemorrhage involving the left lateral ventricle, right lateral ventricle and third ventricle, acute intraparenchymal hemorrhage within the left parietal and left occipital region ( 4.1 cm in size). Acute subdural hematoma along the left frontoparietal region measuring 5 mm in width. There was also significant Significant (10 mm) subfalcine herniation to the right. Dr. Bowden was contacted by the ED Per Dr. Rivera on 01/27: Critical care medicine was requested to admit the patient. Patient was emergently moved to the ICU for EVD placement. I evaluated the patient immediately after arrival to the ICU. Patient purposefully moves left upper extremity and withdraws all other extremities. at the bedside was updated. I explained to the that she has very extensive intracranial hemorrhage and prognosis appears poor. Dr. Bowden is planning to place an EVD emergently. I discussed with Dr. Bowden extensively , patient is not a candidate for evacuation of intracerebral hemorrhage due to overall poor prognosis. I have placed a central line for administration of vasopressor agents and 3% saline. Patient remains on Cardene infusion and at this time receiving mannitol. I have also ordered Keppra for seizure prophylaxis 01/28: Remains sedated, orally intubated on mechanical ventilation. Being taken to OR for craniotomy per Dr. Bowden. 01/29: Remains sedated, orally intubated on mechanical ventilation. Underwent craniotomy with evacuation of hematoma by Dr. Bowden on 01/28. Ventriculostomy remains in place. Drained 120 cc bloody CSF over the last 12 hours. ICP 2. 01/30: ICP well controlled. Requiring mechanical ventilation. 01/31: Remains sedated, orally intubated on mechanical ventilation. Ventriculostomy in place. ICP within normal limits. Leukocytosis persists. UA appeared abnormal however cultures with no growth. Starting empiric Levaquin. Checking pro-calcitonin. Started free water for worsening hypernatremia 02/01 Afebrile. WBC 16.9 which is downtrending. Nurse states she has diarrhea. Procalcitonin is not elevated. Ventric at 0 cm water, repeat CT scheduled for tomorrow morning per neurosurgery. 02/02: Osmolality suitably concentrated but brain edema persists, shift slightly larger. Hypertonic saline continued at half rate to avoid overly rapid drop. 02/03: No improvement in neuro exam over past 24 hours. Osmolality acceptable. 02/04: Tolerating CPAP trials today with good respiratory effort. Long discussion with and daughter about plans to extubate, high likelihood of reintubation. 02/05: Will attempt to extubate today during a period when she is alert; sleeping now. Extubated and respiratory drive good. Good cough effort. She had immediate stridor however and it was not helped by suctioning nor 4 racemic epi treatments. I will re-intubate with a smaller tube and add steroids for 48-72 hours. 02/06: No change in neurological function. When extubated she did not follow commands nor seem to respond to voices of family. Her airway was stridor ridden and did not clear with multiple racemic epi rxs. Steroids started 02/05, continue for 2-3 days then retry. Suspect she'll need trach but family not ready. 02/07. Tolerating CPAP 11/21. No cuff leak despite steroids. Will try diuresing. Follows commands LUE. 02/08: Tolerated PSV trials 20 hours yesterday. No cuff leak. Tongue remains is edematous. Opens eyes and follows commands with left upper extremity only. Wiggles left lower extremity. 02/09: Currently resting in bed. Remains on PSV trial. Her tongue remains swollen. No new neurological changes. 02/10: Respiratory rates between 6 and 8 this morning. Placed back on ACV with a rate of 10. Tongue remains swollen. No new neurological changes. Subjective: 02/11: Status post removal of ventriculostomy 02/10. more comfortable with trach. Waiting for Dr. Gómez to return to make definitive decision. Removing magalys today. Hosea diet, Objective Vital Signs Date Time Temp Pulse Resp B/P (MAP) Pulse Ox O2 Delivery O2 Flow Rate FiO2 02/11/17 10:00 115 02/11/17 08:00 98.2 16 118/63 (81) 97 02/11/17 08:00 40 02/09/17 07:44 Ventilator Intake and Output 02/11/17 02/11/17 02/12/17 08:00 16:00 00:00 Intake Total 1050 ml Output Total 750 ml Balance 300 ml Result Diagram: 02/10/17 0505 02/10/17 0505 Other Results Microbiology Date/Time Source Procedure Growth Status 01/29/17 17:19 Blood Peripheral Aerobic Blood Culture - Final NO GROWTH IN 5 DAYS Complete 01/29/17 17:19 Blood Peripheral Anaerobic Blood Culture - Final NO GROWTH IN 5 DAYS Complete 01/27/17 17:00 Cerebral Spinal Fluid Shunt Fluid Gram Stain - Final Complete 01/27/17 17:00 Cerebral Spinal Fluid Shunt Fluid CSF Culture - Final NO GROWTH IN 72 HRS.--AEROBICALLY OR ... Complete 01/29/17 14:00 Sputum Endotracheal Gram Stain - Final Complete 01/29/17 14:00 Sputum Endotracheal Sputum Culture - Final LIGHT GROWTH NORMAL RESPIRATORY JAGRUTI Complete 01/29/17 14:00 Urine Catheterized Urine Urine Culture - Final NO GROWTH IN 48 HOURS. Complete Imaging Last Impressions Head CT 02/10/17 0900 Signed Impressions: Service Date/Time: Friday, February 10, 2017 09:23 - CONCLUSION: Interval improvement with less parenchymal hemorrhage, intraventricular blood. Ventricles are mildly prominent when compared to the previous study. Patricio Hardy MD FACR Chest X-Ray 02/08/17 0600 Signed Impressions: Service Date/Time: Wednesday, February 08, 2017 04:22 - CONCLUSION: Improved chest appearance Miguel Hua MD Neck CTA 01/28/17 1009 Signed Impressions: Service Date/Time: Saturday, January 28, 2017 10:27 - CONCLUSION: 1. No hemodynamically significant carotid artery stenosis identified. 2. Mild atherosclerotic plaquing at the bifurcation. 3. Both vertebral arteries are widely patent. Jac Hardy MD Head CTA 01/28/17 0000 Signed Impressions: Service Date/Time: Saturday, January 28, 2017 10:27 - CONCLUSION: 1. No evidence of vascular malformation or vasculopathy. 2. Subdural, intraparenchymal and intraventricular hemorrhage are again noted and not significantly changed since prior study. 3. Persistent left to right shift measuring between 8 and 9 mm; unchanged. Nick Barker MD Objective Remarks GENERAL: 76-year-old female currently orally intubated on mechanical ventilation. SKIN: Warm/dry. Well-perfused HEAD: Ventriculostomy removed. EYES: Pupils equal and round, 2 mm sluggish reaction to light. ENT: No nasal bleeding or discharge. Mucous membranes moist. NECK: Trachea midline. Orally intubated. CARDIOVASCULAR: Regular rate and rhythm. NL S1S2. No S4. RESPIRATORY: Breath sounds equal bilaterally. Clear, good respiratory drive. Thin respiratory secretions with suctioning. GASTROINTESTINAL: Abdomen soft, non-tender, nondistended. BS active. MUSCULOSKELETAL: No obvious deformities. No edema. d. NEUROLOGICAL: L ventriculostomy in place +5 cm water, fluid clear. Eyes open, left gaze, does not track. RUE is flaccid. RLE with very weak withdrawal. LUE grasps hands to command. LLE withdraws to noxious stimuli and moved to command. Babinski upgoing on the left, no response to Babinski on the right. A/P Assessment and Plan Neuro: Extensive intraventricular hemorrhage, left parietal/occipital intraparenchymal hemorrhage, left subdural hemorrhage Acute encephalopathy - Emergency EVD placement by Dr. Bowden.. Removed 02/10 Levetiracetam 500 mg IV q12 hours for seizure prophylaxis Neurochecks - s/p craniotomy with evacuation of hematoma 01/[address] Bowden. - EVD management per neurosurgery. Likely challenge today Currently on hydrocodone/acetaminophen 55/325 and 10/325 one tablet every fours. Pain - Currently and morphine sulfate 2-4 mg every 2 hours. Pain Resp: Acute respiratory failure - Intubated for airway protection, continue ACV. Extubated 02/05 and had stridor so reintubated and placed on decadron. Still no cuff leak, diuresing with furosemide 40 mg twice a day if does not develop cuff leak will likely need to transition to trach/PEG which i discussed with daughter. They appear to be waiting for Dr. Gómez to return on the for definitive decision. - wean fio2 for goal spo2 > 90% - HOB elevated As needed albuterol therapy every 4 hours. Dyspnea Dexamethasone 6mg IV wean to every day CV: Hypertensive emergency Cardizem drip has been discontinued As needed labetalol/hydralazine - 2D Echo - EF 65-70%. Renal: - Fuller in place - strict i/os Furosemide 40 mg IV q12 x2. KCL 25 MEQ po q8. Has been completed FEN/GI: Hypernatremia -Continue tube feeds with Glucerna1.5 goal to 50 mL per hour per nutrition recommendations. Pantoprazole 40 mg IV daily for GI prophylaxis Docusate sodium 100 mg twice a day for bowel regimen IDHEME: Normocytic anemia Leukocytosis - Does not meet transfusion triggers at this time - Leukocytosis persists: Possibly reactive secondary ICH/surgery. - Pancultures done on 01/29 with no growth. Empiric levofloxacin was started and discontinued 02/07 C diff previously ordered but then diarrhea resolved. 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 Continue levothyroxine 50 mcg daily. Prophylaxis: SCDs Pantoprazole No pharmacologic DVT prophylaxis given ICH per discussion with Dr. Rivas. Initiate when ok with NSG. 01/29: I had a long discussion with patient's daughter at bedside regarding current clinical status and plan of care and she voiced understanding and was agreeable. I also discussed strong possibility of need for tracheostomy and PEG tube and possible group home placement and she voiced understanding. Goals of care remain aggressive at this time. 02/05: Numerous long conversations with innumerable family members. All are aware that she may not tolerate extubation and may well require tracheostomy. They are expecting a miracle and are very emotional about it. 02/07 - Slight neuro improvement but still poor prognosis for functional recovery. Discussed with family still likely to require trach/PEG but they are hoping she does not. 02/08 - family is adamant to Dr. Gómez Decision requiring extubation versus trach. He will return 02/12. Level II follow-up Mina Calvillo MD Feb 11, 2017 11:11
[2017-02-11] MEDS ORDERED: SODIUM CHLOR 0.9% 250 ML INJ 250 ML IV ONE (14:15)
[2017-02-11] MEDS ORDERED: ACETAMINOPHEN 650 MG/20.3 ML UDC NG PRN (14:15)
[2017-02-11 18:09] LABS: HEMATOCRIT 31.7 % (35.0-46.0); HEMOGLOBIN 10.4 GM/DL (11.6-15.3); MEAN CELL VOLUME 94.2 FL (80.0-100.0); MEAN CORPUSCULAR HEMOGLOBIN 30.9 PG (27.0-34.0); MEAN CORPUSCULAR HGB CONC 32.8 % (32.0-36.0); MEAN PLATELET VOLUME 9.6 FL (7.0-11.0); PLATELET COUNT 367 TH/MM3 (150-450); RED BLOOD COUNT 3.37 MIL/MM3 (4.00-5.30); RED CELL DISTRIBUTION WIDTH 14.1 % (11.6-17.2); WHITE BLOOD COUNT 23.5 TH/MM3 (4.0-11.0)
[2017-02-11 18:33] LABS: BICARBONATE 31.5 MEQ/L (21.0-32.0); CALCIUM 8.1 MG/DL (8.5-10.1); CREATININE 0.91 MG/DL (0.50-1.00)
[2017-02-12] VITALS (17 sets, daily range): BP systolic 93–150; BP diastolic 52–67; PULSE 98–113; RESP 10–24; TEMP 98.5–99; O2SAT 96–100
[2017-02-12] MEDS: RESP: ALBUTEROL 2.5 MG/IPRATROPIUM 0.5 MG NEB (SCH) NEB ×4 (01:15→21:57)
--- NOTE | 2017-02-12 03:26 | RADRPT ---
EXAM DATE/TIME: 02/12/2017 02:48 [facility] COMPARISON: CHEST SINGLE AP, February 08, 2017, 4:22. INDICATIONS : Shortness of breath. MEDICAL HISTORY : Non-responsive SURGICAL HISTORY : Non-responsive ENCOUNTER: Subsequent ACUITY: 2 weeks PAIN SCORE: Non-responsive. LOCATION: Bilateral chest FINDINGS: The lungs are clear without infiltrate, nodule, or mass. There is no appreciable pleural effusion fo r technique. Heart and mediastinum are unremarkable. Lines and tubes are present not significantly c hanged. CONCLUSION: No acute cardiopulmonary disease. Ángela Conner MD on February 12, 2017 at 3:24 Board Certified Radiologist. This report was verified electronically.
[2017-02-12] MEDS: CHLORHEXIDINE GLUCONATE 2 % 1 PACK (2 CLOTHS) TOP SCH (04:00)
[2017-02-12 05:05] LABS: AUTOMATED NEUTROPHIL # 19.2 TH/MM3 (1.8-7.7); BASOPHIL # 0.1 TH/MM3 (0-0.2); BASOPHIL % 0.3 % (0.0-2.0); EOSINOPHIL # 0.1 TH/MM3 (0-0.4); EOSINOPHIL % 0.3 % (0.0-4.0); HEMATOCRIT 30.6 % (35.0-46.0); HEMOGLOBIN 9.9 GM/DL (11.6-15.3); LYMPH % 9.8 % (9.0-44.0); LYMPHOCYTE # 2.3 TH/MM3 (1.0-4.8); MEAN CELL VOLUME 94.5 FL (80.0-100.0); MEAN CORPUSCULAR HEMOGLOBIN 30.4 PG (27.0-34.0); MEAN CORPUSCULAR HGB CONC 32.2 % (32.0-36.0); MEAN PLATELET VOLUME 9.4 FL (7.0-11.0); MONO % 7.1 % (0.0-8.0); MONOCYTE # 1.7 TH/MM3 (0-0.9); NEUT % 82.5 % (16.0-70.0); PLATELET COUNT 296 TH/MM3 (150-450); RED BLOOD COUNT 3.24 MIL/MM3 (4.00-5.30); RED CELL DISTRIBUTION WIDTH 14.2 % (11.6-17.2); WHITE BLOOD COUNT 23.3 TH/MM3 (4.0-11.0)
[2017-02-12 05:20] LABS: PROTHROMBIN TIME - PATIENT 10.5 SEC (9.8-11.6)
[2017-02-12 05:28] LABS: BICARBONATE 29.9 MEQ/L (21.0-32.0); CREATININE 0.71 MG/DL (0.50-1.00); MAGNESIUM 2.7 MG/DL (1.5-2.5); PHOSPHORUS 2.9 MG/DL (2.5-4.9)
[2017-02-12] MEDS: ARTIFICIAL TEARS OPTH SOLN 15 ML BTL EACH EYE SCH ×3 (06:01→20:29)
[2017-02-12] MEDS: LEVOTHYROXINE SODIUM 50 MCG TAB OG-TUBE SCH (06:01)
[2017-02-12] MEDS: INSULIN ASPART SUPPLEMENTAL SCALE SQ SCH ×4 (06:01→18:00)
[2017-02-12] MEDS: SODIUM CHLORIDE 0.9% FLUSH 10 ML FLUSH IV FLUSH SCH ×2 (07:54→20:29)
[2017-02-12] MEDS: CHLORHEXIDINE 0.12% (ORAL KIT) 15 ML CUP MT SCH ×2 (08:00→20:29)
[2017-02-12 08:03] LABS: BANDS 1 % (0-6); LYMPHOCYTES 5 % (9-44); METAMYELOCYTES 1 % (0-1); MONOCYTES 5 % (0-8); MYELOCYTES 1 % (0-0); POLYS (SEG NEUTROPHILS) 87 % (16-70)
[2017-02-12 08:05] LABS: OVALOCYTES 1+ (NORMAL)
[2017-02-12] MEDS ORDERED: DEXAMETHASONE SOD PHOS 4 MG/ML VIAL IV PUSH SCH (09:00)
[2017-02-12] MEDS: levETIRAcetam INJ 500 MG in SODIUM CHLORIDE 0.9% INJ 100 ML IV SCH ×2 (09:22→20:28)
[2017-02-12] MEDS: DOCUSATE SODIUM 100 MG CAP PO SCH ×2 (09:23→20:24)
[2017-02-12] MEDS: PANTOPRAZOLE SODIUM 40 MG VIAL IVP SCH (09:23)
[2017-02-12] MEDS: INSULIN DETEMIR 100 UNITS/ML VIAL SQ SCH ×2 (09:23→20:25)
--- NOTE | 2017-02-12 09:45 | HHI.CCPN ---
Subjective Remarks/Hospital Course 01/27: Patient is a 76-year-old female who was brought to the [facility] emergency department by EMS as a stroke alert. Last found normal at 11 this morning, later found unresponsive in the bed by her and EMS was called. EMS gave her Narcan IM without any response, blood glucose was 140, vital signs were apparently stable. In the ED patient remained poorly responsive and was intubated for airway protection. Her blood pressure on arrival was 243/129 and patient was started on Cardene infusion. CT of the head showed extensive acute intraventricular hemorrhage involving the left lateral ventricle, right lateral ventricle and third ventricle, acute intraparenchymal hemorrhage within the left parietal and left occipital region ( 4.1 cm in size). Acute subdural hematoma along the left frontoparietal region measuring 5 mm in width. There was also significant Significant (10 mm) subfalcine herniation to the right. Dr. Bowden was contacted by the ED Per Dr. Rivera on 01/27: Critical care medicine was requested to admit the patient. Patient was emergently moved to the ICU for EVD placement. I evaluated the patient immediately after arrival to the ICU. Patient purposefully moves left upper extremity and withdraws all other extremities. at the bedside was updated. I explained to the that she has very extensive intracranial hemorrhage and prognosis appears poor. Dr. Bowden is planning to place an EVD emergently. I discussed with Dr. Bowden extensively , patient is not a candidate for evacuation of intracerebral hemorrhage due to overall poor prognosis. I have placed a central line for administration of vasopressor agents and 3% saline. Patient remains on Cardene infusion and at this time receiving mannitol. I have also ordered Keppra for seizure prophylaxis 01/28: Remains sedated, orally intubated on mechanical ventilation. Being taken to OR for craniotomy per Dr. Bowden. 01/29: Remains sedated, orally intubated on mechanical ventilation. Underwent craniotomy with evacuation of hematoma by Dr. Bowden on 01/28. Ventriculostomy remains in place. Drained 120 cc bloody CSF over the last 12 hours. ICP 2. 01/30: ICP well controlled. Requiring mechanical ventilation. 01/31: Remains sedated, orally intubated on mechanical ventilation. Ventriculostomy in place. ICP within normal limits. Leukocytosis persists. UA appeared abnormal however cultures with no growth. Starting empiric Levaquin. Checking pro-calcitonin. Started free water for worsening hypernatremia 02/01 Afebrile. WBC 16.9 which is downtrending. Nurse states she has diarrhea. Procalcitonin is not elevated. Ventric at 0 cm water, repeat CT scheduled for tomorrow morning per neurosurgery. 02/02: Osmolality suitably concentrated but brain edema persists, shift slightly larger. Hypertonic saline continued at half rate to avoid overly rapid drop. 02/03: No improvement in neuro exam over past 24 hours. Osmolality acceptable. 02/04: Tolerating CPAP trials today with good respiratory effort. Long discussion with and daughter about plans to extubate, high likelihood of reintubation. 02/05: Will attempt to extubate today during a period when she is alert; sleeping now. Extubated and respiratory drive good. Good cough effort. She had immediate stridor however and it was not helped by suctioning nor 4 racemic epi treatments. I will re-intubate with a smaller tube and add steroids for 48-72 hours. 02/06: No change in neurological function. When extubated she did not follow commands nor seem to respond to voices of family. Her airway was stridor ridden and did not clear with multiple racemic epi rxs. Steroids started 02/05, continue for 2-3 days then retry. Suspect she'll need trach but family not ready. 02/07. Tolerating CPAP 11/21. No cuff leak despite steroids. Will try diuresing. Follows commands LUE. 02/08: Tolerated PSV trials 20 hours yesterday. No cuff leak. Tongue remains is edematous. Opens eyes and follows commands with left upper extremity only. Wiggles left lower extremity. 02/09: Currently resting in bed. Remains on PSV trial. Her tongue remains swollen. No new neurological changes. 02/10: Respiratory rates between 6 and 8 this morning. Placed back on ACV with a rate of 10. Tongue remains swollen. No new neurological changes. Subjective: 02/11: Status post removal of ventriculostomy 02/10. more comfortable with trach. Waiting for Dr. Gómez to return to make definitive decision. Removing magalys today. Hosea enteral diet. 02/12: I'll discuss tracheostomy vs extubation with family again today. No change in neurological status. CT head with no shift, resolving edema. Objective Vital Signs Date Time Temp Pulse Resp B/P (MAP) Pulse Ox O2 Delivery O2 Flow Rate FiO2 02/12/17 07:44 100 40 02/12/17 06:00 108 02/12/17 04:00 98.6 16 119/59 (79) 02/09/17 07:44 Ventilator Intake and Output 02/12/17 02/12/17 02/13/17 08:00 16:00 00:00 Intake Total 678 ml Output Total 650 ml Balance 28 ml Result Diagram: 02/12/17 0445 02/12/17 0445 Imaging Last Impressions Head CT 02/10/17 0900 Signed Impressions: Service Date/Time: Friday, February 10, 2017 09:23 - CONCLUSION: Interval improvement with less parenchymal hemorrhage, intraventricular blood. Ventricles are mildly prominent when compared to the previous study. Patricio Hardy MD FACR Chest X-Ray 02/08/17 0600 Signed Impressions: Service Date/Time: Wednesday, February 08, 2017 04:22 - CONCLUSION: Improved chest appearance Miguel Hua MD Neck CTA 01/28/17 1009 Signed Impressions: Service Date/Time: Saturday, January 28, 2017 10:27 - CONCLUSION: 1. No hemodynamically significant carotid artery stenosis identified. 2. Mild atherosclerotic plaquing at the bifurcation. 3. Both vertebral arteries are widely patent. Jac Hardy MD Head CTA 01/28/17 0000 Signed Impressions: Service Date/Time: Saturday, January 28, 2017 10:27 - CONCLUSION: 1. No evidence of vascular malformation or vasculopathy. 2. Subdural, intraparenchymal and intraventricular hemorrhage are again noted and not significantly changed since prior study. 3. Persistent left to right shift measuring between 8 and 9 mm; unchanged. Nick Barker MD Objective Remarks GENERAL: 76-year-old female currently orally intubated on mechanical ventilation. SKIN: Warm/dry. Well-perfused HEAD: Ventriculostomy removed. EYES: Pupils equal and round, 2 mm sluggish reaction to light. ENT: No nasal bleeding or discharge. Mucous membranes moist. NECK: Trachea midline. Orally intubated. CARDIOVASCULAR: Regular rate and rhythm. NL S1S2. No S4. RESPIRATORY: Breath sounds equal bilaterally. Clear, good respiratory drive. Thin respiratory secretions with suctioning. GASTROINTESTINAL: Abdomen soft, non-tender, nondistended. BS active. MUSCULOSKELETAL: No obvious deformities. No edema. Well perfused. NEUROLOGICAL: L ventriculostomy d/c'd. fluid has been clear. Eyes open, left gaze, does not track. RUE is flaccid. RLE with very weak withdrawal. LUE grasps hands to command. LLE withdraws to noxious stimuli and moved to command. Babinski upgoing on the left, neutral response right. A/P Assessment and Plan Neuro: Extensive intraventricular hemorrhage, left parietal/occipital intraparenchymal hemorrhage, left subdural hemorrhage Acute encephalopathy - Emergency EVD placement by Dr. Bowden.. Removed 02/10 Levetiracetam 500 mg IV q12 hours for seizure prophylaxis Neurochecks - s/p craniotomy with evacuation of hematoma 01/[address] Bowden. - EVD management per neurosurgery. Likely challenge today Currently on hydrocodone/acetaminophen 55/325 and 10/325 one tablet every fours. Pain - Currently and morphine sulfate 2-4 mg every 2 hours. Pain Resp: Acute respiratory failure - Intubated for airway protection, continue ACV. Extubated 02/05 and had stridor so reintubated and placed on decadron. Still no cuff leak, diuresing with furosemide 40 mg twice a day if does not develop cuff leak will likely need to transition to trach/PEG which i discussed with daughter. They appear to be waiting for Dr. Gómez to return on the for definitive decision. - wean fio2 for goal spo2 > 90% - HOB elevated As needed albuterol therapy every 4 hours. Dyspnea Dexamethasone 6mg IV wean to every day CV: Hypertensive emergency Cardizem drip has been discontinued As needed labetalol/hydralazine - 2D Echo - EF 65-70%. Renal: - Fuller in place - strict i/os Furosemide 40 mg IV q12 x2. KCL 25 MEQ po q8. Has been completed FEN/GI: Hypernatremia -Continue tube feeds with Glucerna1.5 goal to 50 mL per hour per nutrition recommendations. Pantoprazole 40 mg IV daily for GI prophylaxis Docusate sodium 100 mg twice a day for bowel regimen IDHEME: Normocytic anemia Leukocytosis - Does not meet transfusion triggers at this time - Leukocytosis persists: Possibly reactive secondary ICH/surgery. - Pancultures done on 01/29 with no growth. Empiric levofloxacin was started and discontinued 02/07 - C diff previously ordered but then diarrhea resolved. 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 Continue levothyroxine 50 mcg daily. Prophylaxis: SCDs Pantoprazole No pharmacologic DVT prophylaxis given ICH per discussion with Dr. Rivas. Initiate when ok with NSG. 01/29: I had a long discussion with patient's daughter at bedside regarding current clinical status and plan of care and she voiced understanding and was agreeable. I also discussed strong possibility of need for tracheostomy and PEG tube and possible jail placement and she voiced understanding. Goals of care remain aggressive at this time. 02/05: Numerous long conversations with innumerable family members. All are aware that she may not tolerate extubation and may well require tracheostomy. They are expecting a miracle and are very emotional about it. 02/07 - Slight neuro improvement but still poor prognosis for functional recovery. Discussed with family still likely to require trach/PEG but they are hoping she does not. 02/08 - family is adamant to Dr. Gómez Decision requiring extubation versus trach. He will return 02/12. Overall impression: At this point she is a long-term neuro rehab patient who will require LTAC support for 3-4 weeks. Tristin Gómez MD Feb 12, 2017 09:45
--- NOTE | 2017-02-12 12:47 | HHI.NSPN ---
(Nikolai Soto) History Chief Complaint: Unable to obtain due to patient's clinical condition. (Nikolai Soto) Interval History Ms Tinajero is an 76 year old adult female who was brought to [facility] as a stroke alert with a severe intracerebral and intraventricular hemorrhage with mass effect and midline shift. She underwent placement of ventriculostomy drain on 01/27/17. She underwent a left parietooccipital craniotomy, evacuation of intracerebral hematoma on Jan 28, 2017. 01/29: intubated and sedated. EVD draining well bloody CSF. ICPs normal. f/u CT Head this morning with decreasing mass effect, less left to right midline shift which now measures 4.6 mm, with small amount hemorrhage remains evident in the ventricular system. 01/30: intubated and sedated. ventriculostomy draining well, ICPs within normal limits. 01/31: intubated, sedated. no eye opening. ventriculostomy draining well, ICPs remains wnl 02/03: EVD raised to 3 cm H20 over the weekend, ICPs stable. Intubated and off sedative drips, mildly opens eyes. 02/04: appears much more alert this morning, eyes wide open and tracking. EVD draining well. 02/05: tolerating CPAP, awake and tracking. CSF now simpson. EVD draining well. 02/06: When seen this morning the patient is asleep but awakens to voice. She does track with her eyes. She remains intubated and is on CPAP. 02/07: Pt with eyes open. Family at bedside, possibly starting to follow some simple commands for them on left side. Ventriculostomy drain in place at 5cmH20. ICP 4. Blood darker in color. 02/08: Pt with eyes open. Not following commands. Pupils 3mm bilaterally. Right sided neglect. Ventriculostomy drain at [id number] with ICP 1-2 range. Right hemiparesis. 02/09: Pt opens eyes to light tactile stimulation. Pupils 3mm bilaterally. Ventriculostomy drain at [id number], ICP 4. Right hemiparesis. Right sided neglect. 02/11: Pt opens eyes and keeps them open when stimulated. Pupils 3mm bilaterally reactive bilaterally. Right hemiparesis, some spontaneous movement left side. Ventriculostomy was removed last night by Dr. Garcia. 02/12: The patient when seen this afternoon is lethargic. She is noted to spontaneously move the distal left upper extremity. Her says she will grasp his hand. She still is intubated and is on CPAP. She opened her eyes to local noxious stimulation and moved the lower extremities minimally as well. Nursing reports questionable purposeful movement of the left upper extremity. (Nikolai Soto) System Review Comments Unable to obtain due to patient's clinical condition. (Nikolai Soto) Exam Results 02/10/17 02/10/17 02/11/17 02/11/17 02/12/17 02/12/17 06:00 18:00 06:00 18:00 06:00 18:00 Intake Total 1070 ml 765 ml 1050 ml 700 ml 783 ml Output Total 1000 ml 650 ml 750 ml 650 ml 650 ml Balance 70 ml 115 ml 300 ml 50 ml 133 ml Intake Oral 0 ml 0 ml IV Total 100 ml 100 ml 105 ml Tube Feeding 670 ml 665 ml 650 ml 600 ml 558 ml Other 400 ml 400 ml 120 ml Output Urine Total 1000 ml 650 ml 750 ml 650 ml 650 ml # Bowel Movements 2 2 2 Vital Signs Date Time Temp Pulse Resp B/P (MAP) Pulse Ox O2 Delivery O2 Flow Rate FiO2 02/12/17 12:00 100 02/12/17 12:00 40 02/12/17 12:00 97 40 02/12/17 12:00 98.9 100 10 110/64 (79) 98 02/12/17 10:00 103 02/12/17 08:00 99.0 100 12 93/52 (66) 99 02/12/17 08:00 100 02/12/17 08:00 40 02/12/17 07:44 100 40 02/12/17 07:43 40 02/12/17 06:00 108 02/12/17 04:07 97 40 02/12/17 04:00 40 02/12/17 04:00 98.6 112 16 119/59 (79) 97 02/12/17 04:00 112 02/12/17 02:00 110 02/12/17 01:15 98 40 02/12/17 00:00 40 02/12/17 00:00 98.9 112 16 110/59 (76) 98 02/12/17 00:00 112 02/11/17 22:00 119 02/11/17 20:25 95 40 02/11/17 20:00 100.1 120 17 93/58 (70) 96 02/11/17 20:00 120 02/11/17 20:00 40 02/11/17 18:00 119 02/11/17 16:00 100.5 120 10 103/58 (73) 96 02/11/17 16:00 40 02/11/17 16:00 119 02/11/17 15:43 96 40 02/11/17 14:00 115 02/11/17 13:00 96 40 02/11/17 12:00 98.0 112 13 102/56 (71) 96 02/11/17 12:00 40 02/11/17 11:07 96 40 02/11/17 10:00 115 02/11/17 08:00 119 02/11/17 08:00 98.2 117 16 118/63 (81) 97 02/11/17 08:00 40 02/11/17 07:47 40 02/11/17 07:47 97 40 02/11/17 06:00 110 02/11/17 04:06 96 40 02/11/17 04:00 40 02/11/17 04:00 114 02/11/17 04:00 97.2 83 15 122/54 (76) 95 02/11/17 02:00 103 02/11/17 01:19 96 40 02/11/17 00:00 40 02/11/17 00:00 97.4 108 15 133/63 (86) 97 02/11/17 00:00 108 02/10/17 22:00 105 02/10/17 21:12 15 02/10/17 20:21 97 40 02/10/17 20:00 120 02/10/17 20:00 97.4 120 13 142/68 (92) 97 02/10/17 20:00 40 02/10/17 18:00 114 02/10/17 16:00 99.0 120 13 127/60 (82) 97 02/10/17 16:00 40 02/10/17 16:00 121 02/10/17 15:38 97 40 02/10/17 14:00 108 02/10/17 13:42 96 40 02/10/17 12:52 40 02/10/17 12:00 40 02/10/17 12:00 100 02/10/17 12:00 98.4 99 12 119/81 (94) 97 02/10/17 11:21 98 40 02/10/17 11:13 98 40 02/10/17 10:28 40 02/10/17 10:00 99 02/10/17 09:53 99 100 02/10/17 08:00 40 02/10/17 08:00 101 02/10/17 08:00 98.4 100 16 101/58 (72) 99 02/10/17 07:33 97 40 02/10/17 06:00 106 02/10/17 04:06 95 40 02/10/17 04:00 97.4 105 16 117/57 (77) 96 02/10/17 04:00 40 02/10/17 04:00 105 02/10/17 02:00 105 02/10/17 01:06 96 40 02/10/17 00:00 40 02/10/17 00:00 106 02/10/17 00:00 97.6 103 16 117/59 (78) 97 02/09/17 22:00 92 02/09/17 20:27 97 40 02/09/17 20:00 40 02/09/17 20:00 98.0 110 16 118/55 (76) 97 02/09/17 20:00 110 02/09/17 18:00 98 02/09/17 16:27 96 40 02/09/17 16:00 109 02/09/17 16:00 99.0 115 16 143/62 (89) 97 02/09/17 16:00 40 02/09/17 14:00 105 02/09/17 13:11 95 40 (Nikolai Soto) Physical Examination GENERAL: Lethargic, no sedation. Intubated on CPAP. No apparent distress. HEENT: Normocephalic, posterior surgical incision & ventriculostomy insertion site well approximated, no evident drainage, erythema or streaking. PERRLA 3 mm reactive, tracks on left. MUSCULOSKELETAL: Spontaneous movement of LUE and moves BLE to noxious stimulation, no movement to RUE. NEUROLOGICAL: Lethargic, no sedation. Opens eyes to local noxious stimualation. Nonverbal, intubated. Did not follow any commands. Spontaneous movement of LUE. Trace movement BLE to local noxious stimulation. No movement of RLE. (Nikolai Soto) Lab, Micro, Other Results Recent Impressions Chest X-Ray 02/12/17 0600 Signed Impressions: Service Date/Time: Sunday, February 12, 2017 02:48 - CONCLUSION: No acute cardiopulmonary disease. Ángela Conner MD Head CT 02/10/17 09 Signed Impressions: Service Date/Time: Friday, February 10, 2017 09:23 - CONCLUSION: Interval improvement with less parenchymal hemorrhage, intraventricular blood. Ventricles are mildly prominent when compared to the previous study. Patricio Hardy MD FACR Laboratory Tests Test 02/10/17 05:05 02/11/17 17:59 02/12/17 04:45 White Blood Count 19.9 TH/MM3 23.5 TH/MM3 23.3 TH/MM3 Red Blood Count 3.36 MIL/MM3 3.37 MIL/MM3 3.24 MIL/MM3 Hemoglobin 10.2 GM/DL 10.4 GM/DL 9.9 GM/DL Hematocrit 31.4 % 31.7 % 30.6 % Mean Corpuscular Volume 93.4 FL 94.2 FL 94.5 FL Mean Corpuscular Hemoglobin 30.3 PG 30.9 PG 30.4 PG Mean Corpuscular Hemoglobin Concent 32.5 % 32.8 % 32.2 % Red Cell Distribution Width 14.3 % 14.1 % 14.2 % Platelet Count 356 TH/MM3 367 TH/MM3 296 TH/MM3 Mean Platelet Volume 9.6 FL 9.6 FL 9.4 FL Neutrophils (%) (Auto) 83.4 % 82.5 % Lymphocytes (%) (Auto) 8.1 % 9.8 % Monocytes (%) (Auto) 8.2 % 7.1 % Eosinophils (%) (Auto) 0.0 % 0.3 % Basophils (%) (Auto) 0.3 % 0.3 % Neutrophils # (Auto) 16.6 TH/MM3 19.2 TH/MM3 Lymphocytes # (Auto) 1.6 TH/MM3 2.3 TH/MM3 Monocytes # (Auto) 1.6 TH/MM3 1.7 TH/MM3 Eosinophils # (Auto) 0.0 TH/MM3 0.1 TH/MM3 Basophils # (Auto) 0.1 TH/MM3 0.1 TH/MM3 CBC Comment AUTO DIFF AUTO DIFF Differential Total Cells Counted 100 100 Neutrophils % (Manual) 87 % 87 % Lymphocytes % 8 % 5 % Monocytes % 2 % 5 % Neutrophils # (Manual) 17.9 TH/MM3 21.0 TH/MM3 Metamyelocytes 3 % 1 % Differential Comment FINAL DIFF MANUAL FINAL DIFF MANUAL Platelet Estimate NORMAL NORMAL Platelet Morphology Comment NORMAL NORMAL Blood Urea Nitrogen 76 MG/DL 62 MG/DL 59 MG/DL Creatinine 0.90 MG/DL 0.91 MG/DL 0.71 MG/DL Random Glucose 178 MG/DL 163 MG/DL 157 MG/DL Total Protein 6.5 GM/DL Albumin 2.4 GM/DL Calcium Level 8.2 MG/DL 8.1 MG/DL 8.0 MG/DL Phosphorus Level 4.0 MG/DL 2.9 MG/DL Magnesium Level 3.1 MG/DL 2.7 MG/DL Alkaline Phosphatase 114 U/L Aspartate Amino Transf (AST/SGOT) 84 U/L Alanine Aminotransferase (ALT/SGPT) 236 U/L Total Bilirubin 0.3 MG/DL Sodium Level 150 MEQ/L 153 MEQ/L 152 MEQ/L Potassium Level 4.1 MEQ/L 4.6 MEQ/L 3.9 MEQ/L Chloride Level 112 MEQ/L 117 MEQ/L 117 MEQ/L Carbon Dioxide Level 33.5 MEQ/L 31.5 MEQ/L 29.9 MEQ/L Anion Gap 5 MEQ/L 5 MEQ/L 5 MEQ/L Estimat Glomerular Filtration Rate 61 ML/MIN 60 ML/MIN 80 ML/MIN Band Neutrophils % 1 % Myelocytes 1 % Ovalocytes 1+ Prothrombin Time 10.5 SEC Prothromb Time International Ratio 1.0 RATIO Activated Partial Thromboplast Time 18.4 SEC (Nikolai Soto) Medical Decision Making Impression and Plan Impression: 76 year old female with large intraventricular hemorrhage s/p placement of ventriculostomy drain 01/27/17, slowly challenging ventriculostomy drain, ICPs remains wnl s/p left parietooccipital craniotomy, evacuation of intracerebral hematoma 01/28 Lethargic, open eyes to noxious stimulation, LUE spontaneous movement & BLE to stimulation, none with RUE. Reviewed labs for today. Leukocytosis essentially unchanged. Mild drop in haemoglobin. Sodium 152. Plan: Critical care management per Organizational Research Consultant. Frequent neuro checks. Stat CT brain for any decline in neuro status. (Nikolai Soto) Attending Statement The exam, history, and the medical decision-making described in the above note were completed with the assistance of the mid-level provider. I reviewed and agree with the findings presented. I attest that I had a [id number] encounter with the patient on the same day, and personally performed and documented my assessment and findings in the medical record. Patient's external ventricular drain removed 02/10/17. No change in neurologic exam today following drain removal. Drain site dry and intact. Continuing therapy. (Arslan Garcia MD) Nikolai Soto Feb 12, 2017 12:47 Arslan Garcia MD Feb 14, 2017 19:48
[2017-02-12] MEDS: RESP: RACEPINEPHRINE 2.25% 0.5 ML NEB NEB PRN ×2 (14:40→19:32)
[2017-02-12] MEDS: RESP: ALBUTEROL 2.5 MG/3 ML NEB (PRN) INH (19:49)
[2017-02-13] VITALS (14 sets, daily range): BP systolic 99–140; BP diastolic 52–75; PULSE 98–118; RESP 18–24; TEMP 97.6–98.6; O2SAT 97–100
[2017-02-13] MEDS: RESP: ALBUTEROL 2.5 MG/3 ML NEB (PRN) INH (00:16)
[2017-02-13] MEDS: CHLORHEXIDINE GLUCONATE 2 % 1 PACK (2 CLOTHS) TOP SCH (03:15)
[2017-02-13] MEDS: RESP: ALBUTEROL 2.5 MG/IPRATROPIUM 0.5 MG NEB (SCH) NEB ×4 (04:28→19:51)
[2017-02-13] MEDS: LEVOTHYROXINE SODIUM 50 MCG TAB OG-TUBE SCH (05:11)
[2017-02-13] MEDS: ARTIFICIAL TEARS OPTH SOLN 15 ML BTL EACH EYE SCH ×3 (05:11→21:06)
[2017-02-13] MEDS: INSULIN ASPART SUPPLEMENTAL SCALE SQ SCH ×5 (05:27→23:48)
[2017-02-13] MEDS ORDERED: DEXAMETHASONE SOD PHOS 4 MG/ML VIAL IV PUSH SCH (09:00)
[2017-02-13] MEDS: DOCUSATE SODIUM 100 MG CAP PO SCH ×2 (09:00→21:06)
[2017-02-13] MEDS: PANTOPRAZOLE SODIUM 40 MG VIAL IVP SCH (09:03)
[2017-02-13] MEDS: SODIUM CHLORIDE 0.9% FLUSH 10 ML FLUSH IV FLUSH SCH ×2 (09:03→21:06)
[2017-02-13] MEDS: levETIRAcetam INJ 500 MG in SODIUM CHLORIDE 0.9% INJ 100 ML IV SCH ×2 (09:03→21:06)
[2017-02-13] MEDS: CHLORHEXIDINE 0.12% (ORAL KIT) 15 ML CUP MT SCH ×2 (09:03→20:14)
[2017-02-13] MEDS: INSULIN DETEMIR 100 UNITS/ML VIAL SQ SCH ×2 (09:04→21:06)
[2017-02-13] MEDS: RESP: RACEPINEPHRINE 2.25% 0.5 ML NEB NEB PRN (09:05)
--- NOTE | 2017-02-13 10:03 | HHI.NSPN ---
History Chief Complaint: Unable to obtain due to patient's clinical condition. Interval History Ms Tinajero is an 76 year old adult female who was brought to [facility] as a stroke alert with a severe intracerebral and intraventricular hemorrhage with mass effect and midline shift. She underwent placement of ventriculostomy drain on 01/27/17. She underwent a left parietooccipital craniotomy, evacuation of intracerebral hematoma on Jan 28, 2017. 01/29: intubated and sedated. EVD draining well bloody CSF. ICPs normal. f/u CT Head this morning with decreasing mass effect, less left to right midline shift which now measures 4.6 mm, with small amount hemorrhage remains evident in the ventricular system. 01/30: intubated and sedated. ventriculostomy draining well, ICPs within normal limits. 01/31: intubated, sedated. no eye opening. ventriculostomy draining well, ICPs remains wnl 02/03: EVD raised to 3 cm H20 over the weekend, ICPs stable. Intubated and off sedative drips, mildly opens eyes. 02/04: appears much more alert this morning, eyes wide open and tracking. EVD draining well. 02/05: tolerating CPAP, awake and tracking. CSF now simpson. EVD draining well. 02/06: When seen this morning the patient is asleep but awakens to voice. She does track with her eyes. She remains intubated and is on CPAP. 02/07: Pt with eyes open. Family at bedside, possibly starting to follow some simple commands for them on left side. Ventriculostomy drain in place at 5cmH20. ICP 4. Blood darker in color. 02/08: Pt with eyes open. Not following commands. Pupils 3mm bilaterally. Right sided neglect. Ventriculostomy drain at [id number] with ICP 1-2 range. Right hemiparesis. 02/09: Pt opens eyes to light tactile stimulation. Pupils 3mm bilaterally. Ventriculostomy drain at [id number], ICP 4. Right hemiparesis. Right sided neglect. 02/11: Pt opens eyes and keeps them open when stimulated. Pupils 3mm bilaterally reactive bilaterally. Right hemiparesis, some spontaneous movement left side. Ventriculostomy was removed last night by Dr. Garcia. 02/13: Pt opens eyes and keeps them open when stimulated. She is extubated. She reaches up for the oxygen mask with LUE. Nasal trumpet in place to help with prn suctioning. System Review Comments Not able to obtain given clinical condition. Exam Results Vital Signs Date Time Temp Pulse Resp B/P (MAP) Pulse Ox O2 Delivery O2 Flow Rate FiO2 02/13/17 09:09 100 Simple Mask 6.00 02/13/17 06:00 105 02/13/17 04:00 97.7 21 131/75 (93) 02/12/17 12:00 40 Intake and Output 02/13/17 02/13/17 02/14/17 08:00 16:00 00:00 Output Total 450 ml Balance -450 ml Physical Examination GENERAL: Extubated. Sitting up in bed with O2 mask in place appearing comfortable. HEENT: Normocephalic, posterior surgical incision & ventriculostomy insertion site well approximated, no evident drainage, erythema or streaking. PERRLA 3 mm reactive, tracks on left. RESP: Extubated. O2 mask in place at 8L of O2. O2 sats 100% HEART: Mild tachycardia, HR low 100s. No murmur. ABD: Soft positive bs. SKIN: No cyanosis or erythema. SCDs in place. MUSCULOSKELETAL: Spontaneous and purposeful movement of LUE reaching up to O2 mask. Not following commands for me but family reports she does for them. Right hemiparesis. NEUROLOGICAL: Opens eyes stimulation and will hold them open for a while when family at bedside. Did not follow any commands for me. Spontaneous and purposeful movement of LUE reaching for O2 mask. Lab, Micro, Other Results Last Impressions Chest X-Ray 02/12/17 0600 Signed Impressions: Service Date/Time: Sunday, February 12, 2017 02:48 - CONCLUSION: No acute cardiopulmonary disease. Ángela Conner MD Head CT 02/10/17 09 Signed Impressions: Service Date/Time: Friday, February 10, 2017 09:23 - CONCLUSION: Interval improvement with less parenchymal hemorrhage, intraventricular blood. Ventricles are mildly prominent when compared to the previous study. Patricio Hardy MD FACR Neck CTA 01/28/17 1009 Signed Impressions: Service Date/Time: Saturday, January 28, 2017 10:27 - CONCLUSION: 1. No hemodynamically significant carotid artery stenosis identified. 2. Mild atherosclerotic plaquing at the bifurcation. 3. Both vertebral arteries are widely patent. Jac Hardy MD Head CTA 01/28/17 0000 Signed Impressions: Service Date/Time: Saturday, January 28, 2017 10:27 - CONCLUSION: 1. No evidence of vascular malformation or vasculopathy. 2. Subdural, intraparenchymal and intraventricular hemorrhage are again noted and not significantly changed since prior study. 3. Persistent left to right shift measuring between 8 and 9 mm; unchanged. Nick Barker MD Medical Decision Making Impression and Plan A: 76 year old female with large intraventricular hemorrhage s/p placement of ventriculostomy drain 01/27/17, s/p removal. s/p left parietooccipital craniotomy, evacuation of intracerebral hematoma 01/28 Plan: Continue with critical care. Frequent neuro checks. Pt may require Trach and PEG, okay with Neurosurgery if deemed appropriate by critical care. Currently maintaining airway extubated with O2 mask in place. Discussed plan with RN. Updated family daily at bedside. Isai Nielsen Feb 13, 2017 10:03 am
--- NOTE | 2017-02-13 13:46 | HHI.CCPN ---
Subjective Remarks/Hospital Course 01/27: Patient is a 76-year-old female who was brought to the [facility] emergency department by EMS as a stroke alert. Last found normal at 11 this morning, later found unresponsive in the bed by her and EMS was called. EMS gave her Narcan IM without any response, blood glucose was 140, vital signs were apparently stable. In the ED patient remained poorly responsive and was intubated for airway protection. Her blood pressure on arrival was 243/129 and patient was started on Cardene infusion. CT of the head showed extensive acute intraventricular hemorrhage involving the left lateral ventricle, right lateral ventricle and third ventricle, acute intraparenchymal hemorrhage within the left parietal and left occipital region ( 4.1 cm in size). Acute subdural hematoma along the left frontoparietal region measuring 5 mm in width. There was also significant Significant (10 mm) subfalcine herniation to the right. Dr. Bowden was contacted by the ED Per Dr. Rivera on 01/27: Critical care medicine was requested to admit the patient. Patient was emergently moved to the ICU for EVD placement. I evaluated the patient immediately after arrival to the ICU. Patient purposefully moves left upper extremity and withdraws all other extremities. at the bedside was updated. I explained to the that she has very extensive intracranial hemorrhage and prognosis appears poor. Dr. Bowden is planning to place an EVD emergently. I discussed with Dr. Bowden extensively , patient is not a candidate for evacuation of intracerebral hemorrhage due to overall poor prognosis. I have placed a central line for administration of vasopressor agents and 3% saline. Patient remains on Cardene infusion and at this time receiving mannitol. I have also ordered Keppra for seizure prophylaxis 01/28: Remains sedated, orally intubated on mechanical ventilation. Being taken to OR for craniotomy per Dr. Bowden. 01/29: Remains sedated, orally intubated on mechanical ventilation. Underwent craniotomy with evacuation of hematoma by Dr. Bowden on 01/28. Ventriculostomy remains in place. Drained 120 cc bloody CSF over the last 12 hours. ICP 2. 01/30: ICP well controlled. Requiring mechanical ventilation. 01/31: Remains sedated, orally intubated on mechanical ventilation. Ventriculostomy in place. ICP within normal limits. Leukocytosis persists. UA appeared abnormal however cultures with no growth. Starting empiric Levaquin. Checking pro-calcitonin. Started free water for worsening hypernatremia 02/01 Afebrile. WBC 16.9 which is downtrending. Nurse states she has diarrhea. Procalcitonin is not elevated. Ventric at 0 cm water, repeat CT scheduled for tomorrow morning per neurosurgery. 02/02: Osmolality suitably concentrated but brain edema persists, shift slightly larger. Hypertonic saline continued at half rate to avoid overly rapid drop. 02/03: No improvement in neuro exam over past 24 hours. Osmolality acceptable. 02/04: Tolerating CPAP trials today with good respiratory effort. Long discussion with and daughter about plans to extubate, high likelihood of reintubation. 02/05: Will attempt to extubate today during a period when she is alert; sleeping now. Extubated and respiratory drive good. Good cough effort. She had immediate stridor however and it was not helped by suctioning nor 4 racemic epi treatments. I will re-intubate with a smaller tube and add steroids for 48-72 hours. 02/06: No change in neurological function. When extubated she did not follow commands nor seem to respond to voices of family. Her airway was stridor ridden and did not clear with multiple racemic epi rxs. Steroids started 02/05, continue for 2-3 days then retry. Suspect she'll need trach but family not ready. 02/07. Tolerating CPAP 11/21. No cuff leak despite steroids. Will try diuresing. Follows commands LUE. 02/08: Tolerated PSV trials 20 hours yesterday. No cuff leak. Tongue remains is edematous. Opens eyes and follows commands with left upper extremity only. Wiggles left lower extremity. 02/09: Currently resting in bed. Remains on PSV trial. Her tongue remains swollen. No new neurological changes. 02/10: Respiratory rates between 6 and 8 this morning. Placed back on ACV with a rate of 10. Tongue remains swollen. No new neurological changes. Subjective: 02/11: Status post removal of ventriculostomy 02/10. more comfortable with trach. Waiting for Dr. Gómez to return to make definitive decision. Removing magalys today. Hosea enteral diet. 02/12: I'll discuss tracheostomy vs extubation with family again today. No change in neurological status. CT head with no shift, resolving edema. 02/13: Extubated 24 hours ago. Sats acceptable and continues to breathe comfortably. Will assess functional status and place in rehab / SNF. Objective Vital Signs Date Time Temp Pulse Resp B/P (MAP) Pulse Ox O2 Delivery O2 Flow Rate FiO2 02/13/17 09:09 100 Simple Mask 6.00 02/13/17 06:00 105 02/13/17 04:00 97.7 21 131/75 (93) 02/12/17 12:00 40 Intake and Output 02/13/17 02/13/17 02/14/17 08:00 16:00 00:00 Output Total 450 ml Balance -450 ml Result Diagram: 02/12/17 0445 02/12/17 0445 Imaging Last Impressions Head CT 02/10/17 0900 Signed Impressions: Service Date/Time: Friday, February 10, 2017 09:23 - CONCLUSION: Interval improvement with less parenchymal hemorrhage, intraventricular blood. Ventricles are mildly prominent when compared to the previous study. Patricio Hardy MD FACR Chest X-Ray 02/08/17 0600 Signed Impressions: Service Date/Time: Wednesday, February 08, 2017 04:22 - CONCLUSION: Improved chest appearance Miguel Hua MD Neck CTA 01/28/17 1009 Signed Impressions: Service Date/Time: Saturday, January 28, 2017 10:27 - CONCLUSION: 1. No hemodynamically significant carotid artery stenosis identified. 2. Mild atherosclerotic plaquing at the bifurcation. 3. Both vertebral arteries are widely patent. Jac Hardy MD Head CTA 01/28/17 0000 Signed Impressions: Service Date/Time: Saturday, January 28, 2017 10:27 - CONCLUSION: 1. No evidence of vascular malformation or vasculopathy. 2. Subdural, intraparenchymal and intraventricular hemorrhage are again noted and not significantly changed since prior study. 3. Persistent left to right shift measuring between 8 and 9 mm; unchanged. Nick Barker MD Objective Remarks GENERAL: 76-year-old female currently orally intubated on mechanical ventilation. SKIN: Warm/dry. Well-perfused HEAD: Ventriculostomy removed. EYES: Pupils equal and round, 2 mm sluggish reaction to light. ENT: No nasal bleeding or discharge. Mucous membranes moist. NECK: Trachea midline. Airway widely patent but some oral secretions. CARDIOVASCULAR: Regular rate and rhythm. NL S1S2. No S4. RESPIRATORY: Breath sounds equal bilaterally. Clear, good respiratory drive. Thin respiratory secretions with suctioning. GASTROINTESTINAL: Abdomen soft, non-tender, nondistended. BS active. MUSCULOSKELETAL: No obvious deformities. No edema. Well perfused. NEUROLOGICAL: L ventriculostomy d/c'd. fluid has been clear. Eyes open, left gaze, does not track. RUE is flaccid. RLE with very weak withdrawal. LUE grasps hands to command. LLE withdraws to noxious stimuli and moved to command. Babinski upgoing on the left, neutral response right. A/P Assessment and Plan Neuro: Extensive intraventricular hemorrhage, left parietal/occipital intraparenchymal hemorrhage, left subdural hemorrhage Acute encephalopathy - Emergency EVD placement by Dr. Bowden.. Removed 02/10 Levetiracetam 500 mg IV q12 hours for seizure prophylaxis Neurochecks - s/p craniotomy with evacuation of hematoma 01/[address] Bowden. - EVD management per neurosurgery. Likely challenge today Currently on hydrocodone/acetaminophen 55/325 and 10/325 one tablet every fours. Pain - Currently and morphine sulfate 2-4 mg every 2 hours. Pain Resp: Acute respiratory failure - Intubated for airway protection, continue ACV. Extubated 02/05 and had stridor so reintubated and placed on decadron. Still no cuff leak, diuresing with furosemide 40 mg twice a day if does not develop cuff leak will likely need to transition to trach/PEG which i discussed with daughter. They appear to be waiting for Dr. Gómez to return on the for definitive decision. - wean fio2 for goal spo2 > 90% - HOB elevated As needed albuterol therapy every 4 hours. Dyspnea Dexamethasone 6mg IV wean to every day CV: Hypertensive emergency Cardizem drip has been discontinued As needed labetalol/hydralazine - 2D Echo - EF 65-70%. Renal: - Fuller in place - strict i/os Furosemide 40 mg IV q12 x2. KCL 25 MEQ po q8. Has been completed FEN/GI: Hypernatremia -Continue tube feeds with Glucerna1.5 goal to 50 mL per hour per nutrition recommendations. Pantoprazole 40 mg IV daily for GI prophylaxis Docusate sodium 100 mg twice a day for bowel regimen Place Dobhoff tube for feeding. ID/HEME: Normocytic anemia Leukocytosis - Does not meet transfusion triggers at this time - Leukocytosis persists: Possibly reactive secondary ICH/surgery. - Pancultures done on 01/29 with no growth. Empiric levofloxacin was started and discontinued 02/07 - C diff previously ordered but then diarrhea resolved. 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 Continue levothyroxine 50 mcg daily. Prophylaxis: SCDs Pantoprazole No pharmacologic DVT prophylaxis given ICH per discussion with Dr. Rivas. Initiate when ok with NSG. 01/29: I had a long discussion with patient's daughter at bedside regarding current clinical status and plan of care and she voiced understanding and was agreeable. I also discussed strong possibility of need for tracheostomy and PEG tube and possible intermediate placement and she voiced understanding. Goals of care remain aggressive at this time. 02/05: Numerous long conversations with innumerable family members. All are aware that she may not tolerate extubation and may well require tracheostomy. They are expecting a miracle and are very emotional about it. 02/07 - Slight neuro improvement but still poor prognosis for functional recovery. Discussed with family still likely to require trach/PEG but they are hoping she does not. 02/08 - family is adamant to Dr. Gómez Decision requiring extubation versus trach. He will return 02/12. Overall impression: At this point she is a long-term neuro rehab patient who will require rehab / SNF support for 3-4 weeks minimum. Tristin Gómez MD Feb 13, 2017 13:46
--- NOTE | 2017-02-13 16:37 | RADRPT ---
EXAM DATE/TIME: 02/13/2017 16:11 [facility] COMPARISON: No previous studies available for comparison. INDICATIONS : Dobhoff placement. MEDICAL HISTORY : None. SURGICAL HISTORY : Hysterectomy. Craniotomy. ENCOUNTER: Initial ACUITY: 1 day PAIN SCORE: Non-responsive. LOCATION: abdomen FINDINGS: Examination of the abdomen demonstrates a normal bowel gas pattern. There is a feeding tube in the st omach. The tip is at the level of the pylorus/duodenal bulb.. CONCLUSION: Feeding tube in the distal stomach. Dino Tee MD on February 13, 2017 at 16:34 Board Certified Radiologist. This report was verified electronically.
[2017-02-14] VITALS (14 sets, daily range): BP systolic 110–137; BP diastolic 53–65; PULSE 94–115; RESP 17–23; TEMP 98.1–98.9; O2SAT 96–100
[2017-02-14] MEDS: RESP: ALBUTEROL 2.5 MG/IPRATROPIUM 0.5 MG NEB (SCH) NEB ×2 (03:13→09:34)
[2017-02-14] MEDS: CHLORHEXIDINE GLUCONATE 2 % 1 PACK (2 CLOTHS) TOP SCH (03:34)
[2017-02-14] MEDS: INSULIN ASPART SUPPLEMENTAL SCALE SQ SCH ×3 (05:28→18:00)
[2017-02-14] MEDS: ARTIFICIAL TEARS OPTH SOLN 15 ML BTL EACH EYE SCH ×3 (06:14→21:09)
[2017-02-14] MEDS: LEVOTHYROXINE SODIUM 50 MCG TAB OG-TUBE SCH (06:14)
[2017-02-14] MEDS: CHLORHEXIDINE 0.12% (ORAL KIT) 15 ML CUP MT SCH (08:00)
[2017-02-14] MEDS: DOCUSATE SODIUM 100 MG CAP PO SCH ×2 (09:00→21:00)
--- NOTE | 2017-02-14 09:21 | HHI.CCPN ---
Subjective Remarks/Hospital Course 01/27: Patient is a 76-year-old female who was brought to the [place] emergency department by EMS as a stroke alert. Last found normal at 11 this morning, later found unresponsive in the bed by her and EMS was called. EMS gave her Narcan IM without any response, blood glucose was 140, vital signs were apparently stable. In the ED patient remained poorly responsive and was intubated for airway protection. Her blood pressure on arrival was 243/129 and patient was started on Cardene infusion. CT of the head showed extensive acute intraventricular hemorrhage involving the left lateral ventricle, right lateral ventricle and third ventricle, acute intraparenchymal hemorrhage within the left parietal and left occipital region ( 4.1 cm in size). Acute subdural hematoma along the left frontoparietal region measuring 5 mm in width. There was also significant Significant (10 mm) subfalcine herniation to the right. Dr. Bowden was contacted by the ED Per Dr. Rivera on 01/27: Critical care medicine was requested to admit the patient. Patient was emergently moved to the ICU for EVD placement. I evaluated the patient immediately after arrival to the ICU. Patient purposefully moves left upper extremity and withdraws all other extremities. at the bedside was updated. I explained to the that she has very extensive intracranial hemorrhage and prognosis appears poor. Dr. Bowden is planning to place an EVD emergently. I discussed with Dr. Bowden extensively , patient is not a candidate for evacuation of intracerebral hemorrhage due to overall poor prognosis. I have placed a central line for administration of vasopressor agents and 3% saline. Patient remains on Cardene infusion and at this time receiving mannitol. I have also ordered Keppra for seizure prophylaxis 01/28: Remains sedated, orally intubated on mechanical ventilation. Being taken to OR for craniotomy per Dr. Bowden. 01/29: Remains sedated, orally intubated on mechanical ventilation. Underwent craniotomy with evacuation of hematoma by Dr. Bowden on 01/28. Ventriculostomy remains in place. Drained 120 cc bloody CSF over the last 12 hours. ICP 2. 01/30: ICP well controlled. Requiring mechanical ventilation. 01/31: Remains sedated, orally intubated on mechanical ventilation. Ventriculostomy in place. ICP within normal limits. Leukocytosis persists. UA appeared abnormal however cultures with no growth. Starting empiric Levaquin. Checking pro-calcitonin. Started free water for worsening hypernatremia 02/01 Afebrile. WBC 16.9 which is downtrending. Nurse states she has diarrhea. Procalcitonin is not elevated. Ventric at 0 cm water, repeat CT scheduled for tomorrow morning per neurosurgery. 02/02: Osmolality suitably concentrated but brain edema persists, shift slightly larger. Hypertonic saline continued at half rate to avoid overly rapid drop. 02/03: No improvement in neuro exam over past 24 hours. Osmolality acceptable. 02/04: Tolerating CPAP trials today with good respiratory effort. Long discussion with and daughter about plans to extubate, high likelihood of reintubation. 02/05: Will attempt to extubate today during a period when she is alert; sleeping now. Extubated and respiratory drive good. Good cough effort. She had immediate stridor however and it was not helped by suctioning nor 4 racemic epi treatments. I will re-intubate with a smaller tube and add steroids for 48-72 hours. 02/06: No change in neurological function. When extubated she did not follow commands nor seem to respond to voices of family. Her airway was stridor ridden and did not clear with multiple racemic epi rxs. Steroids started 02/05, continue for 2-3 days then retry. Suspect she'll need trach but family not ready. 02/07. Tolerating CPAP 11/21. No cuff leak despite steroids. Will try diuresing. Follows commands LUE. 02/08: Tolerated PSV trials 20 hours yesterday. No cuff leak. Tongue remains is edematous. Opens eyes and follows commands with left upper extremity only. Wiggles left lower extremity. 02/09: Currently resting in bed. Remains on PSV trial. Her tongue remains swollen. No new neurological changes. 02/10: Respiratory rates between 6 and 8 this morning. Placed back on ACV with a rate of 10. Tongue remains swollen. No new neurological changes. Subjective: 02/11: Status post removal of ventriculostomy 02/10. more comfortable with trach. Waiting for Dr. Gómez to return to make definitive decision. Removing magalys today. Hosea enteral diet. 02/12: I'll discuss tracheostomy vs extubation with family again today. No change in neurological status. CT head with no shift, resolving edema. 02/13: Extubated 24 hours ago. Sats acceptable and continues to breathe comfortably. Will assess functional status and place in rehab / SNF. 02/14: Tolerating extubation for 2 days now. TFs restarted. Objective Vital Signs Date Time Temp Pulse Resp B/P (MAP) Pulse Ox O2 Delivery O2 Flow Rate FiO2 02/14/17 06:00 97 02/14/17 04:00 19 137/63 (87) 98 02/14/17 00:00 98.4 02/13/17 19:51 Nasal Cannula 4.00 02/12/17 12:00 40 Intake and Output 02/14/17 02/14/17 02/15/17 08:00 16:00 00:00 Intake Total 105 ml Output Total 400 ml Balance -295 ml Result Diagram: 02/12/175 02/12/17 0445 Imaging Last Impressions Head CT 02/10/17 0900 Signed Impressions: Service Date/Time: Friday, February 10, 2017 09:23 - CONCLUSION: Interval improvement with less parenchymal hemorrhage, intraventricular blood. Ventricles are mildly prominent when compared to the previous study. Patricio Hardy MD FACR Chest X-Ray 02/08/17 0600 Signed Impressions: Service Date/Time: Wednesday, February 08, 2017 04:22 - CONCLUSION: Improved chest appearance Miguel Hua MD Neck CTA 01/28/17 1009 Signed Impressions: Service Date/Time: Saturday, January 28, 2017 10:27 - CONCLUSION: 1. No hemodynamically significant carotid artery stenosis identified. 2. Mild atherosclerotic plaquing at the bifurcation. 3. Both vertebral arteries are widely patent. Jac Hardy MD Head CTA 01/28/17 0000 Signed Impressions: Service Date/Time: Saturday, January 28, 2017 10:27 - CONCLUSION: 1. No evidence of vascular malformation or vasculopathy. 2. Subdural, intraparenchymal and intraventricular hemorrhage are again noted and not significantly changed since prior study. 3. Persistent left to right shift measuring between 8 and 9 mm; unchanged. Nick Barker MD Objective Remarks GENERAL: 76-year-old female. SKIN: Warm/dry. Well-perfused HEAD: Ventriculostomy removed. EYES: Pupils equal and round, 3 mm sluggish reaction to light. ENT: No nasal bleeding or discharge. Mucous membranes moist. NECK: Trachea midline. Airway widely patent, clear of secretions. CARDIOVASCULAR: Regular rate and rhythm. NL S1S2. No JVD. RESPIRATORY: Breath sounds equal bilaterally. Clear, good respiratory drive. GASTROINTESTINAL: Abdomen soft, non-tender, nondistended. BS active. MUSCULOSKELETAL: No obvious deformities. No edema. Well perfused. NEUROLOGICAL: L ventriculostomy d/c'd. fluid has been clear. Eyes open, left gaze, does not track. RUE is flaccid. RLE with very weak withdrawal. LUE grasps hands to command. LLE withdraws to noxious stimuli and moved to command. Babinski upgoing on the left, neutral response right. A/P Assessment and Plan Neuro: Extensive intraventricular hemorrhage, left parietal/occipital intraparenchymal hemorrhage, left subdural hemorrhage Acute encephalopathy - Emergency EVD placement by Dr. Bowden.. Removed 02/10 Levetiracetam 500 mg IV q12 hours for seizure prophylaxis Neurochecks - s/p craniotomy with evacuation of hematoma 01/[address] Bowden. - EVD management per neurosurgery. Likely challenge today Currently on hydrocodone/acetaminophen 55/325 and 10/325 one tablet every fours. Pain - Currently and morphine sulfate 2-4 mg every 2 hours. Pain Resp: Acute respiratory failure - Intubated for airway protection, continue ACV. Extubated 02/05 and had stridor so reintubated and placed on decadron. Still no cuff leak, diuresing with furosemide 40 mg twice a day if does not develop cuff leak will likely need to transition to trach/PEG which i discussed with daughter. They appear to be waiting for Dr. Gómez to return on the for definitive decision. - wean fio2 for goal spo2 > 90% - HOB elevated As needed albuterol therapy every 4 hours. Dyspnea Dexamethasone 6mg IV wean to every day Extubated 02/12. CV: Hypertensive emergency Cardizem drip has been discontinued As needed labetalol/hydralazine - 2D Echo - EF 65-70%. Renal: - Fuller in place - strict i/os FEN/GI: Hypernatremia -Continue tube feeds with Glucerna1.5 goal to 50 mL per hour per nutrition recommendations. Pantoprazole 40 mg IV daily for GI prophylaxis Docusate sodium 100 mg twice a day for bowel regimen Place Dobhoff tube for feeding -> good position. ID/HEME: Normocytic anemia Leukocytosis - Does not meet transfusion triggers at this time - Leukocytosis persists: Possibly reactive secondary ICH/surgery. - Pancultures done on 01/29 with no growth. Empiric levofloxacin was started and discontinued 02/07 - C diff previously ordered but then diarrhea resolved. 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 Continue levothyroxine 50 mcg daily. Prophylaxis: SCDs Pantoprazole No pharmacologic DVT prophylaxis given ICH per discussion with Dr. Rivas. Initiate when ok with NSG. 01/29: I had a long discussion with patient's daughter at bedside regarding current clinical status and plan of care and she voiced understanding and was agreeable. I also discussed strong possibility of need for tracheostomy and PEG tube and possible halfway placement and she voiced understanding. Goals of care remain aggressive at this time. 02/05: Numerous long conversations with innumerable family members. All are aware that she may not tolerate extubation and may well require tracheostomy. They are expecting a miracle and are very emotional about it. 02/07 - Slight neuro improvement but still poor prognosis for functional recovery. Discussed with family still likely to require trach/PEG but they are hoping she does not. 02/08 - family is adamant to Dr. Gómez Decision requiring extubation versus trach. He will return 02/12. 02/12 - Lengthy talk with family members about care goals. They want continued aggressive treatment. Overall impression: At this point she is a long-term neuro rehab patient who will require rehab / SNF support for 3-4 weeks minimum. Tristin Gómez MD Feb 14, 2017 09:21
[2017-02-14] MEDS: levETIRAcetam INJ 500 MG in SODIUM CHLORIDE 0.9% INJ 100 ML IV SCH (09:36)
[2017-02-14] MEDS: PANTOPRAZOLE SODIUM 40 MG VIAL IVP SCH (09:36)
[2017-02-14] MEDS: SODIUM CHLORIDE 0.9% FLUSH 10 ML FLUSH IV FLUSH SCH ×2 (09:36→21:08)
[2017-02-14] MEDS: INSULIN DETEMIR 100 UNITS/ML VIAL SQ SCH ×2 (09:37→21:00)
--- NOTE | 2017-02-14 11:09 | PD.WCN.NOT ---
Wound Consult Description: Consult for WOUND MANAGEMENT of coccyx/buttocks per KEITH/Rico telephone order. Communicated with: YURIY Gracia Recommendation: Calazime BID and PRN for denuded perianal area. Additional Information: Attempted to see patient on [address] for coccyx/buttock wound. Patient is up to chair with 2 family members at bedside. Per YURIY Gracia patient has excoriation noted to the perianal area due to stooling/cleansing. Calazime is being applied per YURIY Gracia. 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 If wound worsens and/or changes from current multiple small excoriations please contact wound care team for further evaluation. Kait Camarena [facility] Feb 14, 2017 11:09
--- NOTE | 2017-02-14 16:47 | HHI.NSPN ---
(Nikolai Soto) History Chief Complaint: Unable to obtain due to patient's clinical condition. (Nikolai Soto) Interval History Ms Tinajero is an 76 year old adult female who was brought to [facility] as a stroke alert with a severe intracerebral and intraventricular hemorrhage with mass effect and midline shift. She underwent placement of ventriculostomy drain on 01/27/17. She underwent a left parietooccipital craniotomy, evacuation of intracerebral hematoma on Jan 28, 2017. 01/29: intubated and sedated. EVD draining well bloody CSF. ICPs normal. f/u CT Head this morning with decreasing mass effect, less left to right midline shift which now measures 4.6 mm, with small amount hemorrhage remains evident in the ventricular system. 01/30: intubated and sedated. ventriculostomy draining well, ICPs within normal limits. 01/31: intubated, sedated. no eye opening. ventriculostomy draining well, ICPs remains wnl 02/03: EVD raised to 3 cm H20 over the weekend, ICPs stable. Intubated and off sedative drips, mildly opens eyes. 02/04: appears much more alert this morning, eyes wide open and tracking. EVD draining well. 02/05: tolerating CPAP, awake and tracking. CSF now simpson. EVD draining well. 02/06: When seen this morning the patient is asleep but awakens to voice. She does track with her eyes. She remains intubated and is on CPAP. 02/07: Pt with eyes open. Family at bedside, possibly starting to follow some simple commands for them on left side. Ventriculostomy drain in place at 5cmH20. ICP 4. Blood darker in color. 02/08: Pt with eyes open. Not following commands. Pupils 3mm bilaterally. Right sided neglect. Ventriculostomy drain at [id number] with ICP 1-2 range. Right hemiparesis. 02/09: Pt opens eyes to light tactile stimulation. Pupils 3mm bilaterally. Ventriculostomy drain at [id number], ICP 4. Right hemiparesis. Right sided neglect. 02/11: Pt opens eyes and keeps them open when stimulated. Pupils 3mm bilaterally reactive bilaterally. Right hemiparesis, some spontaneous movement left side. Ventriculostomy was removed last night by Dr. Garcia. 02/12: The patient when seen this afternoon is lethargic. She is noted to spontaneously move the distal left upper extremity. Her says she will grasp his hand. She still is intubated and is on CPAP. She opened her eyes to local noxious stimulation and moved the lower extremities minimally as well. Nursing reports questionable purposeful movement of the left upper extremity. 02/13: Pt opens eyes and keeps them open when stimulated. She is extubated. She reaches up for the oxygen mask with LUE. Nasal trumpet in place to help with prn suctioning. 02/14: The patient was asleep when seen this afternoon. She did awake to voice and open her eyes. She did not appear to track. She did not follow any commands. She did move the left-side extremities to noxious stimulation. Maintaining oxygen saturation on nasal cannula. (Nikolai Soto) System Review Comments Unable to obtain due to patient's clinical condition. (Nikolai Soto) Exam Results 02/12/17 02/12/17 02/13/17 02/13/17 02/14/17 02/14/17 06:00 18:00 06:00 18:00 06:00 18:00 Intake Total 783 ml 400 ml 105 ml 210 ml Output Total 650 ml 1050 ml 1000 ml Balance 133 ml -650 ml 105 ml -790 ml IV Total 105 ml 105 ml 105 ml Tube Feeding 558 ml 45 ml Autotransfusion 400 ml Tube Irrigant 60 ml Other 120 ml Output Urine Total 650 ml 1050 ml 1000 ml # Bowel Movements 2 4 1 Vital Signs Date Time Temp Pulse Resp B/P (MAP) Pulse Ox O2 Delivery O2 Flow Rate FiO2 02/14/17 10:00 107 02/14/17 09:40 96 Nasal Cannula 4.00 02/14/17 08:00 98.1 108 18 115/57 (76) 97 02/14/17 08:00 109 02/14/17 07:00 97 Simple Mask 4.00 02/14/17 06:00 97 02/14/17 04:00 97 02/14/17 04:00 97 19 137/63 (87) 98 02/14/17 02:00 94 02/14/17 00:00 100 02/14/17 00:00 98.4 100 17 127/58 (81) 100 02/13/17 22:00 105 02/13/17 20:00 97.6 108 18 131/73 (92) 100 02/13/17 20:00 108 02/13/17 19:51 97 Nasal Cannula 4.00 02/13/17 19:00 100 Nasal Cannula 4.00 02/13/17 18:00 103 02/13/17 16:00 98.5 107 22 137/66 (89) 99 02/13/17 16:00 107 02/13/17 14:00 104 02/13/17 12:00 98.4 108 19 99/52 (68) 99 02/13/17 12:00 108 02/13/17 10:00 98 02/13/17 09:09 100 Simple Mask 6.00 02/13/17 08:00 108 02/13/17 08:00 99 Nasal Cannula 4.00 02/13/17 08:00 98.6 108 24 140/74 (96) 100 02/13/17 07:00 97 Simple Mask 6.00 02/13/17 06:00 105 02/13/17 04:00 97.7 109 21 131/75 (93) 100 02/13/17 04:00 109 02/13/17 02:00 104 02/13/17 00:00 118 02/13/17 00:00 98.4 118 23 120/65 (83) 100 02/12/17 22:00 108 02/12/17 20:00 112 02/12/17 20:00 98.5 112 24 150/67 (94) 99 02/12/17 19:51 97 Simple Mask 8.00 02/12/17 19:00 97 Simple Mask 6.00 02/12/17 18:00 98 02/12/17 17:10 95 Simple Mask 15.00 02/12/17 16:00 98.9 113 10 118/57 (77) 96 02/12/17 16:00 113 02/12/17 15:05 96 Nasal Cannula 3 02/12/17 14:40 97 Nasal Cannula 3.00 02/12/17 14:00 106 02/12/17 12:00 100 02/12/17 12:00 40 02/12/17 12:00 97 40 02/12/17 12:00 98.9 100 10 110/64 (79) 98 02/12/17 10:00 103 02/12/17 08:00 99.0 100 12 93/52 (66) 99 02/12/17 08:00 100 02/12/17 08:00 40 02/12/17 07:44 100 40 02/12/17 07:43 Nasal Cannula 40 02/12/17 06:00 108 02/12/17 04:07 97 40 02/12/17 04:00 40 02/12/17 04:00 98.6 112 16 119/59 (79) 97 02/12/17 04:00 112 02/12/17 02:00 110 02/12/17 01:15 98 40 02/12/17 00:00 40 02/12/17 00:00 98.9 112 16 110/59 (76) 98 02/12/17 00:00 112 02/11/17 22:00 119 02/11/17 20:25 95 40 02/11/17 20:00 100.1 120 17 93/58 (70) 96 02/11/17 20:00 120 02/11/17 20:00 40 02/11/17 18:00 119 (Nikolai Soto) Physical Examination GENERAL: Asleep but awakens to voice. No apparent distress. HEENT: Normocephalic, posterior surgical incision & ventriculostomy insertion site well approximated, no evident drainage, erythema or streaking. PERRLA 3 mm reactive, no apparent tracking. MUSCULOSKELETAL: Spontaneous movement of LUE and moves left side extremities to noxious stimulation, no movement on right side. NEUROLOGICAL: Asleep, no sedation. Opens eyes to voice but no evident tracking. Nonverbal. Did not follow any commands. Spontaneous movement of LUE. Moves left side extremities to local noxious stimulation to any extremity. No movement of right side extremity. (Nikolai Soto) Lab, Micro, Other Results Recent Impressions Abdomen X-Ray 02/13/17 0000 Signed Impressions: Service Date/Time: January 16:11 - CONCLUSION: Feeding tube in the distal stomach. Dino Tee MD Chest X-Ray 02/12/17 0600 Signed Impressions: Service Date/Time: Sunday, February 12, 2017 02:48 - CONCLUSION: No acute cardiopulmonary disease. Ángela Conner MD Laboratory Tests Test 02/11/17 17:59 02/12/17 04:45 White Blood Count 23.5 TH/MM3 23.3 TH/MM3 Red Blood Count 3.37 MIL/MM3 3.24 MIL/MM3 Hemoglobin 10.4 GM/DL 9.9 GM/DL Hematocrit 31.7 % 30.6 % Mean Corpuscular Volume 94.2 FL 94.5 FL Mean Corpuscular Hemoglobin 30.9 PG 30.4 PG Mean Corpuscular Hemoglobin Concent 32.8 % 32.2 % Red Cell Distribution Width 14.1 % 14.2 % Platelet Count 367 TH/MM3 296 TH/MM3 Mean Platelet Volume 9.6 FL 9.4 FL Blood Urea Nitrogen 62 MG/DL 59 MG/DL Creatinine 0.91 MG/DL 0.71 MG/DL Random Glucose 163 MG/DL 157 MG/DL Calcium Level 8.1 MG/DL 8.0 MG/DL Sodium Level 153 MEQ/L 152 MEQ/L Potassium Level 4.6 MEQ/L 3.9 MEQ/L Chloride Level 117 MEQ/L 117 MEQ/L Carbon Dioxide Level 31.5 MEQ/L 29.9 MEQ/L Anion Gap 5 MEQ/L 5 MEQ/L Estimat Glomerular Filtration Rate 60 ML/MIN 80 ML/MIN Neutrophils (%) (Auto) 82.5 % Lymphocytes (%) (Auto) 9.8 % Monocytes (%) (Auto) 7.1 % Eosinophils (%) (Auto) 0.3 % Basophils (%) (Auto) 0.3 % Neutrophils # (Auto) 19.2 TH/MM3 Lymphocytes # (Auto) 2.3 TH/MM3 Monocytes # (Auto) 1.7 TH/MM3 Eosinophils # (Auto) 0.1 TH/MM3 Basophils # (Auto) 0.1 TH/MM3 CBC Comment AUTO DIFF Differential Total Cells Counted 100 Neutrophils % (Manual) 87 % Band Neutrophils % 1 % Lymphocytes % 5 % Monocytes % 5 % Neutrophils # (Manual) 21.0 TH/MM3 Metamyelocytes 1 % Myelocytes 1 % Differential Comment FINAL DIFF MANUAL Platelet Estimate NORMAL Platelet Morphology Comment NORMAL Ovalocytes 1+ Prothrombin Time 10.5 SEC Prothromb Time International Ratio 1.0 RATIO Activated Partial Thromboplast Time 18.4 SEC Phosphorus Level 2.9 MG/DL Magnesium Level 2.7 MG/DL (Nikolai Soto) Medical Decision Making Impression and Plan Impression: 76 year old female with large intraventricular hemorrhage s/p placement of ventriculostomy drain 01/27/17, slowly challenging ventriculostomy drain, ICPs remains wnl s/p left parietooccipital craniotomy, evacuation of intracerebral hematoma 01/28 Drowsy, open eyes to voice, LUE spontaneous movement & left side to stimulation , none on right. Plan: Critical care management per Lamp Stack Developer. Frequent neuro checks. Stat CT brain for any decline in neuro status. (Nikolai Soto) Attending Statement The exam, history, and the medical decision-making described in the above note were completed with the assistance of the mid-level provider. I reviewed and agree with the findings presented. I attest that I had a [id number] encounter with the patient on the same day, and personally performed and documented my assessment and findings in the medical record. EVD discontinued 02/10/17 Patient extubated 02/12/17 Remains awake. Not following commands Persistent hemiparesis Stable following drain removal (Arslan Garcia MD) Nikolai Soto Feb 14, 2017 16:46 Arslan Garcia MD Feb 14, 2017 19:56
[2017-02-14] MEDS: levETIRAcetam 500 MG/5 ML UDC NG SCH (21:08)
[2017-02-15] VITALS (14 sets, daily range): BP systolic 101–125; BP diastolic 55–64; PULSE 98–122; RESP 13–26; TEMP 98–99; O2SAT 96–100
[2017-02-15] MEDS: CHLORHEXIDINE GLUCONATE 2 % 1 PACK (2 CLOTHS) TOP SCH (00:02)
[2017-02-15 05:25] LABS: AUTOMATED NEUTROPHIL # 19.4 TH/MM3 (1.8-7.7); BASOPHIL # 0.1 TH/MM3 (0-0.2); BASOPHIL % 0.3 % (0.0-2.0); EOSINOPHIL # 0.3 TH/MM3 (0-0.4); EOSINOPHIL % 1.2 % (0.0-4.0); HEMATOCRIT 34.3 % (35.0-46.0); LYMPHOCYTE # 1.4 TH/MM3 (1.0-4.8); MEAN CELL VOLUME 96.5 FL (80.0-100.0); MEAN CORPUSCULAR HGB CONC 32.1 % (32.0-36.0); MEAN PLATELET VOLUME 9.9 FL (7.0-11.0); MONO % 6.6 % (0.0-8.0); MONOCYTE # 1.5 TH/MM3 (0-0.9); NEUT % 85.9 % (16.0-70.0); PLATELET COUNT 266 TH/MM3 (150-450); RED BLOOD COUNT 3.56 MIL/MM3 (4.00-5.30); RED CELL DISTRIBUTION WIDTH 14.4 % (11.6-17.2); WHITE BLOOD COUNT 22.7 TH/MM3 (4.0-11.0)
[2017-02-15 05:43] LABS: BICARBONATE 28.8 MEQ/L (21.0-32.0); CALCIUM 8.5 MG/DL (8.5-10.1); CREATININE 0.53 MG/DL (0.50-1.00)
[2017-02-15] MEDS: ARTIFICIAL TEARS OPTH SOLN 15 ML BTL EACH EYE SCH ×3 (06:00→21:23)
[2017-02-15] MEDS: INSULIN ASPART SUPPLEMENTAL SCALE SQ SCH ×4 (06:00→18:00)
[2017-02-15] MEDS: LEVOTHYROXINE SODIUM 50 MCG TAB OG-TUBE SCH (06:12)
[2017-02-15] MEDS: DOCUSATE SODIUM 100 MG CAP PO SCH ×2 (08:49→21:00)
[2017-02-15] MEDS: RESP: ALBUTEROL 2.5 MG/3 ML NEB (PRN) INH ×2 (08:56→15:16)
[2017-02-15] MEDS: SODIUM CHLORIDE 0.9% FLUSH 10 ML FLUSH IV FLUSH SCH ×2 (09:00→21:00)
[2017-02-15] MEDS: INSULIN DETEMIR 100 UNITS/ML VIAL SQ SCH ×2 (09:00→21:23)
[2017-02-15] MEDS: levETIRAcetam 500 MG/5 ML UDC NG SCH ×2 (09:26→21:23)
[2017-02-15] MEDS: PANTOPRAZOLE SODIUM 40 MG VIAL IVP SCH (09:26)
--- NOTE | 2017-02-15 12:52 | HHI.NSPN ---
History Chief Complaint: Unable to obtain due to patient's clinical condition. Interval History nterval History Ms Tinajero is an 76 year old adult female who was brought to [facility] as a stroke alert with a severe intracerebral and intraventricular hemorrhage with mass effect and midline shift. She underwent placement of ventriculostomy drain on 01/27/17. She underwent a left parietooccipital craniotomy, evacuation of intracerebral hematoma on Jan 28, 2017. 01/29: intubated and sedated. EVD draining well bloody CSF. ICPs normal. f/u CT Head this morning with decreasing mass effect, less left to right midline shift which now measures 4.6 mm, with small amount hemorrhage remains evident in the ventricular system. 01/30: intubated and sedated. ventriculostomy draining well, ICPs within normal limits. 01/31: intubated, sedated. no eye opening. ventriculostomy draining well, ICPs remains wnl 02/03: EVD raised to 3 cm H20 over the weekend, ICPs stable. Intubated and off sedative drips, mildly opens eyes. 02/04: appears much more alert this morning, eyes wide open and tracking. EVD draining well. 02/05: tolerating CPAP, awake and tracking. CSF now simpson. EVD draining well. 02/06: When seen this morning the patient is asleep but awakens to voice. She does track with her eyes. She remains intubated and is on CPAP. 02/07: Pt with eyes open. Family at bedside, possibly starting to follow some simple commands for them on left side. Ventriculostomy drain in place at 5cmH20. ICP 4. Blood darker in color. 02/08: Pt with eyes open. Not following commands. Pupils 3mm bilaterally. Right sided neglect. Ventriculostomy drain at [id number] with ICP 1-2 range. Right hemiparesis. 02/09: Pt opens eyes to light tactile stimulation. Pupils 3mm bilaterally. Ventriculostomy drain at [id number], ICP 4. Right hemiparesis. Right sided neglect. 02/11: Pt opens eyes and keeps them open when stimulated. Pupils 3mm bilaterally reactive bilaterally. Right hemiparesis, some spontaneous movement left side. Ventriculostomy was removed last night by Dr. Garcia. 02/12: The patient when seen this afternoon is lethargic. She is noted to spontaneously move the distal left upper extremity. Her says she will grasp his hand. She still is intubated and is on CPAP. She opened her eyes to local noxious stimulation and moved the lower extremities minimally as well. Nursing reports questionable purposeful movement of the left upper extremity. 02/13: Pt opens eyes and keeps them open when stimulated. She is extubated. She reaches up for the oxygen mask with LUE. Nasal trumpet in place to help with prn suctioning. 02/14: The patient was asleep when seen this afternoon. She did awake to voice and open her eyes. She did not appear to track. She did not follow any commands. She did move the left-side extremities to noxious stimulation. Maintaining oxygen saturation on nasal cannula. 02/15: No overall change in neurologic function. Afebrile. Exam Results Vital Signs Date Time Temp Pulse Resp B/P (MAP) Pulse Ox O2 Delivery O2 Flow Rate FiO2 02/15/17 10:00 122 02/15/17 08:10 96 Nasal Cannula 4.00 02/15/17 08:00 98.2 25 124/57 (79) 02/12/17 12:00 40 Intake and Output 02/15/17 02/15/17 02/16/17 08:00 16:00 00:00 Intake Total 672 ml Output Total 425 ml Balance 247 ml Physical Examination GENERAL: Asleep but awakens to voice. No apparent distress. Respirations: Clear to auscultation Cardiac: Regular without murmur Abdomen: Soft, positive bowel sounds, no obvious tenderness HEENT: Sclerae are clear and nonicteric. Scalp incisions are dry and intact. MUSCULOSKELETAL: No significant joint deformity. Mild edema lower extremities NEUROLOGICAL: Intermittent spontaneous eye opening Presents to voice Slight left grasp when stimulated, not definitely to command Mild flexion left lower extremity to deep pain. Lab, Micro, Other Results Laboratory Tests Test 02/15/17 04:53 White Blood Count 22.7 TH/MM3 Red Blood Count 3.56 MIL/MM3 Hemoglobin 11.0 GM/DL Hematocrit 34.3 % Mean Corpuscular Volume 96.5 FL Mean Corpuscular Hemoglobin 31.0 PG Mean Corpuscular Hemoglobin Concent 32.1 % Red Cell Distribution Width 14.4 % Platelet Count 266 TH/MM3 Mean Platelet Volume 9.9 FL Neutrophils (%) (Auto) 85.9 % Lymphocytes (%) (Auto) 6.0 % Monocytes (%) (Auto) 6.6 % Eosinophils (%) (Auto) 1.2 % Basophils (%) (Auto) 0.3 % Neutrophils # (Auto) 19.4 TH/MM3 Lymphocytes # (Auto) 1.4 TH/MM3 Monocytes # (Auto) 1.5 TH/MM3 Eosinophils # (Auto) 0.3 TH/MM3 Basophils # (Auto) 0.1 TH/MM3 CBC Comment DIFF FINAL Differential Comment Blood Urea Nitrogen 46 MG/DL Creatinine 0.53 MG/DL Random Glucose 130 MG/DL Calcium Level 8.5 MG/DL Sodium Level 156 MEQ/L Potassium Level 4.1 MEQ/L Chloride Level 122 MEQ/L Carbon Dioxide Level 28.8 MEQ/L Anion Gap 5 MEQ/L Estimat Glomerular Filtration Rate 112 ML/MIN Medical Decision Making Impression and Plan Impression: 1. Mental status slowly improving, status post occipital craniotomy evacuation of intracranial hemorrhage, placement EVD, 01/28/17 Plan: Discussed with in the room today. All questions answered Remains on Dobbhoff tube feedings. No decline in neurologic exam following removal of ventriculostomy earlier in the week. Continues out of bed in a stretcher chair Seizure prophylaxis-Keppra Ulcer prophylaxis-Pepcid Okay for Lovenox from neurosurgery standpoint Arslan Garcia MD Feb 15, 2017 12:52
[2017-02-15] MEDS: FREE WATER G-TUBE SCH ×2 (14:00→21:23)
[2017-02-15] MEDS: ACETAMINOPHEN/HYDROcodone 325 MG/10 MG TAB PO PRN (21:22)
[2017-02-15] MEDS: FAMOTIDINE 20 MG TAB NG SCH (21:23)
[2017-02-16] VITALS (14 sets, daily range): BP systolic 109–140; BP diastolic 54–65; PULSE 98–112; RESP 15–22; TEMP 97–98.9; O2SAT 97–100
[2017-02-16] MEDS: CHLORHEXIDINE GLUCONATE 2 % 1 PACK (2 CLOTHS) TOP SCH (03:44)
[2017-02-16] MEDS: ARTIFICIAL TEARS OPTH SOLN 15 ML BTL EACH EYE SCH ×3 (05:39→20:25)
[2017-02-16] MEDS: LEVOTHYROXINE SODIUM 50 MCG TAB OG-TUBE SCH (05:39)
[2017-02-16] MEDS: FREE WATER G-TUBE SCH ×3 (05:39→20:25)
[2017-02-16] MEDS: INSULIN ASPART SUPPLEMENTAL SCALE SQ SCH ×4 (06:00→18:00)
[2017-02-16 06:53] LABS: BICARBONATE 30.6 MEQ/L (21.0-32.0); CALCIUM 8.3 MG/DL (8.5-10.1); CREATININE 0.54 MG/DL (0.50-1.00)
--- NOTE | 2017-02-16 08:58 | HHI.CCPN ---
Subjective Remarks/Hospital Course Note for 02/15/1701/27: Patient is a 76-year-old female who was brought to the [facility] emergency department by EMS as a stroke alert. Last found normal at 11 this morning, later found unresponsive in the bed by her and EMS was called. EMS gave her Narcan IM without any response, blood glucose was 140, vital signs were apparently stable. In the ED patient remained poorly responsive and was intubated for airway protection. Her blood pressure on arrival was 243/129 and patient was started on Cardene infusion. CT of the head showed extensive acute intraventricular hemorrhage involving the left lateral ventricle, right lateral ventricle and third ventricle, acute intraparenchymal hemorrhage within the left parietal and left occipital region ( 4.1 cm in size). Acute subdural hematoma along the left frontoparietal region measuring 5 mm in width. There was also significant Significant (10 mm) subfalcine herniation to the right. Dr. Bowden was contacted by the ED Per Dr. Rivera on 01/27: Critical care medicine was requested to admit the patient. Patient was emergently moved to the ICU for EVD placement. I evaluated the patient immediately after arrival to the ICU. Patient purposefully moves left upper extremity and withdraws all other extremities. at the bedside was updated. I explained to the that she has very extensive intracranial hemorrhage and prognosis appears poor. Dr. Bowden is planning to place an EVD emergently. I discussed with Dr. Bowden extensively , patient is not a candidate for evacuation of intracerebral hemorrhage due to overall poor prognosis. I have placed a central line for administration of vasopressor agents and 3% saline. Patient remains on Cardene infusion and at this time receiving mannitol. I have also ordered Keppra for seizure prophylaxis 01/28: Remains sedated, orally intubated on mechanical ventilation. Being taken to OR for craniotomy per Dr. Bowden. 01/29: Remains sedated, orally intubated on mechanical ventilation. Underwent craniotomy with evacuation of hematoma by Dr. Bowden on 01/28. Ventriculostomy remains in place. Drained 120 cc bloody CSF over the last 12 hours. ICP 2. 01/30: ICP well controlled. Requiring mechanical ventilation. 01/31: Remains sedated, orally intubated on mechanical ventilation. Ventriculostomy in place. ICP within normal limits. Leukocytosis persists. UA appeared abnormal however cultures with no growth. Starting empiric Levaquin. Checking pro-calcitonin. Started free water for worsening hypernatremia 02/01 Afebrile. WBC 16.9 which is downtrending. Nurse states she has diarrhea. Procalcitonin is not elevated. Ventric at 0 cm water, repeat CT scheduled for tomorrow morning per neurosurgery. 02/02: Osmolality suitably concentrated but brain edema persists, shift slightly larger. Hypertonic saline continued at half rate to avoid overly rapid drop. 02/03: No improvement in neuro exam over past 24 hours. Osmolality acceptable. 02/04: Tolerating CPAP trials today with good respiratory effort. Long discussion with and daughter about plans to extubate, high likelihood of reintubation. 02/05: Will attempt to extubate today during a period when she is alert; sleeping now. Extubated and respiratory drive good. Good cough effort. She had immediate stridor however and it was not helped by suctioning nor 4 racemic epi treatments. I will re-intubate with a smaller tube and add steroids for 48-72 hours. 02/06: No change in neurological function. When extubated she did not follow commands nor seem to respond to voices of family. Her airway was stridor ridden and did not clear with multiple racemic epi rxs. Steroids started 02/05, continue for 2-3 days then retry. Suspect she'll need trach but family not ready. 02/07. Tolerating CPAP 10/. No cuff leak despite steroids. Will try diuresing. Follows commands LUE. 02/08: Tolerated PSV trials 20 hours yesterday. No cuff leak. Tongue remains is edematous. Opens eyes and follows commands with left upper extremity only. Wiggles left lower extremity. 02/09: Currently resting in bed. Remains on PSV trial. Her tongue remains swollen. No new neurological changes. 02/10: Respiratory rates between 6 and 8 this morning. Placed back on ACV with a rate of 10. Tongue remains swollen. No new neurological changes. Subjective: 02/11: Status post removal of ventriculostomy 02/10. more comfortable with trach. Waiting for Dr. Gómez to return to make definitive decision. Removing magalys today. Hosea enteral diet. 02/12: I'll discuss tracheostomy vs extubation with family again today. No change in neurological status. CT head with no shift, resolving edema. 02/13: Extubated 24 hours ago. Sats acceptable and continues to breathe comfortably. Will assess functional status and place in rehab / SNF. 02/14: Tolerating extubation for 2 days now. TFs restarted. 02/15: Extubated 3 days ago, breathing comfortably. Case management assisting with rehab placement. Objective Vital Signs Date Time Temp Pulse Resp B/P (MAP) Pulse Ox O2 Delivery O2 Flow Rate FiO2 02/16/17 06:00 100 Nasal Cannula 3.00 02/16/17 06:00 98 02/16/17 04:00 98.0 19 118/58 (78) 02/12/17 12:00 40 Intake and Output 02/16/17 02/16/17 02/17/17 08:00 16:00 00:00 Intake Total 883 ml Output Total 600 ml Balance 283 ml Result Diagram: 02/15/17 0453 02/16/17 0549 Imaging Last Impressions Head CT 02/10/17 0900 Signed Impressions: Service Date/Time: Friday, February 10, 2017 09:23 - CONCLUSION: Interval improvement with less parenchymal hemorrhage, intraventricular blood. Ventricles are mildly prominent when compared to the previous study. Patricio Hardy MD FACR Chest X-Ray 02/08/17 0600 Signed Impressions: Service Date/Time: Wednesday, February 08, 2017 04:22 - CONCLUSION: Improved chest appearance Miguel Hua MD Neck CTA 01/28/17 1009 Signed Impressions: Service Date/Time: Saturday, January 28, 2017 10:27 - CONCLUSION: 1. No hemodynamically significant carotid artery stenosis identified. 2. Mild atherosclerotic plaquing at the bifurcation. 3. Both vertebral arteries are widely patent. Jac Hardy MD Head CTA 01/28/17 0000 Signed Impressions: Service Date/Time: Saturday, January 28, 2017 10:27 - CONCLUSION: 1. No evidence of vascular malformation or vasculopathy. 2. Subdural, intraparenchymal and intraventricular hemorrhage are again noted and not significantly changed since prior study. 3. Persistent left to right shift measuring between 8 and 9 mm; unchanged. Nick Barker MD Objective Remarks GENERAL: 76-year-old female. SKIN: Warm/dry. Well-perfused HEAD: Ventriculostomy removed. EYES: Pupils equal and round, 3 mm sluggish reaction to light. ENT: No nasal bleeding or discharge. Mucous membranes moist. NECK: Trachea midline. Airway widely patent, clear of secretions. CARDIOVASCULAR: Regular rate and rhythm. NL S1S2. No JVD. RESPIRATORY: Breath sounds equal bilaterally. Clear, good respiratory drive. GASTROINTESTINAL: Abdomen soft, non-tender, nondistended. BS active. MUSCULOSKELETAL: No obvious deformities. No edema. Well perfused. NEUROLOGICAL: L ventriculostomy d/c'd. fluid has been clear. Eyes open, left gaze, does not track. RUE is flaccid. RLE with very weak withdrawal. LUE grasps hands to command. LLE withdraws to noxious stimuli and moved to command. Babinski upgoing on the left, neutral response right. A/P Assessment and Plan Neuro: Extensive intraventricular hemorrhage, left parietal/occipital intraparenchymal hemorrhage, left subdural hemorrhage Acute encephalopathy - Emergency EVD placement by Dr. Bowden.. Removed 02/10 Levetiracetam 500 mg IV q12 hours for seizure prophylaxis Neurochecks - s/p craniotomy with evacuation of hematoma 01/[address] Bowden. - EVD management per neurosurgery. Likely challenge today Currently on hydrocodone/acetaminophen 55/325 and 10/325 one tablet every fours. Pain - Currently and morphine sulfate 2-4 mg every 2 hours. Pain Resp: Acute respiratory failure - Intubated for airway protection, continue ACV. Extubated 02/05 and had stridor so reintubated and placed on decadron. Still no cuff leak, diuresing with furosemide 40 mg twice a day if does not develop cuff leak will likely need to transition to trach/PEG which i discussed with daughter. They appear to be waiting for Dr. Gómez to return on the for definitive decision. - wean fio2 for goal spo2 > 90% - HOB elevated As needed albuterol therapy every 4 hours. Dyspnea Dexamethasone 6mg IV wean to every day Extubated 02/12. CV: Hypertensive emergency Cardizem drip has been discontinued As needed labetalol/hydralazine - 2D Echo - EF 65-70%. Renal: - Fuller in place - strict i/os FEN/GI: Hypernatremia -Continue tube feeds with Glucerna1.5 goal to 50 mL per hour per nutrition recommendations. Pantoprazole 40 mg IV daily for GI prophylaxis Docusate sodium 100 mg twice a day for bowel regimen Place Dobhoff tube for feeding -> good position. ID/HEME: Normocytic anemia Leukocytosis - Does not meet transfusion triggers at this time - Leukocytosis persists: Possibly reactive secondary ICH/surgery. - Pancultures done on 01/29 with no growth. Empiric levofloxacin was started and discontinued 02/07 - C diff previously ordered but then diarrhea resolved. 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 Continue levothyroxine 50 mcg daily. Prophylaxis: SCDs Pantoprazole No pharmacologic DVT prophylaxis given ICH per discussion with Dr. Rivas. Initiate when ok with NSG. 01/29: I had a long discussion with patient's daughter at bedside regarding current clinical status and plan of care and she voiced understanding and was agreeable. I also discussed strong possibility of need for tracheostomy and PEG tube and possible care home placement and she voiced understanding. Goals of care remain aggressive at this time. 02/05: Numerous long conversations with innumerable family members. All are aware that she may not tolerate extubation and may well require tracheostomy. They are expecting a miracle and are very emotional about it. 02/07 - Slight neuro improvement but still poor prognosis for functional recovery. Discussed with family still likely to require trach/PEG but they are hoping she does not. 02/08 - family is adamant to Dr. Gómez Decision requiring extubation versus trach. He will return 02/12. 02/12 - Lengthy talk with family members about care goals. They want continued aggressive treatment. Overall impression: At this point she is a long-term neuro rehab patient who will require rehab / SNF support for 3-4 weeks minimum. Tristin Gómez MD Feb 16, 2017 08:58
[2017-02-16] MEDS: DOCUSATE SODIUM 100 MG CAP PO SCH ×2 (09:00→20:24)
--- NOTE | 2017-02-16 09:02 | HHI.CCPN ---
Subjective Remarks/Hospital Course Note for 02/16/1701/27: Patient is a 76-year-old female who was brought to the [facility] emergency department by EMS as a stroke alert. Last found normal at 11 this morning, later found unresponsive in the bed by her and EMS was called. EMS gave her Narcan IM without any response, blood glucose was 140, vital signs were apparently stable. In the ED patient remained poorly responsive and was intubated for airway protection. Her blood pressure on arrival was 243/129 and patient was started on Cardene infusion. CT of the head showed extensive acute intraventricular hemorrhage involving the left lateral ventricle, right lateral ventricle and third ventricle, acute intraparenchymal hemorrhage within the left parietal and left occipital region ( 4.1 cm in size). Acute subdural hematoma along the left frontoparietal region measuring 5 mm in width. There was also significant Significant (10 mm) subfalcine herniation to the right. Dr. Bowden was contacted by the ED Per Dr. Rivera on 01/27: Critical care medicine was requested to admit the patient. Patient was emergently moved to the ICU for EVD placement. I evaluated the patient immediately after arrival to the ICU. Patient purposefully moves left upper extremity and withdraws all other extremities. at the bedside was updated. I explained to the that she has very extensive intracranial hemorrhage and prognosis appears poor. Dr. Bowden is planning to place an EVD emergently. I discussed with Dr. Bowden extensively , patient is not a candidate for evacuation of intracerebral hemorrhage due to overall poor prognosis. I have placed a central line for administration of vasopressor agents and 3% saline. Patient remains on Cardene infusion and at this time receiving mannitol. I have also ordered Keppra for seizure prophylaxis 01/28: Remains sedated, orally intubated on mechanical ventilation. Being taken to OR for craniotomy per Dr. Bowden. 01/29: Remains sedated, orally intubated on mechanical ventilation. Underwent craniotomy with evacuation of hematoma by Dr. Bowden on 01/28. Ventriculostomy remains in place. Drained 120 cc bloody CSF over the last 12 hours. ICP 2. 01/30: ICP well controlled. Requiring mechanical ventilation. 01/31: Remains sedated, orally intubated on mechanical ventilation. Ventriculostomy in place. ICP within normal limits. Leukocytosis persists. UA appeared abnormal however cultures with no growth. Starting empiric Levaquin. Checking pro-calcitonin. Started free water for worsening hypernatremia 02/01 Afebrile. WBC 16.9 which is downtrending. Nurse states she has diarrhea. Procalcitonin is not elevated. Ventric at 0 cm water, repeat CT scheduled for tomorrow morning per neurosurgery. 02/02: Osmolality suitably concentrated but brain edema persists, shift slightly larger. Hypertonic saline continued at half rate to avoid overly rapid drop. 02/03: No improvement in neuro exam over past 24 hours. Osmolality acceptable. 02/04: Tolerating CPAP trials today with good respiratory effort. Long discussion with and daughter about plans to extubate, high likelihood of reintubation. 02/05: Will attempt to extubate today during a period when she is alert; sleeping now. Extubated and respiratory drive good. Good cough effort. She had immediate stridor however and it was not helped by suctioning nor 4 racemic epi treatments. I will re-intubate with a smaller tube and add steroids for 48-72 hours. 02/06: No change in neurological function. When extubated she did not follow commands nor seem to respond to voices of family. Her airway was stridor ridden and did not clear with multiple racemic epi rxs. Steroids started 02/05, continue for 2-3 days then retry. Suspect she'll need trach but family not ready. 02/07. Tolerating CPAP 10/. No cuff leak despite steroids. Will try diuresing. Follows commands LUE. 02/08: Tolerated PSV trials 20 hours yesterday. No cuff leak. Tongue remains is edematous. Opens eyes and follows commands with left upper extremity only. Wiggles left lower extremity. 02/09: Currently resting in bed. Remains on PSV trial. Her tongue remains swollen. No new neurological changes. 02/10: Respiratory rates between 6 and 8 this morning. Placed back on ACV with a rate of 10. Tongue remains swollen. No new neurological changes. Subjective: 02/11: Status post removal of ventriculostomy 02/10. more comfortable with trach. Waiting for Dr. Gómez to return to make definitive decision. Removing magalys today. Hosea enteral diet. 02/12: I'll discuss tracheostomy vs extubation with family again today. No change in neurological status. CT head with no shift, resolving edema. 02/13: Extubated 24 hours ago. Sats acceptable and continues to breathe comfortably. Will assess functional status and place in rehab / SNF. 02/14: Tolerating extubation for 2 days now. TFs restarted. 02/15: Extubated 3 days ago, breathing comfortably. Case management assisting with rehab placement. 02/16: Awaiting placement in rehab or SNF depending on level of cooperation patient is capable of. Objective Vital Signs Date Time Temp Pulse Resp B/P (MAP) Pulse Ox O2 Delivery O2 Flow Rate FiO2 02/16/17 06:00 100 Nasal Cannula 3.00 02/16/17 06:00 98 02/16/17 04:00 98.0 19 118/58 (78) 02/12/17 12:00 40 Intake and Output 02/16/17 02/16/17 02/17/17 08:00 16:00 00:00 Intake Total 883 ml Output Total 600 ml Balance 283 ml Result Diagram: 02/15/17 0453 02/16/17 0549 Imaging Last Impressions Head CT 02/10/17 0900 Signed Impressions: Service Date/Time: Friday, February 10, 2017 09:23 - CONCLUSION: Interval improvement with less parenchymal hemorrhage, intraventricular blood. Ventricles are mildly prominent when compared to the previous study. Patricio Hardy MD FACR Chest X-Ray 02/08/17 0600 Signed Impressions: Service Date/Time: Wednesday, February 08, 2017 04:22 - CONCLUSION: Improved chest appearance Miguel Hua MD Neck CTA 01/28/17 1009 Signed Impressions: Service Date/Time: Saturday, January 28, 2017 10:27 - CONCLUSION: 1. No hemodynamically significant carotid artery stenosis identified. 2. Mild atherosclerotic plaquing at the bifurcation. 3. Both vertebral arteries are widely patent. Jac Hardy MD Head CTA 01/28/17 0000 Signed Impressions: Service Date/Time: Saturday, January 28, 2017 10:27 - CONCLUSION: 1. No evidence of vascular malformation or vasculopathy. 2. Subdural, intraparenchymal and intraventricular hemorrhage are again noted and not significantly changed since prior study. 3. Persistent left to right shift measuring between 8 and 9 mm; unchanged. Nick Barker MD Objective Remarks GENERAL: 76-year-old female. SKIN: Warm/dry. Well-perfused HEAD: Ventriculostomy removed. EYES: Pupils equal and round, 3 mm sluggish reaction to light. ENT: No nasal bleeding or discharge. Mucous membranes moist. NECK: Trachea midline. Airway widely patent, clear of secretions. CARDIOVASCULAR: Regular rate and rhythm. NL S1S2. No JVD. RESPIRATORY: Breath sounds equal bilaterally. Clear, good respiratory drive. Cough effort spontaneous and acceptable. GASTROINTESTINAL: Abdomen soft, non-tender, nondistended. BS active. MUSCULOSKELETAL: No obvious deformities. No edema. Well perfused. NEUROLOGICAL: L ventriculostomy d/c'd. fluid has been clear. Eyes open, left gaze, does not track. RUE is flaccid. RLE with very weak withdrawal. LUE grasps hands to command. LLE withdraws to noxious stimuli and moved to command. Babinski upgoing on the left, neutral response right. A/P Assessment and Plan Neuro: Extensive intraventricular hemorrhage, left parietal/occipital intraparenchymal hemorrhage, left subdural hemorrhage Acute encephalopathy - Emergency EVD placement by Dr. Bowden.. Removed 02/10 Levetiracetam 500 mg IV q12 hours for seizure prophylaxis Neurochecks - s/p craniotomy with evacuation of hematoma 01/[address] Bowden. - EVD management per neurosurgery. Likely challenge today Currently on hydrocodone/acetaminophen 55/325 and 10/325 one tablet every fours. Pain - d/c morphine sulfate 2-4 mg every 2 hours. Pain Resp: Acute respiratory failure - Intubated for airway protection, continue ACV. Extubated 02/05 and had stridor so reintubated and placed on decadron. Still no cuff leak, diuresing with furosemide 40 mg twice a day if does not develop cuff leak will likely need to transition to trach/PEG which i discussed with daughter. They appear to be waiting for Dr. Gómez to return on the for definitive decision. - wean fio2 for goal spo2 > 90% - HOB elevated As needed albuterol therapy every 4 hours. Dyspnea Dexamethasone 6mg IV wean to every day Extubated 02/12. CV: Hypertensive emergency Cardizem drip has been discontinued As needed labetalol/hydralazine - 2D Echo - EF 65-70%. Renal: - Fuller in place - strict i/os FEN/GI: Hypernatremia -Continue tube feeds with Glucerna1.5 goal to 50 mL per hour per nutrition recommendations. Pantoprazole 40 mg IV daily for GI prophylaxis Docusate sodium 100 mg twice a day for bowel regimen Place Dobhoff tube for feeding -> good position. Free water added, increased today to 300 q6h. ID/HEME: Normocytic anemia Leukocytosis - Does not meet transfusion triggers at this time - Leukocytosis persists: Possibly reactive secondary ICH/surgery. - Pancultures done on 01/29 with no growth. Empiric levofloxacin was started and discontinued 02/07 - C diff previously ordered but then diarrhea resolved. 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 Continue levothyroxine 50 mcg daily. Prophylaxis: SCDs Pantoprazole No pharmacologic DVT prophylaxis given ICH per discussion with Dr. Rivas. Initiate when ok with NSG. 01/29: I had a long discussion with patient's daughter at bedside regarding current clinical status and plan of care and she voiced understanding and was agreeable. I also discussed strong possibility of need for tracheostomy and PEG tube and possible shelter placement and she voiced understanding. Goals of care remain aggressive at this time. 02/05: Numerous long conversations with innumerable family members. All are aware that she may not tolerate extubation and may well require tracheostomy. They are expecting a miracle and are very emotional about it. 02/07 - Slight neuro improvement but still poor prognosis for functional recovery. Discussed with family still likely to require trach/PEG but they are hoping she does not. 02/08 - family is adamant to Dr. Gómez Decision requiring extubation versus trach. He will return 02/12. 02/12 - Lengthy talk with family members about care goals. They want continued aggressive treatment. Lengthy talk with family about placement on 02/15. Overall impression: At this point she is a long-term neuro rehab patient who will require rehab / SNF support for 3-4 weeks minimum. PT and OT presently evaluating possibilities. Case management looking for facilities. Tristin Gómez MD Feb 16, 2017 09:02
[2017-02-16] MEDS: levETIRAcetam 500 MG/5 ML UDC NG SCH ×2 (10:06→20:24)
[2017-02-16] MEDS: FAMOTIDINE 20 MG TAB NG SCH ×2 (10:06→20:24)
[2017-02-16] MEDS: SODIUM CHLORIDE 0.9% FLUSH 10 ML FLUSH IV FLUSH SCH ×2 (10:07→20:25)
[2017-02-16] MEDS: INSULIN DETEMIR 100 UNITS/ML VIAL SQ SCH ×2 (10:07→20:24)
[2017-02-16] MEDS: RESP: ALBUTEROL 2.5 MG/3 ML NEB (PRN) INH (12:53)
[2017-02-16] MEDS: ACETAMINOPHEN/HYDROcodone 325 MG/10 MG TAB PO PRN (21:52)
[2017-02-17] VITALS (14 sets, daily range): BP systolic 101–149; BP diastolic 49–71; PULSE 96–112; RESP 13–20; TEMP 97.5–98.4; O2SAT 100
[2017-02-17] MEDS: CHLORHEXIDINE GLUCONATE 2 % 1 PACK (2 CLOTHS) TOP SCH (04:00)
[2017-02-17] MEDS: ARTIFICIAL TEARS OPTH SOLN 15 ML BTL EACH EYE SCH ×3 (04:41→22:18)
[2017-02-17 05:21] LABS: BICARBONATE 32.7 MEQ/L (21.0-32.0); CALCIUM 8.3 MG/DL (8.5-10.1); CREATININE 0.46 MG/DL (0.50-1.00)
[2017-02-17] MEDS: INSULIN ASPART SUPPLEMENTAL SCALE SQ SCH ×4 (05:53→18:00)
[2017-02-17] MEDS: FREE WATER G-TUBE SCH ×3 (06:00→22:19)
[2017-02-17] MEDS: LEVOTHYROXINE SODIUM 50 MCG TAB OG-TUBE SCH (06:00)
[2017-02-17] MEDS: DOCUSATE SODIUM 100 MG CAP PO SCH ×2 (09:00→21:00)
[2017-02-17] MEDS: INSULIN DETEMIR 100 UNITS/ML VIAL SQ SCH ×2 (09:41→22:17)
[2017-02-17] MEDS: FAMOTIDINE 20 MG TAB NG SCH ×2 (09:41→22:18)
[2017-02-17] MEDS: levETIRAcetam 500 MG/5 ML UDC NG SCH ×2 (09:41→22:18)
[2017-02-17] MEDS: SODIUM CHLORIDE 0.9% FLUSH 10 ML FLUSH IV FLUSH SCH ×2 (09:41→22:18)
--- NOTE | 2017-02-17 10:59 | HHI.NSPN ---
(Rosa Vera) Note Status Status: Progress Note (Rosa Vera) Interval History Interval History Ms Tinajero is an 76 year old adult female who was brought to [facility] as a stroke alert with a severe intracerebral and intraventricular hemorrhage with mass effect and midline shift. She underwent placement of ventriculostomy drain on 01/27/17. She underwent a left parietooccipital craniotomy, evacuation of intracerebral hematoma on Jan 28, 2017. 01/29: intubated and sedated. EVD draining well bloody CSF. ICPs normal. f/u CT Head this morning with decreasing mass effect, less left to right midline shift which now measures 4.6 mm, with small amount hemorrhage remains evident in the ventricular system. 01/30: intubated and sedated. ventriculostomy draining well, ICPs within normal limits. 01/31: intubated, sedated. no eye opening. ventriculostomy draining well, ICPs remains wnl 02/03: EVD raised to 3 cm H20 over the weekend, ICPs stable. Intubated and off sedative drips, mildly opens eyes. 02/04: appears much more alert this morning, eyes wide open and tracking. EVD draining well. 02/05: tolerating CPAP, awake and tracking. CSF now simpson. EVD draining well. 02/17/17: neuro stable overnight, reports patient smiling. dc planning to rehab. (Rosa Vera) Labs, Micro, & Vital Signs Results Date Time Temp Pulse Resp B/P (MAP) Pulse Ox O2 Delivery O2 Flow Rate FiO2 02/17/17 08:27 100 Nasal Cannula 2.00 02/17/17 06:00 101 02/17/17 04:00 96 02/17/17 04:00 98.3 106 13 121/58 (79) 100 02/17/17 02:00 96 02/17/17 00:00 96 02/17/17 00:00 97.9 96 13 101/49 (66) 100 02/16/17 22:00 108 02/16/17 20:00 108 02/16/17 20:00 97.8 108 20 109/54 (72) 100 02/16/17 19:35 100 Nasal Cannula 2.00 02/16/17 19:00 100 Nasal Cannula 2.00 02/16/17 18:00 112 02/16/17 16:00 112 02/16/17 16:00 97.8 112 19 140/64 (89) 100 02/16/17 16:00 100 Nasal Cannula 2.00 02/16/17 14:00 110 02/16/17 12:00 97.0 108 22 109/65 (80) 98 02/16/17 12:00 108 02/16/17 11:55 97 Nasal Cannula 3.00 Constitutional Vital Signs Date Time Temp Pulse Resp B/P (MAP) Pulse Ox O2 Delivery O2 Flow Rate FiO2 02/17/17 08:27 100 Nasal Cannula 2.00 02/17/17 06:00 101 02/17/17 04:00 96 02/17/17 04:00 98.3 106 13 121/58 (79) 100 02/17/17 02:00 96 02/17/17 00:00 96 02/17/17 00:00 97.9 96 13 101/49 (66) 100 02/16/17 22:00 108 02/16/17 20:00 108 02/16/17 20:00 97.8 108 20 109/54 (72) 100 02/16/17 19:35 100 Nasal Cannula 2.00 02/16/17 19:00 100 Nasal Cannula 2.00 02/16/17 18:00 112 02/16/17 16:00 112 02/16/17 16:00 97.8 112 19 140/64 (89) 100 02/16/17 16:00 100 Nasal Cannula 2.00 02/16/17 14:00 110 02/16/17 12:00 97.0 108 22 109/65 (80) 98 02/16/17 12:00 108 02/16/17 11:55 97 Nasal Cannula 3.00 (Rosa Vera) Review of Systems ROS Limitations: Clinical Condition, Altered Mental Status (Rosa Vera) Physical Exam Awake, eyes open, intermittently focuses and tracks. Not following commands for me but intermittently reaches with her left hand Surgical incision healing well, steri-strips in place. Motor: reached up with her left hand, mild flexion left lower extremity to deep pain. CN; pupils 3-4 mm bilaterally, facial grossly symmetric at rest (Rosa Vear) Medications Current Medications Current Medications Medications (Trade) Dose Ordered Sig/Eunice Route PRN Reason Start Time Stop Time Status Last Admin Dose Admin Nicardipine HCl 25 mg/Sodium Chloride 250 ml @ 50 mls/hr TITRATE PRN IV Blood pressure management 01/27/17 13:00 01/31/17 01:57 Sodium Chloride (NS Flush) 2 ml UNSCH PRN IV FLUSH FLUSH AFTER USING IV ACCESS 01/27/17 13:30 Sodium Chloride (NS Flush) 2 ml BID IV FLUSH 01/27/17 21:00 02/17/17 09:41 Miscellaneous Information 1 [id number] XX 01/27/17 13:30 01/27/17 13:30 Chlorhexidine Gluconate (Chlorhexidine 2% Cloth) 3 pack Taper DAILY@04 TOP 01/28/17 04:00 01/24/18 03:59 Chlorhexidine Gluconate (Chlorhexidine 2% Cloth) 3 pack UNSCH PRN TOP HYGIENIC CARE 01/27/17 13:30 Propofol 100 ml @ 1.995 mls/ hr TITRATE PRN IV SEDATION 01/27/17 15:15 01/29/17 19:55 Bisacodyl (Dulcolax Supp) 10 mg DAILY PRN RECTAL CONSTIPATION 01/28/17 17:15 01/30/17 08:01 Docusate Sodium (Colace) 100 mg BID PO 01/28/17 21:00 02/13/17 21:06 Ondansetron HCl (Zofran Inj) 4 mg Q6H PRN IV PUSH NAUSEA OR VOMITING 01/28/17 17:15 Calcium Gluconate (Calcium Gluconate Inj) 1 gm UNSCH PRN IV SEE LABEL COMMENTS 01/28/17 17:15 Potassium Chloride 100 ml @ 50 mls/hr UNSCH PRN IV POTASSIUM LESS THAN 4 01/28/17 17:15 01/29/17 05:46 Magnesium Sulfate 4 gm/Sodium Chloride 108 ml @ 108 mls/hr UNSCH PRN IV MAGNESIUM LESS THAN 2 01/28/17 17:15 Acetaminophen/ Hydrocodone Bitart ([place] 10-325 Mg) 1 tab Q4H PRN PO PAIN SCALE 1 TO 5 01/28/17 17:15 02/16/17 21:52 Acetaminophen/ Hydrocodone Bitart ([place] 10-325 Mg) 2 tab Q4H PRN PO PAIN SCALE 6 TO 10 01/28/17 17:15 02/06/17 23:29 Insulin Aspart (NovoLOG SUPPLEMENTAL SCALE) 1 Q6HR SQ 01/29/17 12:00 02/17/17 00:00 Dextrose (D50w (Vial) Inj) 25 ml UNSCH PRN IV HYPOGLYCEMIA-SEE COMMENTS 01/29/17 12:00 Glucagon (Glucagon Inj) 1 mg UNSCH PRN IM/SQ HYPOGLYCEMIA-SEE COMMENTS 01/29/17 12:00 Potassium Chloride 100 ml @ 50 mls/hr Q2H PRN IV For Potassium 2.8 - 3.2 mEq/L 01/29/17 12:00 01/29/17 13:56 Potassium Chloride 100 ml @ 50 mls/hr Q2H PRN IV For Potassium 2.8 - 3.2 mEq/L 01/29/17 12:00 Potassium Bicarb/ Potassium Chloride (K-Lyte Cl Eff) 50 meq UNSCH PRN PO For Potassium 3.3 - 3.5 mEq/L 01/29/17 12:00 01/31/17 02:44 Potassium Chloride 100 ml @ 25 mls/hr UNSCH PRN IV For Potassium 3.3 - 3.5 mEq/L 01/29/17 12:00 Potassium Chloride 100 ml @ 50 mls/hr Q2H PRN IV For Potassium 3.3 - 3.5 mEq/L 01/29/17 12:00 Magnesium Sulfate 4 gm/Sodium Chloride 100 ml @ 50 mls/hr UNSCH PRN IV For Magnesium 0.9 - 1.1 mg/dL 01/29/17 12:00 Magnesium Oxide (Mag-Ox) 800 mg UNSCH PRN PO For Magnesium 1.2 - 1.6 mg/dL 01/29/17 12:00 Magnesium Sulfate 2 gm/Sodium Chloride 100 ml @ 50 mls/hr UNSCH PRN IV For Magnesium 1.2 - 1.6 mg/dL 01/29/17 12:00 Potassium Phosphate (K-Phos) 2,000 mg Q4H PRN PO For Phosphorus < 2.5 mg/dL 01/29/17 12:00 Sodium Phosphate 30 mmol/Sodium Chloride 250 ml @ 42 mls/hr UNSCH PRN IV For Phosphorus < 2.5 mg/dL 01/29/17 12:00 Potassium Phosphate (K-Phos) 2,000 mg UNSCH PRN PO/TUBE SEE LABEL COMMENTS 01/29/17 12:00 Potassium Phosphate 30 mmol/ Sodium Chloride 260 ml @ 42 mls/hr UNSCH PRN IV SEE LABEL COMMENTS 01/29/17 12:00 Acetaminophen (Tylenol) 650 mg Q4H PRN PO SEE LABEL COMMENTS 01/29/17 16:15 Diphenhydramine HCl (Benadryl) 25 mg Q4H PRN PO SEE LABEL COMMENTS 01/29/17 16:15 Hydralazine HCl (Apresoline Inj) 10 mg Q1H PRN IV PUSH SBP >160 02/05/17 16:00 Labetalol HCl (Trandate Inj) 20 mg Q3H PRN IV PUSH SBP > 150 02/05/17 16:00 02/05/17 17:00 Levothyroxine Sodium (Synthroid) 50 mcg DAILY@0600 OG-TUBE 02/08/17 06:00 02/17/17 06:00 Artificial Tears (Tears Naturale Opth Soln) 1 drop Q8HR EACH EYE 02/08/17 14:00 02/17/17 04:41 Insulin Detemir (Levemir Inj) 5 units Q12HR SQ 02/08/17 21:00 02/17/17 09:41 Albuterol Sulfate (Albuterol Neb) 2.5 mg Q2HR NEB PRN INH SHORTNESS OF BREATH 02/10/17 12:15 02/16/17 12:53 Acetaminophen (Tylenol 650 Mg/ 20 ml Liq) 650 mg Q6H PRN NG fever 02/11/17 14:15 02/11/17 20:46 Racepinephrine (Racepinephrine 2.25% Neb) 0.5 ml Q1HR NEB PRN NEB stridor 02/12/17 14:45 02/13/17 09:05 Levetriacetam (Keppra Liq) 500 mg Q12H NG 02/14/17 21:00 02/17/17 09:41 Famotidine (Pepcid) 20 mg BID NG 02/15/17 21:00 02/17/17 09:41 Water (Free Water) 300 ml Q8HR G-TUBE 02/16/17 14:00 02/17/17 06:00 (Rosa Vera) Medical Decision Making MDM Remarks 76 year old female with large intraventricular hemorrhage s/p placement of ventriculostomy drain 01/27/17, slowly challenging ventriculostomy drain, ICPs remains wnl s/p left parietooccipital craniotomy, evacuation of intracerebral hematoma 01/28 patient doing well, slow neurological improvements (Rosa Vera) Plan Plan Remarks cont current care cont neuro checks cont therapy and rehab efforts Dr. Bowden dw in room, updated on plan of care, his questions answered ok to dc to rehab from N[facility] standpoint once placement arranged (Rosa Vera) Attending Statement The exam, history, and the medical decision-making described in the above note were completed with the assistance of the mid-level provider. I reviewed and agree with the findings presented. I attest that I had a [id number] encounter with the patient on the same day, and personally performed and documented my assessment and findings in the medical record. (Jack Bowden MD) Rosa Vera Feb 17, 2017 10:59 Jack Bowden MD Feb 17, 2017 12:10
--- NOTE | 2017-02-17 14:25 | HHI.CCPN ---
Subjective Remarks/Hospital Course Note for 02/16/1701/27: Patient is a 76-year-old female who was brought to the [place] emergency department by EMS as a stroke alert. Last found normal at 11 this morning, later found unresponsive in the bed by her and EMS was called. EMS gave her Narcan IM without any response, blood glucose was 140, vital signs were apparently stable. In the ED patient remained poorly responsive and was intubated for airway protection. Her blood pressure on arrival was 243/129 and patient was started on Cardene infusion. CT of the head showed extensive acute intraventricular hemorrhage involving the left lateral ventricle, right lateral ventricle and third ventricle, acute intraparenchymal hemorrhage within the left parietal and left occipital region ( 4.1 cm in size). Acute subdural hematoma along the left frontoparietal region measuring 5 mm in width. There was also significant Significant (10 mm) subfalcine herniation to the right. Dr. Bowden was contacted by the ED Per Dr. Rivera on 01/27: Critical care medicine was requested to admit the patient. Patient was emergently moved to the ICU for EVD placement. I evaluated the patient immediately after arrival to the ICU. Patient purposefully moves left upper extremity and withdraws all other extremities. at the bedside was updated. I explained to the that she has very extensive intracranial hemorrhage and prognosis appears poor. Dr. Bowden is planning to place an EVD emergently. I discussed with Dr. Bowden extensively , patient is not a candidate for evacuation of intracerebral hemorrhage due to overall poor prognosis. I have placed a central line for administration of vasopressor agents and 3% saline. Patient remains on Cardene infusion and at this time receiving mannitol. I have also ordered Keppra for seizure prophylaxis 01/28: Remains sedated, orally intubated on mechanical ventilation. Being taken to OR for craniotomy per Dr. Bowden. 01/29: Remains sedated, orally intubated on mechanical ventilation. Underwent craniotomy with evacuation of hematoma by Dr. Bowden on 01/28. Ventriculostomy remains in place. Drained 120 cc bloody CSF over the last 12 hours. ICP 2. 01/30: ICP well controlled. Requiring mechanical ventilation. 01/31: Remains sedated, orally intubated on mechanical ventilation. Ventriculostomy in place. ICP within normal limits. Leukocytosis persists. UA appeared abnormal however cultures with no growth. Starting empiric Levaquin. Checking pro-calcitonin. Started free water for worsening hypernatremia 02/01 Afebrile. WBC 16.9 which is downtrending. Nurse states she has diarrhea. Procalcitonin is not elevated. Ventric at 0 cm water, repeat CT scheduled for tomorrow morning per neurosurgery. 02/02: Osmolality suitably concentrated but brain edema persists, shift slightly larger. Hypertonic saline continued at half rate to avoid overly rapid drop. 02/03: No improvement in neuro exam over past 24 hours. Osmolality acceptable. 02/04: Tolerating CPAP trials today with good respiratory effort. Long discussion with and daughter about plans to extubate, high likelihood of reintubation. 02/05: Will attempt to extubate today during a period when she is alert; sleeping now. Extubated and respiratory drive good. Good cough effort. She had immediate stridor however and it was not helped by suctioning nor 4 racemic epi treatments. I will re-intubate with a smaller tube and add steroids for 48-72 hours. 02/06: No change in neurological function. When extubated she did not follow commands nor seem to respond to voices of family. Her airway was stridor ridden and did not clear with multiple racemic epi rxs. Steroids started 02/05, continue for 2-3 days then retry. Suspect she'll need trach but family not ready. 02/07. Tolerating CPAP 10/. No cuff leak despite steroids. Will try diuresing. Follows commands LUE. 02/08: Tolerated PSV trials 20 hours yesterday. No cuff leak. Tongue remains is edematous. Opens eyes and follows commands with left upper extremity only. Wiggles left lower extremity. 02/09: Currently resting in bed. Remains on PSV trial. Her tongue remains swollen. No new neurological changes. 02/10: Respiratory rates between 6 and 8 this morning. Placed back on ACV with a rate of 10. Tongue remains swollen. No new neurological changes. Subjective: 02/11: Status post removal of ventriculostomy 02/10. more comfortable with trach. Waiting for Dr. Gómez to return to make definitive decision. Removing magalys today. Hosea enteral diet. 02/12: I'll discuss tracheostomy vs extubation with family again today. No change in neurological status. CT head with no shift, resolving edema. 02/13: Extubated 24 hours ago. Sats acceptable and continues to breathe comfortably. Will assess functional status and place in rehab / SNF. 02/14: Tolerating extubation for 2 days now. TFs restarted. 02/15: Extubated 3 days ago, breathing comfortably. Case management assisting with rehab placement. 02/16: Awaiting placement in rehab or SNF depending on level of cooperation patient is capable of. 02/17/17: Patient up in stretches chair today. Eyes spontaneously partially open. Purposefully moves left upper extremity Objective Vital Signs Date Time Temp Pulse Resp B/P (MAP) Pulse Ox O2 Delivery O2 Flow Rate FiO2 02/17/17 08:27 100 Nasal Cannula 2.00 02/17/17 06:00 101 02/17/17 04:00 98.3 13 121/58 (79) Intake and Output 02/17/17 02/17/17 02/18/17 08:00 16:00 00:00 Intake Total 982 ml 50 ml Output Total 350 ml 250 ml Balance 632 ml -200 ml Result Diagram: 02/15/17 0453 02/17/17 0439 Imaging Last Impressions Head CT 02/10/17 0900 Signed Impressions: Service Date/Time: Friday, February 10, 2017 09:23 - CONCLUSION: Interval improvement with less parenchymal hemorrhage, intraventricular blood. Ventricles are mildly prominent when compared to the previous study. Patricio Hardy MD FACR Chest X-Ray 02/08/17 0600 Signed Impressions: Service Date/Time: Wednesday, February 08, 2017 04:22 - CONCLUSION: Improved chest appearance Miguel Hua MD Neck CTA 01/28/17 1009 Signed Impressions: Service Date/Time: Saturday, January 28, 2017 10:27 - CONCLUSION: 1. No hemodynamically significant carotid artery stenosis identified. 2. Mild atherosclerotic plaquing at the bifurcation. 3. Both vertebral arteries are widely patent. Jac Hardy MD Head CTA 01/28/17 0000 Signed Impressions: Service Date/Time: Saturday, January 28, 2017 10:27 - CONCLUSION: 1. No evidence of vascular malformation or vasculopathy. 2. Subdural, intraparenchymal and intraventricular hemorrhage are again noted and not significantly changed since prior study. 3. Persistent left to right shift measuring between 8 and 9 mm; unchanged. Nick Barker MD Objective Remarks GENERAL: 76-year-old female. Sitting up in stretcher chair SKIN: Warm/dry. Well-perfused HEAD: Ventriculostomy removed. EYES: Pupils equal and round, 3 mm sluggish reaction to light. ENT: No nasal bleeding or discharge. Mucous membranes moist. NECK: Trachea midline. Airway widely patent, clear of secretions. CARDIOVASCULAR: Regular rate and rhythm. NL S1S2. No JVD. RESPIRATORY: Breath sounds equal bilaterally. Clear, good respiratory drive. Cough effort spontaneous and acceptable. GASTROINTESTINAL: Abdomen soft, non-tender, nondistended. BS active. MUSCULOSKELETAL: No obvious deformities. No edema. Well perfused. NEUROLOGICAL: L ventriculostomy d/c'd. fluid has been clear. Eyes open, left gaze, does not track. RUE is flaccid. RLE with very weak withdrawal. LUE grasps hands to command. LLE withdraws to noxious stimuli and moved to command. Babinski upgoing on the left, neutral response right. A/P Assessment and Plan Neuro: Extensive intraventricular hemorrhage, left parietal/occipital intraparenchymal hemorrhage, left subdural hemorrhage Acute encephalopathy - Emergency EVD placement by Dr. Bowden. Removed 02/10 - Levetiracetam 500 mg IV q12 hours for seizure prophylaxis - s/p craniotomy with evacuation of hematoma 01/[address] Bowden. - Currently on hydrocodone/acetaminophen 55/325 and 10/325 one tablet every fours. Resp: Respiratory failure - Intubated for airway protection, c. Extubated 02/05 and had stridor so reintubated and placed on decadron. - Extubated again 02/12. - wean fio2 for goal spo2 > 90% - HOB elevated - As needed albuterol therapy every 4 hours. Dyspnea CV: Hypertensive emergency Cardizem drip has been discontinued As needed labetalol/hydralazine - 2D Echo - EF 65-70%. Renal: - Fuller in place - strict i/os FEN/GI: Hypernatremia -Continue tube feeds with Glucerna1.5 goal to 50 mL per hour per nutrition recommendations. Pantoprazole 40 mg IV daily for GI prophylaxis Docusate sodium 100 mg twice a day for bowel regimen Dobhoff tube for feeding -> good position. Free water 300 q6h. ID/HEME: Normocytic anemia Leukocytosis - Does not meet transfusion triggers at this time - Leukocytosis persists: Possibly reactive secondary ICH/surgery. - Pancultures done on 01/29 with no growth. Empiric levofloxacin was started and discontinued 02/07 - C diff previously ordered but then diarrhea resolved. 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 Continue levothyroxine 50 mcg daily. Prophylaxis: SCDs Pantoprazole No pharmacologic DVT prophylaxis given ICH per discussion with Dr. Rivas. Initiate when ok with NSG. 01/29: I had a long discussion with patient's daughter at bedside regarding current clinical status and plan of care and she voiced understanding and was agreeable. I also discussed strong possibility of need for tracheostomy and PEG tube and possible halfway placement and she voiced understanding. Goals of care remain aggressive at this time. 02/05: Numerous long conversations with innumerable family members. All are aware that she may not tolerate extubation and may well require tracheostomy. They are expecting a miracle and are very emotional about it. 02/07 - Slight neuro improvement but still poor prognosis for functional recovery. Discussed with family still likely to require trach/PEG but they are hoping she does not. 02/08 - family is adamant to Dr. Gómez Decision requiring extubation versus trach. He will return 02/12. 02/12 - Lengthy talk with family members about care goals. They want continued aggressive treatment. Lengthy talk with family about placement on 02/15. Overall impression: At this point she is a long-term neuro rehab patient who will require rehab / SNF support for 3-4 weeks minimum. PT and OT presently evaluating possibilities. Case management looking for facilities. Cathie Rivera MD Feb 17, 2017 14:25
[2017-02-18] VITALS (14 sets, daily range): BP systolic 91–149; BP diastolic 52–71; PULSE 76–111; RESP 15–20; TEMP 97.9–98.7; O2SAT 95–100
[2017-02-18] MEDS: CHLORHEXIDINE GLUCONATE 2 % 1 PACK (2 CLOTHS) TOP SCH (03:56)
[2017-02-18 05:26] LABS: AUTOMATED NEUTROPHIL # 13.2 TH/MM3 (1.8-7.7); BASOPHIL % 0.3 % (0.0-2.0); EOSINOPHIL # 0.3 TH/MM3 (0-0.4); EOSINOPHIL % 2.2 % (0.0-4.0); HEMATOCRIT 33.4 % (35.0-46.0); HEMOGLOBIN 10.9 GM/DL (11.6-15.3); LYMPH % 7.6 % (9.0-44.0); LYMPHOCYTE # 1.2 TH/MM3 (1.0-4.8); MEAN CELL VOLUME 95.5 FL (80.0-100.0); MEAN CORPUSCULAR HEMOGLOBIN 31.1 PG (27.0-34.0); MEAN CORPUSCULAR HGB CONC 32.5 % (32.0-36.0); MEAN PLATELET VOLUME 10.2 FL (7.0-11.0); MONO % 5.5 % (0.0-8.0); MONOCYTE # 0.9 TH/MM3 (0-0.9); NEUT % 84.4 % (16.0-70.0); PLATELET COUNT 181 TH/MM3 (150-450); RED CELL DISTRIBUTION WIDTH 14.1 % (11.6-17.2); WHITE BLOOD COUNT 15.7 TH/MM3 (4.0-11.0)
[2017-02-18] MEDS: INSULIN ASPART SUPPLEMENTAL SCALE SQ SCH ×3 (05:38→12:00)
[2017-02-18] MEDS: ARTIFICIAL TEARS OPTH SOLN 15 ML BTL EACH EYE SCH ×3 (05:39→21:31)
[2017-02-18] MEDS: FREE WATER G-TUBE SCH ×3 (05:39→21:31)
[2017-02-18 05:43] LABS: ALBUMIN 2.2 GM/DL (3.4-5.0); AST (GOT) 56 U/L (15-37); BICARBONATE 27.5 MEQ/L (21.0-32.0); BLOOD UREA NITROGEN 37 MG/DL (7-18); CALCIUM 8.4 MG/DL (8.5-10.1); CHLORIDE 113 MEQ/L (98-107); CREATININE 0.52 MG/DL (0.50-1.00); GLOMERULAR FILTRATION RATE 115 ML/MIN (>89); GLUCOSE,RANDOM 145 MG/DL (74-106); MAGNESIUM 2.1 MG/DL (1.5-2.5); SODIUM (NA) 146 MEQ/L (136-145)
[2017-02-18 05:45] LABS: ALT (GPT) 87 U/L (10-53)
[2017-02-18 05:47] LABS: ALKALINE PHOSPHATASE 130 U/L (45-117); TOTAL BILIRUBIN ADULT 0.2 MG/DL (0.2-1.0); TOTAL PROTEIN 6.4 GM/DL (6.4-8.2)
[2017-02-18] MEDS: LEVOTHYROXINE SODIUM 50 MCG TAB OG-TUBE SCH (06:31)
[2017-02-18 07:29] LABS: BANDS 12 % (0-6); LYMPHOCYTES 9 % (9-44); MONOCYTES 2 % (0-8); MYELOCYTES 1 % (0-0); NEUTROPHIL # MANUAL DIFF 13.7 TH/MM3 (1.8-7.7); POLYS (SEG NEUTROPHILS) 74 % (16-70)
[2017-02-18] MEDS: DOCUSATE SODIUM 100 MG CAP PO SCH ×2 (09:00→21:00)
[2017-02-18] MEDS: FAMOTIDINE 20 MG TAB NG SCH ×2 (09:18→21:31)
[2017-02-18] MEDS: SODIUM CHLORIDE 0.9% FLUSH 10 ML FLUSH IV FLUSH SCH ×2 (09:18→21:32)
[2017-02-18] MEDS: levETIRAcetam 500 MG/5 ML UDC NG SCH ×2 (09:18→21:31)
--- NOTE | 2017-02-18 11:35 | HHI.NSPN ---
(Rosa Vera) Note Status Status: Progress Note (Rosa Vera) Interval History Interval History Ms Tinajero is an 76 year old adult female who was brought to [facility] as a stroke alert with a severe intracerebral and intraventricular hemorrhage with mass effect and midline shift. She underwent placement of ventriculostomy drain on 01/27/17. She underwent a left parietooccipital craniotomy, evacuation of intracerebral hematoma on Jan 28, 2017. 01/29: intubated and sedated. EVD draining well bloody CSF. ICPs normal. f/u CT Head this morning with decreasing mass effect, less left to right midline shift which now measures 4.6 mm, with small amount hemorrhage remains evident in the ventricular system. 01/30: intubated and sedated. ventriculostomy draining well, ICPs within normal limits. 01/31: intubated, sedated. no eye opening. ventriculostomy draining well, ICPs remains wnl 02/03: EVD raised to 3 cm H20 over the weekend, ICPs stable. Intubated and off sedative drips, mildly opens eyes. 02/04: appears much more alert this morning, eyes wide open and tracking. EVD draining well. 02/05: tolerating CPAP, awake and tracking. CSF now simpson. EVD draining well. 02/17/17: neuro stable overnight, reports patient smiling. dc planning to rehab. 02/18/17: more awake and interactive when up in stretcher chair yesterday per family, otherwise no neuro changes overnight (Rosa Vera) Labs, Micro, & Vital Signs Results Date Time Temp Pulse Resp B/P (MAP) Pulse Ox O2 Delivery O2 Flow Rate FiO2 02/18/17 10:00 85 02/18/17 08:11 98 Nasal Cannula 2.00 02/18/17 08:00 99 02/18/17 07:00 100 Nasal Cannula 1.00 40 02/18/17 06:00 100 02/18/17 04:00 106 02/18/17 04:00 97.9 106 19 116/57 (76) 100 02/18/17 02:00 106 02/18/17 00:00 98.4 108 17 149/71 (97) 100 02/18/17 00:00 108 02/17/17 22:00 110 02/17/17 20:00 112 02/17/17 20:00 98.4 112 20 149/71 (97) 100 02/17/17 19:54 100 Nasal Cannula 2.00 02/17/17 19:00 100 Nasal Cannula 1.00 02/17/17 18:00 112 02/17/17 16:00 111 02/17/17 16:00 97.5 111 19 149/71 (97) 100 02/17/17 14:00 109 02/17/17 12:00 97.5 106 15 124/61 (82) 100 02/17/17 12:00 106 Constitutional Vital Signs Date Time Temp Pulse Resp B/P (MAP) Pulse Ox O2 Delivery O2 Flow Rate FiO2 02/18/17 10:00 85 02/18/17 08:11 98 Nasal Cannula 2.00 02/18/17 08:00 99 02/18/17 07:00 100 Nasal Cannula 1.00 40 02/18/17 06:00 100 02/18/17 04:00 106 02/18/17 04:00 97.9 106 19 116/57 (76) 100 02/18/17 02:00 106 02/18/17 00:00 98.4 108 17 149/71 (97) 100 02/18/17 00:00 108 02/17/17 22:00 110 02/17/17 20:00 112 02/17/17 20:00 98.4 112 20 149/71 (97) 100 02/17/17 19:54 100 Nasal Cannula 2.00 02/17/17 19:00 100 Nasal Cannula 1.00 02/17/17 18:00 112 02/17/17 16:00 111 02/17/17 16:00 97.5 111 19 149/71 (97) 100 02/17/17 14:00 109 02/17/17 12:00 97.5 106 15 124/61 (82) 100 02/17/17 12:00 106 (Rosa Vera) Physical Exam Awake, eyes open, intermittently focuses and tracks. Not following commands for me but intermittently reaches with her left hand Surgical incision healing well, steri-strips in place. Motor: reached up with her left hand, mild flexion left lower extremity to deep pain. CN; pupils 3-4 mm bilaterally, facial grossly symmetric at rest (Rosa Vera) Medications Current Medications Current Medications Medications (Trade) Dose Ordered Sig/Eunice Route PRN Reason Start Time Stop Time Status Last Admin Dose Admin Nicardipine HCl 25 mg/Sodium Chloride 250 ml @ 50 mls/hr TITRATE PRN IV Blood pressure management 01/27/17 13:00 01/31/17 01:57 Sodium Chloride (NS Flush) 2 ml UNSCH PRN IV FLUSH FLUSH AFTER USING IV ACCESS 01/27/17 13:30 Sodium Chloride (NS Flush) 2 ml BID IV FLUSH 01/27/17 21:00 02/18/17 09:18 Miscellaneous Information 1 [id number] XX 01/27/17 13:30 01/27/17 13:30 Chlorhexidine Gluconate (Chlorhexidine 2% Cloth) 3 pack Taper DAILY@04 TOP 01/28/17 04:00 01/24/18 03:59 Chlorhexidine Gluconate (Chlorhexidine 2% Cloth) 3 pack UNSCH PRN TOP HYGIENIC CARE 01/27/17 13:30 Propofol 100 ml @ 1.995 mls/ hr TITRATE PRN IV SEDATION 01/27/17 15:15 01/29/17 19:55 Bisacodyl (Dulcolax Supp) 10 mg DAILY PRN RECTAL CONSTIPATION 01/28/17 17:15 01/30/17 08:01 Docusate Sodium (Colace) 100 mg BID PO 01/28/17 21:00 02/13/17 21:06 Ondansetron HCl (Zofran Inj) 4 mg Q6H PRN IV PUSH NAUSEA OR VOMITING 01/28/17 17:15 Calcium Gluconate (Calcium Gluconate Inj) 1 gm UNSCH PRN IV SEE LABEL COMMENTS 01/28/17 17:15 Potassium Chloride 100 ml @ 50 mls/hr UNSCH PRN IV POTASSIUM LESS THAN 4 01/28/17 17:15 01/29/17 05:46 Magnesium Sulfate 4 gm/Sodium Chloride 108 ml @ 108 mls/hr UNSCH PRN IV MAGNESIUM LESS THAN 2 01/28/17 17:15 Acetaminophen/ Hydrocodone Bitart ([place] 10-325 Mg) 1 tab Q4H PRN PO PAIN SCALE 1 TO 5 01/28/17 17:15 02/16/17 21:52 Acetaminophen/ Hydrocodone Bitart ([place] 10-325 Mg) 2 tab Q4H PRN PO PAIN SCALE 6 TO 10 01/28/17 17:15 02/06/17 23:29 Insulin Aspart (NovoLOG SUPPLEMENTAL SCALE) 1 Q6HR SQ 01/29/17 12:00 02/18/17 05:38 Dextrose (D50w (Vial) Inj) 25 ml UNSCH PRN IV HYPOGLYCEMIA-SEE COMMENTS 01/29/17 12:00 Glucagon (Glucagon Inj) 1 mg UNSCH PRN IM/SQ HYPOGLYCEMIA-SEE COMMENTS 01/29/17 12:00 Potassium Chloride 100 ml @ 50 mls/hr Q2H PRN IV For Potassium 2.8 - 3.2 mEq/L 01/29/17 12:00 01/29/17 13:56 Potassium Chloride 100 ml @ 50 mls/hr Q2H PRN IV For Potassium 2.8 - 3.2 mEq/L 01/29/17 12:00 Potassium Bicarb/ Potassium Chloride (K-Lyte Cl Eff) 50 meq UNSCH PRN PO For Potassium 3.3 - 3.5 mEq/L 01/29/17 12:00 01/31/17 02:44 Potassium Chloride 100 ml @ 25 mls/hr UNSCH PRN IV For Potassium 3.3 - 3.5 mEq/L 01/29/17 12:00 Potassium Chloride 100 ml @ 50 mls/hr Q2H PRN IV For Potassium 3.3 - 3.5 mEq/L 01/29/17 12:00 Magnesium Sulfate 4 gm/Sodium Chloride 100 ml @ 50 mls/hr UNSCH PRN IV For Magnesium 0.9 - 1.1 mg/dL 01/29/17 12:00 Magnesium Oxide (Mag-Ox) 800 mg UNSCH PRN PO For Magnesium 1.2 - 1.6 mg/dL 01/29/17 12:00 Magnesium Sulfate 2 gm/Sodium Chloride 100 ml @ 50 mls/hr UNSCH PRN IV For Magnesium 1.2 - 1.6 mg/dL 01/29/17 12:00 Potassium Phosphate (K-Phos) 2,000 mg Q4H PRN PO For Phosphorus < 2.5 mg/dL 01/29/17 12:00 Sodium Phosphate 30 mmol/Sodium Chloride 250 ml @ 42 mls/hr UNSCH PRN IV For Phosphorus < 2.5 mg/dL 01/29/17 12:00 Potassium Phosphate (K-Phos) 2,000 mg UNSCH PRN PO/TUBE SEE LABEL COMMENTS 01/29/17 12:00 Potassium Phosphate 30 mmol/ Sodium Chloride 260 ml @ 42 mls/hr UNSCH PRN IV SEE LABEL COMMENTS 01/29/17 12:00 Acetaminophen (Tylenol) 650 mg Q4H PRN PO SEE LABEL COMMENTS 01/29/17 16:15 Diphenhydramine HCl (Benadryl) 25 mg Q4H PRN PO SEE LABEL COMMENTS 01/29/17 16:15 Hydralazine HCl (Apresoline Inj) 10 mg Q1H PRN IV PUSH SBP >160 02/05/17 16:00 Labetalol HCl (Trandate Inj) 20 mg Q3H PRN IV PUSH SBP > 150 02/05/17 16:00 02/05/17 17:00 Levothyroxine Sodium (Synthroid) 50 mcg DAILY@0600 OG-TUBE 02/08/17 06:00 02/18/17 06:31 Artificial Tears (Tears Naturale Opth Soln) 1 drop Q8HR EACH EYE 02/08/17 14:00 02/18/17 05:39 Insulin Detemir (Levemir Inj) 5 units Q12HR SQ 02/08/17 21:00 02/17/17 22:17 Albuterol Sulfate (Albuterol Neb) 2.5 mg Q2HR NEB PRN INH SHORTNESS OF BREATH 02/10/17 12:15 02/16/17 12:53 Acetaminophen (Tylenol 650 Mg/ 20 ml Liq) 650 mg Q6H PRN NG fever 02/11/17 14:15 02/11/17 20:46 Racepinephrine (Racepinephrine 2.25% Neb) 0.5 ml Q1HR NEB PRN NEB stridor 02/12/17 14:45 02/13/17 09:05 Levetriacetam (Keppra Liq) 500 mg Q12H NG 02/14/17 21:00 02/18/17 09:18 Famotidine (Pepcid) 20 mg BID NG 02/15/17 21:00 02/18/17 09:18 Water (Free Water) 300 ml Q8HR G-TUBE 02/16/17 14:00 02/18/17 05:39 (Rosa Vera) Medical Decision Making MDM Remarks 76 year old female with large intraventricular hemorrhage s/p placement of ventriculostomy drain 01/27/17, slowly challenging ventriculostomy drain, ICPs remains wnl s/p left parietooccipital craniotomy, evacuation of intracerebral hematoma 01/28 patient doing well, slow neurological improvements (Rosa Vera) Plan Plan Remarks cont current care cont neuro checks cont therapy and rehab efforts Dr. Bowden dw in room, updated on plan of care, his questions answered ok to dc to rehab from N[facility] standpoint once placement arranged (Rosa Vera) Attending Statement The exam, history, and the medical decision-making described in the above note were completed with the assistance of the mid-level provider. I reviewed and agree with the findings presented. I attest that I had a [id number] encounter with the patient on the same day, and personally performed and documented my assessment and findings in the medical record. (Jack Bowden MD) Rosa Vera Feb 18, 2017 11:35 Jack Bowden MD Feb 18, 2017 13:56
--- NOTE | 2017-02-18 11:55 | HHI.CCPN ---
Subjective Remarks/Hospital Course Note for 02/16/1701/27: Patient is a 76-year-old female who was brought to the [facility] [place] emergency department by EMS as a stroke alert. Last found normal at 11 this morning, later found unresponsive in the bed by her and EMS was called. EMS gave her Narcan IM without any response, blood glucose was 140, vital signs were apparently stable. In the ED patient remained poorly responsive and was intubated for airway protection. Her blood pressure on arrival was 243/129 and patient was started on Cardene infusion. CT of the head showed extensive acute intraventricular hemorrhage involving the left lateral ventricle, right lateral ventricle and third ventricle, acute intraparenchymal hemorrhage within the left parietal and left occipital region ( 4.1 cm in size). Acute subdural hematoma along the left frontoparietal region measuring 5 mm in width. There was also significant Significant (10 mm) subfalcine herniation to the right. Dr. Bowden was contacted by the ED Per Dr. Rivera on 01/27: Critical care medicine was requested to admit the patient. Patient was emergently moved to the ICU for EVD placement. I evaluated the patient immediately after arrival to the ICU. Patient purposefully moves left upper extremity and withdraws all other extremities. at the bedside was updated. I explained to the that she has very extensive intracranial hemorrhage and prognosis appears poor. Dr. Bowden is planning to place an EVD emergently. I discussed with Dr. Bowden extensively , patient is not a candidate for evacuation of intracerebral hemorrhage due to overall poor prognosis. I have placed a central line for administration of vasopressor agents and 3% saline. Patient remains on Cardene infusion and at this time receiving mannitol. I have also ordered Keppra for seizure prophylaxis 01/28: Remains sedated, orally intubated on mechanical ventilation. Being taken to OR for craniotomy per Dr. Bowden. 01/29: Remains sedated, orally intubated on mechanical ventilation. Underwent craniotomy with evacuation of hematoma by Dr. Bowden on 01/28. Ventriculostomy remains in place. Drained 120 cc bloody CSF over the last 12 hours. ICP 2. 01/30: ICP well controlled. Requiring mechanical ventilation. 01/31: Remains sedated, orally intubated on mechanical ventilation. Ventriculostomy in place. ICP within normal limits. Leukocytosis persists. UA appeared abnormal however cultures with no growth. Starting empiric Levaquin. Checking pro-calcitonin. Started free water for worsening hypernatremia 02/01 Afebrile. WBC 16.9 which is downtrending. Nurse states she has diarrhea. Procalcitonin is not elevated. Ventric at 0 cm water, repeat CT scheduled for tomorrow morning per neurosurgery. 02/02: Osmolality suitably concentrated but brain edema persists, shift slightly larger. Hypertonic saline continued at half rate to avoid overly rapid drop. 02/03: No improvement in neuro exam over past 24 hours. Osmolality acceptable. 02/04: Tolerating CPAP trials today with good respiratory effort. Long discussion with and daughter about plans to extubate, high likelihood of reintubation. 02/05: Will attempt to extubate today during a period when she is alert; sleeping now. Extubated and respiratory drive good. Good cough effort. She had immediate stridor however and it was not helped by suctioning nor 4 racemic epi treatments. I will re-intubate with a smaller tube and add steroids for 48-72 hours. 02/06: No change in neurological function. When extubated she did not follow commands nor seem to respond to voices of family. Her airway was stridor ridden and did not clear with multiple racemic epi rxs. Steroids started 02/05, continue for 2-3 days then retry. Suspect she'll need trach but family not ready. 02/07. Tolerating CPAP 10/. No cuff leak despite steroids. Will try diuresing. Follows commands LUE. 02/08: Tolerated PSV trials 20 hours yesterday. No cuff leak. Tongue remains is edematous. Opens eyes and follows commands with left upper extremity only. Wiggles left lower extremity. 02/09: Currently resting in bed. Remains on PSV trial. Her tongue remains swollen. No new neurological changes. 02/10: Respiratory rates between 6 and 8 this morning. Placed back on ACV with a rate of 10. Tongue remains swollen. No new neurological changes. Subjective: 02/11: Status post removal of ventriculostomy 02/10. more comfortable with trach. Waiting for Dr. Gómez to return to make definitive decision. Removing magalys today. Hosea enteral diet. 02/12: I'll discuss tracheostomy vs extubation with family again today. No change in neurological status. CT head with no shift, resolving edema. 02/13: Extubated 24 hours ago. Sats acceptable and continues to breathe comfortably. Will assess functional status and place in rehab / SNF. 02/14: Tolerating extubation for 2 days now. TFs restarted. 02/15: Extubated 3 days ago, breathing comfortably. Case management assisting with rehab placement. 02/16: Awaiting placement in rehab or SNF depending on level of cooperation patient is capable of. 02/17/17: Patient up in stretcher chair today. Eyes spontaneously partially open. Purposefully moves left upper extremity 02/18/17: Lying in bed, remains weak, Airway remains tenuous. Updated at bedside. Discussed with Dr. Bowden Objective Vital Signs Date Time Temp Pulse Resp B/P (MAP) Pulse Ox O2 Delivery O2 Flow Rate FiO2 02/18/17 10:00 85 02/18/17 08:11 98 Nasal Cannula 2.00 02/18/17 07:00 40 02/18/17 04:00 97.9 19 116/57 (76) Intake and Output 02/18/17 02/18/17 02/19/17 08:00 16:00 00:00 Intake Total 1195 ml Output Total 500 ml Balance 695 ml Result Diagram: 02/18/17 0433 02/18/17 0433 Imaging Last Impressions Head CT 02/10/17 0900 Signed Impressions: Service Date/Time: Friday, February 10, 2017 09:23 - CONCLUSION: Interval improvement with less parenchymal hemorrhage, intraventricular blood. Ventricles are mildly prominent when compared to the previous study. Patricio Hardy MD FACR Chest X-Ray 02/08/17 0600 Signed Impressions: Service Date/Time: Wednesday, February 08, 2017 04:22 - CONCLUSION: Improved chest appearance Miguel Hua MD Neck CTA 01/28/17 1009 Signed Impressions: Service Date/Time: Saturday, January 28, 2017 10:27 - CONCLUSION: 1. No hemodynamically significant carotid artery stenosis identified. 2. Mild atherosclerotic plaquing at the bifurcation. 3. Both vertebral arteries are widely patent. Jac Hardy MD Head CTA 01/28/17 0000 Signed Impressions: Service Date/Time: Saturday, January 28, 2017 10:27 - CONCLUSION: 1. No evidence of vascular malformation or vasculopathy. 2. Subdural, intraparenchymal and intraventricular hemorrhage are again noted and not significantly changed since prior study. 3. Persistent left to right shift measuring between 8 and 9 mm; unchanged. Nick Barker MD Objective Remarks GENERAL: 76-year-old female. Lying in bed, lethargic, eyes are partially open SKIN: Warm/dry. Well-perfused HEAD: Ventriculostomy removed. EYES: Pupils equal and round, 3 mm sluggish reaction to light. ENT: No nasal bleeding or discharge. Mucous membranes moist. NECK: Trachea midline. CARDIOVASCULAR: Regular rate and rhythm. NL S1S2. No JVD. RESPIRATORY: Breath sounds equal bilaterally. Clear, good respiratory drive. Cough effort is weak GASTROINTESTINAL: Abdomen soft, non-tender, nondistended. BS active. MUSCULOSKELETAL: No obvious deformities. No edema. Well perfused. NEUROLOGICAL: Eyes open partially, left gaze, slightly tracking. RUE is flaccid. RLE with very weak withdrawal. LUE grasps handrail. LLE withdraws to noxious stimuli. Babinski upgoing on the left, neutral response right. A/P Assessment and Plan Neuro: Extensive intraventricular hemorrhage, left parietal/occipital intraparenchymal hemorrhage, left subdural hemorrhage Encephalopathy - Emergency EVD placement by Dr. Bowden. Removed 02/10 - Levetiracetam 500 mg IV q12 hours for seizure prophylaxis - s/p craniotomy with evacuation of hematoma 01/[address] Bowden. - Currently on hydrocodone/acetaminophen 55/325 and 10/325 one tablet every fours. - Continue aggressive PT/OT Resp: Respiratory failure - Intubated for airway protection, Extubated 02/05 and had stridor so reintubated and placed on Decadron - Extubated again 02/12. Wean fio2 for goal spo2 > 90% - HOB elevated - As needed albuterol therapy every 4 hours, PRN Dyspnea - At this time no evidence of aspiration but airway remains tenuous due to severe weakness and lethargy - CXR in am CV: Hypertensive emergency - Cardizem drip has been discontinued - As needed labetalol/hydralazine - 2D Echo - EF 65-70%. Renal: - Fuller in place - strict i/os FEN/GI: Hypernatremia - Continue tube feeds with Glucerna1.5 goal to 50 mL per hour per nutrition recommendations. - Pantoprazole 40 mg IV daily for GI prophylaxis - Docusate sodium 100 mg twice a day for bowel regimen - Dobhoff tube for feeding -> good position. - Free water 300 q6h. - Continue to fail swallow ID/HEME: Normocytic anemia Leukocytosis - Does not meet transfusion triggers at this time - Leukocytosis persists: Possibly reactive secondary ICH/surgery. - Pancultures done on 01/29 with no growth. Empiric levofloxacin was started and discontinued 02/07 - C diff previously ordered but then diarrhea resolved. 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 Continue levothyroxine 50 mcg daily. Prophylaxis: SCDs Pantoprazole No pharmacologic DVT prophylaxis given ICH per discussion with Dr. Rivas. Initiate when ok with NSG. 01/29: I had a long discussion with patient's daughter at bedside regarding current clinical status and plan of care and she voiced understanding and was agreeable. I also discussed strong possibility of need for tracheostomy and PEG tube and possible senior care placement and she voiced understanding. Goals of care remain aggressive at this time. 02/05: Numerous long conversations with innumerable family members. All are aware that she may not tolerate extubation and may well require tracheostomy. They are expecting a miracle and are very emotional about it. 02/07 - Slight neuro improvement but still poor prognosis for functional recovery. Discussed with family still likely to require trach/PEG but they are hoping she does not. 02/08 - family is adamant to Dr. Gómez Decision requiring extubation versus trach. He will return 02/12. 02/12 - Lengthy talk with family members about care goals. They want continued aggressive treatment. Lengthy talk with family about placement on 02/15. Discussed with and updated at bedside 02/17/17 and 02/18/17 Overall impression: Patient remains lethargic. High risk of aspiration and airway compromise, respiratory failure at this time. Continue ICU care Cathie Rivera MD Feb 18, 2017 11:55
[2017-02-18] MEDS: INSULIN DETEMIR 100 UNITS/ML VIAL SQ SCH (22:02)
[2017-02-19] VITALS (12 sets, daily range): BP systolic 93–142; BP diastolic 48–65; PULSE 94–112; RESP 17–22; TEMP 97.8–98.8; O2SAT 93–100
[2017-02-19] MEDS: CHLORHEXIDINE GLUCONATE 2 % 1 PACK (2 CLOTHS) TOP SCH (04:00)
[2017-02-19] MEDS: FREE WATER G-TUBE SCH ×2 (06:00→22:00)
[2017-02-19] MEDS: INSULIN ASPART SUPPLEMENTAL SCALE SQ SCH ×5 (06:00→23:47)
[2017-02-19] MEDS: ARTIFICIAL TEARS OPTH SOLN 15 ML BTL EACH EYE SCH ×3 (06:28→22:00)
[2017-02-19] MEDS: LEVOTHYROXINE SODIUM 50 MCG TAB OG-TUBE SCH (06:29)
[2017-02-19] MEDS: DOCUSATE SODIUM 100 MG CAP PO SCH ×2 (08:17→20:06)
[2017-02-19] MEDS: levETIRAcetam 500 MG/5 ML UDC NG SCH ×2 (08:17→20:06)
[2017-02-19] MEDS: SODIUM CHLORIDE 0.9% FLUSH 10 ML FLUSH IV FLUSH SCH ×2 (08:17→20:07)
[2017-02-19] MEDS: FAMOTIDINE 20 MG TAB NG SCH ×2 (08:17→20:06)
[2017-02-19] MEDS: INSULIN DETEMIR 100 UNITS/ML VIAL SQ SCH ×2 (08:43→20:07)
--- NOTE | 2017-02-19 12:00 | HHI.NSPN ---
(Rosa Vera) Note Status Status: Progress Note (Rosa Vera) Interval History Interval History Ms Tinajero is an 76 year old adult female who was brought to [facility] as a stroke alert with a severe intracerebral and intraventricular hemorrhage with mass effect and midline shift. She underwent placement of ventriculostomy drain on 01/27/17. She underwent a left parietooccipital craniotomy, evacuation of intracerebral hematoma on Jan 28, 2017. 01/29: intubated and sedated. EVD draining well bloody CSF. ICPs normal. f/u CT Head this morning with decreasing mass effect, less left to right midline shift which now measures 4.6 mm, with small amount hemorrhage remains evident in the ventricular system. 01/30: intubated and sedated. ventriculostomy draining well, ICPs within normal limits. 01/31: intubated, sedated. no eye opening. ventriculostomy draining well, ICPs remains wnl 02/03: EVD raised to 3 cm H20 over the weekend, ICPs stable. Intubated and off sedative drips, mildly opens eyes. 02/04: appears much more alert this morning, eyes wide open and tracking. EVD draining well. 02/05: tolerating CPAP, awake and tracking. CSF now simpson. EVD draining well. 02/17/17: neuro stable overnight, reports patient smiling. dc planning to rehab. 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 no significant neuro changes, remains in a minimal conscious state, not fully awake to protect her airway. (Rosa Vera) Labs, Micro, & Vital Signs Results Date Time Temp Pulse Resp B/P (MAP) Pulse Ox O2 Delivery O2 Flow Rate FiO2 02/19/17 10:00 107 02/19/17 08:00 98.7 108 20 99/48 (65) 93 02/19/17 08:00 110 02/19/17 07:00 96 Room Air 21 02/19/17 06:00 104 02/19/17 04:00 106 02/19/17 04:00 98.2 106 20 93/50 (64) 99 02/19/17 02:00 109 02/19/17 00:00 98.5 106 19 142/65 (90) 98 02/19/17 00:00 106 02/18/17 22:00 101 02/18/17 20:00 111 02/18/17 20:00 98.7 111 20 135/70 (91) 99 02/18/17 19:45 99 21 02/18/17 19:00 99 Room Air 02/18/17 18:00 97 02/18/17 16:00 98.4 102 16 103/52 (69) 99 02/18/17 16:00 85 02/18/17 14:00 95 02/18/17 12:00 98.3 100 20 91/53 (66) 98 02/18/17 12:00 76 Constitutional Vital Signs Date Time Temp Pulse Resp B/P (MAP) Pulse Ox O2 Delivery O2 Flow Rate FiO2 02/19/17 10:00 107 02/19/17 08:00 98.7 108 20 99/48 (65) 93 02/19/17 08:00 110 02/19/17 07:00 96 Room Air 02/19/17 06:00 104 02/19/17 04:00 106 02/19/17 04:00 98.2 106 20 93/50 (64) 99 02/19/17 02:00 109 02/19/17 00:00 98.5 106 19 142/65 (90) 98 02/19/17 00:00 106 02/18/17 22:00 101 02/18/17 20:00 111 02/18/17 20:00 98.7 111 20 135/70 (91) 99 02/18/17 19:45 99 21 02/18/17 19:00 99 Room Air 02/18/17 18:00 97 02/18/17 16:00 98.4 102 16 103/52 (69) 99 02/18/17 16:00 85 02/18/17 14:00 95 02/18/17 12:00 98.3 100 20 91/53 (66) 98 02/18/17 12:00 76 (Rosa Vera) Review of Systems ROS Limitations: Clinical Condition, Altered Mental Status (Rosa Vera) Physical Exam Eyes open, semi-conscious state, intermittently focuses and tracks. Not following commands for me but seen intermittently reaches with her left hand Surgical incision healing well, steri-strips in place. Motor: mild flexion left lower extremity to deep pain, intermittent spontaneous left upper extremity movement CN; pupils 3-4 mm bilaterally, facial grossly symmetric at rest (Rosa Vera) Medications Current Medications Current Medications Medications (Trade) Dose Ordered Sig/Eunice Route PRN Reason Start Time Stop Time Status Last Admin Dose Admin Nicardipine HCl 25 mg/Sodium Chloride 250 ml @ 50 mls/hr TITRATE PRN IV Blood pressure management 01/27/17 13:00 01/31/17 01:57 Sodium Chloride (NS Flush) 2 ml UNSCH PRN IV FLUSH FLUSH AFTER USING IV ACCESS 01/27/17 13:30 Sodium Chloride (NS Flush) 2 ml BID IV FLUSH 01/27/17 21:00 02/19/17 08:17 Miscellaneous Information 1 [id number] XX 01/27/17 13:30 01/27/17 13:30 Chlorhexidine Gluconate (Chlorhexidine 2% Cloth) 3 pack Taper DAILY@04 TOP 01/28/17 04:00 01/24/18 03:59 Chlorhexidine Gluconate (Chlorhexidine 2% Cloth) 3 pack UNSCH PRN [facility] 01/27/17 13:30 Propofol 100 ml @ 1.995 mls/ hr TITRATE PRN IV SEDATION 01/27/17 15:15 01/29/17 19:55 Bisacodyl (Dulcolax Supp) 10 mg DAILY PRN RECTAL CONSTIPATION 01/28/17 17:15 01/30/17 08:01 Docusate Sodium (Colace) 100 mg BID PO 01/28/17 21:00 02/13/17 21:06 Ondansetron HCl (Zofran Inj) 4 mg Q6H PRN IV PUSH NAUSEA OR VOMITING 01/28/17 17:15 Calcium Gluconate (Calcium Gluconate Inj) 1 gm UNSCH PRN IV SEE LABEL COMMENTS 01/28/17 17:15 Potassium Chloride 100 ml @ 50 mls/hr UNSCH PRN IV POTASSIUM LESS THAN 4 01/28/17 17:15 01/29/17 05:46 Magnesium Sulfate 4 gm/Sodium Chloride 108 ml @ 108 mls/hr UNSCH PRN IV MAGNESIUM LESS THAN 2 01/28/17 17:15 Acetaminophen/ Hydrocodone Bitart ([place] 10-325 Mg) 1 tab Q4H PRN PO PAIN SCALE 1 TO 5 01/28/17 17:15 02/16/17 21:52 Acetaminophen/ Hydrocodone Bitart ([place] 10-325 Mg) 2 tab Q4H PRN PO PAIN SCALE 6 TO 10 01/28/17 17:15 02/06/17 23:29 Insulin Aspart (NovoLOG SUPPLEMENTAL SCALE) 1 Q6HR SQ 01/29/17 12:00 02/18/17 05:38 Dextrose (D50w (Vial) Inj) 25 ml UNSCH PRN IV HYPOGLYCEMIA-SEE COMMENTS 01/29/17 12:00 Glucagon (Glucagon Inj) 1 mg UNSCH PRN IM/SQ HYPOGLYCEMIA-SEE COMMENTS 01/29/17 12:00 Potassium Chloride 100 ml @ 50 mls/hr Q2H PRN IV For Potassium 2.8 - 3.2 mEq/L 01/29/17 12:00 01/29/17 13:56 Potassium Chloride 100 ml @ 50 mls/hr Q2H PRN IV For Potassium 2.8 - 3.2 mEq/L 01/29/17 12:00 Potassium Bicarb/ Potassium Chloride (K-Lyte Cl Eff) 50 meq UNSCH PRN PO For Potassium 3.3 - 3.5 mEq/L 01/29/17 12:00 01/31/17 02:44 Potassium Chloride 100 ml @ 25 mls/hr UNSCH PRN IV For Potassium 3.3 - 3.5 mEq/L 01/29/17 12:00 Potassium Chloride 100 ml @ 50 mls/hr Q2H PRN IV For Potassium 3.3 - 3.5 mEq/L 01/29/17 12:00 Magnesium Sulfate 4 gm/Sodium Chloride 100 ml @ 50 mls/hr UNSCH PRN IV For Magnesium 0.9 - 1.1 mg/dL 01/29/17 12:00 Magnesium Oxide (Mag-Ox) 800 mg UNSCH PRN PO For Magnesium 1.2 - 1.6 mg/dL 01/29/17 12:00 Magnesium Sulfate 2 gm/Sodium Chloride 100 ml @ 50 mls/hr UNSCH PRN IV For Magnesium 1.2 - 1.6 mg/dL 01/29/17 12:00 Potassium Phosphate (K-Phos) 2,000 mg Q4H PRN PO For Phosphorus < 2.5 mg/dL 01/29/17 12:00 Sodium Phosphate 30 mmol/Sodium Chloride 250 ml @ 42 mls/hr UNSCH PRN IV For Phosphorus < 2.5 mg/dL 01/29/17 12:00 Potassium Phosphate (K-Phos) 2,000 mg UNSCH PRN PO/TUBE SEE LABEL COMMENTS 01/29/17 12:00 Potassium Phosphate 30 mmol/ Sodium Chloride 260 ml @ 42 mls/hr UNSCH PRN IV SEE LABEL COMMENTS 01/29/17 12:00 Acetaminophen (Tylenol) 650 mg Q4H PRN PO SEE LABEL COMMENTS 01/29/17 16:15 Diphenhydramine HCl (Benadryl) 25 mg Q4H PRN PO SEE LABEL COMMENTS 01/29/17 16:15 Hydralazine HCl (Apresoline Inj) 10 mg Q1H PRN IV PUSH SBP >160 02/05/17 16:00 Labetalol HCl (Trandate Inj) 20 mg Q3H PRN IV PUSH SBP > 150 02/05/17 16:00 02/05/17 17:00 Levothyroxine Sodium (Synthroid) 50 mcg DAILY@0600 OG-TUBE 02/08/17 06:00 02/19/17 06:29 Artificial Tears (Tears Naturale Opth Soln) 1 drop Q8HR EACH EYE 02/08/17 14:00 02/19/17 06:28 Insulin Detemir (Levemir Inj) 5 units Q12HR SQ 02/08/17 21:00 02/19/17 08:43 Albuterol Sulfate (Albuterol Neb) 2.5 mg Q2HR NEB PRN INH SHORTNESS OF BREATH 02/10/17 12:15 02/16/17 12:53 Acetaminophen (Tylenol 650 Mg/ 20 ml Liq) 650 mg Q6H PRN NG fever 02/11/17 14:15 02/11/17 20:46 Racepinephrine (Racepinephrine 2.25% Neb) 0.5 ml Q1HR NEB PRN NEB stridor 02/12/17 14:45 02/13/17 09:05 Levetriacetam (Keppra Liq) 500 mg Q12H NG 02/14/17 21:00 02/19/17 08:17 Famotidine (Pepcid) 20 mg BID NG 02/15/17 21:00 02/19/17 08:17 Water (Free Water) 300 ml Q8HR G-TUBE 02/16/17 14:00 02/19/17 06:00 (Rosa Vera) Medical Decision Making MDM Remarks 76 year old female with large intraventricular hemorrhage s/p placement of ventriculostomy drain 01/27/17, slowly challenging ventriculostomy drain, ICPs remains wnl s/p left parietooccipital craniotomy, evacuation of intracerebral hematoma 01/28 patient is slowly showing neurological improvement, however remains to be in a minimally conscious state (Rosa Vera) Plan Plan Remarks cont monitor in intensive surgical care cont critical care management cont with daily therapy (Rosa Vera) Attending Statement The exam, history, and the medical decision-making described in the above note were completed with the assistance of the mid-level provider. I reviewed and agree with the findings presented. I attest that I had a [id number] encounter with the patient on the same day, and personally performed and documented my assessment and findings in the medical record. (Jack Bowden MD) Rosa Vera Feb 19, 2017 12:00 Jack Bowden MD Feb 19, 2017 13:36
--- NOTE | 2017-02-19 15:15 | HHI.CCPN ---
Subjective Remarks/Hospital Course Note for 02/16/1701/27: Patient is a 76-year-old female who was brought to the [place] emergency department by EMS as a stroke alert. Last found normal at 11 this morning, later found unresponsive in the bed by her and EMS was called. EMS gave her Narcan IM without any response, blood glucose was 140, vital signs were apparently stable. In the ED patient remained poorly responsive and was intubated for airway protection. Her blood pressure on arrival was 243/129 and patient was started on Cardene infusion. CT of the head showed extensive acute intraventricular hemorrhage involving the left lateral ventricle, right lateral ventricle and third ventricle, acute intraparenchymal hemorrhage within the left parietal and left occipital region ( 4.1 cm in size). Acute subdural hematoma along the left frontoparietal region measuring 5 mm in width. There was also significant Significant (10 mm) subfalcine herniation to the right. Dr. Bowden was contacted by the ED Per Dr. Rivera on 01/27: Critical care medicine was requested to admit the patient. Patient was emergently moved to the ICU for EVD placement. I evaluated the patient immediately after arrival to the ICU. Patient purposefully moves left upper extremity and withdraws all other extremities. at the bedside was updated. I explained to the that she has very extensive intracranial hemorrhage and prognosis appears poor. Dr. Bowden is planning to place an EVD emergently. I discussed with Dr. Bowden extensively , patient is not a candidate for evacuation of intracerebral hemorrhage due to overall poor prognosis. I have placed a central line for administration of vasopressor agents and 3% saline. Patient remains on Cardene infusion and at this time receiving mannitol. I have also ordered Keppra for seizure prophylaxis 01/28: Remains sedated, orally intubated on mechanical ventilation. Being taken to OR for craniotomy per Dr. Bowden. 01/29: Remains sedated, orally intubated on mechanical ventilation. Underwent craniotomy with evacuation of hematoma by Dr. Bowden on 01/28. Ventriculostomy remains in place. Drained 120 cc bloody CSF over the last 12 hours. ICP 2. 01/30: ICP well controlled. Requiring mechanical ventilation. 01/31: Remains sedated, orally intubated on mechanical ventilation. Ventriculostomy in place. ICP within normal limits. Leukocytosis persists. UA appeared abnormal however cultures with no growth. Starting empiric Levaquin. Checking pro-calcitonin. Started free water for worsening hypernatremia 02/01 Afebrile. WBC 16.9 which is downtrending. Nurse states she has diarrhea. Procalcitonin is not elevated. Ventric at 0 cm water, repeat CT scheduled for tomorrow morning per neurosurgery. 02/02: Osmolality suitably concentrated but brain edema persists, shift slightly larger. Hypertonic saline continued at half rate to avoid overly rapid drop. 02/03: No improvement in neuro exam over past 24 hours. Osmolality acceptable. 02/04: Tolerating CPAP trials today with good respiratory effort. Long discussion with and daughter about plans to extubate, high likelihood of reintubation. 02/05: Will attempt to extubate today during a period when she is alert; sleeping now. Extubated and respiratory drive good. Good cough effort. She had immediate stridor however and it was not helped by suctioning nor 4 racemic epi treatments. I will re-intubate with a smaller tube and add steroids for 48-72 hours. 02/06: No change in neurological function. When extubated she did not follow commands nor seem to respond to voices of family. Her airway was stridor ridden and did not clear with multiple racemic epi rxs. Steroids started 02/05, continue for 2-3 days then retry. Suspect she'll need trach but family not ready. 02/07. Tolerating CPAP 10/. No cuff leak despite steroids. Will try diuresing. Follows commands LUE. 02/08: Tolerated PSV trials 20 hours yesterday. No cuff leak. Tongue remains is edematous. Opens eyes and follows commands with left upper extremity only. Wiggles left lower extremity. 02/09: Currently resting in bed. Remains on PSV trial. Her tongue remains swollen. No new neurological changes. 02/10: Respiratory rates between 6 and 8 this morning. Placed back on ACV with a rate of 10. Tongue remains swollen. No new neurological changes. Subjective: 02/11: Status post removal of ventriculostomy 02/10. more comfortable with trach. Waiting for Dr. Gómez to return to make definitive decision. Removing magalys today. Hosea enteral diet. 02/12: I'll discuss tracheostomy vs extubation with family again today. No change in neurological status. CT head with no shift, resolving edema. 02/13: Extubated 24 hours ago. Sats acceptable and continues to breathe comfortably. Will assess functional status and place in rehab / SNF. 02/14: Tolerating extubation for 2 days now. TFs restarted. 02/15: Extubated 3 days ago, breathing comfortably. Case management assisting with rehab placement. 02/16: Awaiting placement in rehab or SNF depending on level of cooperation patient is capable of. 02/17/17: Patient up in stretcher chair today. Eyes spontaneously partially open. Purposefully moves left upper extremity 02/18/17: Lying in bed, remains weak, Airway remains tenuous. Updated at bedside. Discussed with Dr. Bowden 02/19/17: Remains extremely weak, requiring frequent NT suctioning. Eyes remain open, left gaze preference. Moves overly left upper extremity spontaneously. Remains at high risk for aspiration Objective Vital Signs Date Time Temp Pulse Resp B/P (MAP) Pulse Ox O2 Delivery O2 Flow Rate FiO2 02/19/17 12:00 106 02/19/17 08:00 98.7 20 99/48 (65) 93 02/19/17 07:00 Room Air 21 02/18/17 08:11 2.00 Intake and Output 02/19/17 02/19/17 02/20/17 08:00 16:00 00:00 Intake Total 962 ml Output Total 700 ml Balance 262 ml Result Diagram: 02/18/17 0433 02/18/17 0433 Imaging Last Impressions Head CT 02/10/17 0900 Signed Impressions: Service Date/Time: Friday, February 10, 2017 09:23 - CONCLUSION: Interval improvement with less parenchymal hemorrhage, intraventricular blood. Ventricles are mildly prominent when compared to the previous study. Patricio Hardy MD FACR Chest X-Ray 02/08/17 0600 Signed Impressions: Service Date/Time: Wednesday, February 08, 2017 04:22 - CONCLUSION: Improved chest appearance Miguel Hua MD Neck CTA 01/28/17 1009 Signed Impressions: Service Date/Time: Saturday, January 28, 2017 10:27 - CONCLUSION: 1. No hemodynamically significant carotid artery stenosis identified. 2. Mild atherosclerotic plaquing at the bifurcation. 3. Both vertebral arteries are widely patent. Jac Hardy MD Head CTA 01/28/17 0000 Signed Impressions: Service Date/Time: Saturday, January 28, 2017 10:27 - CONCLUSION: 1. No evidence of vascular malformation or vasculopathy. 2. Subdural, intraparenchymal and intraventricular hemorrhage are again noted and not significantly changed since prior study. 3. Persistent left to right shift measuring between 8 and 9 mm; unchanged. Nick Barker MD Objective Remarks GENERAL: 76-year-old female. Lying in bed, lethargic, eyes are partially open SKIN: Warm/dry. Well-perfused HEAD: Ventriculostomy removed. EYES: Pupils equal and round, 3 mm sluggish reaction to light. Left gaze preference ENT: No nasal bleeding or discharge. Mucous membranes moist. NECK: Trachea midline. CARDIOVASCULAR: Regular rate and rhythm. NL S1S2. No JVD. RESPIRATORY: Breath sounds equal bilaterally. Clear, good respiratory drive. Cough effort is weak GASTROINTESTINAL: Abdomen soft, non-tender, nondistended. BS active. MUSCULOSKELETAL: No obvious deformities. No edema. Well perfused. NEUROLOGICAL: Eyes open partially, left gaze, slightly tracking. RUE is flaccid. RLE with very weak withdrawal. LUE grasps spontaneous moments, weakly squeezes hand with the delay to command. LLE withdraws to noxious stimuli. Babinski upgoing on the left, neutral response right. A/P Assessment and Plan Neuro: Extensive intraventricular hemorrhage, left parietal/occipital intraparenchymal hemorrhage, left subdural hemorrhage Persistent Encephalopathy Persistent neuromuscular weakness - Emergency EVD placement by Dr. Bowden. Removed 02/10 - s/p craniotomy with evacuation of hematoma 01/[address] Bowden. - Currently on hydrocodone/acetaminophen 55/325 and 10/325 one tablet every fours. - Levetiracetam 500 mg IV q12 hours for seizure prophylaxis - Continue aggressive PT/OT/Speech Resp: Respiratory failure - Intubated for airway protection, Extubated 02/05 and had stridor so reintubated and placed on Decadron - Extubated again 02/12. Wean fio2 for goal spo2 > 90% - HOB elevated - As needed albuterol therapy every 4 hours, PRN Dyspnea - At this time no evidence of aspiration but airway remains tenuous due to severe weakness and lethargy - CXR in am CV: Hypertensive emergency - Cardizem drip has been discontinued - As needed labetalol/hydralazine - 2D Echo - EF 65-70%. Renal: - Fuller in place - strict i/os FEN/GI: Hypernatremia - Continue tube feeds with Glucerna1.5 goal to 50 mL per hour per nutrition recommendations. - Pantoprazole 40 mg IV daily for GI prophylaxis - Docusate sodium 100 mg twice a day for bowel regimen - Dobhoff tube for feeding -> good position. - Free water 300 q8, reduce to 200 q8 - Continue to fail swallow ID/HEME: Normocytic anemia Leukocytosis - Does not meet transfusion triggers at this time - Leukocytosis persists: Possibly reactive secondary ICH/surgery. - Panculture done on 01/29 with no growth. Empiric levofloxacin was started and discontinued 02/07 - C diff previously ordered but then diarrhea resolved. 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 Continue levothyroxine 50 mcg daily. Prophylaxis: SCDs Pantoprazole No pharmacologic DVT prophylaxis given ICH per discussion with Dr. Rivas. Initiate when ok with NSG. 01/29: I had a long discussion with patient's daughter at bedside regarding current clinical status and plan of care and she voiced understanding and was agreeable. I also discussed strong possibility of need for tracheostomy and PEG tube and possible long-term placement and she voiced understanding. Goals of care remain aggressive at this time. 02/05: Numerous long conversations with innumerable family members. All are aware that she may not tolerate extubation and may well require tracheostomy. They are expecting a miracle and are very emotional about it. 02/07 - Slight neuro improvement but still poor prognosis for functional recovery. Discussed with family still likely to require trach/PEG but they are hoping she does not. 02/08 - family is adamant to Dr. Gómez Decision requiring extubation versus trach. He will return 02/12. 02/12 - Lengthy talk with family members about care goals. They want continued aggressive treatment. Lengthy talk with family about placement on 02/15. Discussed with and updated at bedside 02/17/17 and 02/18/17 Overall impression: Patient remains lethargic. High risk of aspiration and airway compromise, respiratory failure at this time. Continue ICU care 02/19/17: Patient at this time is not stable for transfer out of ICU or Rehab/ LTAC placement. Need close monitoring in Neuro ICU until her strength and alertness improves so that she can consistently protect airway. Remains at high risk for aspiration and respiratory failure Cathie Rivera MD Feb 19, 2017 15:15
[2017-02-20] VITALS (13 sets, daily range): BP systolic 89–114; BP diastolic 51–56; PULSE 94–109; RESP 14–18; TEMP 98.4–99.2; O2SAT 93–100
[2017-02-20] MEDS: CHLORHEXIDINE GLUCONATE 2 % 1 PACK (2 CLOTHS) TOP SCH (04:00)
[2017-02-20] MEDS: ARTIFICIAL TEARS OPTH SOLN 15 ML BTL EACH EYE SCH ×3 (05:16→22:23)
[2017-02-20] MEDS: LEVOTHYROXINE SODIUM 50 MCG TAB OG-TUBE SCH (05:16)
[2017-02-20] MEDS: FREE WATER G-TUBE SCH ×3 (05:16→22:00)
[2017-02-20] MEDS: INSULIN ASPART SUPPLEMENTAL SCALE SQ SCH ×3 (05:16→17:47)
[2017-02-20 05:17] LABS: AUTOMATED NEUTROPHIL # 9.1 TH/MM3 (1.8-7.7); BASOPHIL % 0.4 % (0.0-2.0); EOSINOPHIL # 0.3 TH/MM3 (0-0.4); EOSINOPHIL % 2.5 % (0.0-4.0); HEMATOCRIT 30.7 % (35.0-46.0); HEMOGLOBIN 10.3 GM/DL (11.6-15.3); LYMPH % 10.2 % (9.0-44.0); LYMPHOCYTE # 1.2 TH/MM3 (1.0-4.8); MEAN CELL VOLUME 93.3 FL (80.0-100.0); MEAN CORPUSCULAR HEMOGLOBIN 31.4 PG (27.0-34.0); MEAN CORPUSCULAR HGB CONC 33.6 % (32.0-36.0); MONO % 6.6 % (0.0-8.0); MONOCYTE # 0.7 TH/MM3 (0-0.9); NEUT % 80.3 % (16.0-70.0); PLATELET COUNT 163 TH/MM3 (150-450); RED BLOOD COUNT 3.29 MIL/MM3 (4.00-5.30); RED CELL DISTRIBUTION WIDTH 14.2 % (11.6-17.2); WHITE BLOOD COUNT 11.3 TH/MM3 (4.0-11.0)
[2017-02-20 05:49] LABS: AST (GOT) 58 U/L (15-37); BICARBONATE 29.5 MEQ/L (21.0-32.0); BLOOD UREA NITROGEN 34 MG/DL (7-18); CALCIUM 8.1 MG/DL (8.5-10.1); CHLORIDE 112 MEQ/L (98-107); GLOMERULAR FILTRATION RATE 155 ML/MIN (>89); GLUCOSE,RANDOM 97 MG/DL (74-106); MAGNESIUM 2.3 MG/DL (1.5-2.5); SODIUM (NA) 148 MEQ/L (136-145)
[2017-02-20 05:53] LABS: ALKALINE PHOSPHATASE 118 U/L (45-117); ALT (GPT) 76 U/L (10-53); TOTAL BILIRUBIN ADULT 0.2 MG/DL (0.2-1.0); TOTAL PROTEIN 5.7 GM/DL (6.4-8.2)
--- NOTE | 2017-02-20 06:09 | RADRPT ---
EXAM DATE/TIME: 02/20/2017 05:09 [facility] COMPARISON: CHEST SINGLE AP, February 12, 2017, 2:48. INDICATIONS : Shortness of breath MEDICAL HISTORY : None. SURGICAL HISTORY : None. ENCOUNTER: Subsequent ACUITY: 1 month PAIN SCORE: Non-responsive. LOCATION: Bilateral chest FINDINGS: A single view of the chest demonstrates the lungs to be symmetrically aerated without evidence of mas s, infiltrate or effusion. The cardiomediastinal contours are unremarkable. Osseous structures are intact. Weighted feeding tube courses off the inferior margin of the film. CONCLUSION: No acute disease. Daniel Fajardo Jr., MD on February 20, 2017 at 6:07 Board Certified Radiologist. This report was verified electronically.
[2017-02-20] MEDS: levETIRAcetam 500 MG/5 ML UDC NG SCH ×2 (08:10→22:09)
[2017-02-20] MEDS: DOCUSATE SODIUM 100 MG CAP PO SCH ×2 (08:10→21:00)
[2017-02-20] MEDS: FAMOTIDINE 20 MG TAB NG SCH ×2 (08:10→22:09)
[2017-02-20] MEDS: SODIUM CHLORIDE 0.9% FLUSH 10 ML FLUSH IV FLUSH SCH ×2 (08:10→22:23)
[2017-02-20] MEDS: INSULIN DETEMIR 100 UNITS/ML VIAL SQ SCH ×2 (08:10→22:09)
--- NOTE | 2017-02-20 11:39 | HHI.NSPN ---
(Rosa Vera) Note Status Status: Progress Note (Rosa Vera) Interval History Interval History Ms Tinajero is an 76 year old adult female who was brought to [facility] as a stroke alert with a severe intracerebral and intraventricular hemorrhage with mass effect and midline shift. She underwent placement of ventriculostomy drain on 01/27/17. She underwent a left parietooccipital craniotomy, evacuation of intracerebral hematoma on Jan 28, 2017. 01/29: intubated and sedated. EVD draining well bloody CSF. ICPs normal. f/u CT Head this morning with decreasing mass effect, less left to right midline shift which now measures 4.6 mm, with small amount hemorrhage remains evident in the ventricular system. 01/30: intubated and sedated. ventriculostomy draining well, ICPs within normal limits. 01/31: intubated, sedated. no eye opening. ventriculostomy draining well, ICPs remains wnl 02/03: EVD raised to 3 cm H20 over the weekend, ICPs stable. Intubated and off sedative drips, mildly opens eyes. 02/04: appears much more alert this morning, eyes wide open and tracking. EVD draining well. 02/05: tolerating CPAP, awake and tracking. CSF now simpson. EVD draining well. 02/17/17: neuro stable overnight, reports patient smiling. dc planning to rehab. 02/18/17: more awake and interactive when up in stretcher chair yesterday per family, otherwise no neuro changes overnight 02/19/17: dw tool analyst, pt at this time still not stable for dc from pulmonary standpoint as she is high risk for aspiration, will continue to monitor in ICU. no significant neuro changes, remains in a minimal conscious state, not fully awake to protect her airway. 02/20/17: neuro checks stable overnight (Rosa Vera) Labs, Micro, & Vital Signs Results Date Time Temp Pulse Resp B/P (MAP) Pulse Ox O2 Delivery O2 Flow Rate FiO2 02/20/17 10:00 98 02/20/17 08:30 106/56 (73) 02/20/17 08:00 98.8 96 18 89/51 (64) 93 02/20/17 08:00 96 02/20/17 07:00 Room Air 02/20/17 06:00 109 02/20/17 04:00 99.2 103 18 97/51 (66) 97 02/20/17 04:00 103 02/20/17 02:00 102 02/20/17 00:00 106 02/20/17 00:00 98.9 106 18 112/55 (74) 96 02/19/17 22:00 111 02/19/17 20:00 98.2 112 19 112/56 (74) 96 02/19/17 20:00 112 02/19/17 19:00 96 Room Air 02/19/17 18:00 104 02/19/17 16:00 106 02/19/17 16:00 97.8 106 17 116/55 (75) 100 02/19/17 14:00 94 02/19/17 12:00 98.8 102 22 119/57 (77) 94 02/19/17 12:00 106 Constitutional Vital Signs Date Time Temp Pulse Resp B/P (MAP) Pulse Ox O2 Delivery O2 Flow Rate FiO2 02/20/17 10:00 98 02/20/17 08:30 106/56 (73) 02/20/17 08:00 98.8 96 18 89/51 (64) 93 02/20/17 08:00 96 02/20/17 07:00 Room Air 02/20/17 06:00 109 02/20/17 04:00 99.2 103 18 97/51 (66) 97 02/20/17 04:00 103 02/20/17 02:00 102 02/20/17 00:00 106 02/20/17 00:00 98.9 106 18 112/55 (74) 96 02/19/17 22:00 111 02/19/17 20:00 98.2 112 19 112/56 (74) 96 02/19/17 20:00 112 02/19/17 19:00 96 Room Air 02/19/17 18:00 104 02/19/17 16:00 106 02/19/17 16:00 97.8 106 17 116/55 (75) 100 02/19/17 14:00 94 02/19/17 12:00 98.8 102 22 119/57 (77) 94 02/19/17 12:00 106 (Rosa Vera) Review of Systems ROS Limitations: Clinical Condition, Altered Mental Status (Rosa Vera) Physical Exam Eyes open, semi-conscious state, intermittently focuses and tracks. Not following commands for me but seen intermittently reaches with her left hand Surgical incision healing well, steri-strips in place. Motor: mild flexion left lower extremity to deep pain, intermittent spontaneous left upper extremity movement CN; pupils 3-4 mm bilaterally, facial grossly symmetric at rest (Rosa Vera) Medications Current Medications Current Medications Medications (Trade) Dose Ordered Sig/Eunice Route PRN Reason Start Time Stop Time Status Last Admin Dose Admin Sodium Chloride (NS Flush) 2 ml UNSCH PRN IV FLUSH FLUSH AFTER USING IV ACCESS 01/27/17 13:30 Sodium Chloride (NS Flush) 2 ml BID IV FLUSH 01/27/17 21:00 02/20/17 08:10 Miscellaneous Information 1 Q361D XX 01/27/17 13:30 01/27/17 13:30 Chlorhexidine Gluconate (Chlorhexidine 2% Cloth) 3 pack Taper DAILY@04 TOP 01/28/17 04:00 01/24/18 03:59 Chlorhexidine Gluconate (Chlorhexidine 2% Cloth) 3 pack UNSCH PRN TOP HYGIENIC CARE 01/27/17 13:30 Bisacodyl (Dulcolax Supp) 10 mg DAILY PRN RECTAL CONSTIPATION 01/28/17 17:15 01/30/17 08:01 Docusate Sodium (Colace) 100 mg BID PO 01/28/17 21:00 02/13/17 21:06 Ondansetron HCl (Zofran Inj) 4 mg Q6H PRN IV PUSH NAUSEA OR VOMITING 01/28/17 17:15 Calcium Gluconate (Calcium Gluconate Inj) 1 gm UNSCH PRN IV SEE LABEL COMMENTS 01/28/17 17:15 Potassium Chloride 100 ml @ 50 mls/hr UNSCH PRN IV POTASSIUM LESS THAN 4 01/28/17 17:15 01/29/17 05:46 Magnesium Sulfate 4 gm/Sodium Chloride 108 ml @ 108 mls/hr UNSCH PRN IV MAGNESIUM LESS THAN 2 01/28/17 17:15 Acetaminophen/ Hydrocodone Bitart (Patterson 10-325 Mg) 1 tab Q4H PRN PO PAIN SCALE 1 TO 5 01/28/17 17:15 02/16/17 21:52 Acetaminophen/ Hydrocodone Bitart (Patterson 10-325 Mg) 2 tab Q4H PRN PO PAIN SCALE 6 TO 10 01/28/17 17:15 02/06/17 23:29 Insulin Aspart (NovoLOG SUPPLEMENTAL SCALE) 1 Q6HR SQ 01/29/17 12:00 02/19/17 23:47 Dextrose (D50w (Vial) Inj) 25 ml UNSCH PRN IV HYPOGLYCEMIA-SEE COMMENTS 01/29/17 12:00 Glucagon (Glucagon Inj) 1 mg UNSCH PRN IM/SQ HYPOGLYCEMIA-SEE COMMENTS 01/29/17 12:00 Potassium Chloride 100 ml @ 50 mls/hr Q2H PRN IV For Potassium 2.8 - 3.2 mEq/L 01/29/17 12:00 01/29/17 13:56 Potassium Chloride 100 ml @ 50 mls/hr Q2H PRN IV For Potassium 2.8 - 3.2 mEq/L 01/29/17 12:00 Potassium Bicarb/ Potassium Chloride (K-Lyte Cl Eff) 50 meq UNSCH PRN PO For Potassium 3.3 - 3.5 mEq/L 01/29/17 12:00 01/31/17 02:44 Potassium Chloride 100 ml @ 25 mls/hr UNSCH PRN IV For Potassium 3.3 - 3.5 mEq/L 01/29/17 12:00 Potassium Chloride 100 ml @ 50 mls/hr Q2H PRN IV For Potassium 3.3 - 3.5 mEq/L 01/29/17 12:00 Magnesium Sulfate 4 gm/Sodium Chloride 100 ml @ 50 mls/hr UNSCH PRN IV For Magnesium 0.9 - 1.1 mg/dL 01/29/17 12:00 Magnesium Oxide (Mag-Ox) 800 mg UNSCH PRN PO For Magnesium 1.2 - 1.6 mg/dL 01/29/17 12:00 Magnesium Sulfate 2 gm/Sodium Chloride 100 ml @ 50 mls/hr UNSCH PRN IV For Magnesium 1.2 - 1.6 mg/dL 01/29/17 12:00 Potassium Phosphate (K-Phos) 2,000 mg Q4H PRN PO For Phosphorus < 2.5 mg/dL 01/29/17 12:00 Sodium Phosphate 30 mmol/Sodium Chloride 250 ml @ 42 mls/hr UNSCH PRN IV For Phosphorus < 2.5 mg/dL 01/29/17 12:00 Potassium Phosphate (K-Phos) 2,000 mg UNSCH PRN PO/TUBE SEE LABEL COMMENTS 01/29/17 12:00 Potassium Phosphate 30 mmol/ Sodium Chloride 260 ml @ 42 mls/hr UNSCH PRN IV SEE LABEL COMMENTS 01/29/17 12:00 Acetaminophen (Tylenol) 650 mg Q4H PRN PO SEE LABEL COMMENTS 01/29/17 16:15 Diphenhydramine HCl (Benadryl) 25 mg Q4H PRN PO SEE LABEL COMMENTS 01/29/17 16:15 Hydralazine HCl (Apresoline Inj) 10 mg Q1H PRN IV PUSH SBP >160 02/05/17 16:00 Labetalol HCl (Trandate Inj) 20 mg Q3H PRN IV PUSH SBP > 150 02/05/17 16:00 02/05/17 17:00 Levothyroxine Sodium (Synthroid) 50 mcg DAILY@0600 OG-TUBE 02/08/17 06:00 02/20/17 05:16 Artificial Tears (Tears Naturale Opth Soln) 1 drop Q8HR EACH EYE 02/08/17 14:00 02/20/17 05:16 Insulin Detemir (Levemir Inj) 5 units Q12HR SQ 02/08/17 21:00 02/20/17 08:10 Albuterol Sulfate (Albuterol Neb) 2.5 mg Q2HR NEB PRN INH SHORTNESS OF BREATH 02/10/17 12:15 02/16/17 12:53 Acetaminophen (Tylenol 650 Mg/ 20 ml Liq) 650 mg Q6H PRN NG fever 02/11/17 14:15 02/11/17 20:46 Racepinephrine (Racepinephrine 2.25% Neb) 0.5 ml Q1HR NEB PRN NEB stridor 02/12/17 14:45 02/13/17 09:05 Levetriacetam (Keppra Liq) 500 mg Q12H NG 02/14/17 21:00 02/20/17 08:10 Famotidine (Pepcid) 20 mg BID NG 02/15/17 21:00 02/20/17 08:10 Water (Free Water) 200 ml Q8HR G-TUBE 02/19/17 22:00 02/20/17 05:16 (Rosa Vera) Medical Decision Making MDM Remarks 76 year old female with large intraventricular hemorrhage s/p placement of ventriculostomy drain 01/27/17, slowly challenging ventriculostomy drain, ICPs remains wnl s/p left parietooccipital craniotomy, evacuation of intracerebral hematoma 01/28 patient is slowly showing neurological improvement, however remains to be in a minimally conscious state (Rosa Vera) Plan Plan Remarks cont monitor in intensive surgical care cont critical care management cont with daily therapy (Rosa Vera) Attending Statement The exam, history, and the medical decision-making described in the above note were completed with the assistance of the mid-level provider. I reviewed and agree with the findings presented. I attest that I had a [id number] encounter with the patient on the same day, and personally performed and documented my assessment and findings in the medical record. (Jack Bowden MD) Rosa Vera Feb 20, 2017 11:39 Jack Bowden MD Feb 20, 2017 15:35
--- NOTE | 2017-02-20 14:22 | HHI.CCPN ---
Subjective Remarks/Hospital Course Note for 02/16/1701/27: Patient is a 76-year-old female who was brought to the [place] emergency department by EMS as a stroke alert. Last found normal at 11 this morning, later found unresponsive in the bed by her and EMS was called. EMS gave her Narcan IM without any response, blood glucose was 140, vital signs were apparently stable. In the ED patient remained poorly responsive and was intubated for airway protection. Her blood pressure on arrival was 243/129 and patient was started on Cardene infusion. CT of the head showed extensive acute intraventricular hemorrhage involving the left lateral ventricle, right lateral ventricle and third ventricle, acute intraparenchymal hemorrhage within the left parietal and left occipital region ( 4.1 cm in size). Acute subdural hematoma along the left frontoparietal region measuring 5 mm in width. There was also significant Significant (10 mm) subfalcine herniation to the right. Dr. Bowden was contacted by the ED Per Dr. Rivera on 01/27: Critical care medicine was requested to admit the patient. Patient was emergently moved to the ICU for EVD placement. I evaluated the patient immediately after arrival to the ICU. Patient purposefully moves left upper extremity and withdraws all other extremities. at the bedside was updated. I explained to the that she has very extensive intracranial hemorrhage and prognosis appears poor. Dr. Bowden is planning to place an EVD emergently. I discussed with Dr. Bowden extensively , patient is not a candidate for evacuation of intracerebral hemorrhage due to overall poor prognosis. I have placed a central line for administration of vasopressor agents and 3% saline. Patient remains on Cardene infusion and at this time receiving mannitol. I have also ordered Keppra for seizure prophylaxis 01/28: Remains sedated, orally intubated on mechanical ventilation. Being taken to OR for craniotomy per Dr. Bowden. 01/29: Remains sedated, orally intubated on mechanical ventilation. Underwent craniotomy with evacuation of hematoma by Dr. Bowden on 01/28. Ventriculostomy remains in place. Drained 120 cc bloody CSF over the last 12 hours. ICP 2. 01/30: ICP well controlled. Requiring mechanical ventilation. 01/31: Remains sedated, orally intubated on mechanical ventilation. Ventriculostomy in place. ICP within normal limits. Leukocytosis persists. UA appeared abnormal however cultures with no growth. Starting empiric Levaquin. Checking pro-calcitonin. Started free water for worsening hypernatremia 02/01 Afebrile. WBC 16.9 which is downtrending. Nurse states she has diarrhea. Procalcitonin is not elevated. Ventric at 0 cm water, repeat CT scheduled for tomorrow morning per neurosurgery. 02/02: Osmolality suitably concentrated but brain edema persists, shift slightly larger. Hypertonic saline continued at half rate to avoid overly rapid drop. 02/03: No improvement in neuro exam over past 24 hours. Osmolality acceptable. 02/04: Tolerating CPAP trials today with good respiratory effort. Long discussion with and daughter about plans to extubate, high likelihood of reintubation. 02/05: Will attempt to extubate today during a period when she is alert; sleeping now. Extubated and respiratory drive good. Good cough effort. She had immediate stridor however and it was not helped by suctioning nor 4 racemic epi treatments. I will re-intubate with a smaller tube and add steroids for 48-72 hours. 02/06: No change in neurological function. When extubated she did not follow commands nor seem to respond to voices of family. Her airway was stridor ridden and did not clear with multiple racemic epi rxs. Steroids started 02/05, continue for 2-3 days then retry. Suspect she'll need trach but family not ready. 02/07. Tolerating CPAP 10/. No cuff leak despite steroids. Will try diuresing. Follows commands LUE. 02/08: Tolerated PSV trials 20 hours yesterday. No cuff leak. Tongue remains is edematous. Opens eyes and follows commands with left upper extremity only. Wiggles left lower extremity. 02/09: Currently resting in bed. Remains on PSV trial. Her tongue remains swollen. No new neurological changes. 02/10: Respiratory rates between 6 and 8 this morning. Placed back on ACV with a rate of 10. Tongue remains swollen. No new neurological changes. Subjective: 02/11: Status post removal of ventriculostomy 02/10. more comfortable with trach. Waiting for Dr. Gómez to return to make definitive decision. Removing magalys today. Hosea enteral diet. 02/12: I'll discuss tracheostomy vs extubation with family again today. No change in neurological status. CT head with no shift, resolving edema. 02/13: Extubated 24 hours ago. Sats acceptable and continues to breathe comfortably. Will assess functional status and place in rehab / SNF. 02/14: Tolerating extubation for 2 days now. TFs restarted. 02/15: Extubated 3 days ago, breathing comfortably. Case management assisting with rehab placement. 02/16: Awaiting placement in rehab or SNF depending on level of cooperation patient is capable of. 02/17/17: Patient up in stretcher chair today. Eyes spontaneously partially open. Purposefully moves left upper extremity 02/18/17: Lying in bed, remains weak, Airway remains tenuous. Updated at bedside. Discussed with Dr. Bowden 02/19/17: Remains extremely weak, requiring frequent NT suctioning. Eyes remain open, left gaze preference. Moves overly left upper extremity spontaneously. Remains at high risk for aspiration 02/20/17: Sitting up in stretcher chair, patient is quiet lethargic, not following commands, brief eye opening to stimulation. Per RN patient followed commands with the left upper extremity today though weakly Objective Vital Signs Date Time Temp Pulse Resp B/P (MAP) Pulse Ox O2 Delivery O2 Flow Rate FiO2 02/20/17 12:00 99 02/20/17 12:00 98.4 18 107/51 (69) 96 02/20/17 07:00 Room Air 02/19/17 07:00 21 02/18/17 08:11 2.00 Intake and Output 02/20/17 02/20/17 02/21/17 08:00 16:00 00:00 Intake Total 1249 ml Output Total 400 ml Balance 849 ml Result Diagram: 02/20/17 0450 02/20/17 0450 Imaging Last Impressions Head CT 02/10/17 0900 Signed Impressions: Service Date/Time: Friday, February 10, 2017 09:23 - CONCLUSION: Interval improvement with less parenchymal hemorrhage, intraventricular blood. Ventricles are mildly prominent when compared to the previous study. Patricio Hardy MD FACR Chest X-Ray 02/08/17 0600 Signed Impressions: Service Date/Time: Wednesday, February 08, 2017 04:22 - CONCLUSION: Improved chest appearance Miguel Hua MD Neck CTA 01/28/17 1009 Signed Impressions: Service Date/Time: Saturday, January 28, 2017 10:27 - CONCLUSION: 1. No hemodynamically significant carotid artery stenosis identified. 2. Mild atherosclerotic plaquing at the bifurcation. 3. Both vertebral arteries are widely patent. Jac Hardy MD Head CTA 01/28/17 0000 Signed Impressions: Service Date/Time: Saturday, January 28, 2017 10:27 - CONCLUSION: 1. No evidence of vascular malformation or vasculopathy. 2. Subdural, intraparenchymal and intraventricular hemorrhage are again noted and not significantly changed since prior study. 3. Persistent left to right shift measuring between 8 and 9 mm; unchanged. Nick Barker MD Objective Remarks GENERAL: 76-year-old female. Lying in bed, lethargic, eyes are partially open SKIN: Warm/dry. Well-perfused HEAD: Ventriculostomy removed. EYES: Pupils equal and round, 3 mm sluggish reaction to light. Left gaze preference ENT: No nasal bleeding or discharge. Mucous membranes moist. NECK: Trachea midline. CARDIOVASCULAR: Regular rate and rhythm. NL S1S2. No JVD. RESPIRATORY: Breath sounds equal bilaterally. Clear, good respiratory drive. Cough effort is present but weak GASTROINTESTINAL: Abdomen soft, non-tender, nondistended. BS active. MUSCULOSKELETAL: No obvious deformities. No edema. Well perfused. NEUROLOGICAL: Eyes open temporarily to stimulation, left gaze, slightly tracking. RUE is flaccid. RLE with very weak withdrawal. LUE grasps spontaneous moments, (followed command for RN). LLE withdraws to noxious stimuli. Babinski upgoing on the left, neutral response right. A/P Assessment and Plan Neuro: Extensive intraventricular hemorrhage, left parietal/occipital intraparenchymal hemorrhage, left subdural hemorrhage Persistent Encephalopathy Persistent neuromuscular weakness - Emergency EVD placement by Dr. Bowden. Removed 02/10 - s/p craniotomy with evacuation of hematoma 01/[address] Bowden. - Currently on hydrocodone/acetaminophen 55/325 and 10/325 one tablet every fours. - Levetiracetam 500 mg IV q12 hours for seizure prophylaxis - Continue aggressive PT/OT/Speech Resp: Respiratory failure - Intubated for airway protection, Extubated 02/05 and had stridor so reintubated and placed on Decadron - Extubated again 02/12. Wean fio2 for goal spo2 > 90% - At this time no evidence of aspiration but airway remains tenuous due to severe weakness and lethargy - I expressed my concern about airway protection to , and potential for aspiration, he stated he did not want to hear anything negative - HOB elevated - As needed albuterol therapy every 4 hours, PRN Dyspnea - CXR in am CV: Hypertensive emergency - As needed labetalol/hydralazine - 2D Echo - EF 65-70%. Renal: - Fuller in place - strict i/os FEN/GI: Hypernatremia - Continue tube feeds with Glucerna1.5 goal to 50 mL per hour per nutrition recommendations. - Pantoprazole 40 mg IV daily for GI prophylaxis - Docusate sodium 100 mg twice a day for bowel regimen - Dobhoff tube for feeding -> good position. - Free water 200 q8 - Continue to fail swallow - D/W PEG with , he wants to discuss with Dr. Bowden ID/HEME: Normocytic anemia Leukocytosis - Does not meet transfusion triggers at this time - Leukocytosis persists: Possibly reactive secondary ICH/surgery. - Panculture done on 01/29 with no growth. Empiric levofloxacin was started and discontinued 02/07 - C diff previously ordered but then diarrhea resolved. 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 Continue levothyroxine 50 mcg daily. Prophylaxis: SCDs Pantoprazole No pharmacologic DVT prophylaxis given ICH per discussion with Dr. Rivas. Initiate when ok with NSG. 01/29: I had a long discussion with patient's daughter at bedside regarding current clinical status and plan of care and she voiced understanding and was agreeable. I also discussed strong possibility of need for tracheostomy and PEG tube and possible snf placement and she voiced understanding. Goals of care remain aggressive at this time. 02/05: Numerous long conversations with innumerable family members. All are aware that she may not tolerate extubation and may well require tracheostomy. They are expecting a miracle and are very emotional about it. 02/07 - Slight neuro improvement but still poor prognosis for functional recovery. Discussed with family still likely to require trach/PEG but they are hoping she does not. 02/08 - family is adamant to Dr. Gómez Decision requiring extubation versus trach. He will return 02/12. 02/12 - Lengthy talk with family members about care goals. They want continued aggressive treatment. Lengthy talk with family about placement on 02/15. Discussed with and updated at bedside 02/17/17 and 02/18/17 Overall impression: Patient remains lethargic. High risk of aspiration and airway compromise, respiratory failure at this time. Continue ICU care 02/19/17: Patient at this time is not stable for transfer out of ICU or Rehab/ LTAC placement. Need close monitoring in Neuro ICU until her strength and alertness improves so that she can consistently protect airway. Remains at high risk for aspiration and respiratory failure 02/20/17: Same condition as above,more lethargic today. Continue close ICU monitoring Cathie Rivera MD Feb 20, 2017 14:22
[2017-02-21] VITALS (15 sets, daily range): BP systolic 105–127; BP diastolic 7–63; PULSE 73–110; RESP 13–19; TEMP 97.8–98.8; O2SAT 94–99
[2017-02-21] MEDS: CHLORHEXIDINE GLUCONATE 2 % 1 PACK (2 CLOTHS) TOP SCH (04:00)
[2017-02-21] MEDS: ARTIFICIAL TEARS OPTH SOLN 15 ML BTL EACH EYE SCH ×3 (06:00→22:00)
[2017-02-21] MEDS: FREE WATER G-TUBE SCH ×3 (06:00→22:00)
[2017-02-21] MEDS: INSULIN ASPART SUPPLEMENTAL SCALE SQ SCH ×4 (06:00→18:00)
[2017-02-21] MEDS: LEVOTHYROXINE SODIUM 50 MCG TAB OG-TUBE SCH (06:04)
[2017-02-21] MEDS: FAMOTIDINE 20 MG TAB NG SCH ×2 (08:55→22:12)
[2017-02-21] MEDS: DOCUSATE SODIUM 100 MG CAP PO SCH ×2 (08:55→21:00)
[2017-02-21] MEDS: levETIRAcetam 500 MG/5 ML UDC NG SCH ×2 (08:58→22:12)
[2017-02-21] MEDS: INSULIN DETEMIR 100 UNITS/ML VIAL SQ SCH ×2 (08:58→22:12)
[2017-02-21] MEDS: SODIUM CHLORIDE 0.9% FLUSH 10 ML FLUSH IV FLUSH SCH ×2 (08:58→22:12)
[2017-02-21] MEDS: MODAFINIL 200 MG TAB PO SCH (12:56)
--- NOTE | 2017-02-21 16:31 | HHI.CCPN ---
Subjective Remarks/Hospital Course Note for 02/16/1701/27: Patient is a 76-year-old female who was brought to the [facility] emergency department by EMS as a stroke alert. Last found normal at 11 this morning, later found unresponsive in the bed by her and EMS was called. EMS gave her Narcan IM without any response, blood glucose was 140, vital signs were apparently stable. In the ED patient remained poorly responsive and was intubated for airway protection. Her blood pressure on arrival was 243/129 and patient was started on Cardene infusion. CT of the head showed extensive acute intraventricular hemorrhage involving the left lateral ventricle, right lateral ventricle and third ventricle, acute intraparenchymal hemorrhage within the left parietal and left occipital region ( 4.1 cm in size). Acute subdural hematoma along the left frontoparietal region measuring 5 mm in width. There was also significant Significant (10 mm) subfalcine herniation to the right. Dr. Bowden was contacted by the ED Per Dr. Rivera on 01/27: Critical care medicine was requested to admit the patient. Patient was emergently moved to the ICU for EVD placement. I evaluated the patient immediately after arrival to the ICU. Patient purposefully moves left upper extremity and withdraws all other extremities. at the bedside was updated. I explained to the that she has very extensive intracranial hemorrhage and prognosis appears poor. Dr. Bowden is planning to place an EVD emergently. I discussed with Dr. Bowden extensively , patient is not a candidate for evacuation of intracerebral hemorrhage due to overall poor prognosis. I have placed a central line for administration of vasopressor agents and 3% saline. Patient remains on Cardene infusion and at this time receiving mannitol. I have also ordered Keppra for seizure prophylaxis 01/28: Remains sedated, orally intubated on mechanical ventilation. Being taken to OR for craniotomy per Dr. Bowden. 01/29: Remains sedated, orally intubated on mechanical ventilation. Underwent craniotomy with evacuation of hematoma by Dr. Bowden on 01/28. Ventriculostomy remains in place. Drained 120 cc bloody CSF over the last 12 hours. ICP 2. 01/30: ICP well controlled. Requiring mechanical ventilation. 01/31: Remains sedated, orally intubated on mechanical ventilation. Ventriculostomy in place. ICP within normal limits. Leukocytosis persists. UA appeared abnormal however cultures with no growth. Starting empiric Levaquin. Checking pro-calcitonin. Started free water for worsening hypernatremia 02/01 Afebrile. WBC 16.9 which is downtrending. Nurse states she has diarrhea. Procalcitonin is not elevated. Ventric at 0 cm water, repeat CT scheduled for tomorrow morning per neurosurgery. 02/02: Osmolality suitably concentrated but brain edema persists, shift slightly larger. Hypertonic saline continued at half rate to avoid overly rapid drop. 02/03: No improvement in neuro exam over past 24 hours. Osmolality acceptable. 02/04: Tolerating CPAP trials today with good respiratory effort. Long discussion with and daughter about plans to extubate, high likelihood of reintubation. 02/05: Will attempt to extubate today during a period when she is alert; sleeping now. Extubated and respiratory drive good. Good cough effort. She had immediate stridor however and it was not helped by suctioning nor 4 racemic epi treatments. I will re-intubate with a smaller tube and add steroids for 48-72 hours. 02/06: No change in neurological function. When extubated she did not follow commands nor seem to respond to voices of family. Her airway was stridor ridden and did not clear with multiple racemic epi rxs. Steroids started 02/05, continue for 2-3 days then retry. Suspect she'll need trach but family not ready. 02/07. Tolerating CPAP 10/. No cuff leak despite steroids. Will try diuresing. Follows commands LUE. 02/08: Tolerated PSV trials 20 hours yesterday. No cuff leak. Tongue remains is edematous. Opens eyes and follows commands with left upper extremity only. Wiggles left lower extremity. 02/09: Currently resting in bed. Remains on PSV trial. Her tongue remains swollen. No new neurological changes. 02/10: Respiratory rates between 6 and 8 this morning. Placed back on ACV with a rate of 10. Tongue remains swollen. No new neurological changes. Subjective: 02/11: Status post removal of ventriculostomy 02/10. more comfortable with trach. Waiting for Dr. Gómez to return to make definitive decision. Removing magalys today. Hosea enteral diet. 02/12: I'll discuss tracheostomy vs extubation with family again today. No change in neurological status. CT head with no shift, resolving edema. 02/13: Extubated 24 hours ago. Sats acceptable and continues to breathe comfortably. Will assess functional status and place in rehab / SNF. 02/14: Tolerating extubation for 2 days now. TFs restarted. 02/15: Extubated 3 days ago, breathing comfortably. Case management assisting with rehab placement. 02/16: Awaiting placement in rehab or SNF depending on level of cooperation patient is capable of. 02/17/17: Patient up in stretcher chair today. Eyes spontaneously partially open. Purposefully moves left upper extremity 02/18/17: Lying in bed, remains weak, Airway remains tenuous. Updated at bedside. Discussed with Dr. Bowden 02/19/17: Remains extremely weak, requiring frequent NT suctioning. Eyes remain open, left gaze preference. Moves overly left upper extremity spontaneously. Remains at high risk for aspiration 02/20/17: Sitting up in stretcher chair, patient is quiet lethargic, not following commands, brief eye opening to stimulation. Per RN patient followed commands with the left upper extremity today though weakly 02/21/17: Appears slightly more awake with eyes open spontaneously. Not following commands for me but apparently did follow for the night nurse. Left gaze preference did not move eyes to right Objective Vital Signs Date Time Temp Pulse Resp B/P (MAP) Pulse Ox O2 Delivery O2 Flow Rate FiO2 02/21/17 12:26 98.0 110 19 115/7 (43) 94 02/21/17 07:00 Room Air 02/19/17 07:00 21 02/18/17 08:11 2.00 Intake and Output 02/21/17 02/21/17 02/22/17 08:00 16:00 00:00 Intake Total 986 ml Output Total 700 ml Balance 286 ml Result Diagram: 02/20/17 0450 02/21/17 1116 Imaging Last Impressions Head CT 02/10/17 0900 Signed Impressions: Service Date/Time: Friday, February 10, 2017 09:23 - CONCLUSION: Interval improvement with less parenchymal hemorrhage, intraventricular blood. Ventricles are mildly prominent when compared to the previous study. Patricio Hardy MD FACR Chest X-Ray 02/08/17 0600 Signed Impressions: Service Date/Time: Wednesday, February 08, 2017 04:22 - CONCLUSION: Improved chest appearance Miguel Hua MD Neck CTA 01/28/17 1009 Signed Impressions: Service Date/Time: Saturday, January 28, 2017 10:27 - CONCLUSION: 1. No hemodynamically significant carotid artery stenosis identified. 2. Mild atherosclerotic plaquing at the bifurcation. 3. Both vertebral arteries are widely patent. Jac Hardy MD Head CTA 01/28/17 0000 Signed Impressions: Service Date/Time: Saturday, January 28, 2017 10:27 - CONCLUSION: 1. No evidence of vascular malformation or vasculopathy. 2. Subdural, intraparenchymal and intraventricular hemorrhage are again noted and not significantly changed since prior study. 3. Persistent left to right shift measuring between 8 and 9 mm; unchanged. Nick Barker MD Objective Remarks GENERAL: 76-year-old female. Lying in bed, lethargic, eyes are open spontaneously SKIN: Warm/dry. Well-perfused HEAD: Ventriculostomy removed. EYES: Pupils equal and round, 3 mm sluggish reaction to light. Left gaze preference ENT: No nasal bleeding or discharge. Mucous membranes moist. NECK: Trachea midline. CARDIOVASCULAR: Regular rate and rhythm. Normal S1S2. No JVD. RESPIRATORY: Breath sounds equal bilaterally. Clear to auscultation. Cough effort is present but weak GASTROINTESTINAL: Abdomen soft, non-tender, nondistended. BS active. MUSCULOSKELETAL: No obvious deformities. No edema. Well perfused. NEUROLOGICAL: Eyes open spontaneously, left gaze, slightly tracking. RUE is flaccid. RLE with very weak withdrawal. LUE grasps spontaneous moments, not following commands for me. LLE withdraws to noxious stimuli. Babinski upgoing on the left, neutral response right. A/P Assessment and Plan Neuro: Extensive intraventricular hemorrhage, left parietal/occipital intraparenchymal hemorrhage, left subdural hemorrhage Persistent Encephalopathy Persistent neuromuscular weakness - Emergency EVD placement by Dr. Bowden. Removed 02/10 - s/p craniotomy with evacuation of hematoma 01/[address] Bowden. - Currently on hydrocodone/acetaminophen 55/325 and 10/325 one tablet every fours. - Levetiracetam 500 mg IV q12 hours for seizure prophylaxis - Continue aggressive PT/OT/Speech Resp: Respiratory failure - Intubated for airway protection, Extubated 02/05 and had stridor so reintubated and placed on Decadron - Extubated again 02/12. Wean fio2 for goal spo2 > 90% - At this time no evidence of aspiration but airway remains tenuous due to severe weakness and lethargy - I expressed my concern about airway protection to , and potential for aspiration, he stated he did not want to hear anything negative - HOB elevated, As needed albuterol therapy every 4 hours, PRN Dyspnea - CXR as needed CV: Hypertensive emergency - As needed labetalol/hydralazine - 2D Echo - EF 65-70%. Renal: - Fuller in place - strict i/os FEN/GI: Hypernatremia - Continue tube feeds with Glucerna1.5 goal to 50 mL per hour per nutrition recommendations. - Pantoprazole 40 mg IV daily for GI prophylaxis - Docusate sodium 100 mg twice a day for bowel regimen - Dobhoff tube for feeding -> good position. - Free water 200 q8, target Na 140-145 - Continue to fail swallow - D/W PEG with , if not improving plan of IR guided ID/HEME: Normocytic anemia Leukocytosis - Does not meet transfusion triggers at this time - Leukocytosis improving - Panculture done on 01/29 with no growth. Empiric levofloxacin was started and discontinued 02/07 - C diff previously ordered but then diarrhea resolved. 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 Prophylaxis: SCDs Pantoprazole No pharmacologic DVT prophylaxis given ICH per discussion with Dr. Rivas. Initiate when ok with NSG. 01/29: I had a long discussion with patient's daughter at bedside regarding current clinical status and plan of care and she voiced understanding and was agreeable. I also discussed strong possibility of need for tracheostomy and PEG tube and possible snf placement and she voiced understanding. Goals of care remain aggressive at this time. 02/05: Numerous long conversations with innumerable family members. All are aware that she may not tolerate extubation and may well require tracheostomy. They are expecting a miracle and are very emotional about it. 02/07 - Slight neuro improvement but still poor prognosis for functional recovery. Discussed with family still likely to require trach/PEG but they are hoping she does not. 02/08 - family is adamant to Dr. Gómez Decision requiring extubation versus trach. He will return 02/12. 02/12 - Lengthy talk with family members about care goals. They want continued aggressive treatment. Lengthy talk with family about placement on 02/15. Discussed with and updated at bedside 02/17/17 and 02/18/17 Overall impression: Patient remains lethargic. High risk of aspiration and airway compromise, respiratory failure at this time. Continue ICU care 02/19/17: Patient at this time is not stable for transfer out of ICU or Rehab/ LTAC placement. Need close monitoring in Neuro ICU until her strength and alertness improves so that she can consistently protect airway. Remains at high risk for aspiration and respiratory failure 02/20/17, 02/21/17: Same condition as above,more lethargic today. Continue close ICU monitoring Cathie Rivera MD Feb 21, 2017 16:31
[2017-02-22] VITALS (13 sets, daily range): BP systolic 79–135; BP diastolic 43–66; PULSE 91–107; RESP 12–19; TEMP 98.3–98.9; O2SAT 93–100
[2017-02-22] MEDS: CHLORHEXIDINE GLUCONATE 2 % 1 PACK (2 CLOTHS) TOP SCH ×2 (01:06→21:30)
[2017-02-22 04:44] LABS: AUTOMATED NEUTROPHIL # 8.8 TH/MM3 (1.8-7.7); BASOPHIL # 0.1 TH/MM3 (0-0.2); BASOPHIL % 0.5 % (0.0-2.0); EOSINOPHIL # 0.5 TH/MM3 (0-0.4); EOSINOPHIL % 4.1 % (0.0-4.0); HEMATOCRIT 31.5 % (35.0-46.0); HEMOGLOBIN 10.3 GM/DL (11.6-15.3); LYMPH % 13.1 % (9.0-44.0); LYMPHOCYTE # 1.5 TH/MM3 (1.0-4.8); MEAN CELL VOLUME 94.1 FL (80.0-100.0); MEAN CORPUSCULAR HEMOGLOBIN 30.9 PG (27.0-34.0); MEAN CORPUSCULAR HGB CONC 32.8 % (32.0-36.0); MEAN PLATELET VOLUME 9.9 FL (7.0-11.0); MONO % 6.9 % (0.0-8.0); MONOCYTE # 0.8 TH/MM3 (0-0.9); NEUT % 75.4 % (16.0-70.0); PLATELET COUNT 155 TH/MM3 (150-450); RED BLOOD COUNT 3.35 MIL/MM3 (4.00-5.30); RED CELL DISTRIBUTION WIDTH 14.2 % (11.6-17.2); WHITE BLOOD COUNT 11.7 TH/MM3 (4.0-11.0)
[2017-02-22 05:12] LABS: ALBUMIN 2.2 GM/DL (3.4-5.0); ALT (GPT) 120 U/L (10-53); AST (GOT) 75 U/L (15-37); BLOOD UREA NITROGEN 26 MG/DL (7-18); CALCIUM 8.3 MG/DL (8.5-10.1); CHLORIDE 109 MEQ/L (98-107); GLOMERULAR FILTRATION RATE 155 ML/MIN (>89); GLUCOSE,RANDOM 121 MG/DL (74-106); MAGNESIUM 2.1 MG/DL (1.5-2.5); SODIUM (NA) 143 MEQ/L (136-145)
[2017-02-22 05:15] LABS: ALKALINE PHOSPHATASE 148 U/L (45-117); TOTAL BILIRUBIN ADULT 0.3 MG/DL (0.2-1.0); TOTAL PROTEIN 6.1 GM/DL (6.4-8.2)
[2017-02-22] MEDS: ARTIFICIAL TEARS OPTH SOLN 15 ML BTL EACH EYE SCH ×3 (05:35→19:52)
[2017-02-22] MEDS: INSULIN ASPART SUPPLEMENTAL SCALE SQ SCH ×5 (05:35→23:54)
[2017-02-22] MEDS: FREE WATER G-TUBE SCH ×3 (05:36→19:52)
[2017-02-22] MEDS: LEVOTHYROXINE SODIUM 50 MCG TAB OG-TUBE SCH (05:51)
[2017-02-22] MEDS: DOCUSATE SODIUM 100 MG CAP PO SCH ×2 (09:00→19:52)
[2017-02-22] MEDS: FAMOTIDINE 20 MG TAB NG SCH ×2 (09:14→19:52)
[2017-02-22] MEDS: MODAFINIL 200 MG TAB PO SCH (09:14)
[2017-02-22] MEDS: levETIRAcetam 500 MG/5 ML UDC NG SCH ×2 (09:14→19:52)
[2017-02-22] MEDS: SODIUM CHLORIDE 0.9% FLUSH 10 ML FLUSH IV FLUSH SCH ×2 (09:15→19:52)
[2017-02-22] MEDS: INSULIN DETEMIR 100 UNITS/ML VIAL SQ SCH ×2 (09:15→19:52)
--- NOTE | 2017-02-22 14:25 | HHI.CCPN ---
Subjective Remarks/Hospital Course Note for 02/16/1701/27: Patient is a 76-year-old female who was brought to the [place] emergency department by EMS as a stroke alert. Last found normal at 11 this morning, later found unresponsive in the bed by her and EMS was called. EMS gave her Narcan IM without any response, blood glucose was 140, vital signs were apparently stable. In the ED patient remained poorly responsive and was intubated for airway protection. Her blood pressure on arrival was 243/129 and patient was started on Cardene infusion. CT of the head showed extensive acute intraventricular hemorrhage involving the left lateral ventricle, right lateral ventricle and third ventricle, acute intraparenchymal hemorrhage within the left parietal and left occipital region ( 4.1 cm in size). Acute subdural hematoma along the left frontoparietal region measuring 5 mm in width. There was also significant Significant (10 mm) subfalcine herniation to the right. Dr. Bowden was contacted by the ED Per Dr. Rivera on 01/27: Critical care medicine was requested to admit the patient. Patient was emergently moved to the ICU for EVD placement. I evaluated the patient immediately after arrival to the ICU. Patient purposefully moves left upper extremity and withdraws all other extremities. at the bedside was updated. I explained to the that she has very extensive intracranial hemorrhage and prognosis appears poor. Dr. Bowden is planning to place an EVD emergently. I discussed with Dr. Bowden extensively , patient is not a candidate for evacuation of intracerebral hemorrhage due to overall poor prognosis. I have placed a central line for administration of vasopressor agents and 3% saline. Patient remains on Cardene infusion and at this time receiving mannitol. I have also ordered Keppra for seizure prophylaxis 01/28: Remains sedated, orally intubated on mechanical ventilation. Being taken to OR for craniotomy per Dr. Bowden. 01/29: Remains sedated, orally intubated on mechanical ventilation. Underwent craniotomy with evacuation of hematoma by Dr. Bowden on 01/28. Ventriculostomy remains in place. Drained 120 cc bloody CSF over the last 12 hours. ICP 2. 01/30: ICP well controlled. Requiring mechanical ventilation. 01/31: Remains sedated, orally intubated on mechanical ventilation. Ventriculostomy in place. ICP within normal limits. Leukocytosis persists. UA appeared abnormal however cultures with no growth. Starting empiric Levaquin. Checking pro-calcitonin. Started free water for worsening hypernatremia 02/01 Afebrile. WBC 16.9 which is downtrending. Nurse states she has diarrhea. Procalcitonin is not elevated. Ventric at 0 cm water, repeat CT scheduled for tomorrow morning per neurosurgery. 02/02: Osmolality suitably concentrated but brain edema persists, shift slightly larger. Hypertonic saline continued at half rate to avoid overly rapid drop. 02/03: No improvement in neuro exam over past 24 hours. Osmolality acceptable. 02/04: Tolerating CPAP trials today with good respiratory effort. Long discussion with and daughter about plans to extubate, high likelihood of reintubation. 02/05: Will attempt to extubate today during a period when she is alert; sleeping now. Extubated and respiratory drive good. Good cough effort. She had immediate stridor however and it was not helped by suctioning nor 4 racemic epi treatments. I will re-intubate with a smaller tube and add steroids for 48-72 hours. 02/06: No change in neurological function. When extubated she did not follow commands nor seem to respond to voices of family. Her airway was stridor ridden and did not clear with multiple racemic epi rxs. Steroids started 02/05, continue for 2-3 days then retry. Suspect she'll need trach but family not ready. 02/07. Tolerating CPAP 10/. No cuff leak despite steroids. Will try diuresing. Follows commands LUE. 02/08: Tolerated PSV trials 20 hours yesterday. No cuff leak. Tongue remains is edematous. Opens eyes and follows commands with left upper extremity only. Wiggles left lower extremity. 02/09: Currently resting in bed. Remains on PSV trial. Her tongue remains swollen. No new neurological changes. 02/10: Respiratory rates between 6 and 8 this morning. Placed back on ACV with a rate of 10. Tongue remains swollen. No new neurological changes. Subjective: 02/11: Status post removal of ventriculostomy 02/10. more comfortable with trach. Waiting for Dr. Gómez to return to make definitive decision. Removing magalys today. Hosea enteral diet. 02/12: I'll discuss tracheostomy vs extubation with family again today. No change in neurological status. CT head with no shift, resolving edema. 02/13: Extubated 24 hours ago. Sats acceptable and continues to breathe comfortably. Will assess functional status and place in rehab / SNF. 02/14: Tolerating extubation for 2 days now. TFs restarted. 02/15: Extubated 3 days ago, breathing comfortably. Case management assisting with rehab placement. 02/16: Awaiting placement in rehab or SNF depending on level of cooperation patient is capable of. 02/17/17: Patient up in stretcher chair today. Eyes spontaneously partially open. Purposefully moves left upper extremity 02/18/17: Lying in bed, remains weak, Airway remains tenuous. Updated at bedside. Discussed with Dr. Bowden 02/19/17: Remains extremely weak, requiring frequent NT suctioning. Eyes remain open, left gaze preference. Moves overly left upper extremity spontaneously. Remains at high risk for aspiration 02/20/17: Sitting up in stretcher chair, patient is quiet lethargic, not following commands, brief eye opening to stimulation. Per RN patient followed commands with the left upper extremity today though weakly 02/21/17: Appears slightly more awake with eyes open spontaneously. Not following commands for me but apparently did follow for the night nurse. Left gaze preference did not move eyes to right 02/22/17: Neuro exam essentially unchanged, except eye opening more consistently, tracks on the left side. Do not follow commands again for me. WBC count stable liver enzymes slightly trending up Objective Vital Signs Date Time Temp Pulse Resp B/P (MAP) Pulse Ox O2 Delivery O2 Flow Rate FiO2 02/22/17 12:00 101 02/22/17 12:00 98.6 17 115/59 (77) 98 02/22/17 08:34 21 02/22/17 07:00 Room Air 02/18/17 08:11 2.00 Intake and Output 02/22/17 02/22/17 02/23/17 08:00 16:00 00:00 Intake Total 983 ml Balance 983 ml Result Diagram: 02/22/17 0418 02/22/17 0418 Imaging Last Impressions Head CT 02/10/17 0900 Signed Impressions: Service Date/Time: Friday, February 10, 2017 09:23 - CONCLUSION: Interval improvement with less parenchymal hemorrhage, intraventricular blood. Ventricles are mildly prominent when compared to the previous study. Patricio Hardy MD FACR Chest X-Ray 02/08/17 0600 Signed Impressions: Service Date/Time: Wednesday, February 08, 2017 04:22 - CONCLUSION: Improved chest appearance Miguel Hua MD Neck CTA 01/28/17 1009 Signed Impressions: Service Date/Time: Saturday, January 28, 2017 10:27 - CONCLUSION: 1. No hemodynamically significant carotid artery stenosis identified. 2. Mild atherosclerotic plaquing at the bifurcation. 3. Both vertebral arteries are widely patent. Jac Hardy MD Head CTA 01/28/17 0000 Signed Impressions: Service Date/Time: Saturday, January 28, 2017 10:27 - CONCLUSION: 1. No evidence of vascular malformation or vasculopathy. 2. Subdural, intraparenchymal and intraventricular hemorrhage are again noted and not significantly changed since prior study. 3. Persistent left to right shift measuring between 8 and 9 mm; unchanged. Nick Barker MD Objective Remarks GENERAL: 76-year-old female. Lying in bed, lethargic, eyes are open spontaneously SKIN: Warm/dry. Well-perfused HEAD: Ventriculostomy removed. EYES: Pupils equal and round, 3 mm sluggish reaction to light. Left gaze preference, tracking on L side ENT: No nasal bleeding or discharge. Mucous membranes moist. NECK: Trachea midline. CARDIOVASCULAR: Regular rate and rhythm. Normal S1S2. No JVD. RESPIRATORY: Breath sounds equal bilaterally. Clear to auscultation. Cough effort is present but weak GASTROINTESTINAL: Abdomen soft, non-tender, nondistended. BS active. MUSCULOSKELETAL: No obvious deformities. No edema. Well perfused. NEUROLOGICAL: Eyes open spontaneously, left gaze, tracking on Left side. RUE is flaccid. RLE with very weak withdrawal. LUE grasps spontaneous moments, not following commands for me. LLE withdraws to noxious stimuli. Babinski upgoing on the left, neutral response right. A/P Assessment and Plan Neuro: Extensive intraventricular hemorrhage, left parietal/occipital intraparenchymal hemorrhage, left subdural hemorrhage Persistent Encephalopathy Persistent neuromuscular weakness - Emergency EVD placement by Dr. Bowden. Removed 02/10 - s/p craniotomy with evacuation of hematoma 01/[address] Bowden. - Currently on hydrocodone/acetaminophen 55/325 and 10/325 one tablet every fours. - Levetiracetam 500 mg IV q12 hours for seizure prophylaxis - Continue aggressive PT/OT/Speech Resp: Respiratory failure - Intubated for airway protection, Extubated 02/05 and had stridor so reintubated and placed on Decadron - Extubated again 02/12. Wean fio2 for goal spo2 > 90% - At this time no evidence of aspiration but airway remains tenuous due to severe weakness - HOB elevated, As needed albuterol therapy every 4 hours, PRN Dyspnea - CXR as needed CV: Hypertensive emergency - As needed labetalol/hydralazine - 2D Echo - EF 65-70%. Renal: - Fuller in place - strict i/os FEN/GI: Hypernatremia - Continue tube feeds with Glucerna1.5 goal to 50 mL per hour per nutrition recommendations. - Pantoprazole 40 mg IV daily for GI prophylaxis - Docusate sodium 100 mg twice a day for bowel regimen - Dobhoff tube for feeding - Free water 200 q8, target Na 140-145 - Continue to fail swallow - D/W PEG with , if not improving plan of IR guided next week ID/HEME: Normocytic anemia Leukocytosis - Does not meet transfusion triggers at this time - Leukocytosis improving - Panculture done on 01/29 with no growth. Empiric levofloxacin was started and discontinued 02/07 - C diff previously ordered but then diarrhea resolved. 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 Prophylaxis: SCDs Pantoprazole No pharmacologic DVT prophylaxis given ICH per discussion with Dr. Rivas. Initiate when ok with NSG. 01/29: I had a long discussion with patient's daughter at bedside regarding current clinical status and plan of care and she voiced understanding and was agreeable. I also discussed strong possibility of need for tracheostomy and PEG tube and possible alf placement and she voiced understanding. Goals of care remain aggressive at this time. 02/05: Numerous long conversations with innumerable family members. All are aware that she may not tolerate extubation and may well require tracheostomy. They are expecting a miracle and are very emotional about it. 02/07 - Slight neuro improvement but still poor prognosis for functional recovery. Discussed with family still likely to require trach/PEG but they are hoping she does not. 02/08 - family is adamant to Dr. Gómez Decision requiring extubation versus trach. He will return 02/12. 02/12 - Lengthy talk with family members about care goals. They want continued aggressive treatment. Lengthy talk with family about placement on 02/15. Discussed with and updated at bedside 02/17/17 and 02/18/17 Overall impression: Patient remains lethargic. High risk of aspiration and airway compromise, respiratory failure at this time. Continue ICU care 02/19/17: Patient at this time is not stable for transfer out of ICU or Rehab/ LTAC placement. Need close monitoring in Neuro ICU until her strength and alertness improves so that she can consistently protect airway. Remains at high risk for aspiration and respiratory failure 02/20/17, 02/21/17: Same condition as above,more lethargic today. Continue close ICU monitoring 02/22 Level of consciousness has slightly improved. If consistently improving can evaluate for Rehab placement Cathie Rivera MD Feb 22, 2017 14:25
[2017-02-23] VITALS (14 sets, daily range): BP systolic 92–145; BP diastolic 52–73; PULSE 97–112; RESP 15–18; TEMP 97.7–98.9; O2SAT 93–99
[2017-02-23] MEDS: ARTIFICIAL TEARS OPTH SOLN 15 ML BTL EACH EYE SCH ×3 (05:36→20:24)
[2017-02-23] MEDS: FREE WATER G-TUBE SCH ×3 (05:36→21:56)
[2017-02-23] MEDS: LEVOTHYROXINE SODIUM 50 MCG TAB OG-TUBE SCH (05:36)
[2017-02-23] MEDS: INSULIN ASPART SUPPLEMENTAL SCALE SQ SCH ×3 (06:00→18:00)
[2017-02-23 06:22] LABS: ALBUMIN 2.1 GM/DL (3.4-5.0); AST (GOT) 53 U/L (15-37); BICARBONATE 26.6 MEQ/L (21.0-32.0); BLOOD UREA NITROGEN 28 MG/DL (7-18); CALCIUM 8.2 MG/DL (8.5-10.1); CHLORIDE 106 MEQ/L (98-107); CREATININE 0.36 MG/DL (0.50-1.00); GLOMERULAR FILTRATION RATE 175 ML/MIN (>89); GLUCOSE,RANDOM 127 MG/DL (74-106); SODIUM (NA) 140 MEQ/L (136-145)
[2017-02-23 06:26] LABS: ALKALINE PHOSPHATASE 150 U/L (45-117); ALT (GPT) 106 U/L (10-53); TOTAL BILIRUBIN ADULT 0.2 MG/DL (0.2-1.0)
[2017-02-23] MEDS: SODIUM CHLORIDE 0.9% FLUSH 10 ML FLUSH IV FLUSH SCH ×2 (09:00→20:24)
[2017-02-23] MEDS: INSULIN DETEMIR 100 UNITS/ML VIAL SQ SCH ×2 (09:00→20:24)
[2017-02-23] MEDS: DOCUSATE SODIUM 100 MG CAP PO SCH ×2 (09:24→20:01)
[2017-02-23] MEDS: MODAFINIL 200 MG TAB PO SCH (09:24)
[2017-02-23] MEDS: levETIRAcetam 500 MG/5 ML UDC NG SCH ×2 (09:25→20:01)
[2017-02-23] MEDS: FAMOTIDINE 20 MG TAB NG SCH ×2 (09:25→20:01)
--- NOTE | 2017-02-23 11:48 | HHI.NSPN ---
(Rosa Vera) Note Status Status: Progress Note (Jack Bowden MD) Interval History Interval History Ms Tinajero is an 76 year old adult female who was brought to [facility] as a stroke alert with a severe intracerebral and intraventricular hemorrhage with mass effect and midline shift. She underwent placement of ventriculostomy drain on 01/27/17. She underwent a left parietooccipital craniotomy, evacuation of intracerebral hematoma on Jan 28, 2017. 01/29: intubated and sedated. EVD draining well bloody CSF. ICPs normal. f/u CT Head this morning with decreasing mass effect, less left to right midline shift which now measures 4.6 mm, with small amount hemorrhage remains evident in the ventricular system. 01/30: intubated and sedated. ventriculostomy draining well, ICPs within normal limits. 01/31: intubated, sedated. no eye opening. ventriculostomy draining well, ICPs remains wnl 02/03: EVD raised to 3 cm H20 over the weekend, ICPs stable. Intubated and off sedative drips, mildly opens eyes. 02/04: appears much more alert this morning, eyes wide open and tracking. EVD draining well. 02/05: tolerating CPAP, awake and tracking. CSF now simpson. EVD draining well. 02/17/17: neuro stable overnight, reports patient smiling. dc planning to rehab. 02/18/17: more awake and interactive when up in stretcher chair yesterday per family, otherwise no neuro changes overnight 02/19/17: dw embossing clerk, pt at this time still not stable for dc from pulmonary standpoint as she is high risk for aspiration, will continue to monitor in ICU. no significant neuro changes, remains in a minimal conscious state, not fully awake to protect her airway. 02/20/17: neuro checks stable overnight 02/23: happy with her progress, says she is slowly starting to attempt to communicate with family. (Rosa Vera) Labs, Micro, & Vital Signs Results Date Time Temp Pulse Resp B/P (MAP) Pulse Ox O2 Delivery O2 Flow Rate FiO2 02/23/17 10:00 101 02/23/17 08:26 95 21 02/23/17 08:00 103 02/23/17 08:00 98.9 103 16 121/58 (79) 94 02/23/17 07:00 95 Room Air 02/23/17 06:00 105 02/23/17 04:00 101 02/23/17 04:00 98.7 105 18 105/52 (69) 93 02/23/17 02:00 100 02/23/17 00:00 98.6 105 16 105/58 (74) 98 02/23/17 00:00 105 02/22/17 22:00 101 02/22/17 20:06 97 21 02/22/17 20:00 102 02/22/17 20:00 98.6 102 16 115/55 (75) 98 02/22/17 20:00 98 Room Air 02/22/17 18:00 101 02/22/17 16:00 98.3 91 12 79/43 (55) 100 02/22/17 16:00 101 02/22/17 12:00 101 02/22/17 12:00 98.6 102 17 115/59 (77) 98 Constitutional Vital Signs Date Time Temp Pulse Resp B/P (MAP) Pulse Ox O2 Delivery O2 Flow Rate FiO2 02/23/17 10:00 101 02/23/17 08:26 95 21 02/23/17 08:00 103 02/23/17 08:00 98.9 103 16 121/58 (79) 94 02/23/17 07:00 95 Room Air 02/23/17 06:00 105 02/23/17 04:00 101 02/23/17 04:00 98.7 105 18 105/52 (69) 93 02/23/17 02:00 100 02/23/17 00:00 98.6 105 16 105/58 (74) 98 02/23/17 00:00 105 02/22/17 22:00 101 02/22/17 20:06 97 21 02/22/17 20:00 102 02/22/17 20:00 98.6 102 16 115/55 (75) 98 02/22/17 20:00 98 Room Air 02/22/17 18:00 101 02/22/17 16:00 98.3 91 12 79/43 (55) 100 02/22/17 16:00 101 02/22/17 12:00 101 02/22/17 12:00 98.6 102 17 115/59 (77) 98 (Rosa Vera) Physical Exam Eyes open, semi-conscious state, intermittently focuses and tracks. Not following commands for me but seen intermittently reaches with her left hand Surgical incision healing well, steri-strips in place. Motor: mild flexion left lower extremity to deep pain, intermittent spontaneous left upper extremity movement CN; pupils 3-4 mm bilaterally, facial grossly symmetric at rest (Rosa Vera) Medications Current Medications Current Medications Medications (Trade) Dose Ordered Sig/Eunice Route PRN Reason Start Time Stop Time Status Last Admin Dose Admin Sodium Chloride (NS Flush) 2 ml UNSCH PRN IV FLUSH FLUSH AFTER USING IV ACCESS 01/27/17 13:30 Sodium Chloride (NS Flush) 2 ml BID IV FLUSH 01/27/17 21:00 02/23/17 09:00 Miscellaneous Information 1 [id number] XX 01/27/17 13:30 01/27/17 13:30 Chlorhexidine Gluconate (Chlorhexidine 2% Cloth) Taper DAILY@04 TOP 01/28/17 04:00 01/24/18 03:59 Chlorhexidine Gluconate (Chlorhexidine 2% Cloth) 3 pack UNSCH PRN TOP HYGIENIC CARE 01/27/17 13:30 Bisacodyl (Dulcolax Supp) 10 mg DAILY PRN RECTAL CONSTIPATION 01/28/17 17:15 01/30/17 08:01 Docusate Sodium (Colace) 100 mg BID PO 01/28/17 21:00 02/23/17 09:24 Ondansetron HCl (Zofran Inj) 4 mg Q6H PRN IV PUSH NAUSEA OR VOMITING 01/28/17 17:15 Calcium Gluconate (Calcium Gluconate Inj) 1 gm UNSCH PRN IV SEE LABEL COMMENTS 01/28/17 17:15 Potassium Chloride 100 ml @ 50 mls/hr UNSCH PRN IV POTASSIUM LESS THAN 4 01/28/17 17:15 01/29/17 05:46 Magnesium Sulfate 4 gm/Sodium Chloride 108 ml @ 108 mls/hr UNSCH PRN IV MAGNESIUM LESS THAN 2 01/28/17 17:15 Acetaminophen/ Hydrocodone Bitart ([place] 10-325 Mg) 1 tab Q4H PRN PO PAIN SCALE 1 TO 5 01/28/17 17:15 02/16/17 21:52 Acetaminophen/ Hydrocodone Bitart ([place] 10-325 Mg) 2 tab Q4H PRN PO PAIN SCALE 6 TO 10 01/28/17 17:15 02/06/17 23:29 Insulin Aspart (NovoLOG SUPPLEMENTAL SCALE) 1 Q6HR SQ 01/29/17 12:00 02/21/17 12:00 Dextrose (D50w (Vial) Inj) 25 ml UNSCH PRN IV HYPOGLYCEMIA-SEE COMMENTS 01/29/17 12:00 Glucagon (Glucagon Inj) 1 mg UNSCH PRN IM/SQ HYPOGLYCEMIA-SEE COMMENTS 01/29/17 12:00 Potassium Chloride 100 ml @ 50 mls/hr Q2H PRN IV For Potassium 2.8 - 3.2 mEq/L 01/29/17 12:00 01/29/17 13:56 Potassium Chloride 100 ml @ 50 mls/hr Q2H PRN IV For Potassium 2.8 - 3.2 mEq/L 01/29/17 12:00 Potassium Bicarb/ Potassium Chloride (K-Lyte Cl Eff) 50 meq UNSCH PRN PO For Potassium 3.3 - 3.5 mEq/L 01/29/17 12:00 01/31/17 02:44 Potassium Chloride 100 ml @ 25 mls/hr UNSCH PRN IV For Potassium 3.3 - 3.5 mEq/L 01/29/17 12:00 Potassium Chloride 100 ml @ 50 mls/hr Q2H PRN IV For Potassium 3.3 - 3.5 mEq/L 01/29/17 12:00 Magnesium Sulfate 4 gm/Sodium Chloride 100 ml @ 50 mls/hr UNSCH PRN IV For Magnesium 0.9 - 1.1 mg/dL 01/29/17 12:00 Magnesium Oxide (Mag-Ox) 800 mg UNSCH PRN PO For Magnesium 1.2 - 1.6 mg/dL 01/29/17 12:00 Magnesium Sulfate 2 gm/Sodium Chloride 100 ml @ 50 mls/hr UNSCH PRN IV For Magnesium 1.2 - 1.6 mg/dL 01/29/17 12:00 Potassium Phosphate (K-Phos) 2,000 mg Q4H PRN PO For Phosphorus < 2.5 mg/dL 01/29/17 12:00 Sodium Phosphate 30 mmol/Sodium Chloride 250 ml @ 42 mls/hr UNSCH PRN IV For Phosphorus < 2.5 mg/dL 01/29/17 12:00 Potassium Phosphate (K-Phos) 2,000 mg UNSCH PRN PO/TUBE SEE LABEL COMMENTS 01/29/17 12:00 Potassium Phosphate 30 mmol/ Sodium Chloride 260 ml @ 42 mls/hr UNSCH PRN IV SEE LABEL COMMENTS 01/29/17 12:00 Acetaminophen (Tylenol) 650 mg Q4H PRN PO SEE LABEL COMMENTS 01/29/17 16:15 Diphenhydramine HCl (Benadryl) 25 mg Q4H PRN PO SEE LABEL COMMENTS 01/29/17 16:15 Hydralazine HCl (Apresoline Inj) 10 mg Q1H PRN IV PUSH SBP >160 02/05/17 16:00 Labetalol HCl (Trandate Inj) 20 mg Q3H PRN IV PUSH SBP > 150 02/05/17 16:00 02/05/17 17:00 Levothyroxine Sodium (Synthroid) 50 mcg DAILY@0600 OG-TUBE 02/08/17 06:00 02/23/17 05:36 Artificial Tears (Tears Naturale Opth Soln) 1 drop Q8HR EACH EYE 02/08/17 14:00 02/23/17 05:36 Insulin Detemir (Levemir Inj) 5 units Q12HR SQ 02/08/17 21:00 02/23/17 09:00 Albuterol Sulfate (Albuterol Neb) 2.5 mg Q2HR NEB PRN INH SHORTNESS OF BREATH 02/10/17 12:15 02/16/17 12:53 Acetaminophen (Tylenol 650 Mg/ 20 ml Liq) 650 mg Q6H PRN NG fever 02/11/17 14:15 02/11/17 20:46 Racepinephrine (Racepinephrine 2.25% Neb) 0.5 ml Q1HR NEB PRN NEB stridor 02/12/17 14:45 02/13/17 09:05 Levetriacetam (Keppra Liq) 500 mg Q12H NG 02/14/17 21:00 02/23/17 09:25 Famotidine (Pepcid) 20 mg BID NG 02/15/17 21:00 02/23/17 09:25 Water (Free Water) 200 ml Q8HR G-TUBE 02/19/17 22:00 02/23/17 05:36 Modafinil (Provigil) 100 mg DAILY PO 02/21/17 09:00 02/23/17 09:24 (Rosa Vera) Medical Decision Making MDM Remarks 76 year old female with large intraventricular hemorrhage s/p placement of ventriculostomy drain 01/27/17, slowly challenging ventriculostomy drain, ICPs remains wnl s/p left parietooccipital craniotomy, evacuation of intracerebral hematoma 01/28 patient is slowly showing neurological improvement, however remains to be in a minimally conscious state (Rosa Vera) Plan Plan Remarks cont monitor in intensive surgical care cont critical care management cont with daily therapy, rehab efforts cleared to start chemical dvt prophylaxis, placed on lovenox 40 mg sq daily (Rosa Vera) Attending Statement The exam, history, and the medical decision-making described in the above note were completed with the assistance of the mid-level provider. I reviewed and agree with the findings presented. I attest that I had a [id number] encounter with the patient on the same day, and personally performed and documented my assessment and findings in the medical record. (Jack Bowden MD) Rosa Vera Feb 23, 2017 11:48 Jack Bowden MD Feb 23, 2017 14:57
[2017-02-23] MEDS: ENOXAPARIN SODIUM 40 MG/0.4 ML SYRINGE SQ SCH (12:00)
--- NOTE | 2017-02-23 14:15 | HHI.CCPN ---
Subjective Remarks/Hospital Course Note for 02/16/1701/27: Patient is a 76-year-old female who was brought to the [facility] emergency department by EMS as a stroke alert. Last found normal at 11 this morning, later found unresponsive in the bed by her and EMS was called. EMS gave her Narcan IM without any response, blood glucose was 140, vital signs were apparently stable. In the ED patient remained poorly responsive and was intubated for airway protection. Her blood pressure on arrival was 243/129 and patient was started on Cardene infusion. CT of the head showed extensive acute intraventricular hemorrhage involving the left lateral ventricle, right lateral ventricle and third ventricle, acute intraparenchymal hemorrhage within the left parietal and left occipital region ( 4.1 cm in size). Acute subdural hematoma along the left frontoparietal region measuring 5 mm in width. There was also significant Significant (10 mm) subfalcine herniation to the right. Dr. Bowden was contacted by the ED Per Dr. Rivera on 01/27: Critical care medicine was requested to admit the patient. Patient was emergently moved to the ICU for EVD placement. I evaluated the patient immediately after arrival to the ICU. Patient purposefully moves left upper extremity and withdraws all other extremities. at the bedside was updated. I explained to the that she has very extensive intracranial hemorrhage and prognosis appears poor. Dr. Bowden is planning to place an EVD emergently. I discussed with Dr. Bowden extensively , patient is not a candidate for evacuation of intracerebral hemorrhage due to overall poor prognosis. I have placed a central line for administration of vasopressor agents and 3% saline. Patient remains on Cardene infusion and at this time receiving mannitol. I have also ordered Keppra for seizure prophylaxis 01/28: Remains sedated, orally intubated on mechanical ventilation. Being taken to OR for craniotomy per Dr. Bowden. 01/29: Remains sedated, orally intubated on mechanical ventilation. Underwent craniotomy with evacuation of hematoma by Dr. Bowden on 01/28. Ventriculostomy remains in place. Drained 120 cc bloody CSF over the last 12 hours. ICP 2. 01/30: ICP well controlled. Requiring mechanical ventilation. 01/31: Remains sedated, orally intubated on mechanical ventilation. Ventriculostomy in place. ICP within normal limits. Leukocytosis persists. UA appeared abnormal however cultures with no growth. Starting empiric Levaquin. Checking pro-calcitonin. Started free water for worsening hypernatremia 02/01 Afebrile. WBC 16.9 which is downtrending. Nurse states she has diarrhea. Procalcitonin is not elevated. Ventric at 0 cm water, repeat CT scheduled for tomorrow morning per neurosurgery. 02/02: Osmolality suitably concentrated but brain edema persists, shift slightly larger. Hypertonic saline continued at half rate to avoid overly rapid drop. 02/03: No improvement in neuro exam over past 24 hours. Osmolality acceptable. 02/04: Tolerating CPAP trials today with good respiratory effort. Long discussion with and daughter about plans to extubate, high likelihood of reintubation. 02/05: Will attempt to extubate today during a period when she is alert; sleeping now. Extubated and respiratory drive good. Good cough effort. She had immediate stridor however and it was not helped by suctioning nor 4 racemic epi treatments. I will re-intubate with a smaller tube and add steroids for 48-72 hours. 02/06: No change in neurological function. When extubated she did not follow commands nor seem to respond to voices of family. Her airway was stridor ridden and did not clear with multiple racemic epi rxs. Steroids started 02/05, continue for 2-3 days then retry. Suspect she'll need trach but family not ready. 02/07. Tolerating CPAP 10/. No cuff leak despite steroids. Will try diuresing. Follows commands LUE. 02/08: Tolerated PSV trials 20 hours yesterday. No cuff leak. Tongue remains is edematous. Opens eyes and follows commands with left upper extremity only. Wiggles left lower extremity. 02/09: Currently resting in bed. Remains on PSV trial. Her tongue remains swollen. No new neurological changes. 02/10: Respiratory rates between 6 and 8 this morning. Placed back on ACV with a rate of 10. Tongue remains swollen. No new neurological changes. 02/11: Status post removal of ventriculostomy 02/10. more comfortable with trach. Waiting for Dr. Gómez to return to make definitive decision. Removing magalys today. Hosea enteral diet. 02/12: I'll discuss tracheostomy vs extubation with family again today. No change in neurological status. CT head with no shift, resolving edema. 02/13: Extubated 24 hours ago. Sats acceptable and continues to breathe comfortably. Will assess functional status and place in rehab / SNF. 02/14: Tolerating extubation for 2 days now. TFs restarted. 02/15: Extubated 3 days ago, breathing comfortably. Case management assisting with rehab placement. 02/16: Awaiting placement in rehab or SNF depending on level of cooperation patient is capable of. 02/17/17: Patient up in stretcher chair today. Eyes spontaneously partially open. Purposefully moves left upper extremity 02/18/17: Lying in bed, remains weak, Airway remains tenuous. Updated at bedside. Discussed with Dr. Bowden 02/19/17: Remains extremely weak, requiring frequent NT suctioning. Eyes remain open, left gaze preference. Moves overly left upper extremity spontaneously. Remains at high risk for aspiration 02/20/17: Sitting up in stretcher chair, patient is quiet lethargic, not following commands, brief eye opening to stimulation. Per RN patient followed commands with the left upper extremity today though weakly 02/21/17: Appears slightly more awake with eyes open spontaneously. Not following commands for me but apparently did follow for the night nurse. Left gaze preference did not move eyes to right 02/22/17: Neuro exam essentially unchanged, except eye opening more consistently, tracks on the left side. Do not follow commands again for me. WBC count stable liver enzymes slightly trending up Subjective: 02/23: Afebrile. Was able to somewhat swallow applesauce today. Neurologically stable. Able to move left upper extremity. Withdrawals to left lower extremity. Positive BM. Tolerating tube feeding. Objective Vital Signs Date Time Temp Pulse Resp B/P (MAP) Pulse Ox O2 Delivery O2 Flow Rate FiO2 02/23/17 10:00 101 02/23/17 08:26 95 21 02/23/17 08:00 98.9 16 121/58 (79) 02/23/17 07:00 Room Air Intake and Output 02/23/17 02/23/17 02/24/17 08:00 16:00 00:00 Intake Total 1152 ml Balance 1152 ml Result Diagram: 02/22/17 0418 02/23/17 0453 Other Results Microbiology Date/Time Source Procedure Growth Status 01/29/17 17:19 Blood Peripheral Aerobic Blood Culture - Final NO GROWTH IN 5 DAYS Complete 01/29/17 17:19 Blood Peripheral Anaerobic Blood Culture - Final NO GROWTH IN 5 DAYS Complete 01/27/17 17:00 Cerebral Spinal Fluid Shunt Fluid Gram Stain - Final Complete 01/27/17 17:00 Cerebral Spinal Fluid Shunt Fluid CSF Culture - Final NO GROWTH IN 72 HRS.--AEROBICALLY OR ... Complete 01/29/17 14:00 Sputum Endotracheal Gram Stain - Final Complete 01/29/17 14:00 Sputum Endotracheal Sputum Culture - Final LIGHT GROWTH NORMAL RESPIRATORY JAGRUTI Complete 01/29/17 14:00 Urine Catheterized Urine Urine Culture - Final NO GROWTH IN 48 HOURS. Complete Imaging Last Impressions Chest X-Ray 02/20/17 0600 Signed Impressions: Service Date/Time: February 05:09 - CONCLUSION: No acute disease. Daniel Fajardo Jr., MD Abdomen X-Ray 02/13/17 0000 Signed Impressions: Service Date/Time: January 16:11 - CONCLUSION: Feeding tube in the distal stomach. Dino Tee MD Head CT 02/10/17 0900 Signed Impressions: Service Date/Time: Friday, February 10, 2017 09:23 - CONCLUSION: Interval improvement with less parenchymal hemorrhage, intraventricular blood. Ventricles are mildly prominent when compared to the previous study. Patricio Hardy MD FACR Neck CTA 01/28/17 1009 Signed Impressions: Service Date/Time: Saturday, January 28, 2017 10:27 - CONCLUSION: 1. No hemodynamically significant carotid artery stenosis identified. 2. Mild atherosclerotic plaquing at the bifurcation. 3. Both vertebral arteries are widely patent. Jac Hardy MD Head CTA 01/28/17 0000 Signed Impressions: Service Date/Time: Saturday, January 28, 2017 10:27 - CONCLUSION: 1. No evidence of vascular malformation or vasculopathy. 2. Subdural, intraparenchymal and intraventricular hemorrhage are again noted and not significantly changed since prior study. 3. Persistent left to right shift measuring between 8 and 9 mm; unchanged. Nick Barker MD Objective Remarks GENERAL: 76-year-old female. Lying in bed, lethargic, eyes are open spontaneously SKIN: Warm/dry. Well-perfused HEAD: Ventriculostomy removed. Well-healed without erythema EYES: Pupils equal and round, 3 mm sluggish reaction to light. Left gaze preference, tracking on L side ENT: No nasal bleeding or discharge. Mucous membranes moist. NECK: Trachea midline. CARDIOVASCULAR: Regular rate and rhythm. Normal S1S2. No JVD. RESPIRATORY: Breath sounds equal bilaterally. Clear to auscultation. Cough effort is present but weak GASTROINTESTINAL: Abdomen soft, non-tender, nondistended. BS active. MUSCULOSKELETAL: No obvious deformities. No edema. Well perfused. NEUROLOGICAL: Eyes open spontaneously, left gaze, tracking on Left side. RUE is flaccid. RLE with very weak withdrawal. LUE grasps spontaneous moments, not following commands for me. LLE withdraws to noxious stimuli. Babinski upgoing on the left, neutral response right. A/P Assessment and Plan Neuro: Extensive intraventricular hemorrhage, left parietal/occipital intraparenchymal hemorrhage, left subdural hemorrhage Persistent Encephalopathy Persistent neuromuscular weakness - Emergency EVD placement by Dr. Bowden. Removed 02/10 - s/p craniotomy with evacuation of hematoma 01/[address] Bowden. - Currently on hydrocodone/acetaminophen 5/325 and 10/325 one tablet every hours as needed. For pain 02-26 - Levetiracetam 500 mg ng q12 hours for seizure prophylaxis - Continue aggressive PT/OT/Speech Added modafinil 100 mg daily 02/21/17 Resp: - Intubated for airway protection, Extubated 02/05 and had stridor so reintubated and placed on Decadron - Extubated again 02/12. Wean fio2 for goal spo2 > 90% currently on room air - At this time no evidence of aspiration but airway remains tenuous due to severe weakness - HOB elevated 30 As needed albuterol therapy every 2 hours, PRN Dyspnea - CXR as needed CV: Hypertensive emergency - resolved - As needed labetalol/hydralazine - 2D Echo - The left ventricular systolic function is hyperdynamic with an estimated ejection fraction in the range of 65-70%. Normal left ventricular size. Mild mitral valve regurgitation. There is mild tricuspid valve regurgitation. Renal: - Fuller in place - strict i/os - Monitor urine output - Recheck BMP in a.m. - Continue free water 200 cc every 8 hours FEN/GI: Elevated transaminases Hypoalbuminemia - Continue tube feeds with Glucerna1.5 goal to 55 mL per hour per nutrition recommendations. -Famotidine 20 mg twice a day for GI prophylaxis - Docusate sodium 100 mg twice a day for bowel regimen - Dobhoff tube for feeding to be continued - Free water 200 q8, target Na 140-145 - Continue to fail swallow ID/HEME: Normocytic anemia Leukocytosis - Does not meet transfusion triggers at this time - Leukocytosis improving - Panculture done on 01/29 with no growth. Empiric levofloxacin was started and discontinued 02/07 - C diff previously ordered but then diarrhea resolved. 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 -Continue insulin detemir 5 units twice a day to maintain euglycemia TSH was normal 1.48 Continue levothyroxine 50 mcg daily. Prophylaxis: SCDs/enoxaparin Famotidine Level II follow-up Mina Calvillo MD Feb 23, 2017 14:15
[2017-02-24] VITALS (14 sets, daily range): BP systolic 99–117; BP diastolic 49–66; PULSE 88–121; RESP 14–19; TEMP 98–99.2; O2SAT 93–99
[2017-02-24] MEDS: CHLORHEXIDINE GLUCONATE 2 % 1 PACK (2 CLOTHS) TOP SCH ×2 (04:00→23:44)
--- NOTE | 2017-02-24 05:26 | RADRPT ---
EXAM DATE/TIME: 02/24/2017 04:26 [facility] COMPARISON: CHEST SINGLE AP, February 20, 2017, 5:09. INDICATIONS : Evaluate for Pneumonia MEDICAL HISTORY : None. SURGICAL HISTORY : None. ENCOUNTER: Subsequent ACUITY: 1 month PAIN SCORE: Non-responsive. LOCATION: Bilateral chest FINDINGS: The cardiac silhouette is normal in transverse diameter. The patient is rotated into the right vice president of consulting services ior oblique position. The lungs are free of acute parenchymal opacity. No effusions are identified. CONCLUSION: 1. No acute cardiopulmonary disease. Howard Shane MD on February 24, 2017 at 5:24 Board Certified Radiologist. This report was verified electronically.
[2017-02-24 05:34] LABS: AUTOMATED NEUTROPHIL # 8.1 TH/MM3 (1.8-7.7); BASOPHIL % 0.3 % (0.0-2.0); EOSINOPHIL # 0.4 TH/MM3 (0-0.4); EOSINOPHIL % 3.2 % (0.0-4.0); HEMATOCRIT 30.2 % (35.0-46.0); HEMOGLOBIN 10.2 GM/DL (11.6-15.3); LYMPH % 16.8 % (9.0-44.0); LYMPHOCYTE # 1.9 TH/MM3 (1.0-4.8); MEAN CELL VOLUME 93.3 FL (80.0-100.0); MEAN CORPUSCULAR HEMOGLOBIN 31.5 PG (27.0-34.0); MEAN CORPUSCULAR HGB CONC 33.8 % (32.0-36.0); MEAN PLATELET VOLUME 9.4 FL (7.0-11.0); MONO % 7.7 % (0.0-8.0); MONOCYTE # 0.9 TH/MM3 (0-0.9); PLATELET COUNT 173 TH/MM3 (150-450); RED BLOOD COUNT 3.24 MIL/MM3 (4.00-5.30); RED CELL DISTRIBUTION WIDTH 14.3 % (11.6-17.2); WHITE BLOOD COUNT 11.3 TH/MM3 (4.0-11.0)
[2017-02-24] MEDS: FREE WATER G-TUBE SCH ×3 (05:55→21:00)
[2017-02-24 05:59] LABS: ALBUMIN 2.1 GM/DL (3.4-5.0); ALT (GPT) 108 U/L (10-53); AST (GOT) 54 U/L (15-37); BICARBONATE 26.9 MEQ/L (21.0-32.0); BLOOD UREA NITROGEN 31 MG/DL (7-18); CALCIUM 8.2 MG/DL (8.5-10.1); CHLORIDE 106 MEQ/L (98-107); GLOMERULAR FILTRATION RATE 155 ML/MIN (>89); GLUCOSE,RANDOM 130 MG/DL (74-106); MAGNESIUM 2.2 MG/DL (1.5-2.5); PHOSPHORUS 3.6 MG/DL (2.5-4.9); SODIUM (NA) 142 MEQ/L (136-145)
[2017-02-24] MEDS: ARTIFICIAL TEARS OPTH SOLN 15 ML BTL EACH EYE SCH ×3 (06:00→21:00)
[2017-02-24] MEDS: INSULIN ASPART SUPPLEMENTAL SCALE SQ SCH ×4 (06:00→17:44)
[2017-02-24 06:01] LABS: ALKALINE PHOSPHATASE 162 U/L (45-117); TOTAL BILIRUBIN ADULT 0.2 MG/DL (0.2-1.0); TOTAL PROTEIN 6.1 GM/DL (6.4-8.2)
[2017-02-24] MEDS: LEVOTHYROXINE SODIUM 50 MCG TAB OG-TUBE SCH (06:15)
[2017-02-24] MEDS: INSULIN DETEMIR 100 UNITS/ML VIAL SQ SCH ×2 (09:00→21:00)
[2017-02-24] MEDS: SODIUM CHLORIDE 0.9% FLUSH 10 ML FLUSH IV FLUSH SCH ×2 (09:00→20:59)
[2017-02-24] MEDS: MODAFINIL 200 MG TAB PO SCH (09:06)
[2017-02-24] MEDS: FAMOTIDINE 20 MG TAB NG SCH ×2 (09:06→20:59)
[2017-02-24] MEDS: DOCUSATE SODIUM 100 MG CAP PO SCH ×2 (09:06→20:59)
[2017-02-24] MEDS: levETIRAcetam 500 MG/5 ML UDC NG SCH ×2 (09:06→20:59)
--- NOTE | 2017-02-24 11:57 | HHI.CCPN ---
Subjective Remarks/Hospital Course 01/27: Patient is a 76-year-old female who was brought to the [facility] emergency department by EMS as a stroke alert. Last found normal at 11 this morning, later found unresponsive in the bed by her and EMS was called. EMS gave her Narcan IM without any response, blood glucose was 140, vital signs were apparently stable. In the ED patient remained poorly responsive and was intubated for airway protection. Her blood pressure on arrival was 243/129 and patient was started on Cardene infusion. CT of the head showed extensive acute intraventricular hemorrhage involving the left lateral ventricle, right lateral ventricle and third ventricle, acute intraparenchymal hemorrhage within the left parietal and left occipital region ( 4.1 cm in size). Acute subdural hematoma along the left frontoparietal region measuring 5 mm in width. There was also significant Significant (10 mm) subfalcine herniation to the right. Dr. Bowden was contacted by the ED Per Dr. Rivera on 01/27: Critical care medicine was requested to admit the patient. Patient was emergently moved to the ICU for EVD placement. I evaluated the patient immediately after arrival to the ICU. Patient purposefully moves left upper extremity and withdraws all other extremities. at the bedside was updated. I explained to the that she has very extensive intracranial hemorrhage and prognosis appears poor. Dr. Bowden is planning to place an EVD emergently. I discussed with Dr. Bowden extensively , patient is not a candidate for evacuation of intracerebral hemorrhage due to overall poor prognosis. I have placed a central line for administration of vasopressor agents and 3% saline. Patient remains on Cardene infusion and at this time receiving mannitol. I have also ordered Keppra for seizure prophylaxis 01/28: Remains sedated, orally intubated on mechanical ventilation. Being taken to OR for craniotomy per Dr. Bowden. 01/29: Remains sedated, orally intubated on mechanical ventilation. Underwent craniotomy with evacuation of hematoma by Dr. Bowden on 01/28. Ventriculostomy remains in place. Drained 120 cc bloody CSF over the last 12 hours. ICP 2. 01/30: ICP well controlled. Requiring mechanical ventilation. 01/31: Remains sedated, orally intubated on mechanical ventilation. Ventriculostomy in place. ICP within normal limits. Leukocytosis persists. UA appeared abnormal however cultures with no growth. Starting empiric Levaquin. Checking pro-calcitonin. Started free water for worsening hypernatremia 02/01 Afebrile. WBC 16.9 which is downtrending. Nurse states she has diarrhea. Procalcitonin is not elevated. Ventric at 0 cm water, repeat CT scheduled for tomorrow morning per neurosurgery. 02/02: Osmolality suitably concentrated but brain edema persists, shift slightly larger. Hypertonic saline continued at half rate to avoid overly rapid drop. 02/03: No improvement in neuro exam over past 24 hours. Osmolality acceptable. 02/04: Tolerating CPAP trials today with good respiratory effort. Long discussion with and daughter about plans to extubate, high likelihood of reintubation. 02/05: Will attempt to extubate today during a period when she is alert; sleeping now. Extubated and respiratory drive good. Good cough effort. She had immediate stridor however and it was not helped by suctioning nor 4 racemic epi treatments. I will re-intubate with a smaller tube and add steroids for 48-72 hours. 02/06: No change in neurological function. When extubated she did not follow commands nor seem to respond to voices of family. Her airway was stridor ridden and did not clear with multiple racemic epi rxs. Steroids started 02/05, continue for 2-3 days then retry. Suspect she'll need trach but family not ready. 02/07. Tolerating CPAP 11/21. No cuff leak despite steroids. Will try diuresing. Follows commands LUE. 02/08: Tolerated PSV trials 20 hours yesterday. No cuff leak. Tongue remains is edematous. Opens eyes and follows commands with left upper extremity only. Wiggles left lower extremity. 02/09: Currently resting in bed. Remains on PSV trial. Her tongue remains swollen. No new neurological changes. 02/10: Respiratory rates between 6 and 8 this morning. Placed back on ACV with a rate of 10. Tongue remains swollen. No new neurological changes. 02/11: Status post removal of ventriculostomy 02/10. more comfortable with trach. Waiting for Dr. Gómez to return to make definitive decision. Removing magalys today. Hosea enteral diet. 02/12: I'll discuss tracheostomy vs extubation with family again today. No change in neurological status. CT head with no shift, resolving edema. 02/13: Extubated 24 hours ago. Sats acceptable and continues to breathe comfortably. Will assess functional status and place in rehab / SNF. 02/14: Tolerating extubation for 2 days now. TFs restarted. 02/15: Extubated 3 days ago, breathing comfortably. Case management assisting with rehab placement. 02/16: Awaiting placement in rehab or SNF depending on level of cooperation patient is capable of. 02/17/17: Patient up in stretcher chair today. Eyes spontaneously partially open. Purposefully moves left upper extremity 02/18/17: Lying in bed, remains weak, Airway remains tenuous. Updated at bedside. Discussed with Dr. Bowden 02/19/17: Remains extremely weak, requiring frequent NT suctioning. Eyes remain open, left gaze preference. Moves overly left upper extremity spontaneously. Remains at high risk for aspiration 02/20/17: Sitting up in stretcher chair, patient is quiet lethargic, not following commands, brief eye opening to stimulation. Per RN patient followed commands with the left upper extremity today though weakly 02/21/17: Appears slightly more awake with eyes open spontaneously. Not following commands for me but apparently did follow for the night nurse. Left gaze preference did not move eyes to right 02/22/17: Neuro exam essentially unchanged, except eye opening more consistently, tracks on the left side. Do not follow commands again for me. WBC count stable liver enzymes slightly trending up 02/23: Afebrile. Was able to somewhat swallow applesauce today. Neurologically stable. Able to move left upper extremity. Withdrawals to left lower extremity. Positive BM. Tolerating tube feeding. Subjective: 02/24: Low-grade temperatures. Neurologically stable. Again moving left upper extremity. Withdraws left lower extremity. Positive BM. Tolerating tube feeds. PT evaluate and treat today. Wound care to evaluate excoriation rectum. Objective Vital Signs Date Time Temp Pulse Resp B/P (MAP) Pulse Ox O2 Delivery O2 Flow Rate FiO2 02/24/17 10:00 102 02/24/17 08:00 99.2 19 101/57 (72) 96 02/24/17 07:49 21 02/24/17 07:00 Room Air Intake and Output 02/24/17 02/24/17 02/25/17 08:00 16:00 00:00 Intake Total 1263 ml Balance 1263 ml Result Diagram: 02/24/17 0520 02/24/17 0520 Imaging Last Impressions Chest X-Ray 02/24/17 0600 Signed Impressions: Service Date/Time: Friday, February 24, 2017 04:26 - CONCLUSION: 1. No acute cardiopulmonary disease. Howard Shane MD Abdomen X-Ray 02/13/17 0000 Signed Impressions: Service Date/Time: January 16:11 - CONCLUSION: Feeding tube in the distal stomach. Dino Tee MD Head CT 02/10/17 0900 Signed Impressions: Service Date/Time: Friday, February 10, 2017 09:23 - CONCLUSION: Interval improvement with less parenchymal hemorrhage, intraventricular blood. Ventricles are mildly prominent when compared to the previous study. Patricio Hardy MD FACR Neck CTA 01/28/17 1009 Signed Impressions: Service Date/Time: Saturday, January 28, 2017 10:27 - CONCLUSION: 1. No hemodynamically significant carotid artery stenosis identified. 2. Mild atherosclerotic plaquing at the bifurcation. 3. Both vertebral arteries are widely patent. Jac Hardy MD Head CTA 01/28/17 0000 Signed Impressions: Service Date/Time: Saturday, January 28, 2017 10:27 - CONCLUSION: 1. No evidence of vascular malformation or vasculopathy. 2. Subdural, intraparenchymal and intraventricular hemorrhage are again noted and not significantly changed since prior study. 3. Persistent left to right shift measuring between 8 and 9 mm; unchanged. Nick Barker MD Objective Remarks GENERAL: 76-year-old female. Lying in bed, lethargic, eyes are open spontaneously SKIN: Warm/dry. Well-perfused HEAD: Ventriculostomy removed. Well-healed without erythema EYES: Pupils equal and round, 3 mm sluggish reaction to light. Left gaze preference, tracking on L side ENT: No nasal bleeding or discharge. Mucous membranes moist. NECK: Trachea midline. CARDIOVASCULAR: Regular rate and rhythm. Normal S1S2. No JVD. RESPIRATORY: Breath sounds equal bilaterally. Clear to auscultation. Cough effort is present but weak GASTROINTESTINAL: Abdomen soft, non-tender, nondistended. BS active. MUSCULOSKELETAL: No obvious deformities. No edema. Well perfused. NEUROLOGICAL: Eyes open spontaneously, left gaze, tracking on Left side. RUE is flaccid. RLE with very weak withdrawal. LUE grasps spontaneous moments, not following commands for me. LLE withdraws to noxious stimuli. Babinski upgoing on the left, neutral response right. A/P Assessment and Plan Neuro: Extensive intraventricular hemorrhage, left parietal/occipital intraparenchymal hemorrhage, left subdural hemorrhage Persistent Encephalopathy Persistent neuromuscular weakness - Emergency EVD placement by Dr. Bowden. Removed 02/10 - s/p craniotomy with evacuation of hematoma 01/[address] Bowden. - Currently on hydrocodone/acetaminophen 5/325 and 10/325 one tablet every hours as needed. For pain - - Levetiracetam 500 mg ng q12 hours for seizure prophylaxis - Continue aggressive PT/OT/Speech Added modafinil 100 mg daily 02/21/17 Resp: - Intubated for airway protection, Extubated 02/05 and had stridor so reintubated and placed on Decadron - Extubated again 02/12. Wean fio2 for goal spo2 > 90% currently on room air - At this time no evidence of aspiration but airway remains tenuous due to severe weakness - HOB elevated 30 As needed albuterol therapy every 2 hours, PRN Dyspnea - CXR as needed CV: Hypertensive emergency - resolved - As needed labetalol/hydralazine - 2D Echo - The left ventricular systolic function is hyperdynamic with an estimated ejection fraction in the range of 65-70%. Normal left ventricular size. Mild mitral valve regurgitation. There is mild tricuspid valve regurgitation. Renal: - Fuller in place - strict i/os - Monitor urine output - Recheck BMP in a.m. - Continue free water 200 cc every 8 hours FEN/GI: Elevated transaminases Hypoalbuminemia - Continue tube feeds with Glucerna1.5 goal to 55 mL per hour per nutrition recommendations. -Famotidine 20 mg twice a day for GI prophylaxis - Docusate sodium 100 mg twice a day for bowel regimen - Dobhoff tube for feeding to be continued - Free water 200 q8, target Na 140-145 - Continue to fail swallow ID/HEME: Normocytic anemia Leukocytosis - Does not meet transfusion triggers at this time - Leukocytosis improving - Panculture done on 01/29 with no growth. Empiric levofloxacin was started and discontinued 02/07 - C diff previously ordered but then diarrhea resolved. 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 -Continue insulin detemir 5 units twice a day to maintain euglycemia TSH was normal 1.48 Continue levothyroxine 50 mcg daily. MSK Wound care evaluate excoriations rectum today. Current calyzyme cream Prophylaxis: SCDs/enoxaparin Famotidine Level II follow-up Mina Calvillo MD Feb 24, 2017 11:57
[2017-02-24] MEDS: ENOXAPARIN SODIUM 40 MG/0.4 ML SYRINGE SQ SCH (12:00)
--- NOTE | 2017-02-24 16:27 | PD.WCN.NOT ---
Wound Consult Description: Consult for WOUND MANAGEMENT of coccyx/buttocks per KEITH/Rico telephone order. Communicated with: YURIY Barakat Patient Recommendation: Encrusting the perianal denuded skin as follows: 1. Apply stoma powder to open skin surrounding anus. 2. [place] with Cavilon skin barrier film. *Reapply after each incontinent episode. Continue applying Calazime BID and PRN for moisture to buttocks. Additional Information: Patient seen on [address] for perianal skin breakdown. Patient positioned to her left side for assessment with YURIY Barakat and patient at bedside. There is denuded skin noted to the perianal area that was blotted with a soft cloth and skin prepped using Cavilon spray. Stoma powder was obtained and applied to the open area and then skin prepped again using Cavilon skin barrier film spray. Periwound was covered in Calazime skin protectant. All questions from patients were answered at this time by tech writer. Kait Camarena [facility] Feb 24, 2017 16:27
[2017-02-25] VITALS (10 sets, daily range): BP systolic 100–147; BP diastolic 55–68; PULSE 96–106; RESP 15–18; TEMP 97.6–98.7; O2SAT 94–98
[2017-02-25] MEDS: INSULIN ASPART SUPPLEMENTAL SCALE SQ SCH ×5 (06:00→23:59)
[2017-02-25] MEDS: LEVOTHYROXINE SODIUM 50 MCG TAB OG-TUBE SCH (06:14)
[2017-02-25] MEDS: FREE WATER G-TUBE SCH ×3 (06:14→21:39)
[2017-02-25] MEDS: ARTIFICIAL TEARS OPTH SOLN 15 ML BTL EACH EYE SCH ×3 (06:14→22:00)
[2017-02-25] MEDS: DOCUSATE SODIUM 100 MG CAP PO SCH ×2 (09:00→21:00)
[2017-02-25] MEDS: FAMOTIDINE 20 MG TAB NG SCH ×2 (09:02→21:32)
[2017-02-25] MEDS: INSULIN DETEMIR 100 UNITS/ML VIAL SQ SCH ×2 (09:02→21:00)
[2017-02-25] MEDS: MODAFINIL 200 MG TAB PO SCH (09:02)
[2017-02-25] MEDS: levETIRAcetam 500 MG/5 ML UDC NG SCH ×2 (09:03→21:32)
[2017-02-25] MEDS: SODIUM CHLORIDE 0.9% FLUSH 10 ML FLUSH IV FLUSH SCH ×2 (09:04→21:29)
--- NOTE | 2017-02-25 11:31 | HHI.CCPN ---
Subjective Remarks/Hospital Course 01/27: Patient is a 76-year-old female who was brought to the [place] emergency department by EMS as a stroke alert. Last found normal at 11 this morning, later found unresponsive in the bed by her and EMS was called. EMS gave her Narcan IM without any response, blood glucose was 140, vital signs were apparently stable. In the ED patient remained poorly responsive and was intubated for airway protection. Her blood pressure on arrival was 243/129 and patient was started on Cardene infusion. CT of the head showed extensive acute intraventricular hemorrhage involving the left lateral ventricle, right lateral ventricle and third ventricle, acute intraparenchymal hemorrhage within the left parietal and left occipital region ( 4.1 cm in size). Acute subdural hematoma along the left frontoparietal region measuring 5 mm in width. There was also significant Significant (10 mm) subfalcine herniation to the right. Dr. Bowden was contacted by the ED Per Dr. Rivera on 01/27: Critical care medicine was requested to admit the patient. Patient was emergently moved to the ICU for EVD placement. I evaluated the patient immediately after arrival to the ICU. Patient purposefully moves left upper extremity and withdraws all other extremities. at the bedside was updated. I explained to the that she has very extensive intracranial hemorrhage and prognosis appears poor. Dr. Bowden is planning to place an EVD emergently. I discussed with Dr. Bowden extensively , patient is not a candidate for evacuation of intracerebral hemorrhage due to overall poor prognosis. I have placed a central line for administration of vasopressor agents and 3% saline. Patient remains on Cardene infusion and at this time receiving mannitol. I have also ordered Keppra for seizure prophylaxis 01/28: Remains sedated, orally intubated on mechanical ventilation. Being taken to OR for craniotomy per Dr. Bodwen. 01/29: Remains sedated, orally intubated on mechanical ventilation. Underwent craniotomy with evacuation of hematoma by Dr. Bowden on 01/28. Ventriculostomy remains in place. Drained 120 cc bloody CSF over the last 12 hours. ICP 2. 01/30: ICP well controlled. Requiring mechanical ventilation. 01/31: Remains sedated, orally intubated on mechanical ventilation. Ventriculostomy in place. ICP within normal limits. Leukocytosis persists. UA appeared abnormal however cultures with no growth. Starting empiric Levaquin. Checking pro-calcitonin. Started free water for worsening hypernatremia 02/01 Afebrile. WBC 16.9 which is downtrending. Nurse states she has diarrhea. Procalcitonin is not elevated. Ventric at 0 cm water, repeat CT scheduled for tomorrow morning per neurosurgery. 02/02: Osmolality suitably concentrated but brain edema persists, shift slightly larger. Hypertonic saline continued at half rate to avoid overly rapid drop. 02/03: No improvement in neuro exam over past 24 hours. Osmolality acceptable. 02/04: Tolerating CPAP trials today with good respiratory effort. Long discussion with and daughter about plans to extubate, high likelihood of reintubation. 02/05: Will attempt to extubate today during a period when she is alert; sleeping now. Extubated and respiratory drive good. Good cough effort. She had immediate stridor however and it was not helped by suctioning nor 4 racemic epi treatments. I will re-intubate with a smaller tube and add steroids for 48-72 hours. 02/06: No change in neurological function. When extubated she did not follow commands nor seem to respond to voices of family. Her airway was stridor ridden and did not clear with multiple racemic epi rxs. Steroids started 02/05, continue for 2-3 days then retry. Suspect she'll need trach but family not ready. 02/07. Tolerating CPAP 11/21. No cuff leak despite steroids. Will try diuresing. Follows commands LUE. 02/08: Tolerated PSV trials 20 hours yesterday. No cuff leak. Tongue remains is edematous. Opens eyes and follows commands with left upper extremity only. Wiggles left lower extremity. 02/09: Currently resting in bed. Remains on PSV trial. Her tongue remains swollen. No new neurological changes. 02/10: Respiratory rates between 6 and 8 this morning. Placed back on ACV with a rate of 10. Tongue remains swollen. No new neurological changes. 02/11: Status post removal of ventriculostomy 02/10. more comfortable with trach. Waiting for Dr. Gómez to return to make definitive decision. Removing magalys today. Hosea enteral diet. 02/12: I'll discuss tracheostomy vs extubation with family again today. No change in neurological status. CT head with no shift, resolving edema. 02/13: Extubated 24 hours ago. Sats acceptable and continues to breathe comfortably. Will assess functional status and place in rehab / SNF. 02/14: Tolerating extubation for 2 days now. TFs restarted. 02/15: Extubated 3 days ago, breathing comfortably. Case management assisting with rehab placement. 02/16: Awaiting placement in rehab or SNF depending on level of cooperation patient is capable of. 02/17/17: Patient up in stretcher chair today. Eyes spontaneously partially open. Purposefully moves left upper extremity 02/18/17: Lying in bed, remains weak, Airway remains tenuous. Updated at bedside. Discussed with Dr. Bowden 02/19/17: Remains extremely weak, requiring frequent NT suctioning. Eyes remain open, left gaze preference. Moves overly left upper extremity spontaneously. Remains at high risk for aspiration 02/20/17: Sitting up in stretcher chair, patient is quiet lethargic, not following commands, brief eye opening to stimulation. Per RN patient followed commands with the left upper extremity today though weakly 02/21/17: Appears slightly more awake with eyes open spontaneously. Not following commands for me but apparently did follow for the night nurse. Left gaze preference did not move eyes to right 02/22/17: Neuro exam essentially unchanged, except eye opening more consistently, tracks on the left side. Do not follow commands again for me. WBC count stable liver enzymes slightly trending up 02/23: Afebrile. Was able to somewhat swallow applesauce today. Neurologically stable. Able to move left upper extremity. Withdrawals to left lower extremity. Positive BM. Tolerating tube feeding. 02/24: Low-grade temperatures. Neurologically stable. Again moving left upper extremity. Withdraws left lower extremity. Positive BM. Tolerating tube feeds. PT evaluate and treat today. Wound care to evaluate excoriation rectum. Subjective: 02/25: Afebrile. Neurologically unchanged/more interactive today. Attempting to mouth words according to . Spontaneous movement in left upper extremity.. Moist cough Objective Vital Signs Date Time Temp Pulse Resp B/P (MAP) Pulse Ox O2 Delivery O2 Flow Rate FiO2 02/25/17 10:00 99 02/25/17 08:00 98.1 16 105/57 (73) 94 02/25/17 07:52 21 02/25/17 07:00 Room Air Intake and Output 02/25/17 02/25/17 02/25/17 07:59 15:59 23:59 Intake Total 1254 ml Balance 1254 ml Result Diagram: 02/24/17 0520 02/24/17 0520 Imaging Last Impressions Chest X-Ray 02/24/17 0600 Signed Impressions: Service Date/Time: Friday, February 24, 2017 04:26 - CONCLUSION: 1. No acute cardiopulmonary disease. Howard Shane MD Abdomen X-Ray 02/13/17 0000 Signed Impressions: Service Date/Time: January 16:11 - CONCLUSION: Feeding tube in the distal stomach. Dino Tee MD Head CT 02/10/17 0900 Signed Impressions: Service Date/Time: Friday, February 10, 2017 09:23 - CONCLUSION: Interval improvement with less parenchymal hemorrhage, intraventricular blood. Ventricles are mildly prominent when compared to the previous study. Patricio Hardy MD FACR Neck CTA 01/28/17 1009 Signed Impressions: Service Date/Time: Saturday, January 28, 2017 10:27 - CONCLUSION: 1. No hemodynamically significant carotid artery stenosis identified. 2. Mild atherosclerotic plaquing at the bifurcation. 3. Both vertebral arteries are widely patent. Jac Hardy MD Head CTA 01/28/17 0000 Signed Impressions: Service Date/Time: Saturday, January 28, 2017 10:27 - CONCLUSION: 1. No evidence of vascular malformation or vasculopathy. 2. Subdural, intraparenchymal and intraventricular hemorrhage are again noted and not significantly changed since prior study. 3. Persistent left to right shift measuring between 8 and 9 mm; unchanged. Nick Barker MD Objective Remarks GENERAL: 76-year-old female. Lying in bed, lethargic, eyes are open spontaneously SKIN: Warm/dry. Well-perfused HEAD: Ventriculostomy removed. Well-healed without erythema EYES: Pupils equal and round, 3 mm sluggish reaction to light. Left gaze preference, tracking on L side ENT: No nasal bleeding or discharge. Mucous membranes moist. NECK: Trachea midline. CARDIOVASCULAR: Regular rate and rhythm. Normal S1S2. No JVD. RESPIRATORY: Breath sounds equal bilaterally. Clear to auscultation. Cough effort is present but weak GASTROINTESTINAL: Abdomen soft, non-tender, nondistended. BS active. MUSCULOSKELETAL: No obvious deformities. No edema. Well perfused. NEUROLOGICAL: Eyes open spontaneously, left gaze, tracking on Left side. RUE is flaccid. RLE with very weak withdrawal. LUE grasps spontaneous moments, not following commands for me. LLE withdraws to noxious stimuli. Babinski upgoing on the left, neutral response right. A/P Assessment and Plan Neuro: Extensive intraventricular hemorrhage, left parietal/occipital intraparenchymal hemorrhage, left subdural hemorrhage Persistent Encephalopathy Persistent neuromuscular weakness - Emergency EVD placement by Dr. Bowden. Removed 02/10 - s/p craniotomy with evacuation of hematoma 01/[address] Bowden. - Currently on hydrocodone/acetaminophen 5/325 and 10/325 one tablet every hours as needed. For pain 1- - Levetiracetam 500 mg ng q12 hours for seizure prophylaxis - Continue aggressive PT/OT/Speech Continue modafinil 100 mg daily 02/21/17 Resp: - Intubated for airway protection, Extubated 02/05 and had stridor so reintubated and placed on Decadron - Extubated again 02/12. Wean fio2 for goal spo2 > 90% currently on room air - At this time no evidence of aspiration but airway remains tenuous due to severe weakness - HOB elevated 30 As needed albuterol therapy every 2 hours, PRN Dyspnea - CXR as needed CV: Hypertensive emergency - resolved - As needed labetalol/hydralazine - 2D Echo - The left ventricular systolic function is hyperdynamic with an estimated ejection fraction in the range of 65-70%. Normal left ventricular size. Mild mitral valve regurgitation. There is mild tricuspid valve regurgitation. Renal: - Fuller in place - strict i/os - Monitor urine output - Recheck BMP in a.m. - Continue free water 200 cc every 8 hours FEN/GI: Elevated transaminases Hypoalbuminemia - Continue tube feeds with Glucerna1.5 goal to 55 mL per hour per nutrition recommendations. -Famotidine 20 mg twice a day for GI prophylaxis - Docusate sodium 100 mg twice a day for bowel regimen - Dobhoff tube for feeding to be continued - Free water 200 q8, target Na 140-145 - Continue to fail swallow. Routine today. Likely will need PEG tube ID/HEME: Normocytic anemia Leukocytosis - Does not meet transfusion triggers at this time - Leukocytosis improving - Panculture done on 01/29 with no growth. Empiric levofloxacin was started and discontinued 02/07 - C diff previously ordered but then diarrhea resolved. 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 -Continue insulin detemir 5 units twice a day to maintain euglycemia TSH was normal 1.48 Continue levothyroxine 50 mcg daily. MSK Wound care evaluate excoriations rectum today. Current calyzyme cream Prophylaxis: SCDs/enoxaparin Famotidine Level II follow-up Patient is stable from critical care medicine standpoint. Assign care to hospitalist in a.m. 02/26 Mina Calvillo MD Feb 25, 2017 11:31
[2017-02-25] MEDS: ENOXAPARIN SODIUM 40 MG/0.4 ML SYRINGE SQ SCH (12:17)
[2017-02-25] MEDS: RESP: ALBUTEROL 2.5 MG/3 ML NEB (PRN) INH (22:12)
[2017-02-26] VITALS (11 sets, daily range): BP systolic 99–129; BP diastolic 53–64; PULSE 83–102; RESP 16–20; TEMP 97.8–99.2; O2SAT 92–100
[2017-02-26] MEDS: CHLORHEXIDINE GLUCONATE 2 % 1 PACK (2 CLOTHS) TOP SCH (01:31)
[2017-02-26] MEDS: FREE WATER G-TUBE SCH ×3 (05:35→22:21)
[2017-02-26] MEDS: ARTIFICIAL TEARS OPTH SOLN 15 ML BTL EACH EYE SCH ×3 (05:35→22:18)
[2017-02-26] MEDS: LEVOTHYROXINE SODIUM 50 MCG TAB OG-TUBE SCH (05:35)
[2017-02-26] MEDS: INSULIN ASPART SUPPLEMENTAL SCALE SQ SCH ×3 (06:00→18:00)
[2017-02-26] MEDS ORDERED: PILL SPLITTER OTHER PRN (09:00)
[2017-02-26] MEDS: SODIUM CHLORIDE 0.9% FLUSH 10 ML FLUSH IV FLUSH SCH ×2 (09:00→21:54)
[2017-02-26] MEDS: INSULIN DETEMIR 100 UNITS/ML VIAL SQ SCH ×2 (09:00→21:52)
[2017-02-26] MEDS: DOCUSATE SODIUM 100 MG CAP PO SCH ×2 (09:39→21:51)
[2017-02-26] MEDS: levETIRAcetam 500 MG/5 ML UDC NG SCH ×2 (09:39→21:46)
[2017-02-26] MEDS: FAMOTIDINE 20 MG TAB NG SCH ×2 (09:39→21:51)
[2017-02-26 09:46] LABS: HEMATOCRIT 28.2 % (35.0-46.0); HEMOGLOBIN 9.5 GM/DL (11.6-15.3); MEAN CELL VOLUME 93.2 FL (80.0-100.0); MEAN CORPUSCULAR HEMOGLOBIN 31.3 PG (27.0-34.0); MEAN CORPUSCULAR HGB CONC 33.6 % (32.0-36.0); MEAN PLATELET VOLUME 9.4 FL (7.0-11.0); PLATELET COUNT 180 TH/MM3 (150-450); RED BLOOD COUNT 3.03 MIL/MM3 (4.00-5.30); RED CELL DISTRIBUTION WIDTH 14.1 % (11.6-17.2)
[2017-02-26] MEDS: MODAFINIL 200 MG TAB PO SCH (09:53)
[2017-02-26 10:19] LABS: BICARBONATE 27.1 MEQ/L (21.0-32.0); CALCIUM 8.2 MG/DL (8.5-10.1); CREATININE 0.32 MG/DL (0.50-1.00); MAGNESIUM 2.1 MG/DL (1.5-2.5); PHOSPHORUS 3.1 MG/DL (2.5-4.9)
--- NOTE | 2017-02-26 10:54 | HHI.PR ---
Subjective Remarks Follow up intracranial hemorrhage, hypertension. Patient scheduled for PEG tube placement today. No events reported by nursing. Discussed with family at bedside. Objective Vitals Vital Signs Date Time Temp Pulse Resp B/P (MAP) Pulse Ox O2 Delivery O2 Flow Rate FiO2 02/26/17 08:00 99.2 98 16 127/58 (81) 94 02/26/17 05:03 98 02/26/17 04:00 98.9 97 18 117/56 (76) 95 02/26/17 00:00 98.5 102 18 109/53 (71) 98 02/25/17 21:50 Room Air 02/25/17 20:00 98.5 97 18 147/63 (91) 94 02/25/17 16:00 97.6 99 18 109/55 (73) 98 02/25/17 12:00 98.1 99 15 107/58 (74) 97 02/25/17 12:00 99 I/O 02/25/17 02/25/17 02/25/17 02/26/17 02/26/17 02/26/17 07:00 15:00 23:00 07:00 15:00 23:00 Intake Total 1254 ml Balance 1254 ml Tube Feeding 654 ml Other 600 ml # Voids 4 3 1 # Bowel Movements 2 1 1 2 Result Diagram: 02/26/17 0854 02/26/17 0854 Imaging Last Impressions Chest X-Ray 02/24/17 0600 Signed Impressions: Service Date/Time: Friday, February 24, 2017 04:26 - CONCLUSION: 1. No acute cardiopulmonary disease. Howard Shane MD Abdomen X-Ray 02/13/17 0000 Signed Impressions: Service Date/Time: January 16:11 - CONCLUSION: Feeding tube in the distal stomach. Dino Tee MD Head CT 02/10/17 0900 Signed Impressions: Service Date/Time: Friday, February 10, 2017 09:23 - CONCLUSION: Interval improvement with less parenchymal hemorrhage, intraventricular blood. Ventricles are mildly prominent when compared to the previous study. Patricio Hardy MD FACR Neck CTA 01/28/17 1009 Signed Impressions: Service Date/Time: Saturday, January 28, 2017 10:27 - CONCLUSION: 1. No hemodynamically significant carotid artery stenosis identified. 2. Mild atherosclerotic plaquing at the bifurcation. 3. Both vertebral arteries are widely patent. Jac Hardy MD Head CTA 01/28/17 0000 Signed Impressions: Service Date/Time: Saturday, January 28, 2017 10:27 - CONCLUSION: 1. No evidence of vascular malformation or vasculopathy. 2. Subdural, intraparenchymal and intraventricular hemorrhage are again noted and not significantly changed since prior study. 3. Persistent left to right shift measuring between 8 and 9 mm; unchanged. Nick Barker MD Objective Remarks General: No acute distress. Heart: Regular rate and rhythm. No murmur. Lungs: Clear to auscultation bilaterally. No wheezes, rales, or rhonchi. Breathing is nonlabored. Abdomen: Soft, nontender, nondistended. Extremities: Trace left lower extremity edema. SCDs. Psych: Alert, nonverbal. Neuro: Patient squeezes my fingers with her left hand on command. Eyes open spontaneously. She tracks on the left side. Procedures 01/27/17 right frontal alanna hole with placement of ventriculostomy catheter 01/28/17 left parieto-occipital craniotomy, evacuation of intracerebral hematoma , microsurgical dissection 02/05/17 orotracheal intubation Urinary Catheter: No Vascular Central Line Catheter: No A/P Problem List: (1) Intracerebral hemorrhage with intraventricular extension (2) Acute respiratory failure ICD Code: J96.00 - Acute respiratory failure, unspecified whether with hypoxia or hypercapnia (3) Acute encephalopathy ICD Code: G93.40 - Encephalopathy, unspecified (4) Hypertensive emergency ICD Code: I16.1 - Hypertensive emergency Status: Acute (5) Leukocytosis ICD Code: D72.829 - Elevated white blood cell count, unspecified Assessment and Plan 1. Extensive intraventricular hemorrhage, left parietal/occipital intraparenchymal hemorrhage, left subdural hemorrhage: Management per neurosurgery. Status post craniotomy with evacuation of hematoma on 01/28/17. Continue Keppra for seizure prophylaxis. Continue modafinil 100 mg daily. 2. Encephalopathy: Secondary to above. Monitor. Continue PT/OT/ST. 3. Respiratory failure: Patient was intubated for airway protection. She was extubated on 02/12/17. She is currently stable on room air. 4. Hypertensive emergency: Resolved. 5. Elevated transaminases: Monitor labs. 6. FEN: Continue tube feeds. Dobbhoff tube in place. PEG tube to be placed today. 7. Normocytic anemia: Monitor labs. 8. Leukocytosis: Resolved. 9. Hypothyroidism: Continue Synthroid. 10. Wound care consult for buttock wounds 11. GI prophylaxis: Famotidine. 12. DVT prophylaxis: SCDs, Lovenox. Discharge Planning Will need long-term placement. Patient has been accepted at [facility]. Wilber Armenta MD Feb 26, 2017 10:54
[2017-02-26] MEDS: ENOXAPARIN SODIUM 40 MG/0.4 ML SYRINGE SQ SCH (12:00)
[2017-02-26] MEDS ORDERED: MIDAZOLAM HCL 2 MG/2 ML VIAL ONE (13:54)
--- NOTE | 2017-02-26 14:34 | PD.RAD ---
Post Procedure Progress Note Pre Procedure Diagnosis: (1) Intracranial bleed Post Procedure Diagnosis: (1) Intracranial bleed Procedure Date: Feb 26, 2017 Supervising Radiologist: Migel Kapadia Proceduralist/Assist: Melody Velázquez, RT(R)(CV), RT Korey(R) Anesthesia: Conscious Sedation Plan of Activity Patient to Unit: Nursing Unit Patient Condition: Good See PACS Report for procedural detail/treatment Migel Kapadia MD Feb 26, 2017 14:34
[2017-02-26] MEDS ORDERED: IOHEXOL 350 MG/ML 50 ML BTL (for RAD DIAG) G-TUBE ONE (14:47)
--- NOTE | 2017-02-26 17:04 | HHI.NSPN ---
(Rosa Vera) Note Status Status: Progress Note (Rosa Vera) Status: Progress Note (Jack Bowden MD) Interval History Interval History Ms Tinajero is an 76 year old adult female who was brought to [facility] as a stroke alert with a severe intracerebral and intraventricular hemorrhage with mass effect and midline shift. She underwent placement of ventriculostomy drain on 01/27/17. She underwent a left parietooccipital craniotomy, evacuation of intracerebral hematoma on Jan 28, 2017. 01/29: intubated and sedated. EVD draining well bloody CSF. ICPs normal. f/u CT Head this morning with decreasing mass effect, less left to right midline shift which now measures 4.6 mm, with small amount hemorrhage remains evident in the ventricular system. 01/30: intubated and sedated. ventriculostomy draining well, ICPs within normal limits. 01/31: intubated, sedated. no eye opening. ventriculostomy draining well, ICPs remains wnl 02/03: EVD raised to 3 cm H20 over the weekend, ICPs stable. Intubated and off sedative drips, mildly opens eyes. 02/04: appears much more alert this morning, eyes wide open and tracking. EVD draining well. 02/05: tolerating CPAP, awake and tracking. CSF now simpson. EVD draining well. 02/17/17: neuro stable overnight, reports patient smiling. dc planning to rehab. 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 no significant neuro changes, remains in a minimal conscious state, not fully awake to protect her airway. 02/20/17: neuro checks stable overnight 02/23: happy with her progress, says she is slowly starting to attempt to communicate with family. 02/26: to IR today for PEG placement, daughter reports pt attempted to speak (Rosa Vera) Labs, Micro, & Vital Signs Results Date Time Temp Pulse Resp B/P (MAP) Pulse Ox O2 Delivery O2 Flow Rate FiO2 02/26/17 15:05 84 20 119/56 (77) 97 02/26/17 14:50 90 20 99/60 (73) 97 02/26/17 14:35 97.8 92 20 113/64 (80) 92 02/26/17 12:00 99.1 96 16 115/55 (75) 94 02/26/17 08:00 99.2 98 16 127/58 (81) 94 02/26/17 05:03 98 02/26/17 04:00 98.9 97 18 117/56 (76) 95 02/26/17 00:00 98.5 102 18 109/53 (71) 98 02/25/17 21:50 Room Air 02/25/17 20:00 98.5 97 18 147/63 (91) 94 Constitutional Vital Signs Date Time Temp Pulse Resp B/P (MAP) Pulse Ox O2 Delivery O2 Flow Rate FiO2 02/26/17 15:05 84 20 119/56 (77) 97 02/26/17 14:50 90 20 99/60 (73) 97 02/26/17 14:35 97.8 92 20 113/64 (80) 92 02/26/17 12:00 99.1 96 16 115/55 (75) 94 02/26/17 08:00 99.2 98 16 127/58 (81) 94 02/26/17 05:03 98 02/26/17 04:00 98.9 97 18 117/56 (76) 95 02/26/17 00:00 98.5 102 18 109/53 (71) 98 02/25/17 21:50 Room Air 02/25/17 20:00 98.5 97 18 147/63 (91) 94 (Rosa Vera) Review of Systems ROS Limitations: Clinical Condition (Rosa Vera) Physical Exam Eyes open, semi-conscious state, intermittently focuses and tracks. Right side neglect. Surgical incision healing well Motor: intermittently moves left upper extremity, otherwise not following for testing CN; pupils 3-4 mm bilaterally, facial grossly symmetric at rest (Rosa Vera) Medications Current Medications Current Medications Medications (Trade) Dose Ordered Sig/Eunice Route PRN Reason Start Time Stop Time Status Last Admin Dose Admin Sodium Chloride (NS Flush) 2 ml UNSCH PRN IV FLUSH FLUSH AFTER USING IV ACCESS 01/27/17 13:30 Sodium Chloride (NS Flush) 2 ml BID IV FLUSH 01/27/17 21:00 02/26/17 09:00 Miscellaneous Information 1 [id number] XX 01/27/17 13:30 01/27/17 13:30 Chlorhexidine Gluconate (Chlorhexidine 2% Cloth) Taper DAILY@04 TOP 01/28/17 04:00 01/24/18 03:59 Chlorhexidine Gluconate (Chlorhexidine 2% Cloth) 3 pack UNSCH PRN TOP HYGIENIC CARE 01/27/17 13:30 Bisacodyl (Dulcolax Supp) 10 mg DAILY PRN RECTAL CONSTIPATION 01/28/17 17:15 01/30/17 08:01 Docusate Sodium (Colace) 100 mg BID PO 01/28/17 21:00 02/26/17 09:39 Ondansetron HCl (Zofran Inj) 4 mg Q6H PRN IV PUSH NAUSEA OR VOMITING 01/28/17 17:15 Calcium Gluconate (Calcium Gluconate Inj) 1 gm UNSCH PRN IV SEE LABEL COMMENTS 01/28/17 17:15 Potassium Chloride 100 ml @ 50 mls/hr UNSCH PRN IV POTASSIUM LESS THAN 4 01/28/17 17:15 01/29/17 05:46 Magnesium Sulfate 4 gm/Sodium Chloride 108 ml @ 108 mls/hr UNSCH PRN IV MAGNESIUM LESS THAN 2 01/28/17 17:15 Acetaminophen/ Hydrocodone Bitart ([place] 10-325 Mg) 1 tab Q4H PRN PO PAIN SCALE 1 TO 5 01/28/17 17:15 02/16/17 21:52 Acetaminophen/ Hydrocodone Bitart (R[place]olt 10-325 Mg) 2 tab Q4H PRN PO PAIN SCALE 6 TO 10 01/28/17 17:15 02/06/17 23:29 Insulin Aspart (NovoLOG SUPPLEMENTAL SCALE) 1 Q6HR SQ 01/29/17 12:00 02/24/17 12:00 Dextrose (D50w (Vial) Inj) 25 ml UNSCH PRN IV HYPOGLYCEMIA-SEE COMMENTS 01/29/17 12:00 Glucagon (Glucagon Inj) 1 mg UNSCH PRN IM/SQ HYPOGLYCEMIA-SEE COMMENTS 01/29/17 12:00 Acetaminophen (Tylenol) 650 mg Q4H PRN PO SEE LABEL COMMENTS 01/29/17 16:15 Diphenhydramine HCl (Benadryl) 25 mg Q4H PRN PO SEE LABEL COMMENTS 01/29/17 16:15 Hydralazine HCl (Apresoline Inj) 10 mg Q1H PRN IV PUSH SBP >160 02/05/17 16:00 Labetalol HCl (Trandate Inj) 20 mg Q3H PRN IV PUSH SBP > 150 02/05/17 16:00 02/05/17 17:00 Levothyroxine Sodium (Synthroid) 50 mcg DAILY@0600 OG-TUBE 02/08/17 06:00 02/25/17 06:14 Artificial Tears (Tears Naturale Opth Soln) 1 drop Q8HR EACH EYE 02/08/17 14:00 02/25/17 14:14 Insulin Detemir (Levemir Inj) 5 units Q12HR SQ 02/08/17 21:00 02/25/17 09:02 Albuterol Sulfate (Albuterol Neb) 2.5 mg Q2HR NEB PRN INH SHORTNESS OF BREATH 02/10/17 12:15 02/25/17 22:12 Acetaminophen (Tylenol 650 Mg/ 20 ml Liq) 650 mg Q6H PRN NG fever 02/11/17 14:15 02/11/17 20:46 Racepinephrine (Racepinephrine 2.25% Neb) 0.5 ml Q1HR NEB PRN NEB stridor 02/12/17 14:45 02/13/17 09:05 Levetriacetam (Keppra Liq) 500 mg Q12H NG 02/14/17 21:00 02/26/17 09:39 Famotidine (Pepcid) 20 mg BID NG 02/15/17 21:00 02/26/17 09:39 Water (Free Water) 200 ml Q8HR G-TUBE 02/19/17 22:00 02/25/17 21:39 Modafinil (Provigil) 100 mg DAILY PO 02/21/17 09:00 02/26/17 09:53 Enoxaparin Sodium (Lovenox Inj) 40 mg Q24H SQ 02/23/17 12:00 02/25/17 12:17 Miscellaneous (Pill Splitter) 1 ea UNSCH PRN OTHER SEE LABEL COMMENTS 02/26/17 09:00 (Rosa Vera) Medical Decision Making MDM Remarks 76 year old female with large intraventricular hemorrhage s/p placement of ventriculostomy drain 01/27/17, slowly challenging ventriculostomy drain, ICPs remains wnl s/p left parietooccipital craniotomy, evacuation of intracerebral hematoma 01/28 patient is slowly showing neurological improvement, however remains to be in a minimally conscious state (Rosa Vera) Plan Plan Remarks to IR today for PEG placement cont with daily therapy, rehab efforts request Dr. Anel gonsales for possible Leonard (Rosa Vera) Attending Statement The exam, history, and the medical decision-making described in the above note were completed with the assistance of the mid-level provider. I reviewed and agree with the findings presented. I attest that I had a [id number] encounter with the patient on the same day, and personally performed and documented my assessment and findings in the medical record. (Jack Bowden MD) Rosa Vera Feb 26, 2017 17:04 Jack Bowden MD Mar 02, 2017 10:18
--- NOTE | 2017-02-26 17:20 | RADRPT ---
EXAM DATE/TIME: 02/26/2017 15:12 [place] COMPARISON: No previous studies available for comparison. INDICATIONS : Patient with history of intercranial bleed. Gtube for nutrition. MEDICAL HISTORY : 1. HTN 2.vertigo 3. hypothroidism SURGICAL HISTORY : 1. hysterectomy ENCOUNTER: Initial ACUITY: 1 month PAIN SCORE: 0/10 FLUORO TIME: 1.1 minutes IMAGE SERIES: 1 SEDATION TIME: 30 minutes CONTRAST: 20 cc Omnipaque (iohexol) 350 MEDICATION(S): 1.) 2 mg midazolam (Versed) IV 2.) 100 mcg Fentanyl (Sublimaze) IV DEVICE(S): 1.) 18 Fr gastrostomy tube PROCEDURE : 1. Limited abdominal ultrasound. 2. Fluoroscopically guided gastrostomy tube placement. 3. Conscious sedation with continuous EKG and oximetry monitoring. The risks, benefits and alternatives to the procedure were explained and verbal and written consent w as obtained. The site was prepped in sterile fashion. Full sterile technique was used, including ca p, mask, sterile gloves and gown and a large sterile sheet. Hand hygiene and 2% chlorhexidine and/or betadine/alcohol prep was utilized per protocol for cutaneous antisepsis. The skin and subcutaneous tissues were infiltrated with local anesthetic solution. Sterile gel and sterile probe cover were u tilized for ultrasound guidance. Ultrasound was used to reddy the position of the liver. The stomach was insufflated with room air. Th ree percutaneous fasteners were placed to secure the anterior gastric wall. A small incision was made between the fasteners. The stomach was accessed with an 18 gauge needle. A n 0.035 wire was advanced into the small bowel. The tract was dilated. The gastrostomy tube was int roduced through a peel-away sheath. The position was confirmed with an injection of contrast. Conscious sedation was performed with the prescribed dosages and duration as above in the presence of an independent trained radiology nurse to assist in the monitoring of the patient. EKG and oximetry remained stable throughout the procedure. The patient tolerated the procedure well and there were n o complications. The patient was sent to post anesthesia recovery in stable condition. CONCLUSION: Uncomplicated gastrostomy tube placement as above. Migel Kapadia MD on February 26, 2017 at 17:17 Board Certified Radiologist. This report was verified electronically.
[2017-02-26] MEDS: ACETAMINOPHEN/HYDROcodone 325 MG/10 MG TAB PO PRN (21:49)
[2017-02-27] VITALS (8 sets, daily range): BP systolic 104–143; BP diastolic 53–64; PULSE 90–106; RESP 18–20; TEMP 97.6–98.7; O2SAT 93–97
[2017-02-27] MEDS: CHLORHEXIDINE GLUCONATE 2 % 1 PACK (2 CLOTHS) TOP SCH (04:00)
[2017-02-27] MEDS: LEVOTHYROXINE SODIUM 50 MCG TAB OG-TUBE SCH (05:45)
[2017-02-27] MEDS: ARTIFICIAL TEARS OPTH SOLN 15 ML BTL EACH EYE SCH ×3 (05:47→21:32)
[2017-02-27] MEDS: ACETAMINOPHEN/HYDROcodone 325 MG/10 MG TAB PO PRN ×2 (06:09→21:31)
[2017-02-27] MEDS: FREE WATER G-TUBE SCH ×3 (06:13→21:32)
[2017-02-27] MEDS: INSULIN ASPART SUPPLEMENTAL SCALE SQ SCH ×4 (06:20→18:00)
[2017-02-27] MEDS: FAMOTIDINE 20 MG TAB NG SCH ×2 (08:55→21:31)
[2017-02-27] MEDS: DOCUSATE SODIUM 100 MG CAP PO SCH ×2 (08:56→21:00)
[2017-02-27] MEDS: levETIRAcetam 500 MG/5 ML UDC NG SCH ×2 (08:56→21:31)
[2017-02-27] MEDS: MODAFINIL 200 MG TAB PO SCH (08:56)
[2017-02-27] MEDS: SODIUM CHLORIDE 0.9% FLUSH 10 ML FLUSH IV FLUSH SCH ×2 (08:56→21:32)
[2017-02-27 08:59] LABS: BICARBONATE 25.2 MEQ/L (21.0-32.0); CALCIUM 8.3 MG/DL (8.5-10.1); CREATININE 0.28 MG/DL (0.50-1.00)
[2017-02-27 09:06] LABS: AUTOMATED NEUTROPHIL # 5.4 TH/MM3 (1.8-7.7); BASOPHIL % 0.5 % (0.0-2.0); EOSINOPHIL # 0.3 TH/MM3 (0-0.4); EOSINOPHIL % 3.3 % (0.0-4.0); HEMATOCRIT 28.5 % (35.0-46.0); HEMOGLOBIN 9.8 GM/DL (11.6-15.3); LYMPH % 20.6 % (9.0-44.0); LYMPHOCYTE # 1.7 TH/MM3 (1.0-4.8); MEAN CELL VOLUME 93.7 FL (80.0-100.0); MEAN CORPUSCULAR HEMOGLOBIN 32.3 PG (27.0-34.0); MEAN CORPUSCULAR HGB CONC 34.5 % (32.0-36.0); MONO % 9.7 % (0.0-8.0); MONOCYTE # 0.8 TH/MM3 (0-0.9); NEUT % 65.9 % (16.0-70.0); PLATELET COUNT 201 TH/MM3 (150-450); RED BLOOD COUNT 3.04 MIL/MM3 (4.00-5.30); RED CELL DISTRIBUTION WIDTH 14.5 % (11.6-17.2); WHITE BLOOD COUNT 8.3 TH/MM3 (4.0-11.0)
[2017-02-27] MEDS: ENOXAPARIN SODIUM 40 MG/0.4 ML SYRINGE SQ SCH (12:23)
--- NOTE | 2017-02-27 13:53 | HHI.PR ---
Subjective Remarks Follow up intracranial hemorrhage, hypertension. PEG tube was placed yesterday. She is tolerating tube feeds. Family states that the patient seems to be doing okay today. Objective Vitals Vital Signs Date Time Temp Pulse Resp B/P (MAP) Pulse Ox O2 Delivery O2 Flow Rate FiO2 02/27/17 11:59 98.7 91 20 104/62 (76) 97 02/27/17 09:00 Room Air 02/27/17 07:50 98.7 97 20 128/60 (82) 96 02/27/17 04:00 98.7 99 18 135/63 (87) 95 02/27/17 00:00 97.6 90 18 107/53 (71) 93 02/26/17 21:46 Room Air 1.00 02/26/17 20:00 98.6 89 18 112/59 (76) 100 02/26/17 19:54 88 02/26/17 16:00 98.7 83 16 129/57 (81) 100 02/26/17 15:05 84 20 119/56 (77) 97 02/26/17 14:50 90 20 99/60 (73) 97 02/26/17 14:35 97.8 92 20 113/64 (80) 92 I/O 02/26/17 02/26/17 02/26/17 02/27/17 02/27/17 02/27/17 07:00 15:00 23:00 07:00 15:00 23:00 # Voids 1 2 # Bowel Movements 1 2 Result Diagram: 02/27/17 0756 02/27/17 0756 Imaging Last Impressions Gastrostomy Tube Placement 02/26/17 0000 Signed Impressions: Service Date/Time: Sunday, February 26, 2017 15:12 - CONCLUSION: Uncomplicated gastrostomy tube placement as above. Migel Kapadia MD Chest X-Ray 02/24/17 0600 Signed Impressions: Service Date/Time: Friday, February 24, 2017 04:26 - CONCLUSION: 1. No acute cardiopulmonary disease. Howard Shane MD Abdomen X-Ray 02/13/17 0000 Signed Impressions: Service Date/Time: January 16:11 - CONCLUSION: Feeding tube in the distal stomach. Dino Tee MD Head CT 02/10/17 0900 Signed Impressions: Service Date/Time: Friday, February 10, 2017 09:23 - CONCLUSION: Interval improvement with less parenchymal hemorrhage, intraventricular blood. Ventricles are mildly prominent when compared to the previous study. Patricio Hardy MD FACR Neck CTA 01/28/17 1009 Signed Impressions: Service Date/Time: Saturday, January 28, 2017 10:27 - CONCLUSION: 1. No hemodynamically significant carotid artery stenosis identified. 2. Mild atherosclerotic plaquing at the bifurcation. 3. Both vertebral arteries are widely patent. Jac Hardy MD Head CTA 01/28/17 0000 Signed Impressions: Service Date/Time: Saturday, January 28, 2017 10:27 - CONCLUSION: 1. No evidence of vascular malformation or vasculopathy. 2. Subdural, intraparenchymal and intraventricular hemorrhage are again noted and not significantly changed since prior study. 3. Persistent left to right shift measuring between 8 and 9 mm; unchanged. Nick Barker MD Objective Remarks General: No acute distress. Heart: Regular rate and rhythm. No murmur. Lungs: Clear to auscultation bilaterally. No wheezes, rales, or rhonchi. Breathing is nonlabored. Abdomen: Soft, nontender, nondistended. Extremities: Trace left lower extremity edema. SCDs. Psych: Alert, nonverbal. Neuro: Eyes open spontaneously. She tracks on the left side. Procedures 01/27/17 right frontal alanna hole with placement of ventriculostomy catheter 01/28/17 left parieto-occipital craniotomy, evacuation of intracerebral hematoma , microsurgical dissection 02/05/17 orotracheal intubation Urinary Catheter: No Vascular Central Line Catheter: No A/P Problem List: (1) Intracerebral hemorrhage with intraventricular extension (2) Acute respiratory failure ICD Code: J96.00 - Acute respiratory failure, unspecified whether with hypoxia or hypercapnia (3) Acute encephalopathy ICD Code: G93.40 - Encephalopathy, unspecified (4) Hypertensive emergency ICD Code: I16.1 - Hypertensive emergency Status: Acute (5) Leukocytosis ICD Code: D72.829 - Elevated white blood cell count, unspecified Assessment and Plan 1. Extensive intraventricular hemorrhage, left parietal/occipital intraparenchymal hemorrhage, left subdural hemorrhage: Management per neurosurgery. Status post craniotomy with evacuation of hematoma on 01/28/17. Continue Keppra for seizure prophylaxis. Continue modafinil 100 mg daily. 2. Encephalopathy: Secondary to above. Monitor. Continue PT/OT/ST. 3. Respiratory failure: Patient was intubated for airway protection. She was extubated on 02/12/17. She is currently stable on room air. 4. Hypertensive emergency: Resolved. 5. Elevated transaminases: Monitor labs. 6. FEN: PEG tube in place. Tolerating tube feeds. 7. Normocytic anemia: Monitor labs. 8. Leukocytosis: Resolved. 9. Hypothyroidism: Continue Synthroid. 10. Wound care consult for buttock wounds 11. GI prophylaxis: Famotidine. 12. DVT prophylaxis: SCDs, Lovenox. 13. Anemia: Stable. Monitor H&H. Discharge Planning Will need rehabilitation. [facility] to evaluate. Wilber Armenta MD Feb 27, 2017 13:52
[2017-02-28] VITALS (7 sets, daily range): BP systolic 110–143; BP diastolic 58–90; PULSE 90–111; RESP 18–20; TEMP 97.3–99.3; O2SAT 93–97
[2017-02-28] MEDS: CHLORHEXIDINE GLUCONATE 2 % 1 PACK (2 CLOTHS) TOP SCH (03:49)
[2017-02-28] MEDS: LEVOTHYROXINE SODIUM 50 MCG TAB OG-TUBE SCH (05:27)
[2017-02-28] MEDS: ARTIFICIAL TEARS OPTH SOLN 15 ML BTL EACH EYE SCH ×3 (05:27→21:59)
[2017-02-28] MEDS: FREE WATER G-TUBE SCH ×3 (05:36→21:59)
[2017-02-28] MEDS: INSULIN ASPART SUPPLEMENTAL SCALE SQ SCH ×4 (05:37→17:55)
[2017-02-28] MEDS: levETIRAcetam 500 MG/5 ML UDC NG SCH ×2 (08:48→21:57)
[2017-02-28] MEDS: FAMOTIDINE 20 MG TAB NG SCH ×2 (08:49→21:57)
[2017-02-28] MEDS: MODAFINIL 200 MG TAB PO SCH (08:49)
[2017-02-28] MEDS: SODIUM CHLORIDE 0.9% FLUSH 10 ML FLUSH IV FLUSH SCH ×2 (08:49→21:57)
[2017-02-28] MEDS: DOCUSATE SODIUM 100 MG CAP PO SCH ×2 (08:50→21:58)
[2017-02-28] MEDS: ENOXAPARIN SODIUM 40 MG/0.4 ML SYRINGE SQ SCH (13:14)
--- NOTE | 2017-02-28 14:12 | HHI.PR ---
Subjective Remarks Follow-up hypertension, intracranial hemorrhage. No events reported by nursing. Patient's family at the bedside states that she is doing well today. Objective Vitals Vital Signs Date Time Temp Pulse Resp B/P (MAP) Pulse Ox O2 Delivery O2 Flow Rate FiO2 02/28/17 11:47 98.7 111 20 110/66 (81) 94 02/28/17 08:14 99.3 109 20 116/58 (77) 93 02/28/17 05:38 99.2 108 19 143/63 (89) 96 02/28/17 04:00 103 02/28/17 00:38 97.3 106 18 128/77 (94) 94 02/28/17 00:00 106 02/27/17 23:46 Nasal Cannula 2.00 02/27/17 20:35 97.6 100 18 143/64 (90) 97 02/27/17 20:00 106 02/27/17 16:22 98.2 99 20 142/64 (90) 97 I/O 02/27/17 02/27/17 02/27/17 02/28/17 02/28/17 02/28/17 07:00 15:00 23:00 07:00 15:00 23:00 Intake Total 0 ml 827 ml Balance 0 ml 827 ml Intake Oral 0 ml Tube Feeding 827 ml # Voids 2 3 Result Diagram: 02/27/17 0756 02/27/17 0756 Imaging Last Impressions Gastrostomy Tube Placement 02/26/17 0000 Signed Impressions: Service Date/Time: Sunday, February 26, 2017 15:12 - CONCLUSION: Uncomplicated gastrostomy tube placement as above. Migel Kapadia MD Chest X-Ray 02/24/17 0600 Signed Impressions: Service Date/Time: Friday, February 24, 2017 04:26 - CONCLUSION: 1. No acute cardiopulmonary disease. Howard Shane MD Abdomen X-Ray 02/13/17 0000 Signed Impressions: Service Date/Time: January 16:11 - CONCLUSION: Feeding tube in the distal stomach. Dino Tee MD Head CT 02/10/17 0900 Signed Impressions: Service Date/Time: Friday, February 10, 2017 09:23 - CONCLUSION: Interval improvement with less parenchymal hemorrhage, intraventricular blood. Ventricles are mildly prominent when compared to the previous study. Patricio Hardy MD FACR Neck CTA 01/28/17 1009 Signed Impressions: Service Date/Time: Saturday, January 28, 2017 10:27 - CONCLUSION: 1. No hemodynamically significant carotid artery stenosis identified. 2. Mild atherosclerotic plaquing at the bifurcation. 3. Both vertebral arteries are widely patent. Jac Hardy MD Head CTA 01/28/17 0000 Signed Impressions: Service Date/Time: Saturday, January 28, 2017 10:27 - CONCLUSION: 1. No evidence of vascular malformation or vasculopathy. 2. Subdural, intraparenchymal and intraventricular hemorrhage are again noted and not significantly changed since prior study. 3. Persistent left to right shift measuring between 8 and 9 mm; unchanged. Nick Barker MD Objective Remarks General: No acute distress. Heart: Regular rate and rhythm. No murmur. Lungs: Clear to auscultation bilaterally. No wheezes, rales, or rhonchi. Breathing is nonlabored. Abdomen: Soft, nontender, nondistended. Extremities: Trace left lower extremity edema. SCDs. Psych: Alert, nonverbal. Neuro: Eyes open spontaneously. She tracks on the left side. She squeezes my fingers with her left hand upon command, but is very weak. Procedures 01/27/17 right frontal alanna hole with placement of ventriculostomy catheter 01/28/17 left parieto-occipital craniotomy, evacuation of intracerebral hematoma , microsurgical dissection 02/05/17 orotracheal intubation Urinary Catheter: No Vascular Central Line Catheter: No A/P Problem List: (1) Intracerebral hemorrhage with intraventricular extension (2) Acute respiratory failure ICD Code: J96.00 - Acute respiratory failure, unspecified whether with hypoxia or hypercapnia (3) Acute encephalopathy ICD Code: G93.40 - Encephalopathy, unspecified (4) Hypertensive emergency ICD Code: I16.1 - Hypertensive emergency Status: Acute (5) Leukocytosis ICD Code: D72.829 - Elevated white blood cell count, unspecified Assessment and Plan 02/28/17 No change. Continue PT/OT/ST. Neurosurgery following. Working on discharge plan. Continue wound care. 1. Extensive intraventricular hemorrhage, left parietal/occipital intraparenchymal hemorrhage, left subdural hemorrhage: Management per neurosurgery. Status post craniotomy with evacuation of hematoma on 01/28/17. Continue Keppra for seizure prophylaxis. Continue modafinil 100 mg daily. 2. Encephalopathy: Secondary to above. Monitor. Continue PT/OT/ST. 3. Respiratory failure: Patient was intubated for airway protection. She was extubated on 02/12/17. She is currently stable on room air. 4. Hypertensive emergency: Resolved. 5. Elevated transaminases: Monitor labs. 6. FEN: PEG tube in place. Tolerating tube feeds. 7. Normocytic anemia: Monitor labs. 8. Leukocytosis: Resolved. 9. Hypothyroidism: Continue Synthroid. 10. Wound care consult for buttock wounds 11. GI prophylaxis: Famotidine. 12. DVT prophylaxis: SCDs, Lovenox. 13. Anemia: Stable. Monitor H&H. Discharge Planning Will need SNF versus inpatient rehabilitation. Patient's is adamant that the patient should go to [facility]. Case management assisting with discharge planning. Wilber Armenta MD Feb 28, 2017 14:12
--- NOTE | 2017-02-28 16:04 | HHI.NSPN ---
(Rosa Vera) Note Status Status: Progress Note (Rosa Vera) Interval History Interval History Ms Tinajero is an 76 year old adult female who was brought to [facility] as a stroke alert with a severe intracerebral and intraventricular hemorrhage with mass effect and midline shift. She underwent placement of ventriculostomy drain on 01/27/17. She underwent a left parietooccipital craniotomy, evacuation of intracerebral hematoma on Jan 28, 2017. 01/29: intubated and sedated. EVD draining well bloody CSF. ICPs normal. f/u CT Head this morning with decreasing mass effect, less left to right midline shift which now measures 4.6 mm, with small amount hemorrhage remains evident in the ventricular system. 01/30: intubated and sedated. ventriculostomy draining well, ICPs within normal limits. 01/31: intubated, sedated. no eye opening. ventriculostomy draining well, ICPs remains wnl 02/03: EVD raised to 3 cm H20 over the weekend, ICPs stable. Intubated and off sedative drips, mildly opens eyes. 02/04: appears much more alert this morning, eyes wide open and tracking. EVD draining well. 02/05: tolerating CPAP, awake and tracking. CSF now simpson. EVD draining well. 02/17/17: neuro stable overnight, reports patient smiling. dc planning to rehab. 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 no significant neuro changes, remains in a minimal conscious state, not fully awake to protect her airway. 02/20/17: neuro checks stable overnight 02/23: happy with her progress, says she is slowly starting to attempt to communicate with family. 02/26: to IR today for PEG placement, daughter reports pt attempted to speak 02/28: reports she is more active at night, requesting daily therapy with PT, OT, and ST. no other acute events overnight. (Rosa Vera) Labs, Micro, & Vital Signs Results Date Time Temp Pulse Resp B/P (MAP) Pulse Ox O2 Delivery O2 Flow Rate FiO2 02/28/17 11:47 98.7 111 20 110/66 (81) 94 02/28/17 08:14 99.3 109 20 116/58 (77) 93 02/28/17 05:38 99.2 108 19 143/63 (89) 96 02/28/17 04:00 103 02/28/17 00:38 97.3 106 18 128/77 (94) 94 02/28/17 00:00 106 02/27/17 23:46 Nasal Cannula 2.00 02/27/17 20:35 97.6 100 18 143/64 (90) 97 02/27/17 20:00 106 02/27/17 16:22 98.2 99 20 142/64 (90) 97 03/01/17 07:00 Intake Total 827 ml Balance 827 ml Constitutional Vital Signs Date Time Temp Pulse Resp B/P (MAP) Pulse Ox O2 Delivery O2 Flow Rate FiO2 02/28/17 11:47 98.7 111 20 110/66 (81) 94 02/28/17 08:14 99.3 109 20 116/58 (77) 93 18 05:38 99.2 108 19 143/63 (89) 96 02/28/17 04:00 103 02/28/17 00:38 97.3 106 18 128/77 (94) 94 02/28/17 00:00 106 02/27/17 23:46 Nasal Cannula 2.00 02/27/17 20:35 97.6 100 18 143/64 (90) 97 02/27/17 20:00 106 02/27/17 16:22 98.2 99 20 142/64 (90) 97 03/01/17 07:00 Intake Total 827 ml Balance 827 ml (Rosa Vera) Review of Systems ROS Limitations: Clinical Condition (Rosa Vera) Physical Exam Eyes open, minimally conscious state, intermittently focuses and tracks. Left gaze preference. Attempts to smile, nonverbal intermittently reaches with her left hand Motor: intermittent spontaneous left upper extremity movement, reaching with left hand, right upper extremity flaccid CN; pupils 3-4 mm bilaterally Neck: soft, supple (Rosa Vera) Medications Current Medications Current Medications Medications (Trade) Dose Ordered Sig/Eunice Route PRN Reason Start Time Stop Time Status Last Admin Dose Admin Sodium Chloride (NS Flush) 2 ml UNSCH PRN IV FLUSH FLUSH AFTER USING IV ACCESS 01/27/17 13:30 Sodium Chloride (NS Flush) 2 ml BID IV FLUSH 01/27/17 21:00 02/28/17 08:49 Miscellaneous Information 1 [id number] XX 01/27/17 13:30 01/27/17 13:30 Chlorhexidine Gluconate (Chlorhexidine 2% Cloth) Taper DAILY@04 TOP 01/28/17 04:00 01/24/18 03:59 Chlorhexidine Gluconate (Chlorhexidine 2% Cloth) 3 pack UNSCH PRN TOP HYGIENIC CARE 01/27/17 13:30 Bisacodyl (Dulcolax Supp) 10 mg DAILY PRN RECTAL CONSTIPATION 01/28/17 17:15 01/30/17 08:01 Docusate Sodium (Colace) 100 mg BID PO 01/28/17 21:00 02/27/17 08:56 Ondansetron HCl (Zofran Inj) 4 mg Q6H PRN IV PUSH NAUSEA OR VOMITING 01/28/17 17:15 Calcium Gluconate (Calcium Gluconate Inj) 1 gm UNSCH PRN IV SEE LABEL COMMENTS 01/28/17 17:15 Potassium Chloride 100 ml @ 50 mls/hr UNSCH PRN IV POTASSIUM LESS THAN 4 01/28/17 17:15 01/29/17 05:46 Magnesium Sulfate 4 gm/Sodium Chloride 108 ml @ 108 mls/hr UNSCH PRN IV MAGNESIUM LESS THAN 2 01/28/17 17:15 Acetaminophen/ Hydrocodone Bitart (Nutley 10-325 Mg) 1 tab Q4H PRN PO PAIN SCALE 1 TO 5 01/28/17 17:15 02/27/17 21:31 Acetaminophen/ Hydrocodone Bitart (Nutley 10-325 Mg) 2 tab Q4H PRN PO PAIN SCALE 6 TO 10 01/28/17 17:15 02/26/17 21:49 Insulin Aspart (NovoLOG SUPPLEMENTAL SCALE) 1 Q6HR SQ 01/29/17 12:00 02/28/17 12:00 Dextrose (D50w (Vial) Inj) 25 ml UNSCH PRN IV HYPOGLYCEMIA-SEE COMMENTS 01/29/17 12:00 Glucagon (Glucagon Inj) 1 mg UNSCH PRN IM/SQ HYPOGLYCEMIA-SEE COMMENTS 01/29/17 12:00 Acetaminophen (Tylenol) 650 mg Q4H PRN PO SEE LABEL COMMENTS 01/29/17 16:15 Diphenhydramine HCl (Benadryl) 25 mg Q4H PRN PO SEE LABEL COMMENTS 01/29/17 16:15 Hydralazine HCl (Apresoline Inj) 10 mg Q1H PRN IV PUSH SBP >160 02/05/17 16:00 Labetalol HCl (Trandate Inj) 20 mg Q3H PRN IV PUSH SBP > 150 02/05/17 16:00 02/05/17 17:00 Levothyroxine Sodium (Synthroid) 50 mcg DAILY@0600 OG-TUBE 02/08/17 06:00 02/28/17 05:27 Artificial Tears (Tears Naturale Opth Soln) 1 drop Q8HR EACH EYE 02/08/17 14:00 02/28/17 14:48 Insulin Detemir (Levemir Inj) 5 units Q12HR SQ 02/08/17 21:00 Future Hold 02/25/17 09:02 Albuterol Sulfate (Albuterol Neb) 2.5 mg Q2HR NEB PRN INH SHORTNESS OF BREATH 02/10/17 12:15 02/25/17 22:12 Acetaminophen (Tylenol 650 Mg/ 20 ml Liq) 650 mg Q6H PRN NG fever 02/11/17 14:15 02/11/17 20:46 Racepinephrine (Racepinephrine 2.25% Neb) 0.5 ml Q1HR NEB PRN NEB stridor 02/12/17 14:45 02/13/17 09:05 Levetriacetam (Keppra Liq) 500 mg Q12H NG 02/14/17 21:00 02/28/17 08:48 Famotidine (Pepcid) 20 mg BID NG 02/15/17 21:00 02/28/17 08:49 Water (Free Water) 200 ml Q8HR G-TUBE 02/19/17 22:00 02/28/17 14:00 Modafinil (Provigil) 100 mg DAILY PO 02/21/17 09:00 02/28/17 08:49 Enoxaparin Sodium (Lovenox Inj) 40 mg Q24H SQ 02/23/17 12:00 02/28/17 13:14 Miscellaneous (Pill Splitter) 1 ea UNSCH PRN OTHER SEE LABEL COMMENTS 02/26/17 09:00 (Rosa Vera) Medical Decision Making MDM Remarks 76 year old female with large intraventricular hemorrhage s/p placement of ventriculostomy drain 01/27/17, slowly challenging ventriculostomy drain, ICPs remains wnl s/p left parietooccipital craniotomy, evacuation of intracerebral hematoma 01/28 (Rosa Vera) Plan Plan Remarks cont with daily PT, OT, ST, rehab efforts request rehab physician eval for possible [facility] (Rosa Vera) Attending Statement The exam, history, and the medical decision-making described in the above note were completed with the assistance of the mid-level provider. I reviewed and agree with the findings presented. I attest that I had a [id number] encounter with the patient on the same day, and personally performed and documented my assessment and findings in the medical record. (Jack Bowden MD) Rosa Vera Feb 28, 2017 16:04 Jack Bowden MD Mar 02, 2017 10:44
[2017-03-01] VITALS (8 sets, daily range): BP systolic 110–145; BP diastolic 59–72; PULSE 101–114; RESP 18–20; TEMP 97.8–99.1; O2SAT 92–97
[2017-03-01] MEDS: INSULIN ASPART SUPPLEMENTAL SCALE SQ SCH ×5 (01:06→23:44)
[2017-03-01] MEDS: CHLORHEXIDINE GLUCONATE 2 % 1 PACK (2 CLOTHS) TOP SCH (04:00)
[2017-03-01] MEDS: LEVOTHYROXINE SODIUM 50 MCG TAB OG-TUBE SCH (05:48)
[2017-03-01] MEDS: ARTIFICIAL TEARS OPTH SOLN 15 ML BTL EACH EYE SCH ×3 (05:53→22:12)
[2017-03-01] MEDS: FREE WATER G-TUBE SCH ×3 (05:53→22:12)
[2017-03-01] MEDS: DOCUSATE SODIUM 100 MG CAP PO SCH ×2 (09:02→22:11)
[2017-03-01] MEDS: FAMOTIDINE 20 MG TAB NG SCH ×2 (09:02→22:11)
[2017-03-01] MEDS: levETIRAcetam 500 MG/5 ML UDC NG SCH ×2 (09:02→22:11)
[2017-03-01] MEDS: MODAFINIL 200 MG TAB PO SCH (09:02)
[2017-03-01] MEDS: SODIUM CHLORIDE 0.9% FLUSH 10 ML FLUSH IV FLUSH SCH ×2 (09:03→22:11)
--- NOTE | 2017-03-01 11:47 | HHI.NSPN ---
History Chief Complaint: Unable to obtain due to patient's clinical condition. Interval History 04/01: intubated and sedated. EVD draining well bloody CSF. ICPs normal. f/u CT Head this morning with decreasing mass effect, less left to right midline shift which now measures 4.6 mm, with small amount hemorrhage remains evident in the ventricular system. 01/30: intubated and sedated. ventriculostomy draining well, ICPs within normal limits. 01/31: intubated, sedated. no eye opening. ventriculostomy draining well, ICPs remains wnl 02/03: EVD raised to 3 cm H20 over the weekend, ICPs stable. Intubated and off sedative drips, mildly opens eyes. 02/04: appears much more alert this morning, eyes wide open and tracking. EVD draining well. 02/05: tolerating CPAP, awake and tracking. CSF now simpson. EVD draining well. 02/17/17: neuro stable overnight, reports patient smiling. dc planning to rehab. 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 no significant neuro changes, remains in a minimal conscious state, not fully awake to protect her airway. 02/20/17: neuro checks stable overnight 02/23: happy with her progress, says she is slowly starting to attempt to communicate with family. 02/26: to IR today for PEG placement, daughter reports pt attempted to speak 02/28: reports she is more active at night, requesting daily therapy with PT, OT, and ST. no other acute events overnight. 03/01: Patient sitting up in the chair. Eyes are open. She is responding to commands squeezing hand on the left. No vocalization. Exam Results Vital Signs Date Time Temp Pulse Resp B/P (MAP) Pulse Ox O2 Delivery O2 Flow Rate FiO2 03/01/17 08:00 98.8 113 18 117/64 (81) 92 02/28/17 22:42 Room Air 02/27/17 23:46 2.00 02/25/17 07:52 21 Physical Examination Eyes open, semi-conscious state, intermittently focuses and tracks. Right side neglect. Surgical incision healing well Motor: intermittently moves left upper extremity, otherwise not following for testing CN; pupils 3-4 mm bilaterally, facial grossly symmetric at rest Lab, Micro, Other Results Date/Time Source Procedure Growth Status 01/29/17 17:19 Blood Peripheral Aerobic Blood Culture - Final NO GROWTH IN 5 DAYS Complete 01/29/17 17:19 Blood Peripheral Anaerobic Blood Culture - Final NO GROWTH IN 5 DAYS Complete 01/27/17 17:00 Cerebral Spinal Fluid Shunt Fluid Gram Stain - Final Complete 01/27/17 17:00 Cerebral Spinal Fluid Shunt Fluid CSF Culture - Final NO GROWTH IN 72 HRS.--AEROBICALLY OR ... Complete 01/29/17 14:00 Sputum Endotracheal Gram Stain - Final Complete 01/29/17 14:00 Sputum Endotracheal Sputum Culture - Final LIGHT GROWTH NORMAL RESPIRATORY JAGRUTI Complete 01/29/17 14:00 Urine Catheterized Urine Urine Culture - Final NO GROWTH IN 48 HOURS. Complete Medical Decision Making Impression and Plan 76 year old female with large intraventricular hemorrhage s/p left parietooccipital craniotomy, evacuation of intracerebral hematoma 01/28/17. Stable neurological status. Plan Plan Plan Remarks cont with daily PT, OT, ST, rehab efforts request rehab physician eval for possible [facility] Marcio Lambert MD Mar 01, 2017 11:47
--- NOTE | 2017-03-01 12:59 | HHI.PR ---
Subjective Remarks Patient seen and examined this morning. Her vitals are stable she's afebrile. is at bedside. Really wants his at [place]. There were no events overnight. Right now she is tired, reports she was previously awake and participated in therapy. Objective Vital Signs Date Time Temp Pulse Resp B/P (MAP) Pulse Ox O2 Delivery O2 Flow Rate FiO2 03/01/17 08:00 98.8 113 18 117/64 (81) 92 03/01/17 04:32 98.8 108 18 115/59 (77) 94 03/01/17 01:08 99.1 104 18 121/66 (84) 96 02/28/17 22:42 Room Air 02/28/17 20:22 90 18 130/90 (103) 97 I/O 02/28/17 02/28/17 02/28/17 03/01/17 03/01/17 03/01/17 06:59 14:59 22:59 06:59 14:59 22:59 Intake Total 827 ml Balance 827 ml Tube Feeding 827 ml Result Diagram: 02/27/17 0756 02/27/17 0756 Imaging Last Impressions Gastrostomy Tube Placement 02/26/17 0000 Signed Impressions: Service Date/Time: Sunday, February 26, 2017 15:12 - CONCLUSION: Uncomplicated gastrostomy tube placement as above. Migel Kapadia MD Chest X-Ray 02/24/17 0600 Signed Impressions: Service Date/Time: Friday, February 24, 2017 04:26 - CONCLUSION: 1. No acute cardiopulmonary disease. Howard Shane MD Abdomen X-Ray 02/13/17 0000 Signed Impressions: Service Date/Time: January 16:11 - CONCLUSION: Feeding tube in the distal stomach. Dino Tee MD Head CT 02/10/17 0900 Signed Impressions: Service Date/Time: Friday, February 10, 2017 09:23 - CONCLUSION: Interval improvement with less parenchymal hemorrhage, intraventricular blood. Ventricles are mildly prominent when compared to the previous study. Patricio Hardy MD FACR Neck CTA 01/28/17 1009 Signed Impressions: Service Date/Time: Saturday, January 28, 2017 10:27 - CONCLUSION: 1. No hemodynamically significant carotid artery stenosis identified. 2. Mild atherosclerotic plaquing at the bifurcation. 3. Both vertebral arteries are widely patent. Jac Hardy MD Head CTA 01/28/17 0000 Signed Impressions: Service Date/Time: Saturday, January 28, 2017 10:27 - CONCLUSION: 1. No evidence of vascular malformation or vasculopathy. 2. Subdural, intraparenchymal and intraventricular hemorrhage are again noted and not significantly changed since prior study. 3. Persistent left to right shift measuring between 8 and 9 mm; unchanged. Nick Barker MD Objective Remarks GENERAL: resting comfortably SKIN: Warm and dry. HEAD: Normocephalic. EYES: No scleral icterus. No injection or drainage. NECK: Supple, trachea midline. CARDIOVASCULAR: Regular rate and rhythm without murmurs, gallops, or rubs. RESPIRATORY: Breath sounds equal bilaterally. No accessory muscle use. GASTROINTESTINAL: Abdomen soft, non-tender, nondistended. MUSCULOSKELETAL: No cyanosis, or edema. Bilat SCDs in place. A/P Problem List: (1) Respiratory failure ICD Code: J96.90 - Respiratory failure, unspecified, unspecified whether with hypoxia or hypercapnia Status: Acute (2) Intracranial bleed ICD Code: I62.9 - Nontraumatic intracranial hemorrhage, unspecified Status: Acute (3) Altered mental status ICD Code: R41.82 - Altered mental status, unspecified Status: Acute (4) Hypertensive emergency ICD Code: I16.1 - Hypertensive emergency Status: Acute (5) Acute respiratory failure ICD Code: J96.00 - Acute respiratory failure, unspecified whether with hypoxia or hypercapnia (6) Acute encephalopathy ICD Code: G93.40 - Encephalopathy, unspecified (7) Intracerebral hemorrhage with intraventricular extension Assessment and Plan 76 year old female with Extensive intraventricular hemorrhage, left parietal/occipital intraparenchymal hemorrhage, left subdural hemorrhage: Management per neurosurgery. Status post craniotomy with evacuation of hematoma on 01/28/17. Continue Keppra for seizure prophylaxis. Continue modafinil 100 mg daily. - Continue daily PT, OT, ST - Rehabilitation physician dru was ordered by neurosurgery for possible [facility] placement Encephalopathy: Secondary to above. Monitor. Continue PT/OT/ST. Respiratory failure: Patient was intubated for airway protection. She was extubated on 02/12/17. She is currently stable on room air. Hypertensive emergency: Resolved. Elevated transaminases: Monitor labs. FEN: PEG tube in place. Tolerating tube feeds. Normocytic anemia: Monitor labs. Stable. Hypothyroidism: Continue Synthroid. Wound care consult for buttock wounds GI prophylaxis: Famotidine. DVT prophylaxis: SCDs, Lovenox. Discharge Planning Case management is assisting with discharge needs. Patient is to [facility] [place] for [place] and patient has refused transfer to [facility]. Patient is adamant that the only one [place]. Medical directors reviewing the case. Problem Qualifiers (1) Respiratory failure: Qualified Codes: J96.00 - Acute respiratory failure, unspecified whether with hypoxia or hypercapnia (2) Altered mental status: Qualified Codes: R40.1 - Stupor Latasha Doran MD Mar 01, 2017 12:59
[2017-03-01] MEDS: ENOXAPARIN SODIUM 40 MG/0.4 ML SYRINGE SQ SCH (13:29)
[2017-03-01] MEDS: RESP: ALBUTEROL 2.5 MG/3 ML NEB (PRN) INH (19:28)
[2017-03-01] MEDS: ACETAMINOPHEN/HYDROcodone 325 MG/10 MG TAB PO PRN (22:18)
[2017-03-02] VITALS (8 sets, daily range): BP systolic 111–123; BP diastolic 58–73; PULSE 100–117; RESP 18–21; TEMP 97.9–98.9; O2SAT 94–99
[2017-03-02] MEDS: CHLORHEXIDINE GLUCONATE 2 % 1 PACK (2 CLOTHS) TOP SCH (04:00)
[2017-03-02] MEDS: INSULIN ASPART SUPPLEMENTAL SCALE SQ SCH ×3 (06:00→18:00)
[2017-03-02] MEDS: LEVOTHYROXINE SODIUM 50 MCG TAB OG-TUBE SCH (06:33)
[2017-03-02] MEDS: FREE WATER G-TUBE SCH ×3 (06:34→22:00)
[2017-03-02] MEDS: ARTIFICIAL TEARS OPTH SOLN 15 ML BTL EACH EYE SCH ×3 (06:34→22:50)
--- NOTE | 2017-03-02 10:02 | HHI.PR ---
Subjective Remarks Patient seen and examined this morning. Her vitals are stable she's afebrile. is at bedside. States she was mouthing "I Love you" to him earlier. No overnight events. Objective Vital Signs Date Time Temp Pulse Resp B/P (MAP) Pulse Ox O2 Delivery O2 Flow Rate FiO2 03/02/17 08:00 98.1 106 18 117/73 (88) 98 03/02/17 04:40 97.9 101 20 120/66 (84) 95 03/02/17 00:45 98.5 100 21 123/60 (81) 94 03/02/17 00:00 101 03/01/17 23:46 Room Air 03/01/17 23:35 19 03/01/17 23:30 98.8 108 20 145/63 (90) 94 03/01/17 20:50 Room Air 03/01/17 20:00 104 03/01/17 19:34 Room Air 03/01/17 19:28 97 21 03/01/17 16:00 98.5 101 18 110/72 (85) 95 03/01/17 12:00 97.8 114 18 119/63 (81) 96 I/O 03/01/17 03/01/17 03/01/17 03/02/17 03/02/17 03/02/17 06:59 14:59 22:59 06:59 14:59 22:59 Intake Total 2366 ml 0 ml 675 ml Output Total 500 ml 600 ml 370 ml Balance 1866 ml -600 ml 305 ml Intake Oral 0 ml Tube Feeding 2366 ml 675 ml Output Urine Total 500 ml 600 ml 370 ml # Voids 1 # Bowel Movements 1 Result Diagram: 02/27/17 0756 02/27/17 0756 Imaging Last Impressions Gastrostomy Tube Placement 02/26/17 0000 Signed Impressions: Service Date/Time: Sunday, February 26, 2017 15:12 - CONCLUSION: Uncomplicated gastrostomy tube placement as above. Migel Kapadia MD Chest X-Ray 02/24/17 0600 Signed Impressions: Service Date/Time: Friday, February 24, 2017 04:26 - CONCLUSION: 1. No acute cardiopulmonary disease. Howard Shane MD Abdomen X-Ray 02/13/17 0000 Signed Impressions: Service Date/Time: January 16:11 - CONCLUSION: Feeding tube in the distal stomach. Dino Tee MD Head CT 02/10/17 0900 Signed Impressions: Service Date/Time: Friday, February 10, 2017 09:23 - CONCLUSION: Interval improvement with less parenchymal hemorrhage, intraventricular blood. Ventricles are mildly prominent when compared to the previous study. Patricio Hardy MD FACR Neck CTA 01/28/17 1009 Signed Impressions: Service Date/Time: Saturday, January 28, 2017 10:27 - CONCLUSION: 1. No hemodynamically significant carotid artery stenosis identified. 2. Mild atherosclerotic plaquing at the bifurcation. 3. Both vertebral arteries are widely patent. Jac Hardy MD Head CTA 01/28/17 0000 Signed Impressions: Service Date/Time: Saturday, January 28, 2017 10:27 - CONCLUSION: 1. No evidence of vascular malformation or vasculopathy. 2. Subdural, intraparenchymal and intraventricular hemorrhage are again noted and not significantly changed since prior study. 3. Persistent left to right shift measuring between 8 and 9 mm; unchanged. Nick Barker MD Objective Remarks GENERAL: resting comfortably SKIN: Warm and dry. HEAD: Normocephalic. EYES: No scleral icterus. No injection or drainage. NECK: Supple, trachea midline. CARDIOVASCULAR: Regular rate and rhythm without murmurs, gallops, or rubs. RESPIRATORY: Breath sounds equal bilaterally. No accessory muscle use. GASTROINTESTINAL: Abdomen soft, non-tender, nondistended. MUSCULOSKELETAL: No cyanosis, or edema. Bilat SCDs in place. A/P Problem List: (1) Respiratory failure ICD Code: J96.90 - Respiratory failure, unspecified, unspecified whether with hypoxia or hypercapnia Status: Acute (2) Intracranial bleed ICD Code: I62.9 - Nontraumatic intracranial hemorrhage, unspecified Status: Acute (3) Altered mental status ICD Code: R41.82 - Altered mental status, unspecified Status: Acute (4) Hypertensive emergency ICD Code: I16.1 - Hypertensive emergency Status: Acute (5) Acute respiratory failure ICD Code: J96.00 - Acute respiratory failure, unspecified whether with hypoxia or hypercapnia (6) Acute encephalopathy ICD Code: G93.40 - Encephalopathy, unspecified (7) Intracerebral hemorrhage with intraventricular extension Assessment and Plan 76 year old female with Extensive intraventricular hemorrhage, left parietal/occipital intraparenchymal hemorrhage, left subdural hemorrhage: Management per neurosurgery. Status post craniotomy with evacuation of hematoma on 01/28/17. Continue Keppra for seizure prophylaxis. Continue modafinil 100 mg daily. - Continue daily PT, OT, ST - Rehabilitation physician dru was ordered by neurosurgery for possible [facility] placement Encephalopathy: Secondary to above. Monitor. Continue PT/OT/ST. Respiratory failure: Patient was intubated for airway protection. She was extubated on 02/12/17. She is currently stable on room air. Hypertensive emergency: Resolved. Elevated transaminases: Monitor labs. FEN: PEG tube in place. Tolerating tube feeds. Normocytic anemia: Monitor labs. Stable. Hypothyroidism: Continue Synthroid. Wound care consult for buttock wounds GI prophylaxis: Famotidine. DVT prophylaxis: SCDs, Lovenox. Discharge Planning Case management is assisting with discharge needs. Patient is to [facility] for [place] and patient has refused transfer to [facility]. Patient is adamant that the only one [place]. Medical directors reviewing the case. Dr. Ly to see patient. Problem Qualifiers (1) Respiratory failure: Qualified Codes: J96.00 - Acute respiratory failure, unspecified whether with hypoxia or hypercapnia (2) Altered mental status: Qualified Codes: R40.1 - Latasha Zayas MD Mar 02, 2017 10:01
[2017-03-02] MEDS: levETIRAcetam 500 MG/5 ML UDC NG SCH ×2 (10:12→22:49)
[2017-03-02] MEDS: DOCUSATE SODIUM 100 MG CAP PO SCH ×2 (10:13→22:55)
[2017-03-02] MEDS: SODIUM CHLORIDE 0.9% FLUSH 10 ML FLUSH IV FLUSH SCH ×2 (10:13→22:49)
[2017-03-02] MEDS: FAMOTIDINE 20 MG TAB NG SCH ×2 (10:13→22:49)
[2017-03-02] MEDS: MODAFINIL 200 MG TAB PO SCH (10:13)
--- NOTE | 2017-03-02 12:53 | PD.CONS ---
HPI Service Rehabilitation Medicine Consult Requested By Reason for Consult Comprehensive rehabilitation evaluation. Primary Care Physician Unknown History of Present Illness Stephani Tinajero is a 76-year-old [id number] female admitted [facility] 01/27/17 after being found unresponsive at home. BP was 143/129. CT the brain showed extensive acute intraventricular hemorrhage involving the left lateral ventricle but also within the right lateral ventricle and third ventricle. Large acute parenchymal hemorrhage within the left posterior parietal and high parietal region as well as within the left occipital region and acute subdural hematoma along the left frontoparietal region.Subfalcine herniation to the right. On 01/27/17 she underwent left parietal occipital craniotomy with evacuation of intracerebral hematoma with ventriculostomy placement. She was subsequently extubated 02/12/17. Most recent head CT 02/10/17 showed interval improvement with less parenchymal hemorrhage, intraventricular blood. Ventricles mildly prominent when compared to the previous study. PEG placed 02/26/17. Review of Systems ROS Limitations: Clinical Condition, Altered Mental Status Past Family Social History Allergies: Coded Allergies: Penicillins (Verified Allergy, Unknown, 02/08/17) patients spouse thinks she maybe allergic to Penicillin, but un sure. He will contact the patients Primary Care to clarify Past Medical History Vertigo Hypothyroidism Past Surgical History Hysterectomy Current Medications Current Medications Medications (Trade) Dose Ordered Sig/Eunice Route Start Time Stop Time Status Last Admin (NS Flush) 2 ml UNSCH PRN IV FLUSH 01/27/17 13:30 (NS Flush) 2 ml BID IV FLUSH 01/27/17 21:00 03/02/17 10:13 Miscellaneous Information 1 Q361D XX 01/27/17 13:30 01/27/17 13:30 (Chlorhexidine 2% Cloth) Taper DAILY@04 TOP 01/28/17 04:00 01/24/18 03:59 (Chlorhexidine 2% Cloth) 3 pack UNSCH PRN TOP 01/27/17 13:30 (Dulcolax Supp) 10 mg DAILY PRN RECTAL 01/28/17 17:15 01/30/17 08:01 (Colace) 100 mg BID PO 01/28/17 21:00 03/02/17 10:13 (Zofran Inj) 4 mg Q6H PRN IV PUSH 01/28/17 17:15 (Calcium Gluconate Inj) 1 gm UNSCH PRN IV 01/28/17 17:15 Potassium Chloride 100 ml @ 50 mls/hr UNSCH PRN IV 01/28/17 17:15 01/29/17 05:46 Magnesium Sulfate 4 gm/Sodium Chloride 108 ml @ 108 mls/hr UNSCH PRN IV 01/28/17 17:15 ([place] 10-325 Mg) 1 tab Q4H PRN PO 01/28/17 17:15 03/01/17 22:18 ([place] 10-325 Mg) 2 tab Q4H PRN PO 01/28/17 17:15 02/26/17 21:49 (NovoLOG SUPPLEMENTAL SCALE) 1 Q6HR SQ 01/29/17 12:00 03/01/17 23:44 (D50w (Vial) Inj) 25 ml UNSCH PRN IV 01/29/17 12:00 (Glucagon Inj) 1 mg UNSCH PRN IM/SQ 01/29/17 12:00 (Tylenol) 650 mg Q4H PRN PO 01/29/17 16:15 (Benadryl) 25 mg Q4H PRN PO 01/29/17 16:15 (Apresoline Inj) 10 mg Q1H PRN IV PUSH 02/05/17 16:00 (Trandate Inj) 20 mg Q3H PRN IV PUSH 02/05/17 16:00 02/05/17 17:00 (Synthroid) 50 mcg DAILY@0600 OG-TUBE 02/08/17 06:00 03/02/17 06:33 (Tears Naturale Opth Soln) 1 drop Q8HR EACH EYE 02/08/17 14:00 03/02/17 06:34 (Levemir Inj) 5 units Q12HR SQ 02/08/17 21:00 Future Hold 02/25/17 09:02 (Albuterol Neb) 2.5 mg Q2HR NEB PRN INH 02/10/17 12:15 03/01/17 19:28 (Tylenol 650 Mg/ 20 ml Liq) 650 mg Q6H PRN NG 02/11/17 14:15 02/11/17 20:46 (Racepinephrine 2.25% Neb) 0.5 ml Q1HR NEB PRN NEB 02/12/17 14:45 02/13/17 09:05 (Keppra Liq) 500 mg Q12H NG 02/14/17 21:00 03/02/17 10:12 (Pepcid) 20 mg BID NG 02/15/17 21:00 03/02/17 10:13 (Free Water) 200 ml Q8HR G-TUBE 02/19/17 22:00 03/02/17 06:34 (Provigil) 100 mg DAILY PO 02/21/17 09:00 03/02/17 10:13 (Lovenox Inj) 40 mg Q24H SQ 02/23/17 12:00 03/01/17 13:29 (Pill Splitter) 1 ea UNSCH PRN OTHER 02/26/17 09:00 Family History Father had lung cancer, sister had breast cancer Social History Quit smoking 30 years ago, occasional alcohol use Exam I&O / VS 03/02/17 03/02/17 03/03/17 15:00 23:00 07:00 Intake Total 1003 ml Output Total 370 ml Balance 633 ml Tube Feeding 1003 ml Output Urine Total 370 ml Vital Signs Date Time Temp Pulse Resp B/P (MAP) Pulse Ox O2 Delivery O2 Flow Rate FiO2 03/02/17 12:18 94 03/02/17 12:00 98.7 102 18 111/60 (77) 97 03/02/17 08:00 98.1 106 18 117/73 (88) 98 03/02/17 04:40 97.9 101 20 120/66 (84) 95 03/02/17 00:45 98.5 100 21 123/60 (81) 94 03/02/17 00:00 101 03/01/17 23:46 Room Air 03/01/17 23:35 19 03/01/17 23:30 98.8 108 20 145/63 (90) 94 03/01/17 20:50 Room Air 03/01/17 20:00 104 03/01/17 19:34 Room Air 03/01/17 19:28 97 21 03/01/17 16:00 98.5 101 18 110/72 (85) 95 General: No acute distress Respiratory: Lungs CTA, Non-labored respirations, BS equal Gastrointestinal: Positive Bowel Sounds, Non-Distended, Non-Tender, Other (PEG in place) Cardiovascular: Normal rate, No edema, Regular Rhythm Neurologic: Pupils (PERRLA), Visual [place] (decreased response to visual threat right), Facial Symmetry (right facial droop), Speech (patient verbalizes the word "ouch" to painful stim), Other (withdrawals throughout left greater than right) Babinski: Positive (equivocal) Clonus: Negative Assessment and Plan Diagnosis: (1) Intracerebral hemorrhage with intraventricular extension Status: Acute (2) Acute encephalopathy ICD Codes: G93.40 - Encephalopathy, unspecified Status: Acute Assessment 1. Acute intraventricular hemorrhage/intracerebral hematoma with subfalcine herniation status post left parietal occipital craniotomy with evacuation of intracerebral hematoma with ventriculostomy placement 2. Impaired mobility and ADLs 3. Status post PEG 4. Encrusting the perianal denuded skin: Wound care following 5. Hypothyroidism 6. History of vertigo Plan 1. Patient currently dependent for transfers to stretcher chair but tolerating 2 -4 hours. 2. NPO with tube feedings and ST addressing. 3. Following 2/[address] 4. Now tracking to left and then to midline. Able to verbalize single automating word t painful stim 5. Patient appears to be making progress with level of alertness and able to follow simple commands. If able to reproduce would consider trial of inpatient rehabilitation. Will discuss with case management and follow. Thank you for this consult Beatriz Tam MD Mar 02, 2017 12:53
[2017-03-02] MEDS: ENOXAPARIN SODIUM 40 MG/0.4 ML SYRINGE SQ SCH (13:04)
[2017-03-02] MEDS: ACETAMINOPHEN/HYDROcodone 325 MG/10 MG TAB PO PRN (23:09)
[2017-03-03] VITALS (9 sets, daily range): BP systolic 110–131; BP diastolic 58–65; PULSE 100–122; RESP 18–21; TEMP 97.3–99.6; O2SAT 94–99
[2017-03-03] MEDS: INSULIN ASPART SUPPLEMENTAL SCALE SQ SCH ×5 (00:40→23:57)
[2017-03-03] MEDS: CHLORHEXIDINE GLUCONATE 2 % 1 PACK (2 CLOTHS) TOP SCH (04:00)
[2017-03-03] MEDS: ARTIFICIAL TEARS OPTH SOLN 15 ML BTL EACH EYE SCH ×3 (05:11→21:59)
[2017-03-03] MEDS: FREE WATER G-TUBE SCH ×3 (05:11→21:59)
[2017-03-03] MEDS: LEVOTHYROXINE SODIUM 50 MCG TAB OG-TUBE SCH (05:12)
[2017-03-03] MEDS: DOCUSATE SODIUM 100 MG CAP PO SCH ×2 (08:09→21:58)
[2017-03-03] MEDS: FAMOTIDINE 20 MG TAB NG SCH ×2 (08:09→21:58)
[2017-03-03] MEDS: levETIRAcetam 500 MG/5 ML UDC NG SCH ×2 (08:09→21:58)
[2017-03-03] MEDS: MODAFINIL 200 MG TAB PO SCH (08:09)
[2017-03-03] MEDS: SODIUM CHLORIDE 0.9% FLUSH 10 ML FLUSH IV FLUSH SCH ×2 (08:10→21:58)
--- NOTE | 2017-03-03 10:10 | HHI.PR ---
Subjective Remarks Patient seen and examined this morning. Her vitals are stable she's afebrile. is at bedside. Patient alert, tracking. Appears comfortable. Objective Vital Signs Date Time Temp Pulse Resp B/P (MAP) Pulse Ox O2 Delivery O2 Flow Rate FiO2 03/03/17 07:57 99.1 122 18 126/60 (82) 95 03/03/17 05:10 97.3 114 21 110/65 (80) 95 03/03/17 00:00 98.1 100 19 115/60 (78) 99 03/02/17 21:45 98.9 117 21 113/58 (76) 99 03/02/17 16:00 98.7 114 18 112/60 (77) 96 03/02/17 12:18 94 03/02/17 12:00 98.7 102 18 111/60 (77) 97 I/O 03/02/17 03/02/17 03/02/17 03/03/17 03/03/17 03/03/17 07:00 15:00 23:00 07:00 15:00 23:00 Intake Total 0 ml 1003 ml 0 ml 0 ml 200 ml Output Total 600 ml 370 ml 100 ml 300 ml Balance -600 ml 633 ml -100 ml -300 ml 200 ml Intake Oral 0 ml 0 ml 0 ml Tube Feeding 1003 ml Other 200 ml Output Urine Total 600 ml 370 ml 100 ml 300 ml # Voids 1 # Bowel Movements 1 0 2 Result Diagram: 02/27/17 0756 02/27/17 0756 Imaging Last Impressions Gastrostomy Tube Placement 02/26/17 0000 Signed Impressions: Service Date/Time: Sunday, February 26, 2017 15:12 - CONCLUSION: Uncomplicated gastrostomy tube placement as above. Migel Kapadia MD Chest X-Ray 02/24/17 0600 Signed Impressions: Service Date/Time: Friday, February 24, 2017 04:26 - CONCLUSION: 1. No acute cardiopulmonary disease. Howard Shane MD Abdomen X-Ray 02/13/17 0000 Signed Impressions: Service Date/Time: January 16:11 - CONCLUSION: Feeding tube in the distal stomach. Dino Tee MD Head CT 02/10/17 0900 Signed Impressions: Service Date/Time: Friday, February 10, 2017 09:23 - CONCLUSION: Interval improvement with less parenchymal hemorrhage, intraventricular blood. Ventricles are mildly prominent when compared to the previous study. Patricio Hardy MD FACR Neck CTA 01/28/17 1009 Signed Impressions: Service Date/Time: Saturday, January 28, 2017 10:27 - CONCLUSION: 1. No hemodynamically significant carotid artery stenosis identified. 2. Mild atherosclerotic plaquing at the bifurcation. 3. Both vertebral arteries are widely patent. Jac Hardy MD Head CTA 01/28/17 0000 Signed Impressions: Service Date/Time: Saturday, January 28, 2017 10:27 - CONCLUSION: 1. No evidence of vascular malformation or vasculopathy. 2. Subdural, intraparenchymal and intraventricular hemorrhage are again noted and not significantly changed since prior study. 3. Persistent left to right shift measuring between 8 and 9 mm; unchanged. Nick Barker MD Objective Remarks GENERAL: resting comfortably SKIN: Warm and dry. HEAD: Normocephalic. EYES: No scleral icterus. No injection or drainage. NECK: Supple, trachea midline. CARDIOVASCULAR: Regular rate and rhythm without murmurs, gallops, or rubs. RESPIRATORY: Breath sounds equal bilaterally. No accessory muscle use. GASTROINTESTINAL: Abdomen soft, non-tender, nondistended. MUSCULOSKELETAL: No cyanosis, or edema. Bilat SCDs in place. A/P Problem List: (1) Respiratory failure ICD Code: J96.90 - Respiratory failure, unspecified, unspecified whether with hypoxia or hypercapnia Status: Acute (2) Intracranial bleed ICD Code: I62.9 - Nontraumatic intracranial hemorrhage, unspecified Status: Acute (3) Altered mental status ICD Code: R41.82 - Altered mental status, unspecified Status: Acute (4) Hypertensive emergency ICD Code: I16.1 - Hypertensive emergency Status: Acute (5) Acute respiratory failure ICD Code: J96.00 - Acute respiratory failure, unspecified whether with hypoxia or hypercapnia (6) Acute encephalopathy ICD Code: G93.40 - Encephalopathy, unspecified Status: Acute (7) Intracerebral hemorrhage with intraventricular extension Status: Acute Assessment and Plan 76 year old female with Extensive intraventricular hemorrhage, left parietal/occipital intraparenchymal hemorrhage, left subdural hemorrhage: Management per neurosurgery. Status post craniotomy with evacuation of hematoma on 01/28/17. Continue Keppra for seizure prophylaxis. Continue modafinil 100 mg daily. - Continue daily PT, OT, ST - Comprehensive rehab med eval by Dr. Tam performed yesterday 03/02 Encephalopathy: Secondary to above. Monitor. Continue PT/OT/ST. Respiratory failure: Patient was intubated for airway protection. She was extubated on 02/12/17. She is currently stable on room air. Hypertensive emergency: Resolved. Elevated transaminases: Monitor labs. FEN: PEG tube in place. Tolerating tube feeds. Normocytic anemia: Monitor labs. Stable. Hypothyroidism: Continue Synthroid. Wound care consult for buttock wounds GI prophylaxis: Famotidine. DVT prophylaxis: SCDs, Lovenox. Discharge Planning Dr. Ly has seen patient, will likely take patient to [facility] for trail of inpatient rehab Problem Qualifiers (1) Respiratory failure: Qualified Codes: J96.00 - Acute respiratory failure, unspecified whether with hypoxia or hypercapnia (2) Altered mental status: Qualified Codes: R40.1 - Latasha Zayas MD Mar 03, 2017 10:10
[2017-03-03] MEDS: ENOXAPARIN SODIUM 40 MG/0.4 ML SYRINGE SQ SCH (12:30)
--- NOTE | 2017-03-03 15:58 | HHI.NSPN ---
(Rosa Vera) Note Status Status: Progress Note (Rosa Vera) Interval History Interval History Ms Tinajero is an 76 year old adult female who was brought to [facility] as a stroke alert with a severe intracerebral and intraventricular hemorrhage with mass effect and midline shift. She underwent placement of ventriculostomy drain on 01/27/17. She underwent a left parietooccipital craniotomy, evacuation of intracerebral hematoma on Jan 28, 2017. 01/29: intubated and sedated. EVD draining well bloody CSF. ICPs normal. f/u CT Head this morning with decreasing mass effect, less left to right midline shift which now measures 4.6 mm, with small amount hemorrhage remains evident in the ventricular system. 01/30: intubated and sedated. ventriculostomy draining well, ICPs within normal limits. 01/31: intubated, sedated. no eye opening. ventriculostomy draining well, ICPs remains wnl 02/03: EVD raised to 3 cm H20 over the weekend, ICPs stable. Intubated and off sedative drips, mildly opens eyes. 02/04: appears much more alert this morning, eyes wide open and tracking. EVD draining well. 02/05: tolerating CPAP, awake and tracking. CSF now simpson. EVD draining well. 02/17/17: neuro stable overnight, reports patient smiling. dc planning to rehab. 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 no significant neuro changes, remains in a minimal conscious state, not fully awake to protect her airway. 02/20/17: neuro checks stable overnight 02/23: happy with her progress, says she is slowly starting to attempt to communicate with family. 02/26: to IR today for PEG placement, daughter reports pt attempted to speak 02/28: reports she is more active at night, requesting daily therapy with PT, OT, and ST. no other acute events overnight. 03/03: [facility] physician evaluated for possible inpatient rehab - pleased. no acute changes over the weekend. tired from therapy session this morning. (Rosa Vera) Labs, Micro, & Vital Signs Results Date Time Temp Pulse Resp B/P (MAP) Pulse Ox O2 Delivery O2 Flow Rate FiO2 03/03/17 14:40 120 03/03/17 11:41 120 03/03/17 11:36 98.5 120 18 131/61 (84) 96 03/03/17 11:12 Room Air 03/03/17 07:57 99.1 122 18 126/60 (82) 95 03/03/17 05:10 97.3 114 21 110/65 (80) 95 03/03/17 00:00 98.1 100 19 115/60 (78) 99 03/02/17 21:45 98.9 117 21 113/58 (76) 99 03/02/17 16:00 98.7 114 18 112/60 (77) 96 03/04/17 07:00 Intake Total 400 ml Output Total 400 ml Balance 0 ml Constitutional Vital Signs Date Time Temp Pulse Resp B/P (MAP) Pulse Ox O2 Delivery O2 Flow Rate FiO2 03/03/17 14:40 120 03/03/17 11:41 120 03/03/17 11:36 98.5 120 18 131/61 (84) 96 03/03/17 11:12 Room Air 03/03/17 07:57 99.1 122 18 126/60 (82) 95 03/03/17 05:10 97.3 114 21 110/65 (80) 95 03/03/17 00:00 98.1 100 19 115/60 (78) 99 03/02/17 21:45 98.9 117 21 113/58 (76) 99 03/02/17 16:00 98.7 114 18 112/60 (77) 96 03/04/17 07:00 Intake Total 400 ml Output Total 400 ml Balance 0 ml (Rosa Vera) Physical Exam Eyes open, intermittently focuses and tracks. Resting comfortably in no apparent distress Right side neglect. Surgical incision healing well Motor: intermittently moves left upper extremity, otherwise not following for testing (Rosa Vera) Medical Decision Making MDM Remarks 76 year old female with large intraventricular hemorrhage s/p left parietooccipital craniotomy, evacuation of intracerebral hematoma 01/28 (Rosa Vera) Plan Plan Remarks cont with daily PT, OT, ST, rehab efforts medical management (Rosa Vera) Attending Statement The exam, history, and the medical decision-making described in the above note were completed with the assistance of the mid-level provider. I reviewed and agree with the findings presented. I attest that I had a [id number] encounter with the patient on the same day, and personally performed and documented my assessment and findings in the medical record. (Jack Bowden MD) Rosa Vera Mar 03, 2017 15:57 Jack Bowden MD Mar 05, 2017 17:42
--- NOTE | 2017-03-03 21:00 | HHI.PR ---
Subjective Allergies: Coded Allergies: Penicillins (Verified Allergy, Unknown, 02/08/17) patients spouse thinks she maybe allergic to Penicillin, but un sure. He will contact the patients Primary Care to clarify Exam I&O / VS 03/03/17 03/03/17 03/04/17 15:00 23:00 07:00 Intake Total 400 ml 550 ml Output Total 400 ml Balance 0 ml 550 ml Tube Feeding 550 ml Other 400 ml Output Urine Total 400 ml Vital Signs Date Time Temp Pulse Resp B/P (MAP) Pulse Ox O2 Delivery O2 Flow Rate FiO2 03/03/17 16:40 120 03/03/17 16:15 98.6 114 18 130/60 (83) 94 03/03/17 14:40 120 03/03/17 11:41 120 03/03/17 11:36 98.5 120 18 131/61 (84) 96 03/03/17 11:12 Room Air 03/03/17 07:57 99.1 122 18 126/60 (82) 95 03/03/17 05:10 97.3 114 21 110/65 (80) 95 03/03/17 00:00 98.1 100 19 115/60 (78) 99 03/02/17 21:45 98.9 117 21 113/58 (76) 99 General: No acute distress Respiratory: Lungs CTA, Non-labored respirations, BS equal Gastrointestinal: Positive Bowel Sounds, Non-Distended, Non-Tender, Other (PEG in place) Cardiovascular: Normal rate, No edema, Regular Rhythm Objective Micro and Labs Date/Time Source Procedure Growth Status 01/29/17 17:19 Blood Peripheral Aerobic Blood Culture - Final NO GROWTH IN 5 DAYS Complete 01/29/17 17:19 Blood Peripheral Anaerobic Blood Culture - Final NO GROWTH IN 5 DAYS Complete 01/27/17 17:00 Cerebral Spinal Fluid Shunt Fluid Gram Stain - Final Complete 01/27/17 17:00 Cerebral Spinal Fluid Shunt Fluid CSF Culture - Final NO GROWTH IN 72 HRS.--AEROBICALLY OR ... Complete 01/29/17 14:00 Sputum Endotracheal Gram Stain - Final Complete 01/29/17 14:00 Sputum Endotracheal Sputum Culture - Final LIGHT GROWTH NORMAL RESPIRATORY JAGRUTI Complete 01/29/17 14:00 Urine Catheterized Urine Urine Culture - Final NO GROWTH IN 48 HOURS. Complete Assessment and Plan Diagnosis: (1) Intracerebral hemorrhage with intraventricular extension Status: Acute (2) Acute encephalopathy ICD Codes: G93.40 - Encephalopathy, unspecified Status: Acute Assessment 1. Acute intraventricular hemorrhage/intracerebral hematoma with subfalcine herniation status post left parietal occipital craniotomy with evacuation of intracerebral hematoma with ventriculostomy placement 2. Impaired mobility and ADLs 3. Status post PEG 4. Encrusting the perianal denuded skin: Wound care following 5. Hypothyroidism 6. History of vertigo Plan 1. Patient currently dependent for transfers to stretcher chair but tolerating 2 -4 hours.No truck control with edge of bed sitting 2. NPO with tube feedings and ST addressing. 3. Following simple one step commands with ST 4. Tracking to left and then to midline. 5. Patient appears to be making progress with level of alertness and able to follow simple commands. Will discuss with case management and follow. Beatriz Tam MD Mar 03, 2017 20:59
[2017-03-04] VITALS (11 sets, daily range): BP systolic 104–126; BP diastolic 54–84; PULSE 100–118; RESP 18–20; TEMP 97.9–99.4; O2SAT 96–99
[2017-03-04] MEDS: CHLORHEXIDINE GLUCONATE 2 % 1 PACK (2 CLOTHS) TOP SCH ×2 (03:20→23:51)
[2017-03-04] MEDS: LEVOTHYROXINE SODIUM 50 MCG TAB OG-TUBE SCH (05:28)
[2017-03-04] MEDS: FREE WATER G-TUBE SCH ×3 (05:28→21:08)
[2017-03-04] MEDS: ARTIFICIAL TEARS OPTH SOLN 15 ML BTL EACH EYE SCH ×3 (05:29→21:09)
[2017-03-04] MEDS: INSULIN ASPART SUPPLEMENTAL SCALE SQ SCH ×4 (05:41→23:51)
[2017-03-04] MEDS: SODIUM CHLORIDE 0.9% FLUSH 10 ML FLUSH IV FLUSH SCH ×2 (08:28→21:07)
[2017-03-04] MEDS: DOCUSATE SODIUM 100 MG CAP PO SCH ×2 (08:28→21:00)
[2017-03-04] MEDS: levETIRAcetam 500 MG/5 ML UDC NG SCH (08:28)
[2017-03-04] MEDS: MODAFINIL 200 MG TAB PO SCH (08:28)
[2017-03-04] MEDS: FAMOTIDINE 20 MG TAB NG SCH ×2 (08:28→21:08)
--- NOTE | 2017-03-04 11:11 | PD.WOU.CON ---
Patient Intake Chief Complaint Moisture related buttock ulcer Consult Requested by Dr. Bowden Primary Care Physician Unknown Coded Allergies: Penicillins (Verified Allergy, Unknown, 02/08/17) patients spouse thinks she maybe allergic to Penicillin, but un sure. He will contact the patients Primary Care to clarify Vital Signs Date Time Temp Pulse Resp B/P (MAP) Pulse Ox O2 Delivery O2 Flow Rate FiO2 03/04/17 09:15 115 03/04/17 08:16 98.8 115 20 112/74 (87) 98 03/04/17 04:00 99.4 107 18 125/60 (81) 98 03/04/17 03:00 96 Room Air 03/04/17 00:15 100 03/04/17 00:00 98.6 107 18 106/68 (81) 99 03/03/17 20:30 99.6 105 18 124/58 (80) 94 03/03/17 16:40 120 03/03/17 16:15 98.6 114 18 130/60 (83) 94 03/03/17 14:40 120 03/03/17 11:41 120 03/03/17 11:36 98.5 120 18 131/61 (84) 96 03/03/17 11:12 Room Air Lab and Radiology Results Radiology Last Impressions Gastrostomy Tube Placement 02/26/17 0000 Signed Impressions: Service Date/Time: Sunday, February 26, 2017 15:12 - CONCLUSION: Uncomplicated gastrostomy tube placement as above. Migel Kapadia MD Chest X-Ray 02/24/17 0600 Signed Impressions: Service Date/Time: Friday, February 24, 2017 04:26 - CONCLUSION: 1. No acute cardiopulmonary disease. Howard Shane MD Abdomen X-Ray 02/13/17 0000 Signed Impressions: Service Date/Time: January 16:11 - CONCLUSION: Feeding tube in the distal stomach. Dino Tee MD Head CT 02/10/17 0900 Signed Impressions: Service Date/Time: Friday, February 10, 2017 09:23 - CONCLUSION: Interval improvement with less parenchymal hemorrhage, intraventricular blood. Ventricles are mildly prominent when compared to the previous study. Patricio Hardy MD FACR Neck CTA 01/28/17 1009 Signed Impressions: Service Date/Time: Saturday, January 28, 2017 10:27 - CONCLUSION: 1. No hemodynamically significant carotid artery stenosis identified. 2. Mild atherosclerotic plaquing at the bifurcation. 3. Both vertebral arteries are widely patent. Jac Hardy MD Head CTA 01/28/17 0000 Signed Impressions: Service Date/Time: Saturday, January 28, 2017 10:27 - CONCLUSION: 1. No evidence of vascular malformation or vasculopathy. 2. Subdural, intraparenchymal and intraventricular hemorrhage are again noted and not significantly changed since prior study. 3. Persistent left to right shift measuring between 8 and 9 mm; unchanged. Nick Barker MD Hari,Alexandra Hawthorne MD Mar 04, 2017 11:11
[2017-03-04] MEDS: ENOXAPARIN SODIUM 40 MG/0.4 ML SYRINGE SQ SCH (12:15)
[2017-03-04] MEDS: AMANTADINE HCL SOLN 100 MG/10 ML UDC PO SCH (12:15)
--- NOTE | 2017-03-04 12:16 | PD.WCN.NOT ---
Wound Consult Description: Received Vocera call from YURIY Aguero charge nurse on for wound to perianal area, is concerned that wound is not getting any better. Communicated with: YURIY Collazo mireille, and Doctor Marshall Recommendation: Please follow written orders by Doctor Olivares Do not apply briefs Additional Information: Patient seen on for follow up of perianal wound around 10 am. Patient has Two perineal wounds. Both wounds are moisture related and appear to be improving. Wound to R perineal area measures: 1.9cm x 2.2cm x ~<0.1cm . L perineal wound measures:3cm x 2cm x~<0.1cm. Wound beds present with 100% pink tissue with diffuse islands of epithelialization. Wound drainage is scant, sanguinous and without odor.. Periwound is slightly denuded, but intact. Patient was wearing a brief during assessment with stool present. Cleansed patient of stool and removed brief. Cleansed wounds with normal saline and pat dry. Applied Stoma powder and then sprayed with skin prep and repeated process to encrust. Spoke with patient's and nursing staff regarding wound status and recommendations. Cassie Simpson [facility] Mar 04, 2017 12:16
--- NOTE | 2017-03-04 12:37 | HHI.PR ---
Subjective Remarks Patient seen and examined in with at the bedside. She is able to track otherwise no significant neurological changes. Objective Vitals Vital Signs Date Time Temp Pulse Resp B/P (MAP) Pulse Ox O2 Delivery O2 Flow Rate FiO2 03/04/17 11:39 99.2 110 20 126/63 (84) 96 03/04/17 09:15 115 03/04/17 08:16 98 Room Air 03/04/17 08:16 98.8 115 20 112/74 (87) 98 03/04/17 04:00 99.4 107 18 125/60 (81) 98 03/04/17 03:00 96 Room Air 03/04/17 00:15 100 03/04/17 00:00 98.6 107 18 106/68 (81) 99 03/03/17 20:30 99.6 105 18 124/58 (80) 94 03/03/17 16:40 120 03/03/17 16:15 98.6 114 18 130/60 (83) 94 03/03/17 14:40 120 I/O 03/03/17 03/03/17 03/03/17 03/04/17 03/04/17 03/04/17 07:00 15:00 23:00 07:00 15:00 23:00 Intake Total 0 ml 400 ml 550 ml 786 ml Output Total 300 ml 400 ml 0 ml Balance -300 ml 0 ml 550 ml 786 ml Intake Oral 0 ml Tube Feeding 550 ml 786 ml Other 400 ml Output Urine Total 300 ml 400 ml Tube Feeding Residual Discard 0 ml # Bowel Movements 2 2 Imaging Last Impressions Gastrostomy Tube Placement 02/26/17 0000 Signed Impressions: Service Date/Time: Sunday, February 26, 2017 15:12 - CONCLUSION: Uncomplicated gastrostomy tube placement as above. Migel Kapadia MD Chest X-Ray 02/24/17 0600 Signed Impressions: Service Date/Time: Friday, February 24, 2017 04:26 - CONCLUSION: 1. No acute cardiopulmonary disease. Howard Shane MD Abdomen X-Ray 02/13/17 0000 Signed Impressions: Service Date/Time: January 16:11 - CONCLUSION: Feeding tube in the distal stomach. Dino Tee MD Head CT 02/10/17 0900 Signed Impressions: Service Date/Time: Friday, February 10, 2017 09:23 - CONCLUSION: Interval improvement with less parenchymal hemorrhage, intraventricular blood. Ventricles are mildly prominent when compared to the previous study. Patricio Hardy MD FACR Neck CTA 01/28/17 1009 Signed Impressions: Service Date/Time: Saturday, January 28, 2017 10:27 - CONCLUSION: 1. No hemodynamically significant carotid artery stenosis identified. 2. Mild atherosclerotic plaquing at the bifurcation. 3. Both vertebral arteries are widely patent. Jac Hardy MD Head CTA 01/28/17 0000 Signed Impressions: Service Date/Time: Saturday, January 28, 2017 10:27 - CONCLUSION: 1. No evidence of vascular malformation or vasculopathy. 2. Subdural, intraparenchymal and intraventricular hemorrhage are again noted and not significantly changed since prior study. 3. Persistent left to right shift measuring between 8 and 9 mm; unchanged. Nick Barker MD Objective Remarks GENERAL: No acute distress. Resting comfortably CARDIOVASCULAR: Normal rate and regular rhythm without murmurs, gallops, or rubs. RESPIRATORY: Breath sounds equal and clear to auscultation bilaterally. GASTROINTESTINAL: Abdomen soft, non-tender, non-distended. Normal active bowel sounds MUSCULOSKELETAL: Extremities without cyanosis, or edema. NEURO: Awake and alert. Able to track but does not follow commands or interact appropriately. PSYCH: Calm Procedures 01/27/17 right frontal alanna hole with placement of ventriculostomy catheter 01/28/17 left parieto-occipital craniotomy, evacuation of intracerebral hematoma , microsurgical dissection 02/05/17 orotracheal intubation A/P Problem List: (1) Intracerebral hemorrhage with intraventricular extension Status: Acute (2) Acute respiratory failure ICD Code: J96.00 - Acute respiratory failure, unspecified whether with hypoxia or hypercapnia (3) Acute encephalopathy ICD Code: G93.40 - Encephalopathy, unspecified Status: Acute (4) Hypertensive emergency ICD Code: I16.1 - Hypertensive emergency Status: Acute (5) Leukocytosis ICD Code: D72.829 - Elevated white blood cell count, unspecified Assessment and Plan 76 year old female with Extensive intraventricular hemorrhage, left parietal/occipital intraparenchymal hemorrhage, left subdural hemorrhage: Management per neurosurgery. Status post craniotomy with evacuation of hematoma on 01/28/17. Continue Keppra for seizure prophylaxis. Continue modafinil 100 mg daily. - Continue daily PT, OT, ST - Comprehensive rehab med eval per Dr. Tam. Encephalopathy: Secondary to above. Improving. Monitor. Continue PT/OT/ST. Respiratory failure: Patient was intubated for airway protection. She was extubated on 02/12/17. She is currently stable on room air. Hypertensive emergency: Resolved. Elevated transaminases: Monitor labs. FEN: PEG tube in place. Tolerating tube feeds. Normocytic anemia: Monitor labs. Stable. Hypothyroidism: Continue Synthroid. Wound care consult for buttock wounds GI prophylaxis: Famotidine. DVT prophylaxis: SCDs, Lovenox. Discharge Planning Continue rehabilitation efforts. Horacio campbell. Sherri Delacruz MD Mar 04, 2017 12:37
[2017-03-05] VITALS (9 sets, daily range): BP systolic 110–133; BP diastolic 57–75; PULSE 103–115; RESP 19–21; TEMP 98.5–99.2; O2SAT 94–100
[2017-03-05] MEDS: INSULIN ASPART SUPPLEMENTAL SCALE SQ SCH ×3 (06:00→17:10)
[2017-03-05] MEDS: FREE WATER G-TUBE SCH ×3 (06:25→21:07)
[2017-03-05] MEDS: LEVOTHYROXINE SODIUM 50 MCG TAB OG-TUBE SCH (06:25)
[2017-03-05] MEDS: AMANTADINE HCL SOLN 100 MG/10 ML UDC PO SCH ×2 (06:25→12:05)
[2017-03-05] MEDS: ARTIFICIAL TEARS OPTH SOLN 15 ML BTL EACH EYE SCH ×3 (06:26→21:08)
[2017-03-05] MEDS: SODIUM CHLORIDE 0.9% FLUSH 10 ML FLUSH IV FLUSH SCH ×2 (08:21→21:06)
[2017-03-05] MEDS: FAMOTIDINE 20 MG TAB NG SCH ×2 (08:21→21:05)
[2017-03-05] MEDS: DOCUSATE SODIUM 100 MG CAP PO SCH ×2 (08:21→21:06)
[2017-03-05] MEDS: ENOXAPARIN SODIUM 40 MG/0.4 ML SYRINGE SQ SCH (12:05)
--- NOTE | 2017-03-05 13:15 | HHI.PR ---
Subjective Remarks Patient seen and examined. Discussed with at bedside. He is very concerned about when the patient goes to [place]. He is under the impression Dr. Bowden does not want the patient to be moved to [place] yet. I'm unable to find official documentation to reflect this. No new neurological changes. Case management reports the patient has been accepted at [facility]. Objective Vitals Vital Signs Date Time Temp Pulse Resp B/P (MAP) Pulse Ox O2 Delivery O2 Flow Rate FiO2 03/05/17 09:25 112 03/05/17 08:41 99.2 111 20 127/62 (83) 94 03/05/17 08:40 94 Room Air 03/05/17 04:12 99.0 109 19 110/57 (74) 95 03/05/17 02:11 112 03/04/17 23:53 99.3 101 18 104/54 (71) 03/04/17 21:22 96 Room Air 03/04/17 20:00 98.8 118 20 120/60 (80) 96 03/04/17 16:47 118 03/04/17 16:00 97.9 112 20 122/84 (97) 96 03/04/17 13:42 109 I/O 03/04/17 03/04/17 03/04/17 03/05/17 03/05/17 03/05/17 07:00 15:00 23:00 07:00 15:00 23:00 Intake Total 786 ml 200 ml 559 ml Output Total 0 ml 0 ml Balance 786 ml 200 ml 559 ml Tube Feeding 786 ml 559 ml Tube Irrigant 200 ml Tube Feeding Residual Discard 0 ml 0 ml # Voids 1 # Bowel Movements 2 3 2 Objective Remarks GENERAL: No acute distress. Resting comfortably CARDIOVASCULAR: Normal rate and regular rhythm without murmurs, gallops, or rubs. RESPIRATORY: Breath sounds equal and clear to auscultation bilaterally. GASTROINTESTINAL: Abdomen soft, non-tender, non-distended. Normal active bowel sounds MUSCULOSKELETAL: Extremities without cyanosis, or edema. NEURO: Awake and alert. Able to track to the left but not to the right. She does not follow commands. PSYCH: Calm Procedures 01/27/17 right frontal alanna hole with placement of ventriculostomy catheter 01/28/17 left parieto-occipital craniotomy, evacuation of intracerebral hematoma , microsurgical dissection 02/05/17 orotracheal intubation A/P Problem List: (1) Intracerebral hemorrhage with intraventricular extension Status: Acute (2) Acute respiratory failure ICD Code: J96.00 - Acute respiratory failure, unspecified whether with hypoxia or hypercapnia (3) Acute encephalopathy ICD Code: G93.40 - Encephalopathy, unspecified Status: Acute (4) Hypertensive emergency ICD Code: I16.1 - Hypertensive emergency Status: Acute (5) Leukocytosis ICD Code: D72.829 - Elevated white blood cell count, unspecified Assessment and Plan 76 year old female with Extensive intraventricular hemorrhage, left parietal/occipital intraparenchymal hemorrhage, left subdural hemorrhage: Management per neurosurgery. Status post craniotomy with evacuation of hematoma on 01/28/17. Continue Keppra for seizure prophylaxis. Continue modafinil 100 mg daily. - Continue daily PT, OT, ST - Comprehensive rehab med eval per Dr. Tam. - Neurosurgery following. S/P Modafinil. Now on Amantadine. Will request further input from Neurosurgery regarding clearance for DC to rehab. - DW the patient's at bedside. Encephalopathy: Secondary to above. Improving. Monitor. Continue PT/OT/ST. Respiratory failure: Patient was intubated for airway protection. She was extubated on 02/12/17. She is currently stable on room air. Hypertensive emergency: Resolved. Elevated transaminases: Monitor labs. FEN: PEG tube in place. Tolerating tube feeds. Normocytic anemia: Monitor labs. Stable. Hypothyroidism: Continue Synthroid. Sacral wound: Wound care following GI prophylaxis: Famotidine. DVT prophylaxis: SCDs, Lovenox. Discharge Planning Patient accepted at [facility]. DC pending Neurosurgery clearance. Will discuss with Sherri Luo MD Mar 05, 2017 13:15
[2017-03-05] MEDS ORDERED: AMAN100UDC PO (13:21)
[2017-03-05] MEDS: RESP: ALBUTEROL 2.5 MG/3 ML NEB (PRN) INH (15:48)
[2017-03-05] MEDS: METOPROLOL TARTRATE 25 MG TAB PO SCH (21:06)
[2017-03-06] VITALS: BP 116/55; PULSE 99; RESP 17; TEMP 98.3; O2SAT 95
[2017-03-06] MEDS: INSULIN ASPART SUPPLEMENTAL SCALE SQ SCH ×2 (00:09→06:08)
[2017-03-06 00:15] VITALS: PULSE 100
[2017-03-06] MEDS: CHLORHEXIDINE GLUCONATE 2 % 1 PACK (2 CLOTHS) TOP SCH (03:27)
[2017-03-06 04:00] VITALS: BP 119/56; PULSE 111; RESP 18; TEMP 98.9; O2SAT 97
[2017-03-06 04:42] VITALS: PULSE 101
[2017-03-06] MEDS: LEVOTHYROXINE SODIUM 50 MCG TAB OG-TUBE SCH (06:07)
[2017-03-06] MEDS: FREE WATER G-TUBE SCH (06:08)
[2017-03-06] MEDS: AMANTADINE HCL SOLN 100 MG/10 ML UDC PO SCH (06:08)
[2017-03-06] MEDS: ARTIFICIAL TEARS OPTH SOLN 15 ML BTL EACH EYE SCH (06:08)
[2017-03-06 07:30] VITALS: PULSE 100
[2017-03-06 08:45] VITALS: BP 139/63; PULSE 104; RESP 18; TEMP 98.7; O2SAT 97
[2017-03-06] MEDS: METOPROLOL TARTRATE 25 MG TAB PO SCH (09:00)
[2017-03-06] MEDS: FAMOTIDINE 20 MG TAB NG SCH (09:07)
[2017-03-06] MEDS ORDERED: METO25TA3 PO (09:52)
--- NOTE | 2017-03-06 10:09 | HHI.DS ---
Discharge Summary Admission Date Jan 27, 2017 at 13:24 Discharge Date: Mar 06, 2017 Admitting Diagnosis intracranial bleed, hypertensive emergency, subfalcine herniation (1) Intracerebral hemorrhage with intraventricular extension Status: Acute (2) Acute respiratory failure ICD Code: J96.00 - Acute respiratory failure, unspecified whether with hypoxia or hypercapnia (3) Acute encephalopathy ICD Code: G93.40 - Encephalopathy, unspecified Status: Acute (4) Hypertensive emergency ICD Code: I16.1 - Hypertensive emergency Status: Acute (5) Leukocytosis ICD Code: D72.829 - Elevated white blood cell count, unspecified Procedures 01/27/17 right frontal alanna hole with placement of ventriculostomy catheter 01/28/17 left parieto-occipital craniotomy, evacuation of intracerebral hematoma , microsurgical dissection 02/05/17 orotracheal intubation Brief History - From Admission HPI from the admitting physician "Patient is a 76-year-old female who was brought to the [place] emergency department by EMS as a stroke alert. Last found normal at 11 this morning, later found unresponsive in the bed by her and EMS was called. EMS gave her Narcan IM without any response, blood glucose was 140, vital signs were apparently stable. In the ED patient remained poorly responsive and was intubated for airway protection. Her blood pressure on arrival was 243/129 and patient was started on Cardene infusion. CT of the head showed extensive acute intraventricular hemorrhage involving the left lateral ventricle, right lateral ventricle and third ventricle, acute intraparenchymal hemorrhage within the left parietal and left occipital region ( 4.1 cm in size). Acute subdural hematoma along the left frontoparietal region measuring 5 mm in width. There was also significant Significant (10 mm) subfalcine herniation to the right. Dr. Bowden was contacted by the ED Critical care medicine was requested to admit the patient. Patient was emergently moved to the ICU for EVD placement. I evaluated the patient immediately after arrival to the ICU. Patient purposefully moves left upper extremity and withdraws all other extremities. at the bedside was updated. I explained to the that she has very extensive intracranial hemorrhage and prognosis appears poor. Dr. Bowden is planning to place an EVD emergently. I discussed with Dr. Bowden extensively, patient is not a candidate for evacuation of intracerebral hemorrhage due to overall poor prognosis. I have placed a central line for administration of vasopressor agents and 3% saline. Patient remains on Cardene infusion and at this time receiving mannitol. I have also ordered Keppra for seizure prophylaxis" Imaging Last Impressions Gastrostomy Tube Placement 02/26/17 0000 Signed Impressions: Service Date/Time: Sunday, February 26, 2017 15:12 - CONCLUSION: Uncomplicated gastrostomy tube placement as above. Migel Kapadia MD Chest X-Ray 02/24/17 0600 Signed Impressions: Service Date/Time: Friday, February 24, 2017 04:26 - CONCLUSION: 1. No acute cardiopulmonary disease. Howard Shane MD Abdomen X-Ray 02/13/17 0000 Signed Impressions: Service Date/Time: January 16:11 - CONCLUSION: Feeding tube in the distal stomach. Dino Tee MD Head CT 02/10/17 0900 Signed Impressions: Service Date/Time: Friday, February 10, 2017 09:23 - CONCLUSION: Interval improvement with less parenchymal hemorrhage, intraventricular blood. Ventricles are mildly prominent when compared to the previous study. Patricio Hardy MD FACR Neck CTA 01/28/17 1009 Signed Impressions: Service Date/Time: Saturday, January 28, 2017 10:27 - CONCLUSION: 1. No hemodynamically significant carotid artery stenosis identified. 2. Mild atherosclerotic plaquing at the bifurcation. 3. Both vertebral arteries are widely patent. Jac Hardy MD Head CTA 01/28/17 0000 Signed Impressions: Service Date/Time: Saturday, January 28, 2017 10:27 - CONCLUSION: 1. No evidence of vascular malformation or vasculopathy. 2. Subdural, intraparenchymal and intraventricular hemorrhage are again noted and not significantly changed since prior study. 3. Persistent left to right shift measuring between 8 and 9 mm; unchanged. Nick Barker MD PE at Discharge GENERAL: No acute distress. Resting comfortably CARDIOVASCULAR: Normal rate and regular rhythm without murmurs, gallops, or rubs. RESPIRATORY: Breath sounds equal and clear to auscultation bilaterally. GASTROINTESTINAL: Abdomen soft, non-tender, non-distended. Normal active bowel sounds MUSCULOSKELETAL: Extremities without cyanosis, or edema. NEURO: Awake and alert. Able to track to the left but not to the right. She does not follow commands. PSYCH: Calm Pt update on day of discharge Patient seen and examined. DW at bedside. He is comfortable with discharge to [place] today. No new neurological changes. OT at bedside working on ROM. Hospital Course 76 year old female admitted with extensive intraventricular hemorrhage. Evaluation and treatment course detailed below: Extensive intraventricular hemorrhage, left parietal/occipital intraparenchymal hemorrhage, left subdural hemorrhage: Management per neurosurgery. Status post craniotomy with evacuation of hematoma on 01/28/17. Patient is on amantadine per neurosurgery. I discussed the case with Dr. Bowden yesterday. Patient still has significant cognitive and physical deficit. Patient is cleared for discharge to [facility] to continue rehabilitation efforts with PT, OT, and speech therapy. Respiratory failure: Patient was intubated for airway protection. She was extubated on 02/12/17. She is is stable on room air at the time of discharge. Hypertensive emergency: Probably related to CVA. Resolved. Patient remained normotensive. Sinus tachycardia: Probably neuro mediated from CVA. Low-dose beta cosmo. May need to be titrated upward. FEN: PEG tube in place. Tolerating tube feeds. Normocytic anemia: Monitor labs. Stable. Hypothyroidism: Continue Synthroid. Sacral wound: Wound care physician followed the patient. Continue wound care. GI prophylaxis: Famotidine. Discussed DC planning at length with the patient's at bedside. Pt Condition on Discharge: Good Discharge Disposition: Rehab Inpatient Discharge Time: > 30 minutes Discharge Instructions DIET: Follow Instructions for: On Tube Feeding Activities you can perform: Regular-No Restrictions New Medications: Amantadine Liq (Amantadine Liq) 50 Mg/5 Ml Soln 100 MG PO BID@07,12, #60 ML Metoprolol Tartrate (Metoprolol Tartrate) 25 Mg Tab 12.5 MG PO Q12HR, #60 TAB Continued Medications: Levothyroxine (Levothyroxine) 50 Mcg Tab 50 MCG PO DAILY for Thyroid, #30 TAB 0 Refills Sherri Delacruz MD Mar 06, 2017 10:09
[2017-03-06] MEDS ORDERED: FREE WATER G-TUBE SCH (14:00)
== END 2017-03-06 12:00 | DRG 23 ==
LOC: NEPE 12:26 → NEDA 13:24 → N03B 14:05 → N05A 02-25 16:10
PROVIDERS: ADMIT Family Medicine; ATTEND Family Medicine
PROC: 009630Z Drainage of Cerebral Ventricle with Drainage Device, Percutaneous Approach (ICD-10-PCS; principal; 2017-01-27)
PROC: 5A1955Z Respiratory Ventilation, Greater than 96 Consecutive Hours (ICD-10-PCS; 2017-01-27)
PROC: 0BH17EZ Insertion of Endotracheal Airway into Trachea, Via Natural or Artificial Opening (ICD-10-PCS; 2017-01-27)
PROC: 02HV33Z Insertion of Infusion Device into Superior Vena Cava, Percutaneous Approach (ICD-10-PCS; 2017-01-27)
PROC: 00C70ZZ Extirpation of Matter from Cerebral Hemisphere, Open Approach (ICD-10-PCS; 2017-01-28)
PROC: 30233N1 Transfusion of Nonautologous Red Blood Cells into Peripheral Vein, Percutaneous Approach (ICD-10-PCS; 2017-01-29)
PROC: 0BH17EZ Insertion of Endotracheal Airway into Trachea, Via Natural or Artificial Opening (ICD-10-PCS; 2017-02-05)
PROC: 5A1955Z Respiratory Ventilation, Greater than 96 Consecutive Hours (ICD-10-PCS; 2017-02-05)
PROC: 0DH63UZ Insertion of Feeding Device into Stomach, Percutaneous Approach (ICD-10-PCS; 2017-02-26)
DX: I61.5 Nontraumatic intracerebral hemorrhage, intraventricular (principal); G93.40 Encephalopathy, unspecified; J96.00 Acute respiratory failure, unspecified whether with hypoxia or hypercapnia; G93.5 Compression of brain; G93.6 Cerebral edema; I08.1 Rheumatic disorders of both mitral and tricuspid valves; E88.09 Other disorders of plasma-protein metabolism, not elsewhere classified; E87.0 Hyperosmolality and hypernatremia; I16.1 Hypertensive emergency; G81.91 Hemiplegia, unspecified affecting right dominant side; I61.1 Nontraumatic intracerebral hemorrhage in hemisphere, cortical; I62.00 Nontraumatic subdural hemorrhage, unspecified; D72.829 Elevated white blood cell count, unspecified; D64.9 Anemia, unspecified; R74.0 Nonspecific elevation of levels of transaminase and lactic acid dehydrogenase [LDH]; I10 Essential (primary) hypertension; E03.9 Hypothyroidism, unspecified; R19.7 Diarrhea, unspecified; L98.419 Non-pressure chronic ulcer of buttock with unspecified severity; Z90.710 Acquired absence of both cervix and uterus; Z87.891 Personal history of nicotine dependence; Z79.899 Other long term (current) drug therapy; T38.0X5A Adverse effect of glucocorticoids and synthetic analogues, initial encounter
CPT/HCPCS: 31500; 36430; 36556; 36600; 36620; 49440; 51702; 61210; 70450; 70496; 70498; 71010; 71045; 74000; 80048; 80053; 80307; 81001; 82140; 82310; 82435; 82550; 82552; 82565; 82805; 82945; 82947; 82948; 83036; 83735; 83880; 83930; 84100; 84132; 84145; 84157; 84295; 84443; 84484; 84520; 85007; 85014; 85018; 85025; 85027; 85610; 85730; 86850; 86900; 86901; 86920; 87040; 87070; 87086; 87205; 87511; 87641; 87798; 88304; 88307; 89051; 93005; 93306; 94002; 94003; 94640; 94664; 99152; 99153; C1713; C9113; J0330; J0360; J0690; J1100; J1580; J1650; J1815; J1885; J1940; J1953; J1956; J2150; J2250; J2270; J2310; J2370; J3010; J3370; J3480; J7030; J7040; J7050; J7120; J7613; P9016; Q9967

== ENCOUNTER 2017-05-26 12:28 | Day surgery (SDC) | payer MEDICARE ==
[~2017-05-26 12:28] MED LIST: ACET325T15 PO; ALPR.25 PO; AMAN100UDC PO; Albuterol-Ipratropium Neb NEB; BETH10 PEG; CLAR10TA7 PEG; DIFL200T PEG; ENOX40P SQ; FAMO20TA2 PEG; FLUT50SP NASAL; Free Water G-TUBE; HYDR-3516 PO; LACT PO; LEVO.05 PO; LEVO25SO NG; LEVO50TA4 PO; LINE150S NG; MACR100C2 PO; METO25TA3 PO; Nystatin Liq SWISH-SWAL; Nystatin Powder TOPICAL; ONDA4SOL PEG; POLY99.0 EACH EYE; SIME40S PEG; TERA1CAP3 PEG; WOUND CARE
[2017-05-26 13:12] VITALS: BP 122/68; PULSE 81; RESP 18; TEMP 98.5; O2SAT 99
== END 2017-05-26 13:25 | disposition home or self-care (01) ==
LOC: HROP 12:28 → HRIP 12:32 → HROP 13:25
PROVIDERS: ATTEND Neurological Surgery
DX: Z43.1 Encounter for attention to gastrostomy (principal)